=== PATIENT | male | born 1980 | race Caucasian/White ===

== ENCOUNTER → 2017-11-28 09:35 | Outpatient (CLI) | payer OTHER, SELFPAY ==
--- NOTE | 2017-11-28 09:42 | RAD_ITS ---
STUDY: X-RAY - THORACIC SPINE REASON FOR EXAM: Male, 37 years old. Several week history of back pain. No known injury. TECHNIQUE: 3 view(s) of the thoracic spine were obtained. COMPARISON: None. FINDINGS: Normal kyphosis of the thoracic spine. There is no substantial scoliosis. There is endplate spondylosis of the mid thoracic vertebrae. Mild disc space narrowing in the mid dorsal vertebrae. The soft tissue structures are unremarkable. RAD/Thoracic Spine 3 Views IMPRESSION: Degenerative changes. Electronically Signed: Wolfgang Slade MD at 15:38 EDT Tel [phone], Service support ,
== END ==
PROVIDERS: Family Provider Family Medicine; PCP Family Medicine; Visit Provider Family Medicine
DX: M47.894 Other spondylosis, thoracic region (principal); M48.04 Spinal stenosis, thoracic region
CPT/HCPCS: 72072

== ENCOUNTER 2018-01-15 09:30 | Outpatient (RCR) | payer OTHER, SELFPAY ==
--- NOTE | 2017-12-18 07:31 | HP.PTEVAL_ITS ---
Patient's Visit Information MC BACH is a 37 year old M referred to Physical Therapy by Erica Dia MD with a diagnosis of Thoracic spine pain. Date of Evaluation: 12/11/17 Physical Therapist: Tucker Degroot - Visit Plan Frequency: 2x /Week Duration: 4 Weeks Plan: Start with STM/modalities to L side of thoracic erector spinea, PAs grade III/IV to thoracic spine, thoracic ext progression. - Subjective Subjective: Pt. is here today for his initial evaluation with diagnosis of thoracic back pain. Pt. reports unknown mechanism of injury, but woke up and had increased pain. He reports a gradual onset. 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 Pt. denies N/T, no shortness of breath, but does report mild radiating symptoms to L side of thoracic cavity. He reports no pain with deep breathing. Pt. is able to sleep with mild symptoms. He reports increased pain with pressure to this region, with bending over and with lifting. He does have decreased symptoms while not working. Pt. is hopeful to reduce symptoms in order to get back to all recreational and work related activities without limitations. - Pain Thoracic spine Pain Intensity (Out of 10): 4 Pain Intensity Range: 1, 7 - Objective POSTURE: Rounded shoulders, protracted scapulea, increased thoracic kyphosis, FH. Pt. is able to improve with VCing, but has difficulty maintaining. PALPATION: Pt. has increased pain with spring testing to T3-T8 mild ( hypomobility noted), increased pain with palpation of L thoracic erector spinea , T5-T7 L ribs, L mid trap. NEUROLOGICAL: Pt has normal sensation throughout bilateral UE/LEs. Pt. has 2+ biceps, triceps, patellar and achilles DTR. Pt. has no upper limb tension noted. ROM: Pt. has full ROM of bilateral UEs. Pt. has full cervical spine ROM without increase in symptoms. THORACIC SPINE: Pt. has normal flexion, decreased min loss ext with increase in symptoms. Rotation/ Sb normal in thoracic spine. MMT: Pt. has 5/5 bilateral shoulder strength, pt. has 4+/5 L mid trap and rhomboid with increase in pain with testing. No pain or limitation with RUE testing. - Special Tests Thoracic Sitting: Flexion - Mechanical Response: No effect Thoracic Sitting: Flexion - Symptoms During Testing: No effect Thoracic Sitting: Flexion - Symptoms After Testing: No effect Thoracic Sitting: Extension - Mechanical Response: No effect Thoracic Sitting: Extension - Symptoms During Testing: Increases Thoracic Sitting: Extension - Symptoms After Testing: No worse Thoracic Sitting: Right rotation - Mechanical Response: No effect Thoracic Sitting: Right Rotation - Symptoms During Testing: No effect Thoracic Sitting: Right Rotation - Symptoms After Testing: No effect Thoracic Sitting: Left rotation - Mechanical Response: No effect Thoracic Sitting: Left Rotation - Symptoms During Testing: No effect Thoracic Sitting: Left Rotation - Symptoms After Testing: No effect Thoracic Lying: Prone Extension - Mechanical Response: No effect Thoracic Lying: Prone Extension - Symptoms During Testing: Increases Thoracic Lying: Prone Extension - Symptoms After Testing: No worse - Goals Goal 1:: Pt. to be I with HEP. Goal Time Frame: 4-6 Weeks Goal 2:: Pt. to have increased thoracic ext by 25% without increase in symptoms. Goal Time Frame: 4-6 Weeks Goal 3:: Pt. to maintain improved posture throughout therapy session indicating increased postural awareness. Goal Time Frame: 4-6 Weeks Goal 4:: Pt. to reports no pain with all work related activities. Goal Time Frame: 4-6 Weeks - Rehabilitation Potential Physical Therapy Diagnosis: Pt. has signs and symptoms consistent with L sided thoracic spine pain. Pt. has general flexed thoracic spine posture. Pt. has no radiating symptoms, but has increased pain with lifting and flexed posture. Pt. would benefit from PT to increase thoracic spine ext, posture strengthening, and pain control with tissue inhibition in order to get back to all work and recreational activities without limitations. Rehabilitation Potential: Good - Anticipated Interventions Patient/Client Instruction: Educate patient on: Condition, Plan of Care, Risk Factors, Benefits of Fitness Program For the Purpose of:: To foster healthy habits, To improve decision making, To facilitate caregiver knowledge, To improve self management, To prevent re-injury , To improve ability to perform tasks related to life management, To improve tolerance to ADL's Therapeutic Exercise to Include: Strength training, Power training, Endurance training, Flexibilty training, Passive ROM, Active ROM For the Purpose of:: To decrease pain, To increase ROM, To improve nutrient delivery to tissue, To increase oxygenation perfusion, To improve muscle performance and motor function, To improve ability to perform ADL's, To increase tolerance to activity/condition/position, To improve health of tissue, To decrease soft tissue restriction, To increase flexibility/ROM Manual Therapy Techniques to Include: Trigger point massage, Massage, Mobilization, Functional dry needling, Soft tissue mobilization For the Purpose of:: To decrease pain, To decrease swelling/inflammation, To increase ROM IF ES: Yes Thermo therapy (hot pack): Yes Ultrasound (thermal/non thermal): Yes For the Purpose of:: To decrease pain, To increase ROM, To improve nutrient delivery to tissue Thank you for the opportunity to evaluate your patient. For Medicare and Medicare HMO plans, please review the plan of care and approve it. It will need to be FAXED BACK to us at [phone] for Medicare purposes. Please let me know if there are questions or concerns regarding this plan of care. Physician Signature: Date:
--- NOTE | 2018-01-23 10:25 | HP.PTDCSUM_ITS ---
HP - PT D/C Summary It has been my pleasure to treat MC BACH under orders from Erica Dia MD, for the diagnosis of Thoracic spine pain for a total of 9 visit(s). Discharge Date: 01/15/18 Please see the following information for a summary of their discharge status. - Subjective Subjective: Pt. is here toady for his follow with supervising PT. Pt. reports overall no significant change with PT. He reports having 2-3 hours of relief with manipulation of this thoracic spine, but came back when he got back into job activities. - Pain Thoracic spine Pain Intensity (Out of 10): 3 - Overall Improvement % Improvement: 25 - Objective Objective/Function: ROM: lumbar spine- full motion no increase in symptoms. Thoracic spine: flexion min loss increase NW, ext min loss increase NW, SB NE, rotation min loss bilat increase NW bilaterally. MMT: PT. has full strength without increase in symptoms. POSTURE: Pt. continues to have increased thoracic kyphosis in sitting and standing. Pt. is able to improve, but has difficulty maintaining. I educated pt. on proper posture and exercises to increase mid thoracic strength to improve endurance with posture. Pt. reports understanding. Pt. continues to have increased hypomobility throughout thoracic spine with increased pain with spring testing at T4-T8, radiating bilaterally to scapular region. - Goals Goal 1:: Pt. to be I with HEP. Goal Progress: Goal Met Goal 2:: Pt. to have increased thoracic ext by 25% without increase in symptoms. Goal Progress: Progressing Goal 3:: Pt. to maintain improved posture throughout therapy session indicating increased postural awareness. Goal Progress: Progressing Goal 4:: Pt. to reports no pain with all work related activities. Goal Progress: Not Progressing - Plan Plan: Pt. to follow up with physician at this point in time, due to limited progress. Pt. did have mild relief and short lived with manipulation of thoracic spine. He has continued to poor posture and flexed positioning at work which is most likely leading to pain. He may benefit from further imaging to rule out discogenic pathology in thoracic spine. - D/C Information Discharge Comments: Pt. was treated for his thoracic spine pain. He was treated with modalities, repeated motions, strengthening, manual techniques with manipulaton with mild relief. He had some relief for ~2-3 hours with manipulaton , but not long lasting. He continues to have poos posture, marked through his thoracic spine. He has been edcuated on proper posture and is able to achieve, but has difficulty maintaining. He is to continue with HEP as given and follow up with physician to determine best course of action at this point in time. If there are questions or concerns regarding this patient's physical therapy, please feel free to call me at [phone]. Thank you for the referral of this patient. Sincerely, Tucker Degroot
== END 2018-01-15 19:00 | disposition home or self-care (01) ==
LOC: PT 09:30
PROVIDERS: Family Provider Family Medicine; PCP Family Medicine; Visit Provider Family Medicine
DX: M54.6 Pain in thoracic spine (principal)
CPT/HCPCS: 97014; 97035; 97110; 97140; 97161; 97530; G0283

== ENCOUNTER → 2018-01-22 16:52 | Outpatient (CLI) | payer OTHER, SELFPAY ==
--- NOTE | 2018-01-22 16:55 | RAD_ITS ---
STUDY: X-RAY CHEST REASON FOR EXAM: Male, 37 years old. Thoracic back pain. TECHNIQUE: PA and lateral views of the chest. COMPARISON: None. FINDINGS: The lungs are clear and expanded. There is no demonstrated pleural abnormality. Normal size heart. Normal mediastinum and rhianna. Normal visualized pulmonary arteries. Normal visualized aortic arch and descending thoracic aorta. There is endplate spondylosis of the mid thoracic vertebra. Normal visualized ribs, clavicles, and shoulders. There is no demonstrated abnormality of the visualized soft tissue structures of the upper abdomen. RAD/Chest PA and Lateral IMPRESSION: Degenerative changes. Electronically Signed: Zee Maurer MD at 8:51 EDT Tel , Service support ,
== END ==
PROVIDERS: Family Provider Family Medicine; PCP Family Medicine; Visit Provider Family Medicine
DX: M47.894 Other spondylosis, thoracic region (principal)
CPT/HCPCS: 71046

== ENCOUNTER → 2018-07-03 08:51 | Outpatient (CLI) | payer OTHER, SELFPAY ==
--- NOTE | 2018-07-03 08:55 | RAD_ITS ---
STUDY: X-RAY - UNILATERAL RIBS ( LEFT ) WITH CHEST REASON FOR EXAM: Male, 38 years old. 2 day history of left lateral rib pain following injury. TECHNIQUE - RIBS: 4 view(s) of the ribs. TECHNIQUE - CHEST: Single PA view of the chest. COMPARISON: None. FINDINGS - RIBS: Normal visualized ribs without a demonstrated fracture. FINDINGS - CHEST: The lungs are clear and expanded. There is no demonstrated pleural abnormality. Normal size heart. Normal mediastinum and rhianna. Normal visualized pulmonary arteries. Normal visualized aortic arch and descending thoracic aorta. Normal visualized thoracic spine. Normal visualized ribs, clavicles, and shoulders. There is no demonstrated abnormality of the visualized soft tissue structures of the upper abdomen. RAD/Ribs Uni Min 3V w/PA Chest IMPRESSION: RIBS: Normal x-ray examination of the ribs. CHEST: Normal x-ray examination of the chest. Electronically Signed: Wolfgang Slade MD at 9:27 EDT Tel [phone], Service support ,
== END ==
PROVIDERS: Family Provider Family Medicine; PCP Family Medicine; Referring Provider Physician Assistant; Visit Provider Physician Assistant
DX: R07.81 Pleurodynia (principal)
CPT/HCPCS: 71101

== ENCOUNTER → 2018-07-30 08:23 | Outpatient (CLI) | payer OTHER, SELFPAY ==
--- NOTE | 2018-08-09 08:43 | RAD_ITS ---
STUDY: X-RAY - RIGHT WRIST REASON FOR EXAM: Male, 38 years old. Soft tissue swelling following a fall. TECHNIQUE: 3 view(s) of the wrist were obtained. COMPARISON: None. FINDINGS: Normal visualized distal radius and ulna. Normal radiocarpal articulation. Normal distal radioulnar articulation. There is nondisplaced avulsion fracture of the triquetrum. Normal carpal articulations. Normal carpometacarpal articulation of the thumb. Normal second through fifth carpometacarpal articulations. Normal visualized metacarpal bones. The soft tissue structures are unremarkable. RAD/Wrist min 3 Views IMPRESSION: Nondisplaced avulsion fracture of the dorsal aspect of the triquetrum. Electronically Signed: Wolfgang Slade MD at 9:12 EST Tel [phone], Service support ,
--- OUTSIDE RECORDS SUMMARY | 2018-10-04 01:50 | XMS RPT_ITS ---
:1980 Author Organization OHIP Support Name Relationship Address Phone [employer] Unavailable [address] + [place] [address] SPARKLE BACHANDRA Unavailable [address] + [place] [address] + [place] [address] SPARKLE BACHANDRA Unavailable [address] + [place] [address] + [place] [address] SPARKLE BACHANDRA Unavailable [address] + [place] [address] + [place] [address] SPARKLE BACHANDRA Unavailable [address] + [place] [address] + [place] [address] SPARKLE BACHANDRA Unavailable [address] + [place] [address] + [place] [address] MIKALA NAA Unavailable [address] + [place] [address] [address] + [place] [address] SPARKLE BACHANDRA Unavailable [address] + [place] [address] + [place] [address] SPARKLE BACHANDRA Unavailable [address] + [place] [address] + [place] [address] MIKALA, NAA Unavailable [address] + [place] [address] + [place] [address] MIKALA, NAA Unavailable [address] + [place] [address] [address] + [place] [address] MIKALA, NAA Unavailable [address] + [place] [address] + [place] [address] MIKALA, NAA Unavailable [address] + [place] [address] Care Team Providers Name Role Phone Erica Dia Attending Unavailable Cobos, Dandre Primary Care Unavailable Erica Dia Attending Unavailable Cobos, Dandre Primary Care Unavailable Cobos, Dandre Attending Unavailable Coobs, Dandre Referring Unavailable Ocbos, Dandre Primary Care Unavailable Lew Vora Attending Unavailable Cobos, Dandre Referring Unavailable Lew Vora Attending Unavailable Lew Vora Referring Unavailable Cobos, Dandre Primary Care Unavailable Lew Vora Attending Unavailable Cobos, Dandre Referring Unavailable Lew Vora Attending Unavailable Cobos, Dandre Referring Unavailable Hernan Gomez Attending Unavailable Cobos, Dandre Referring Unavailable Hernan Gomez Attending Unavailable Jason, Hernan Referring Unavailable Cobos, Dandre Primary Care Unavailable Hernan Gomez Attending Unavailable Cobos, Dandre Referring Unavailable DamascusHernan yi Attending Unavailable Jason, Hernan Referring Unavailable Cobos, Dandre Primary Care Unavailable Abhishek Ocasio Attending Unavailable Cobos, Dandre Referring Unavailable PROBLEMS PROBLEMS DATE TYPE CONDITION / CODE ATTENDING STATUS SOURCE 08/09/2018 Unknown S69.91XA - Hernan Gomez Active [facility] injury of right Hospital wrist, hand and Repository finger(s), initial encounter / S69.91XA(ICD-10) 08/20/2018 Unknown M25.539 - Pain in Hernan Gomez Active [place] unspecified wrist Community / M25.539(ICD-10) Hospital Repository 08/16/2018 Unknown R07.81 - Lew Vora Active [place] Pleurodynia / Community R07.81(ICD-10) Hospital Repository 08/16/2018 Unknown S39.011A - Strain Lew Vora Active [place] of muscle, fascia Community and tendon of Hospital abdomen, initial Repository encounter / S39.011A(ICD-10) 01/25/2018 Unknown M54.6 - Pain in Erica Dia Active [place] thoracic spine / Community M54.6(ICD-10) Hospital Repository PROCEDURES PROCEDURES No Procedure Records FoundRESULTS RESULTS ORTHOPEDIC VISIT Observed: 08/15/2018 Status: F Source: [place] 12:16 [place] [facility] [place] [facility] [address] [place] [address] [address] [place] [address] OFFICE VISIT Date of Service: 08/13/18 MR#: [id number] Acct: [id number] Name: MC BACH Rep #: [id number] : 1980 Provider: TREVA Ocasio Age/Sex: 38/M [place] [facility] [place] Status: Signed Intake Intake Visit Reasons: RIGHT WRIST Is patient in pain?: Yes Allergies animal dander Allergy (Verified 08/13/18 13:18) Other oxycodone HCl [From Percocet] Allergy (Verified 08/13/18 13:18) Other tomato Allergy (Verified 08/13/18 13:18) Food Allergy hydrocodone bitartrate [From Vicodin] Adverse Reaction (Verified 08/13/18 13:18) Itching Medications esomeprazole magnesium 20 mg capsule,delayed release 20 mg PO DAILY 07/03/18 [History Confirmed 08/09/18] metformin 1,000 mg tablet 1,000 mg PO DAILY 07/03/18 [History Confirmed 08/09/18] sertraline 25 mg tablet 25 mg PO DAILY 07/03/18 [History Confirmed 08/09/18] PFSH Medical History Knee pain (Acute) Shoulder pain (Acute) neck/back pain (Acute) Surgical History History of carpal tunnel surgery (Acute) History of rotator cuff surgery (Acute) S/P vasectomy (Acute) planter facia release (Acute) Family History Mother Diabetes Social History Smoking Status: Never smoker alcohol intake: current alcohol intake frequency: a few times a month HPI RIGHT WRIST: Details: MC BACH is a 38 year old M here today for right wrist pain. Patient notes that he fell on ice this past Sunday. He landed on an outstretched arm. Patient notes that he went to Dr Gomez who ordered xrays. He was told that he has a wrist fracture. Patient had a wrap which he has been wearing at all times which is helpful. He states he had swelling which has decreased since his injury. Denies numbness, tingling or other associated symptoms. ROS Const Reports system reviewed and no additional complaints, except as docu Eyes Reports system reviewed and no additional complaints, except as docu ENT Reports system reviewed and no additional complaints, except as docu Card Reports system reviewed and no additional complaints, except as docu Resp Reports system reviewed and no additional complaints, except as docu GI Reports system reviewed and no additional complaints, except as docu Reports system reviewed and no additional complaints, except as docu Musc Reports joint pain, Reports joint swelling Skin/Breast Reports system reviewed and no additional complaints, except as docu Neuro Yes system reviewed and no additional complaints, except as docu Psych Reports system reviewed and no additional complaints, except as docu Endo Reports system reviewed and no additional complaints, except as docu Ortho Exam Right Wrist/Hand Skin/Wound: Yes Swelling, Yes Ecchymosis Contralateral Normal: Yes Right Wrist: Yes ROM-Pronation 0-80, ROM-Supination 0-90 and TTP Fracture site (Dorsal surface over the triquetrum); no ROM-Extension 0-60, ROM-Flexion 0- 80, Durken's Test or Snuffbox tenderness Motor: EPL: 5, FDP-2: 5, 1st Dorsal Interosseous: 5, APB: 5 Sensation: Radial: I, Ulnar: I, Median: I WRIST: Patient has some generalized swelling on the dorsal surface of the wrist with some mild ecchymosis noted as well. He has localized pain to the dorsal wrist over the carpal bones specifically over the triquetrum. He does have some stiffness and decreased range of motion due to swelling and discomfort. He has normal sensation throughout the hand and fingers. Left Wrist/Hand Skin/Wound: Yes Swelling, Yes Ecchymosis Assessment AND Plan Problems 1. Closed nondisplaced fracture of triquetrum of right wrist, initial encounter S62.114A Plan We reviewed the x-rays that were taken within the past week. X-rays show an evident cortical avulsion fracture of the dorsal triquetrum. We discussed the anatomy and physiology of the wrist as well as pathophysiology of such an injury. We discussed typically that these can be treated nonoperatively with this dorsal cortical avulsion at the same time always need to be careful of instability of the wrist. He does have some generalized swelling of the dorsal wrist with mild ecchymosis. There is tenderness to the site of the fracture. At this time we discussed the treatment options and patient agreed to go ahead and have a short arm cast applied to the wrist for 4-6 weeks. We will recheck the wrist and x-rays in 1 week. At the end of 4-6-week. We will get him out of plaster and start physical therapy. At that time we again will need to be careful and cautious with any type of wrist instability due to ligamentous attachment on the dorsal triquetrum. Patient can take anti-inflammatories as needed for pain and will need to try and elevate the wrist above the heart especially the first several days of being in the cast. He is to notify of any increasing pains underneath the cast and/or any numbness or tingling in the fingers. Can also monitor for any breakdown of skin on the distal or proximal portions of the cast. This note was generated with [employer] dictation software. It may contain incorrect words, spelling, and punctuation that were not noted in checking the note before signing. Plan Detail Follow Up 1 Week Coding Level of Care Code Off vis,est,level 3 Diagnoses Closed nondisplaced fracture of triquetrum of right wrist, initial encounter S62.114A Encounter type: initial encounter Fracture type: closed Fracture alignment: nondisplaced 08/15/18 1216 <Electronically signed by Abhishek TILLEY> Date Abhishek TILLEY Cosigner Signature: Date (if applicable) CC: SURGERY VISIT REPORT Observed: 08/09/2018 Status: F Source: [place] 9:19 AM [facility] [place] [facility] [address] [place] [address] OFFICE VISIT Date of Service: 08/09/18 MR#: [id number] Acct: [id number] Name: MC BACH Rep #: [id number] : 1980 Provider: Hernan Gomez MD Age/Sex: 38/M Location: [facility] Status: Signed Intake Intake Visit Reasons: F/U CT Results 08/05 Chief Complaint: left side pain Shearing Supervisor Required: No Is patient in pain?: No Allergies animal dander Allergy (Verified 08/09/18 08:05) Other oxycodone HCl [From Percocet] Allergy (Verified 08/09/18 08:05) Other tomato Allergy (Verified 08/09/18 08:05) Food Allergy hydrocodone bitartrate [From Vicodin] Adverse Reaction (Verified 08/09/18 08:05) Itching Medications esomeprazole magnesium 20 mg capsule,delayed release 20 mg PO DAILY 07/03/18 [History Confirmed 08/09/18] metformin 1,000 mg tablet 1,000 mg PO DAILY 07/03/18 [History Confirmed 08/09/18] sertraline 25 mg tablet 25 mg PO DAILY 07/03/18 [History Confirmed 08/09/18] [facility] Medical History Knee pain (Acute) Shoulder pain (Acute) neck/back pain (Acute) Surgical History History of carpal tunnel surgery (Acute) History of rotator cuff surgery (Acute) S/P vasectomy (Acute) planter facia release (Acute) Family History Mother Diabetes Social History Smoking Status: Never smoker alcohol intake: current alcohol intake frequency: a few times a month HPI HPI HPI: MC BACH is a 38 M who presents to the office today for reevaluation from a strain to his left rib cage. Patient underwent a CAT scan of his chest abdomen and pelvis. This was done for suffering an injury at work. CT scan of the abdomen revealed only a fatty liver otherwise was unremarkable for any acute pathology. The spleen was normal as was the gallbladder and biliary system in the pancreas. His kidneys look normal as well in addition the patient underwent a CAT scan of his chest this was viewed as an unremarkable contrast-enhanced CT scan of chest showing no signs of pulmonary infiltrates or pleural effusions no pulmonary nodules no pulmonary masses and no pneumothorax. Patient states he fell backwards today coming in to see me. He landed on his right wrist with it flexed. Patient states that it is tender to touch and he cannot dorsiflex or extend his wrist in any fashion. He has normal sensations to his fingers peer Exam Extrem Other: Patient's right wrist shows no obvious signs of deformity. It is tender to touch both on the anterior aspect and in the wrist component itself. He can extend his fingers slightly and he has normal sensation to his fingers. Assessment AND Plan Problems 1. Strain of abdominal wall, initial encounter S39.011A 2. Rib pain on left side R07.81 3. Acute pain of right wrist M25.531 Plan With regards to his discomfort on the left side this is always strain and there is no physical abnormalities that I can see on the CAT scan of both chest or abdomen. From my standpoint there is no surgical interventions that need to be done here and I am going to discharge him back to his primary care physician for further evaluation whether or not he can go back to work. With regards to his right wrist I am going to to obtain a 3 view x-ray and refer him to Dr. Berlin Alan his orthopedic doctor so that she can evaluate him for any further interventions that need to be performed. Orders Orders: Referrals: Coding Level of Care Code Off vis,est,level 2 Diagnoses Strain of abdominal wall, initial encounter S39.011A Encounter type: initial encounter Rib pain on left side R07.81 Acute pain of right wrist M25.531 Laterality: right 08/09/18 0919 <Electronically signed by Hernan Gomez MD> Date Hernan Gomez MD Cosigner Signature: Date (if applicable) CC: Maria Guadalupe Robles DO; Dandre Cobos MD WRIST MIN 3 VIEWS Observed: 08/09/2018 Status: F Source: [place] 8:26 AM [facility] REPOSITORY [facility] Imaging Services [address] [place] [address] Wrist min 3 Views MR#: [id number] Acct: [id number] Name: MC BACH Rep #: [id number] : 1980 M 38 From: Wolfgang Slade MD PCP: Dandre Cobos MD Status: PRE CLI Study: Wrist min 3 Views Date of Exam: 08/09/18 Exam# [id number] Ordering Dr: Hernan Gomez MD STUDY: X-RAY - RIGHT WRIST REASON FOR EXAM: Male, 38 years old. Soft tissue swelling following a fall. TECHNIQUE: 3 view(s) of the wrist were obtained. COMPARISON: None. FINDINGS: Normal visualized distal radius and ulna. Normal radiocarpal articulation. Normal distal radioulnar articulation. There is nondisplaced avulsion fracture of the triquetrum. Normal carpal articulations. Normal carpometacarpal articulation of the thumb. Normal second through fifth carpometacarpal articulations. Normal visualized metacarpal bones. The soft tissue structures are unremarkable. RAD/Wrist min 3 Views IMPRESSION: Nondisplaced avulsion fracture of the dorsal aspect of the triquetrum. Electronically Signed: Wolfgang Slade MD at 9:12 EST Tel [phone], Service support , CC: Hernan Gomez MD; Dandre Cobos MD Concrete Pourer: Signed ABDOMEN WITH IV Observed: 08/05/2018 Status: F Source: [place] CONTRAST 6:48 AM [facility] Imaging Services [address] [place] [address] Abdomen WITH IV Contrast MR#: [id number] Acct: [id number] Name: MC BACH Rep #: [id number] : 1980 M 38 From: Lew Batista MD PCP: Dandre Cobos MD Status: REG CLI Study: Abdomen WITH IV Contrast Date of Exam: 08/05/18 Exam# [id number] Ordering Dr: Hernan Gomez MD STUDY: CT ABDOMEN WITH CONTRAST REASON FOR EXAM: Male, 38 years old. Left-sided rib pain after lifting RADIATION DOSAGE (If Supplied By Facility): CTDIvol = ( 22.42 ) mGy, DLP = ( 1669.35 ) mGycm TECHNIQUE: Transaxial images were obtained post I.V. administration of 100 ml of Isovue 300 contrast, and without oral contrast. Sagittal and coronal images were reconstructed. Individualized dose optimization techniques were used for this CT. COMPARISON: None. FINDINGS: There is decreased attenuation of the liver consistent with steatosis. Normal gallbladder and extrahepatic biliary system. Normal spleen. Normal pancreas. Normal bilateral adrenal glands. Normal right kidney. Normal left kidney. Normal visualized stomach. Normal small intestine. Normal colon. The appendix is visualized and appears normal. Normal abdominal aorta. Normal inferior vena cava. Normal retroperitoneum. Normal abdominal wall. Normal osseous structures. CT/Abdomen WITH IV Contrast IMPRESSION: Fatty liver. Otherwise, unremarkable contrast enhanced CT of the abdomen. Electronically Signed: Lew Batista, at 19:06 EST Tel , Service support , CC: Hernan Gomez MD; Dandre Cobos MD Concrete Pourer: Signed CHEST WITH CONTRAST Observed: 08/05/2018 Status: F Source: [place] 6:48 AM [facility] REPOSITORY [facility] Imaging Services [address] [place] [address] Chest WITH Contrast MR#: [id number] Acct: [id number] Name: MC BACH Rep #: [id number] : 1980 M 38 From: Lew Batista MD PCP: Dandre Cobos MD Status: REG CLI Study: Chest WITH Contrast Date of Exam: 08/05/18 Exam# [id number] Ordering Dr: Hernan Gomez MD STUDY: CT CHEST WITH CONTRAST REASON FOR EXAM: Male, 38 years old. Left-sided rib pain after lifting RADIATION DOSAGE (If Supplied By Facility): CTDIvol = ( 22.42 ) mGy, DLP = ( 1669.35 ) mGycm TECHNIQUE: Transaxial imaging was performed following intravenous administration of 100 ml of Isovue 300 contrast material. Coronal and sagittal reformatted images were created. Individualized dose optimization techniques were used for this CT. COMPARISON: None FINDINGS: There are no pulmonary infiltrates or pleural effusions. There are no pulmonary nodules or masses. There is no pneumothorax. The heart and pericardium are within normal limits. There is no thoracic lymphadenopathy. There is no evidence of thoracic aortic aneurysm. The visualized osseous structures are intact. CT/Chest WITH Contrast IMPRESSION: Unremarkable contrast-enhanced CT of the chest. Electronically Signed: Lew Batista, at 19:09 EST Tel , Service support , CC: Hernan Gomez MD; Dandre Cobos MD Concrete Pourer: Signed SURGERY VISIT REPORT Observed: 07/23/2018 Status: F Source: [place] 9:23 AM [facility] [place] [facility] [address] [place] [address] OFFICE VISIT Date of Service: 07/23/18 MR#: [id number] Acct: [id number] Name: MC BACH Rep #: [id number] : 1980 Provider: Hernan Gomez MD Age/Sex: 38/M [place] [facility] Status: Signed Intake Vital Signs07/23/18 Height 5 ft 10 in 07/23/18 Weight: 318 lb Intake Visit Reasons: BWC - Lt Side Abdominal Strain Chief Complaint: left side pain Shearing Supervisor Required: No Is patient in pain?: Yes (left side) Pain scale (1-10): 6 Allergies animal dander Allergy (Verified 07/23/18 08:55) Other oxycodone HCl [From Percocet] Allergy (Verified 07/23/18 08:55) Other tomato Allergy (Verified 07/23/18 08:55) Food Allergy hydrocodone bitartrate [From Vicodin] Adverse Reaction (Verified 07/23/18 08:55) Itching Medications esomeprazole magnesium 20 mg capsule,delayed release 20 mg PO DAILY 07/03/18 [History Confirmed 07/23/18] metformin 1,000 mg tablet 1,000 mg PO DAILY 07/03/18 [History Confirmed 07/23/18] sertraline 25 mg tablet 25 mg PO DAILY 07/03/18 [History Confirmed 07/23/18] PFSH Medical History Knee pain (Acute) Shoulder pain (Acute) neck/back pain (Acute) Surgical History S/P vasectomy (Acute) History of carpal tunnel surgery (Acute) History of rotator cuff surgery (Acute) planter facia release (Acute) Family History Mother Diabetes Social History Smoking Status: Never smoker alcohol intake: current alcohol intake frequency: a few times a month HPI HPI HPI: MC BACH, is a 38 M who presents to the office today for initial evaluation left upper abdomen/left rib 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 Patient notes he had lifted a product bending laterally to his right to lift the product up onto his right shoulder, developing pain to his left abdomen in the anterior upper quadrant as well as the left lateral rib cage. He notes pain is aggravated to touch with deep inspiration, though noting no complaints of shortness of breath. He notes his symptoms are alleviated minimally with splinting/shallow breathing. He notes no changes in bowel or bladder function. He notes taking no [id number] products to assist with symptoms. He notes his symptoms have only progressively worsened since the date of the injury describing moderate severe aching pain to the same. Patient also states that he went to work on light duty however he ended up bending and twisting and reinjuring the area at a later date from his initial injury. He states that the pain really has not improved and just doing the normal activities of his work are very difficult at this time. He has not had any nausea or vomiting he has had no change in his bowel habits. ROS General General: No weight change, appetite, fatigue, colon cancer, breast cancer or weakness HEENT HEENT: No difficulty swallowing, eye injury, eye surgery, swollen glands or hoarseness Endo Endocrine: No thyroid disease, diabetes mellitus, thyroid cancer, Hair loss, heat intolerance or cold intolerance Skin Skin: No rash or changing moles Breast Breast: No left breast lump, right breast lump, nipple discharge, breast pain, abnormal mammogram, abnormal US or breast enlargement Musc Musculoskeletal: No back problems, arthritis, rheumatoid arthritis, gout or joint pain Cardio Cardiovascular: No murmur, pacemaker, heart disease, atrial fibrillation, high blood pressure, heart attack, heart stent, palpitations, shortness of breat with exertion or chest pain Psych Psychiatric: Yes depression and anxiety; no hearing voices Resp Respiratory: Yes sleep apnea, No shortness of breath, No cough, No COPD, No asthma, No emphysema, No wheezing Gastro Gastrointestinal: Yes abdominal pain, Yes acid reflux, No nausea or vomiting, No diarrhea, No constipation, No blood in stool, No hemorrhoids, No ulcers, No gallbladder problem, No black,tarry stools Aman Hematologic: No blood thinners, No blood disorders, No bleeding, No anemia, No blood clots Neuro Neurologic: Yes numbness, Yes tingling, No system reviewed and no additional complaints, except as docu, No as per HPI, No abnormal walking, No abnormal hearing, No abnormal movements, No abnormal speech, No behavioral changes, No burning sensations, No confusion, No seizure-like activity, No unsteadiness, No dizziness, No localized weakness, No frequent falls, No headache(s), No lack of coordination, No loss of vision, No memory loss, No other visual disturbances, No radiating pain, No restless legs, No sensory deficit, No fainting, No tremor(s), No weakness, No other Exam Const General: well developed, no acute distress, well hydrated Orientation: oriented to person, oriented to place, oriented to time Eyes Sclera: sclerae normal Pupils: normal by confrontation Neck Neck: no lymphadenopathy noted Neck mass: No Thyroid: symmetrical, thyroid normal Chest Chest palpation AND inspection: normal inspection of the chest Breast Palpation: No nipple discharge Other: Patient's chest shows no signs of rash no signs of irritation there is no bulges palpated his tenderness is along the costal margin of his ribs as well. I can feel no bowling up of muscle but this is difficult secondary to his obesity. Resp Effort AND Inspection: normal respiratory effort Auscultation: clear to auscultation bilaterally Percussion: percussion normal Cardio Rate: regular rate Rhythm: regular rhythm Heart Sounds: no murmurs GI Palpation: soft, no masses, no hepatosplenomegaly, nontender Rectal Exam: other Other: Rectal exam deferred. Abdomen shows no signs of rebound guarding or peritoneal sign. He does have tenderness along the left costal margin this tenderness is also along the left flank. Extrem General: no clubbing, cyanosis or edema, normal to inspection Assessment AND Plan Problems 1. Rib pain on left side R07.81 2. Strain of abdominal wall, initial encounter S39.011A Plan At this point I think it is important that we get a CAT scan of the chest and abdomen. I want to make absolutely certain that he has not detached any of his oblique muscles off of their origin. Due to his obesity is really difficult to ascertain if these muscles have been torn to any certain degree. Habits he does not have any abdominal hernias and as long as the CAT scans are essentially negative with regards to any muscle injuries I would assume that his pain is going to subside with time. If the CAT scan is negative we will be discharging him back to urgent care for further workup of his Worker's Compensation case. Orders Orders: Coding Level of Care Code Off vis,new,level 4 Diagnoses Rib pain on left side R07.81 Strain of abdominal wall, initial encounter S39.011A Encounter type: initial encounter 07/23/18 0923 <Electronically signed by Hernan Gomez MD> Date Hernan Gomez MD Cosigner Signature: Date (if applicable) CC: Dandre Cobos MD; Lew TILLEY URGENT CARE VISIT Observed: 07/17/2018 Status: F Source: [place] RE[place] 2:27 PM [facility] [address] [place] [address] OFFICE VISIT Date of Service: 07/17/18 MR#: [id number] Acct: [id number] Name: MC BACH Shaye Rep #: [id number] : 1980 Provider: Lew TILLEY Age/Sex: 38/M Location[place] [facility] Status: Signed Intake Vital Signs07/17/18 Height 5 ft 10 in Intake Visit Reasons: LEFT SIDE ABD STRAIN/ BEST BUY Chief Complaint: left side pain Allergies animal dander Allergy (Verified 07/17/18 07:55) Other oxycodone HCl [From Percocet] Allergy (Verified 07/17/18 07:55) Other tomato Allergy (Verified 07/17/18 07:55) Food Allergy hydrocodone bitartrate [From Vicodin] Adverse Reaction (Verified 07/17/18 07:55) Itching Medications esomeprazole magnesium 20 mg capsule,delayed release 20 mg PO DAILY 07/03/18 [History Confirmed 07/17/18] metformin 1,000 mg tablet 1,000 mg PO DAILY 07/03/18 [History Confirmed 07/17/18] sertraline 25 mg tablet 25 mg PO DAILY 07/03/18 [History Confirmed 07/17/18] [facility] Medical History Knee pain (Acute) Shoulder pain (Acute) neck/back pain (Acute) planter facia release (Acute) Surgical History History of carpal tunnel surgery (Acute) History of rotator cuff surgery (Acute) Social History Smoking Status: Never smoker alcohol intake: current alcohol intake frequency: a few times a month HPI HPI Chief Complaint: left side pain Details: MC BACH, is a 38 M who presents to the office today for follow-up status post left lower rib cage/left upper abdominal discomfort. Patient notes since last evaluation here he has not received notification that his general surgeon referral has been approved. He notes he has been working within the light duty restrictions as previously established last evaluation. He notes tolerating food and fluids well without complaints of nausea vomiting, and no changes in bowel or bladder function. He notes pain is aggravated to touch and with range of motion at the waist typically with flexion extension and left lateral bend. He notes no other associated symptoms no other alleviating factors. ROS Const Constitutional: No other (ROS negative x10 other than as noted above) Exam Const General: cooperative, healthy appearing, no acute distress, comfortable Nutritional Appearance: obese Orientation: alert, awake, oriented x3 HENMT Head: normal to inspection Ears: hearing grossly normal bilaterally, external ears normal Nose: external nose normal Eyes General: appearance normal, both eyes and all related structures Neck Neck: normal visual inspection Chest Chest palpation AND inspection: normal inspection of the chest, abnormal palpation of chest wall (Tender to palpation left lateral rib cage) Resp Effort AND Inspection: normal respiratory effort, able to speak in complete sentences, symmetric chest movement, no cough Auscultation: Bilateral: Clear to Auscultation Cardio Palpation: normal PMI Rate: regular rate Rhythm: regular rhythm Heart Sounds: S1 normal, S2 normal, no gallops, no murmurs, no rubs Pulses: radial pulses present GI Inspection: normal to inspection Palpation: soft, no hepatosplenomegaly, not firm, no guarding, tender in the LUQ; Negative for not in the RUQ, not in the RLQ, not in the LLQ, not at McBurney's point, Miranda's sign negative or with no rebound tenderness Skin General: no rashes or lesions noted Neuro General: alert, awake, oriented x3, gait normal Cognition: normal cognition Speech: speech normal Gait: normal gait Motor: muscle tone normal throughout Sensory Exam: no sensory deficits noted Psych Appearance: grossly normal Mental Status: mental status grossly normal Mood: congruent mood Affect: normal affect Speech and Movement: speech and movement normal Attitude: cooperative Thought Process: normal Thought Content: normal Judgment: judgment good Assessment AND Plan Problems 1. Rib pain on left side R07.81 2. Strain of abdominal wall S39.011A Plan No change in return to work restrictions as noted on revised [employer] today. Awaiting C9 approval for general surgeon referral as requested on 07/10/2018. Rest, Advil/Tylenol as needed for symptomatic relief. Follow-up with [facility] in 1 week or after general surgeon evaluation, sooner should symptoms worsen or any other concerns develop. Patient states acknowledging understanding all the above. This note was generated with Offerpopation software. It may contain incorrect words, spelling, and punctuation that were not noted in checking the note before signing. Coding Level of Care Code Off vis,est,level 3 Diagnoses Rib pain on left side R07.81 Strain of abdominal wall S39.011A 07/17/18 1427 <Electronically signed by Lew TILLEY> Date Lew TILLEY [facility] Signature: Date (if applicable) CC: URGENT CARE VISIT Observed: 07/10/2018 Status: F Source: [place] RE[place] 3:40 PM [facility] [address] [place] [address] OFFICE VISIT Date of Service: 07/10/18 MR#: [id number] Acct: [id number] Name: MC BACH Rep #: [id number] : 1980 Provider: Lew TILLEY Age/Sex: 38/M Location[place] [facility] Status: Signed with Addenda ADDENDUM by Lew TILLEY on 07/10/18 at 1540 Addendum entered and electronically signed by TREVA Magallanes 07/10/18 15:40: I have revised patient's return to work restrictions on the [employer] 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 Patient and Employer POC were both informed. HPI Details: MC BACH, is a 38 M who presents to the office today for Assessment AND Plan Problems 1. Strain of abdominal wall S39.011A 2. Rib pain on left side R07.81 Plan - TREVA Magallanes No work until evaluated by general surgeon. C9 submitted today for general surgeon referral. Follow-up with the [facility] in 1 week for reevaluation, emergency room sooner should symptoms worsen or other concerns develop. Patient states acknowledging understanding all the above. This note was generated with Offerpopation software. It may contain incorrect words, spelling, and punctuation that were not noted in checking the note before signing. 07/10/18 1540 <Electronically signed by Lew TILLEY> Date Lew Vora cc: * Signed Intake Vital Signs07/10/18 Height 5 ft 10 in 07/10/18 Weight: 318 lb 07/10/18 Body Mass Index (BMI) 45.6 07/10/18 Blood Pressure 138/84 H 07/10/18 Respiratory Rate 16 Intake Visit Reasons: LEFT SIDE STRAIN/ BEST BUY Chief Complaint: left side pain Shearing Supervisor Required: No Accompanied by: self Is patient in pain?: Yes Allergies animal dander Allergy (Verified 07/10/18 07:10) Other oxycodone HCl [From Percocet] Allergy (Verified 07/10/18 07:10) Other tomato Allergy (Verified 07/10/18 07:10) Food Allergy hydrocodone bitartrate [From Vicodin] Adverse Reaction (Verified 07/10/18 07:10) Itching Medications esomeprazole magnesium 20 mg capsule,delayed release 20 mg PO DAILY 07/03/18 [History Confirmed 07/10/18] metformin 1,000 mg tablet 1,000 mg PO DAILY 07/03/18 [History Confirmed 07/10/18] sertraline 25 mg tablet 25 mg PO DAILY 07/03/18 [History Confirmed 07/10/18] [facility] Medical History Knee pain (Acute) Shoulder pain (Acute) neck/back pain (Acute) planter facia release (Acute) Surgical History History of carpal tunnel surgery (Acute) History of rotator cuff surgery (Acute) Social History Smoking Status: Never smoker alcohol intake: current alcohol intake frequency: a few times a month HPI HPI Chief Complaint: left side pain Details: MC BACH, is a 38 M who presents to the office today for persistent left lower rib cage in the left upper quadrant abdominal discomfort. Patient notes since his last evaluation here he was asked by his employer to lift a heavy product once again which was outside of his work restrictions, and noticed his symptoms to the same region only worsened. He notes no changes in bowel or bladder function though does note after eating it becomes particularly more tender in the same region. He notes his pain is aggravated to touch and with bearing down he notes no other associated symptoms including no complaints of fever, chills, sweats. He notes no other alleviating factors with the exception of rest and mild flexion of the waist. ROS Const Constitutional: No other (ROS negative x10 other than as noted above) Exam Const General: cooperative, healthy appearing, no acute distress, uncomfortable Nutritional Appearance: average body habitus Orientation: alert, awake, oriented x3 HENMT Head: normal to inspection Neck Neck: normal visual inspection, full ROM Lymphatic: no lymphadenopathy noted Chest Chest palpation AND inspection: normal inspection of the chest, abnormal palpation of chest wall (tender to palpation L lateral distal rib cage) Resp Effort AND Inspection: normal respiratory effort, able to speak in complete sentences, symmetric chest movement, no cough Auscultation: Bilateral: Clear to Auscultation Cardio Palpation: normal PMI Rate: regular rate Rhythm: regular rhythm Heart Sounds: S1 normal, S2 normal, no gallops, no murmurs, no rubs Pulses: radial pulses present GI Inspection: normal to inspection Palpation: soft, no hepatosplenomegaly, not firm, no hernias, no masses, No ascites, tender in the LUQ; Negative for not in the LLQ, not in the RLQ, not in the RUQ, not at McBurney's point, Miranda's sign negative, with no rebound tenderness or not periumbilically Skin General: no rashes or lesions noted Neuro General: alert, awake, oriented x3, gait normal Cognition: normal cognition Speech: speech normal Gait: normal gait Motor: muscle tone normal throughout Sensory Exam: no sensory deficits noted Extrem General: normal to inspection Psych Appearance: grossly normal Mental Status: mental status grossly normal Mood: congruent mood Affect: normal affect Speech and Movement: speech and movement normal Attitude: cooperative Thought Process: normal Thought Content: normal Judgment: judgment good Assessment AND Plan Problems 1. Strain of abdominal wall S39.011A 2. Rib pain on left side R07.81 Plan No work until evaluated by general surgeon. C9 submitted today for general surgeon referral. [facility], emergency room sooner should symptoms worsen or other concerns develop. Patient states acknowledging understanding all the above. This note was generated with [employer] dictation software. It may contain incorrect words, spelling, and punctuation that were not noted in checking the note before signing. Coding Level of Care Code Off vis,est,level 3 Diagnoses Strain of abdominal wall S39.011A Rib pain on left side R07.81 07/10/18 0812 <Electronically signed by Lew TILLEY> Date Lew TILLEY Cosigner Signature: Date (if applicable) CC: URGENT CARE VISIT Observed: 2018 Status: F Source: [place] REPORT 9:34 AM [facility] [address] [address] OFFICE VISIT Date of Service: 07/03/18 MR#: [id number] Acct: [id number] Name: MC BACH Rep #: [id number] : 1980 Provider: Lew TILLEY Age/Sex: 38/M Location[place] [facility] Status: Signed Intake Vital Signs07/03/18 Height 5 ft 10 in 07/03/18 Weight: 318 lb 07/03/18 Body Mass Index (BMI) 45.6 07/03/18 Blood Pressure 134/86 H Intake Visit Reasons: LEFT SIDE STRAIN/ BEST BUY Chief Complaint: Left upper abdomen/left rib pain Shearing Supervisor Required: No Accompanied by: self Is patient in pain?: Yes Allergies animal dander Allergy (Verified 07/03/18 07:39) Other oxycodone HCl [From Percocet] Allergy (Verified 07/03/18 07:39) Other tomato Allergy (Verified 07/03/18 07:39) Food Allergy hydrocodone bitartrate [From Vicodin] Adverse Reaction (Verified 07/03/18 07:39) Itching Medications esomeprazole magnesium 20 mg capsule,delayed release 20 mg PO DAILY 07/03/18 [History Confirmed 07/03/18] metformin 1,000 mg tablet 1,000 mg PO DAILY 07/03/18 [History Confirmed 07/03/18] sertraline 25 mg tablet 25 mg PO DAILY 07/03/18 [History Confirmed 07/03/18] [facility] Medical History Knee pain (Acute) Shoulder pain (Acute) neck/back pain (Acute) planter facia release (Acute) Surgical History History of carpal tunnel surgery (Acute) History of rotator cuff surgery (Acute) Social History Smoking Status: Never smoker alcohol intake: current alcohol intake frequency: a few times a month HPI HPI Chief Complaint: Left upper abdomen/left rib pain Details: MC BACH, is a 38 M who presents to the office today for initial evaluation left upper abdomen/left rib 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 Patient notes he had lifted a product bending laterally to his right to lift the product up onto his right shoulder, developing pain to his left abdomen in the anterior upper quadrant as well as the left lateral rib cage. He notes pain is aggravated to touch with deep inspiration, though noting no complaints of shortness of breath. He notes his symptoms are alleviated minimally with splinting/shallow breathing. He notes no changes in bowel or bladder function. He notes taking no [id number] products to assist with symptoms. He notes his symptoms have only progressively worsened since the date of the injury describing moderate severe aching pain to the same. He notes no other associated symptoms and no other alleviating or aggravating factors. ROS Const Constitutional: No other (ROS negative x10 other than as noted above.) Exam Const General: cooperative, healthy appearing, no acute distress, uncomfortable Nutritional Appearance: average body habitus Orientation: alert, awake, oriented x3 HENMT Head: normal to inspection Ears: hearing grossly normal bilaterally, external ears normal Nose: external nose normal Neck Neck: normal visual inspection, full ROM Chest Chest palpation AND inspection: normal inspection of the chest, abnormal palpation of chest wall (With left lateral rib cage point tenderness to palpation), abnormal inspection of the chest, other (Left ribs/chest x-rays today = NAP, pending radiologist interpretation) Resp Effort AND Inspection: normal respiratory effort, able to speak in complete sentences, symmetric chest movement Auscultation: Bilateral: Clear to Auscultation Cardio Palpation: normal PMI Rate: regular rate Rhythm: regular rhythm Heart Sounds: S1 normal, S2 normal, no gallops, no murmurs, no rubs Pulses: radial pulses present GI Inspection: normal to inspection Palpation: soft, no hepatosplenomegaly, tender in the LUQ; Negative for not in the RUQ, not in the RLQ, not in the LLQ, not at McBurney's point, Miranda's sign negative, with no rebound tenderness, not suprapubicly, not periumbilically or not in the epigastrum, not firm, no guarding, no pulsatile masses, No ascites, no hernias, no masses Musc Cervical Spine: normal cervical lordosis and cervical ROM normal Thoracic/Lumbar Spine: thoracic and lumbar spine normal to inspection, thoraco-lumbar ROM normal Skin General: no rashes or lesions noted Neuro General: alert, awake, oriented x3, gait normal Cognition: normal cognition Speech: speech normal Gait: normal gait Motor: muscle tone normal throughout Sensory Exam: no sensory deficits noted Psych Appearance: grossly normal Mental Status: mental status grossly normal Mood: congruent mood Affect: normal affect Speech and Movement: speech and movement normal Attitude: cooperative Thought Process: normal Thought Content: normal Judgment: judgment good Assessment AND Plan Problems 1. Strain of abdominal wall S39.011A 2. Rib pain on left side R07.81 Plan Reviewed w/ patient today's Left ribs/chest x-rays = NAP, pending radiologist interpretation; patient states acknowledging understanding. Return to work with restrictions as noted on [employer]. Rest, ice applications, Advil/Tylenol as needed for symptomatic relief. Follow-up with the [facility] in 1 week for reevaluation, sooner should symptoms worsen or any other concerns develop. Patient states acknowledging understanding all the above. This note was generated with Offerpopation software. It may contain incorrect words, spelling, and punctuation that were not noted in checking the note before signing. Orders Orders: Coding Level of Care Code Off vis,new,level 4 Diagnoses Strain of abdominal wall S39.011A Rib pain on left side R07.81 07/03/18 0934 <Electronically signed by Lew TILLEY> Date Lew TILLEY Cosigner Signature: Date (if applicable) CC: RIBS UNI MIN 3V Observed: 2018 Status: F Source: [place] W/PA CHEST 8:55 AM [facility] Imaging Services [address] [place] [address] Ribs Uni Min 3V w/PA Chest MR#: [id number] Acct: [id number] Name: MC BACH Rep #: [id number] : 1980 M 38 From: Wolfgang Slade MD PCP: Dandre Cobos MD Status: REG CLI Study: Ribs Uni Min 3V w/PA Chest Date of Exam: 07/03/18 Exam# [id number] Ordering Dr: Lew Vora STUDY: X-RAY - UNILATERAL RIBS ( LEFT ) WITH CHEST REASON FOR EXAM: Male, 38 years old. 2 day history of left lateral rib pain following injury. TECHNIQUE - RIBS: 4 view(s) of the ribs. TECHNIQUE - CHEST: Single PA view of the chest. COMPARISON: None. FINDINGS - RIBS: Normal visualized ribs without a demonstrated fracture. FINDINGS - CHEST: The lungs are clear and expanded. There is no demonstrated pleural abnormality. Normal size heart. Normal mediastinum and rhianna. Normal visualized pulmonary arteries. Normal visualized aortic arch and descending thoracic aorta. Normal visualized thoracic spine. Normal visualized ribs, clavicles, and shoulders. There is no demonstrated abnormality of the visualized soft tissue structures of the upper abdomen. RAD/Ribs Uni Min 3V w/PA Chest IMPRESSION: RIBS: Normal x-ray examination of the ribs. CHEST: Normal x-ray examination of the chest. Electronically Signed: Wolfgang Slade MD at 9:27 EDT Tel [phone], Service support , CC: Dandre Cobos MD; Lew TILLEY Concrete Pourer: Signed PT D/C SUMMARY (1) Observed: 01/23/2018 Status: F Source: [place] 10:25 AM [facility] [address] [place] [address] [address] [place], [place] [id number] Fax REHABILITATION SERVICES DISCHARGE SUMMARY MR#: [id number] Acct: [id number] Name: MC BACH Rep #: [id number] : 1980 37 From: Tucker Degroot DPT Referring Dr.: Erica Dia MD Status: REG RCR Insurance: [facility] [id number] SELF PAY INSURANCE HP - PT D/C Summary It has been my pleasure to treat MC BACH under orders from Erica Dia MD, for the diagnosis of Thoracic spine pain for a total of 9 visit(s). Discharge Date: 01/15/18 Please see the following information for a summary of their discharge status. - Subjective Subjective: Pt. is here toady for his follow with supervising PT. Pt. reports overall no significant change with PT. He reports having 2-3 hours of relief with manipulation of this thoracic spine, but came back when he got back into job activities. - Pain Thoracic spine Pain Intensity (Out of 10): 3 - Overall Improvement % Improvement: 25 - Objective Objective/Function: ROM: lumbar spine- full motion no increase in symptoms. Thoracic spine: flexion min loss increase NW, ext min loss increase NW, SB NE, rotation min loss bilat increase NW bilaterally. MMT: PT. has full strength without increase in symptoms. POSTURE: Pt. continues to have increased thoracic kyphosis in sitting and standing. Pt. is able to improve, but has difficulty maintaining. I educated pt. on proper posture and exercises to increase mid thoracic strength to improve endurance with posture. Pt. reports understanding. Pt. continues to have increased hypomobility throughout thoracic spine with increased pain with spring testing at T4-T8, radiating bilaterally to scapular region. - Goals Goal 1:: Pt. to be I with HEP. Goal Progress: Goal Met Goal 2:: Pt. to have increased thoracic ext by 25% without increase in symptoms. Goal Progress: Progressing Goal 3:: Pt. to maintain improved posture throughout therapy session indicating increased postural awareness. Goal Progress: Progressing Goal 4:: Pt. to reports no pain with all work related activities. Goal Progress: Not Progressing - Plan Plan: Pt. to follow up with physician at this point in time, due to limited progress. Pt. did have mild relief and short lived with manipulation of thoracic spine. He has continued to poor posture and flexed positioning at work which is most likely leading to pain. He may benefit from further imaging to rule out discogenic pathology in thoracic spine. - D/C Information Discharge Comments: Pt. was treated for his thoracic spine pain. He was treated with modalities, repeated motions, strengthening, manual techniques with manipulaton with mild relief. He had some relief for 2-3 hours with manipulaton, but not long lasting. He continues to have poos posture, marked through his thoracic spine. He has been edcuated on proper posture and is able to achieve, but has difficulty maintaining. He is to continue with HEP as given and follow up with physician to determine best course of action at this point in time. If there are questions or concerns regarding this patient's physical therapy, please feel free to call me at [phone]. Thank you for the referral of this patient. Sincerely, Tucker Degroot <Electronically signed by Tucker Degroot DPT> 01/23/18 1025 CC: Erica Dia MD; Dandre Cobos MD CLS Signed CHEST PA AND LATERAL Observed: 01/22/2018 Status: F Source: [place] 4:55 PM [facility] Imaging Services [address] [place] [address] Chest PA and Lateral MR#: [id number] Acct: [id number] Name: MC BACH Rep #: [id number] : 1980 M 37 From: Zee Maurer MD PCP: Dandre Cobos MD Status: REG CLI Study: Chest PA and Lateral Date of Exam: 01/22/18 Exam# [id number] Ordering Dr: Dandre Cobos MD STUDY: X-RAY CHEST REASON FOR EXAM: Male, 37 years old. Thoracic back pain. TECHNIQUE: PA and lateral views of the chest. COMPARISON: None. FINDINGS: The lungs are clear and expanded. There is no demonstrated pleural abnormality. Normal size heart. Normal mediastinum and rhianna. Normal visualized pulmonary arteries. Normal visualized aortic arch and descending thoracic aorta. There is endplate spondylosis of the mid thoracic vertebra. Normal visualized ribs, clavicles, and shoulders. There is no demonstrated abnormality of the visualized soft tissue structures of the upper abdomen. RAD/Chest PA and Lateral IMPRESSION: Degenerative changes. Electronically Signed: Zee Maurer MD at 8:51 EDT Tel , Service support , CC: Dandre Cobos MD Concrete Pourer: Signed INITAL EVALUATION (1) Observed: 12/18/2017 Status: F Source: [place] - [place] 7:31 AM [facility] [address] [place] [address] Fax REHABILITATION SERVICES INITIAL EVALUATION MR#: [id number] Acct: [id number] Name: MC BACH Rep #: [id number] : 1980 37 From: Tucker Degroot DPT Referring Dr.: Erica Dia MD Status: REG RCR Insurance: [facility] [id number] SELF PAY INSURANCE Patient's Visit Information MC BACH is a 37 year old M referred to Physical Therapy by Erica Dia MD with a diagnosis of Thoracic spine pain. Date of Evaluation: 12/11/17 Physical Therapist: Tucker Degroot - Visit Plan Frequency: 2x /Week Duration: 4 Weeks Plan: Start with STM/modalities to L side of thoracic erector spinea, PAs grade III/IV to thoracic spine, thoracic ext progression. - Subjective Subjective: Pt. is here today for his initial evaluation with diagnosis of thoracic back pain. Pt. reports unknown mechanism of injury, but woke up and had increased pain. He reports a gradual onset. 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 Pt. denies N/T, no shortness of breath, but does report mild radiating symptoms to L side of thoracic cavity. He reports no pain with deep breathing. Pt. is able to sleep with mild symptoms. He reports increased pain with pressure to this region, with bending over and with lifting. He does have decreased symptoms while not working. Pt. is hopeful to reduce symptoms in order to get back to all recreational and work related activities without limitations. - Pain Thoracic spine Pain Intensity (Out of 10): 4 Pain Intensity Range: 1, 7 - Objective POSTURE: Rounded shoulders, protracted scapulea, increased thoracic kyphosis, FH. Pt. is able to improve with VCing, but has difficulty maintaining. PALPATION: Pt. has increased pain with spring testing to T3-T8 mild (hypomobility noted), increased pain with palpation of L thoracic erector spinea, T5-T7 L ribs, L mid trap. NEUROLOGICAL: Pt has normal sensation throughout bilateral UE/LEs. Pt. has 2+ biceps, triceps, patellar and achilles DTR. Pt. has no upper limb tension noted. ROM: Pt. has full ROM of bilateral UEs. Pt. has full cervical spine ROM without increase in symptoms. THORACIC SPINE: Pt. has normal flexion, decreased min loss ext with increase in symptoms. Rotation/Sb normal in thoracic spine. MMT: Pt. has 5/5 bilateral shoulder strength, pt. has 4+/5 L mid trap and rhomboid with increase in pain with testing. No pain or limitation with RUE testing. - Special Tests Thoracic Sitting: Flexion - Mechanical Response: No effect Thoracic Sitting: Flexion - Symptoms During Testing: No effect Thoracic Sitting: Flexion - Symptoms After Testing: No effect Thoracic Sitting: Extension - Mechanical Response: No effect Thoracic Sitting: Extension - Symptoms During Testing: Increases Thoracic Sitting: Extension - Symptoms After Testing: No worse Thoracic Sitting: Right rotation - Mechanical Response: No effect Thoracic Sitting: Right Rotation - Symptoms During Testing: No effect Thoracic Sitting: Right Rotation - Symptoms After Testing: No effect Thoracic Sitting: Left rotation - Mechanical Response: No effect Thoracic Sitting: Left Rotation - Symptoms During Testing: No effect Thoracic Sitting: Left Rotation - Symptoms After Testing: No effect Thoracic Lying: Prone Extension - Mechanical Response: No effect Thoracic Lying: Prone Extension - Symptoms During Testing: Increases Thoracic Lying: Prone Extension - Symptoms After Testing: No worse - Goals Goal 1:: Pt. to be I with HEP. Goal Time Frame: 4-6 Weeks Goal 2:: Pt. to have increased thoracic ext by 25% without increase in symptoms. Goal Time Frame: 4-6 Weeks Goal 3:: Pt. to maintain improved posture throughout therapy session indicating increased postural awareness. Goal Time Frame: 4-6 Weeks Goal 4:: Pt. to reports no pain with all work related activities. Goal Time Frame: 4-6 Weeks - Rehabilitation Potential Physical Therapy Diagnosis: Pt. has signs and symptoms consistent with L sided thoracic spine pain. Pt. has general flexed thoracic spine posture. Pt. has no radiating symptoms, but has increased pain with lifting and flexed posture. Pt. would benefit from PT to increase thoracic spine ext, posture strengthening, and pain control with tissue inhibition in order to get back to all work and recreational activities without limitations. Rehabilitation Potential: Good - Anticipated Interventions Patient/Client Instruction: Educate patient on: Condition, Plan of Care, Risk Factors, Benefits of Fitness Program For the Purpose of:: To foster healthy habits, To improve decision making, To facilitate caregiver knowledge, To improve self management, To prevent re-injury, To improve ability to perform tasks related to life management, To improve tolerance to ADL's Therapeutic Exercise to Include: Strength training, Power training, Endurance training, Flexibilty training, Passive ROM, Active ROM For the Purpose of:: To decrease pain, To increase ROM, To improve nutrient delivery to tissue, To increase oxygenation perfusion, To improve muscle performance and motor function, To improve ability to perform ADL's, To increase tolerance to activity/condition/position, To improve health of tissue, To decrease soft tissue restriction, To increase flexibility/ROM Manual Therapy Techniques to Include: Trigger point massage, Massage, Mobilization, Functional dry needling, Soft tissue mobilization For the Purpose of:: To decrease pain, To decrease swelling/inflammation, To increase ROM IF ES: Yes Thermo therapy (hot pack): Yes Ultrasound (thermal/non thermal): Yes For the Purpose of:: To decrease pain, To increase ROM, To improve nutrient delivery to tissue Thank you for the opportunity to evaluate your patient. For Medicare and Medicare HMO plans, please review the plan of care and approve it. It will need to be FAXED BACK to us at [phone] for Medicare purposes. Please let me know if there are questions or concerns regarding this plan of care. Physician Signature: Date: <Electronically signed by Tucker Degroot DPT> 12/18/17 0731 CC: Erica Dia MD; Dandre Cobos MD CLS Signed For Medicare only, by signing this I certify the plan of care. Physicians Signature Date THORACIC SPINE 3 Observed: 11/28/2017 Status: F Source: [place] VIEWS 9:42 AM [facility] REPOSITORY [facility] Imaging Services [address] [place] [address] Thoracic Spine 3 Views MR#: [id number] Acct: [id number] Name: MC BACH Rep #: [id number] : 1980 M 37 From: Wolfgang Slade MD PCP: Dandre Cobos MD Status: REG CLI Study: Thoracic Spine 3 Views Date of Exam: 11/28/17 Exam# [id number] Ordering Dr: Erica Dia MD STUDY: X-RAY - THORACIC SPINE REASON FOR EXAM: Male, 37 years old. Several week history of back pain. No known injury. TECHNIQUE: 3 view(s) of the thoracic spine were obtained. COMPARISON: None. FINDINGS: Normal kyphosis of the thoracic spine. There is no substantial scoliosis. There is endplate spondylosis of the mid thoracic vertebrae. Mild disc space narrowing in the mid dorsal vertebrae. The soft tissue structures are unremarkable. RAD/Thoracic Spine 3 Views IMPRESSION: Degenerative changes. Electronically Signed: Wolfgang Slade MD at 15:38 EDT Tel [phone], Service support , CC: Erica Dia MD; Dandre Cobos MD Concrete Pourer: Signed ALLERGIES ALLERGIES DATE TYPE / CODE NAME / CODE REACTION SEVERITY SOURCE 08/13/2018 Drug hydrocodone Itching Unknown [place] Allergy/416 bitartrate/[id number] Community 997054([facility] 555(RXNORM) [facility] ED CT) Repository 08/13/2018 Drug oxycodone Other Unknown [place] Allergy/416 HCl/[id number](RXN [facility] 908671([facility] ORM) [facility] ED CT) Repository 08/13/2018 Drug tomato/[id number]( Food Allergy Unknown [place] Allergy/416 RXNORM) [facility] 667366([facility] ED CT) Repository 08/13/2018 Drug animal Other Unknown [place] Allergy/416 dander/[id number]( [facility] 584246[facility] ED CT) Repository ENCOUNTERS ENCOUNTERS ADMIT/DISCHARGE ACCOUNT ADMITTING ENCOUNTER LOCATION SOURCE NUMBER CLASS 08/13/2018/ [id number] Ambulatory BMSBuilding:B [place] 8 1 [place].[facility] Repository 08/09/2018/ [id number] Ambulatory BMSBuilding:B [place] 8 7 [facility] Repository 08/05/2018 [id number] Ambulatory [place] 0 [facility] ing:CT Repository 07/30/2018 [id number] Ambulatory [place] 3 [facility] ing:RAD Repository 07/23/2018/ [id number] Ambulatory BMSBuilding:B [place] 8 5 [facility] Repository 07/17/2018/ [id number] Ambulatory BMSBuilding:B [place] 8 9 [facility] Repository 07/10/2018/ [id number] Ambulatory BMSBuilding:B [place] 8 6 [facility] Repository 2018 [id number] Ambulatory [place] 2 [facility] ing:MTRAD Repository 07/03/2018/ [id number] Ambulatory BMSBuilding:B [place] 8 4 [facility] Repository 01/22/2018 [id number] Ambulatory [place] 3 [facility] ing:MTLAB Repository 01/15/2018/ [id number] Ambulatory [place] 8 4 [facility] Hospital ing:PT Repository 11/28/2017 [id number] Ambulatory [place] 8 [facility] ing:MTRAD Repository PAYERS PAYERS ENCOUNTER GUARANTOR PAYER SUBSCRIBER SOURCE 08/13/2018 MC A Primary MC A [place] [id number] [facility] [id number] [id number] Number: Repository [address]Dur: 330 [id number] [phone] (HP) Date:4373-72-51MJ [address] [place] [address]SE: 08/13/2018 Secondary NOT GIVENUNK [place] Insurance:SELF PAY [facility] Number: Effective Repository Date:2018-08-13 08/09/2018 MC A Primary MC A [place] [id number] Insurance:SELF INS JOHNSONDOB: [facility] [id number] [place] Number: Repository [id number]: 330 [id number] [phone] (HP) Date:2155-26-43CMLIXI[address] [address]XC: 08/09/2018 Secondary MC A [place] Insurance:[facility] JOHNSONDOB: Community CARE [id number] Hospital Number: Repository [id number] Date:6333-99-71IL [address] [place] [address]IB: 08/09/2018 Tertiary NOT GIVENUNK [place] Insurance:SELF PAY [facility] Number: Effective Repository Date:2018-08-09 08/05/2018 MC A Primary MC A [place] [id number] Insurance:SELF INS JOHNSONDOB: [facility] [id number] [place] Number: Repository [address]Nma: 330 [id number] [phone] (HP) Date:9151-52-32KOBDWO[address] [address]DD: 08/05/2018 Secondary MC A [place] Insurance:UNITED TH JOHNSONDOB: Community CARE [id number] [id number] Hospital Number: Repository [id number] Date:1740-34-31RK[address] [address]XN: 08/05/2018 Tertiary NOT GIVENUNK [place] Insurance:SELF PAY [facility] Number: Effective Repository Date:2018-07-25 07/30/2018 MC A Primary MC A [place] [id number] Insurance:UNITED TH JOHNSONDOB: [facility] CARE [id number] [id number] Number: Repository [address]Gji: 330 [id number] [phone] (HP) Date:8373-12-24KL[address] [address]AS: 07/30/2018 Secondary NOT GIVENUNK [place] Insurance:SELF PAY [facility] Number: Effective Repository Date:2018-07-30 07/23/2018 MC A Primary MC A [place] [id number] Insurance:[facility] JOHNSONDOB: [facility] CARE [id number] 0770-07-63[place]JDF[place] Number: Repository [id number]: 330 [id number] [phone] (HP) Date:7453-57-56CY[address] [address]OO: 07/23/2018 Secondary NOT GIVENUNK [place] Insurance:SELF PAY [facility] Number: Effective Repository Date:2018-07-19 07/17/2018 MC A Primary MC A [place] [id number] Insurance:SELF INS JOHNSONDOB: [facility] [id number] Number: Repository [address]Oln: [phone] [id number] [phone] () Date:3261-08-73JMTOLQ [facility] [address]KIEJ[address] [place] [address]SL: 07/17/2018 Secondary MC A [place] Insurance:[facility] JOHNSONDOB: [facility] CARE [address] [place] [address] [id number] Hospital Number: Repository [id number] Date:8884-71-90SZ [address] [address]WS: 07/17/2018 Tertiary NOT GIVENUNK [place] Insurance:SELF PAY [facility] Number: Effective Repository Date:2018-07-17 07/10/2018 MC A Primary MC A [place] [id number] Insurance:SELF INS JOHNSONDOB: [facility] 5731-77-27[place] Number: Repository [id number]: [phone] [id number] [phone] () Date:0328-21-72RULCQH [address] [address]KYIGGLVTDR, [place] [address]CT: 07/10/2018 Secondary NOT GIVENUNK [place] Insurance:SELF PAY [facility] Number: Effective Repository Date:2018-07-10 2018 MC A Primary MC A [place] [id number] Insurance:SELF INS JOHNSONDOB: [facility] [id number] [place] Number: Repository [id number]: [phone]) [id number] [phone] () Date:3865-95-27MVXBHMROCKLAND PSYCHIAT[facility] 144[address]ZLDKJL, [place] [address]NL: 2018 Secondary MC A [place] Insurance:[facility] JOHNSONDOB: Community CARE [id number] Hospital Number: Repository [id number] Date:0475-01-11EY [address]NYZQ[address], [place] [address]AQ: 2018 Tertiary NOT GIVENUNK [place] Insurance:SELF PAY [facility] Number: Effective Repository Date:2018 2018 MC A Primary MC A [place] [id number] Insurance:SELF INS JOHNSONDOB: [facility] [id number] [place] Number: Repository [id number]: [phone] [id number] [phone] (HP) Date:0885-65-97PETUDG [address] [address]XSLOOVTOWE, [place] [address]NT: 2018 Secondary NOT GIVENUNK [place] Insurance:SELF PAY [facility] Number: Effective Repository Date:2018 01/22/2018 Mc A Primary Mc A [place] [id number] Insurance:[facility] JohnsonDOB: Community Chris CARE [id number] [id number], [place] Number: Repository [address]Hvg: 330 [id number] [phone] () Date:8939-04-77CY [address] [address]ET: 01/22/2018 Secondary NOT GIVENUNK [place] Insurance:SELF PAY [facility] Number: Effective Repository Date:2018-01-22 01/15/2018 Mc A Primary Mc A [place] [id number] Insurance:[facility]DOB[facility] [id number] [id number], [place] Number: Repository [id number]: 330 [id number] [phone] () Date:1665-41-39AQ [address] [address]GM: 01/15/2018 Secondary NOT GIVENUNK [place] Insurance:SELF PAY [facility] Number: Effective Repository Date:2017-12-03 11/28/2017 Mc A Primary Mc A [place] [id number] Insurance:[facility] JohnsonDOB: Community Chrsi CARE [id number] 1996-63-20[place]OS[place], [place] Number: Repository [address]Tzb: 330 [id number] [phone] () Date:4788-95-52LJ [address] [place] [address]LV: 11/28/2017 Secondary NOT GIVENUNK [place] Insurance:SELF PAY [facility] Number: Effective Repository Date:2017-11-28
--- OUTSIDE RECORDS SUMMARY | 2018-10-06 12:56 | XMS RPT_ITS ---
:1980 Author Organization OHIP Support Name Relationship Address Phone [employer] Unavailable [address] + [place] [address] SPARKLE BACHANDRA Unavailable [address] + [place] [address] + [place] [address] SPARKLE BACHANDRA Unavailable [address] + [place] [address] [address] + [place] [address] SPARKLE BACHANDRA Unavailable [address] + [place] [address] [address] + [place] [address] MIKALA NAA Unavailable [address] + [place] [address] [address] + [place] [address] MIKALA NAA Unavailable [address] + [place] [address] [address] + [place] [address] MIKALA NAA Unavailable [address] + [place] [address] [address] + [place] [address] SPARKLE BACHANDRA Unavailable [address] + [place] [address] + [place] [address] SPARKLE BACHANDRA Unavailable [address] + [place] [address] [address] + [place] [address] MIKALA NAA Unavailable [address] + [place] [address] [address] + [place] [address] MIKALA, NAA Unavailable [address] + [place] [address] + [place] [address] MIKALA, NAA Unavailable [address] + [place] [address] [address] + [place] [address] MIKALA, NAA Unavailable [address] + [place] [address] [address] + [place] [address] MIKALA NAA Unavailable [address] + [place] [address] [address] + [place] [address] MIKALA NAA Unavailable [address] + [place] [address] [address] + [place] [address] MIKALA NAA Unavailable [address] + [place] [address] + [place] [address] MIKALA NAA Unavailable [address] + [place] [address] [address] [address] + [place] [address] MIKALA NAA Unavailable [address] + [place] [address] Care Team Providers Name Role Phone Abhishek Ocasio Attending Unavailable Dandre Cobos Referring Unavailable Abhishek Ocasio Attending Unavailable Abhishek Ocasio Referring Unavailable Dandre Cobos Primary Care Unavailable Erica Dia Attending Unavailable Dandre Cobos Primary Care Unavailable Abhishek Ocasio Attending Unavailable Dandre Cobos Referring Unavailable Wayt, Abhishek Attending Unavailable Wayt, Abhishek Referring Unavailable Cobos, Dandre Primary Care Unavailable Wayt, Abhishek Attending Unavailable Wayt, Abhishek Referring Unavailable Cobos, Dandre Primary Care Unavailable JoErica ortiz Attending Unavailable Cobos, Dandre Primary Care Unavailable Cobos, Dandre Attending Unavailable Cobos, Dandre Referring Unavailable Cobos, Dandre Primary Care Unavailable Wyles, Lew Attending Unavailable Cobos, Dandre Referring Unavailable Wyles, Lew Attending Unavailable Wyles, Lew Referring Unavailable Cobos, Dandre Primary Care Unavailable Wyles, Lew Attending Unavailable Cobos, Dandre Referring Unavailable Wyles, Lew Attending Unavailable Cobos, Dandre Referring Unavailable Jason, Hernan Attending Unavailable Cobos, Dandre Referring Unavailable Jason, Hernan Attending Unavailable Jason, Hernan Referring Unavailable Cobos, Dandre Primary Care Unavailable [place], Hernan Attending Unavailable Cobos, Dandre Referring Unavailable Jason, Hernan Attending Unavailable [place], Hernan Referring Unavailable Cobos, Dandre Primary Care Unavailable Wayt, Abhishek Attending Unavailable Cobos, Dandre Referring Unavailable PROBLEMS PROBLEMS DATE TYPE CONDITION / CODE ATTENDING STATUS SOURCE 09/23/2018 Unknown S62.111A - Abhishek Ocasio Active [facility] fracture of [facility] triquetrum Repository [cuneiform] bone, right wrist, initial encounter for closed fracture / S62.111A(ICD-10) 08/09/2018 Unknown S69.91XA - Hernan Gomez Active [facility] [place] [facility] injury of right Hospital wrist, hand and Repository finger(s), initial encounter / S69.91XA(ICD-10) 08/20/2018 Unknown M25.539 - Pain in Hernan Gomez Active [facility] unspecified wrist Community / M25.539(ICD-10) Hospital Repository 08/16/2018 Unknown R07.81 - Lew Vora Active [place] Pleurodynia / Community R07.81(ICD-10) Hospital Repository 08/16/2018 Unknown S39.011A - Strain Lew Vora Active [place] of muscle, fascia Community and tendon of Hospital abdomen, initial Repository encounter / S39.011A(ICD-10) 01/25/2018 Unknown M54.6 - Pain in Jolledi Erica Active [place] thoracic spine / Community M54.6(ICD-10) Hospital Repository PROCEDURES PROCEDURES No Procedure Records FoundRESULTS RESULTS OT GENERAL EVALUATION Observed: 09/24/2018 Status: F Source: [place] 10:34 AM [facility] [address] [place] [address] / REHABILITATION SERVICES INITIAL EVALUATION MR#: [id number] Acct: [id number] Name: MC BACH Rep #: [id number] : 1980 38 From: Kenna Sargent Referring Dr.: TREVA Ocasio Status: REG RCR Insurance: [facility] [id number] Eval Date: SELF PAY INSURANCE Patient's Visit Information MC BACH is a 38 year old M, referred to Occupational Therapy by TREVA Martin, with a diagnosis of R nondisplaced triquetal avulsion fracture. Date of Evaluation: 09/24/18 Occupational Therapist: Kenna Sargent - Subjective Subjective: Arrived and noted originally injury occurred 6 weeks ago, around end of July. Cast off yesterday. 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 - Pain Right Wrist 0 Pain Intensity Range: 0, 4 - ROM Forearm: WFL Wrist: Flexion R 0-33, L 0-76; extension R 0-15, L 0-53 MP: WFL PIP: WFL DIP: WFL ROM Comments: Radial deviation: R 0-6, L 0-15. Ulnar Deviation: R 0-8, L 0-25. 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 - Strength Apron Worker: R 73, L 118 Lateral Pinch: R 28, L 26 Tripod Pinch: R 23, L 25 Tip-to-Tip Pinch: R 12, L 24 - Edema Other: reports none and none observed at this time. Will monitor. - Sensation Sensation Comments: Denies numbness or tinging. H/o CTS release 8-9 years ago. Completed by [facility]. 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 Goal:: Mc to increased wrist ROM by 20-30 degrees to promote increased ROM and decreased stiffness 4/5 trials 80% of the time by d/c. Goal:: Mc to have no more than 1/10 pain with repetitive lifting related tasks needed to complete job 4/5 trials 80% of the time by d/c. Goal:: Mc to be (i) to completed edema management techniques as needed to manage symptoms by d/c. Goal:: Mc to be (I) to complete proper lifting and joint protection techniques 4/5 trials 805 of the time by d/c. Goal:: Mc to be (i) to complete daily HEP to promote strength and ROM 4/5 trials 80% of the time to promote returning to PLOF for ADL/IADLs by d/c. - Rehabilitation General Assessment: Mc arrived for OT evaluation on this date of 09/24/18. Originally injury occurred 6 weeks ago and cast removed yesterday. 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 He would benefit from weekly OT appointments for ROM, PRE for strengthening program, and general tasks to promote returning to PLOF for all ADL/IADls. Rehabilitation Potential: Good - Anticipated Interventions Anticipated Interventions: A/AAROM/PROM, Strengthening, Edema Control, Triggerpoint Release, Modalities, Joint Protection/Energy Conservation, Ergonomic Education, Fine Motor Coord/Osmin, ADL Training, Caregiver Training, Home Program - Visit Plan Frequency: 1-2x /Week Duration: 4 Weeks General Plan: Mc to complete skilled OT to promote increased ROM, PRE for strengthening protocol, and increased ability to return to PLOF. TEXT: Thank you for the opportunity to evaluate your patient. For Medicare and Medicare HMO plans, please review the plan of care and approve it. It will need to be FAXED BACK to us at [phone] for Medicare purposes. Please let me know if there are questions or concerns regarding this plan of care. Physician Signature: Date: <Electronically signed by Kenna Sargent > 09/24/18 1034 CC: TREVA Ocasio; Dandre Cobos MD [facility] Signed For Medicare only, by signing this I certify the plan of care. Physicians Signature Date ORTHOPEDIC VISIT Observed: 09/23/2018 Status: F Source: [place] REPORT 4:34 PM [facility] [address] [place] [address] OFFICE VISIT Date of Service: 09/23/18 MR#: [id number] Acct: [id number] Name: MC BACH Shaye Rep #: [id number] : 1980 Provider: TREVA Ocasio Age/Sex: 38/M [place] [facility] [place] [place]: Signed Intake Intake Visit Reasons: RIGHT WRIST Allergies animal dander Allergy (Verified 08/29/18 14:35) Other oxycodone HCl [From Percocet] Allergy (Verified 08/29/18 14:35) Other tomato Allergy (Verified 08/29/18 14:35) Food Allergy hydrocodone bitartrate [From Vicodin] Adverse Reaction (Verified 08/29/18 14:35) Itching Medications esomeprazole magnesium 20 mg capsule,delayed [...] 38 year old M here today for f/u right triquetral fracture. HE presents in short arm cast that is clean, dry and in good condition. Denies numbness, tingling or other associated symptoms. He has good rom of the fingers Ortho Exam Right Wrist/Hand Skin/Wound: No Swelling, No Ecchymosis Contralateral Normal: Yes Right Wrist: No ROM-Extension 0-60, ROM-Flexion 0-80 or TTP Fracture site Sensation: Radial: I, Ulnar: I, Median: I WRIST: Patient presented with short arm cast is still noted which was clean, dry and intact. Once this was removed there was minor sloughing of the skin at the same time no open areas/skin abrasions. There was no localized or generalized swelling or other skin changes. Patient did have stiffness and some decreased with range of motion due to immobilization which is to be expected. There was no tenderness on palpation of the dorsal wrist at the site of the triquetral avulsion. Left Wrist/Hand Skin/Wound: No Swelling, No Ecchymosis Assessment AND Plan Problems 1. Closed nondisplaced fracture of triquetrum of right wrist with routine healing, subsequent encounter S62.114D Plan Obtained Xrays of patient's right wrist. Personally reviewed Xrays. There is still an evident triquetral avulsion fracture. There is no dislocation, or lucency noted. See chart for further details. At this point patient is a 6 weeks post immobilization for a dorsal avulsion fracture of the triquetrum that is nondisplaced. At this time patient has no evident localized or generalized swelling and no other abnormalities other than some superficial sloughing of the skin from the cast. Patient has no tenderness on palpation of the fracture site. He has some stiffness and some discomfort with motion which is to be expected due to immobilization. At this time patient was given a prescription for physical therapy/occupational therapy to start working on range of motion and strength. We will recheck him in 4-6 weeks just for a range of motion and strength check. Patient can return to the office sooner with any injuries, increased swelling increasing pain or any other problems. I would like patient to get a cockup wrist splint just for the next 1-2 weeks while he works on range of motion and strength. I do not want him doing any push-up activity, lifting, or hanging from the wrist at this time for the next 3-4 weeks at least. This note was generated with [employer] software. It may contain incorrect words, spelling, and punctuation that were not noted in checking the note before signing. Orders Orders: Plan Detail Follow Up 4 Weeks Coding Level of Care Code Off vis,est,level 2 Diagnoses Closed nondisplaced fracture of triquetrum of right wrist with routine healing, subsequent encounter S62.114D Encounter type: subsequent encounter Fracture type: closed Fracture alignment: nondisplaced Fracture healing: with routine healing 09/23/18 8544 <Electronically signed by Abhishek TILLEY> Date Abhishek TILLEY Cosigner Signature: Date (if applicable) CC: WRIST MIN 3 VIEWS Observed: 09/23/2018 Status: F Source: [place] 2:13 PM [facility] Imaging Services [address] [place] [address] Wrist min 3 Views MR#: [id number] Acct: [id number] Name: MC BACH Shaye Rep #: [id number] : 1980 38 From: Cisco Andrea MD PCP: Dandre Cobos MD Status: REG CLI Study: Wrist min 3 Views Date of Exam: 09/23/18 Exam# [id number] Ordering Dr: Abhishek Ocasio STUDY: X-RAY - RIGHT WRIST REASON FOR EXAM: Male, 38 years old. Trauma TECHNIQUE: 3 view(s) of the wrist were obtained. COMPARISON: Previous study of 08/29/2018 FINDINGS: Normal visualized distal radius and ulna. Normal radiocarpal articulation. Normal distal radioulnar articulation. There is again demonstrated a nondisplaced chip triquetral fracture on the lateral view. Normal carpal articulations. Normal carpometacarpal articulation of the thumb. Normal second through fifth carpometacarpal articulations. Normal visualized metacarpal bones. The soft tissue structures are unremarkable. RAD/Wrist min 3 Views IMPRESSION: Nondisplaced, nonunited chip triquetral fracture noted on the lateral view. There has been interval removal of cast material. The remaining osseous structures and articular surfaces of the right wrist appear within normal limits. Electronically Signed: Cisco Andrea MD at 23:47 EST , Service support , CC: TREVA Ocasio; Dandre Cobos MD Automation Engineering Manager: Signed ORTHOPEDIC VISIT Observed: 08/29/2018 Status: F Source: [place] RE[place] 3:16 PM [facility] Orthopa[facility]ics AND Sports Medicine [address] [place] [address] OFFICE VISIT Date of Service: 08/29/18 MR#: [id number] Acct: [id number] Name: MC BACH Rep #: [id number] : 1980 Provider: TREVA Ocasio Age/Sex: 38/M Location: [facility] [place] Status: Signed Intake Intake Visit Reasons: RIGHT WRIST Is patient in pain?: No Allergies animal dander Allergy (Verified 08/29/18 14:35) Other oxycodone HCl [From Percocet] Allergy (Verified 08/29/18 14:35) Other tomato Allergy (Verified 08/29/18 14:35) Food Allergy hydrocodone bitartrate [From Vicodin] Adverse Reaction (Verified 08/29/18 14:35) Itching Medications esomeprazole magnesium 20 mg capsule,delayed [...] 38 year old M here today for a followup on his right wrist fracture. Patient states that he is doing well and not having any pain. His short arm cast is clean, dry and intact. Denies numbness, tingling or other associated symptoms. [...] and no additional complaints, except as docu Skin/Breast Reports system reviewed and no additional complaints, except as docu Neuro Yes system reviewed and no additional complaints, except as docu Psych Reports system reviewed and no additional complaints, except as docu Endo Reports system reviewed and no additional complaints, except as docu Ortho Exam Right Wrist/Hand Skin/Wound: No Swelling, No Ecchymosis Contralateral Normal: Yes Right Wrist: No ROM-Extension 0-60 or ROM-Flexion 0-80 WRIST: Patient presents today in a short arm cast of the right hand. The cast is clean, dry, and intact without any breakdown. He has no skin abrasion or injuries on the proximal or distal portion of the cast. He has normal sensation and movements of the fingers. Left Wrist/Hand Skin/Wound: No Swelling, No Ecchymosis Assessment AND Plan Problems 1. Closed nondisplaced fracture of triquetrum of right wrist with routine healing, subsequent encounter S62.114D Plan Obtained Xrays of patient's right wrist. Personally reviewed X-rays. There is no obvious fracture noted through the cast material (avulsion is not noted). There is no dislocation, or lucency noted. See chart for further details. This point patient is an short arm cast that is holding up well. There is no skin breakdown or damage on the proximal or distal portions of the cast. He has no pains underlying the cast. He states that if the lesion hanging down he still gets some throbbing but it goes away if he elevates the wrist. He has no numbness or tingling in the fingers and normal motion of the fingers. I did place some moleskin around the base of the thumb just to protect the skin from rubbing of the cast there. At this point we will recheck in 3 weeks which will be just about 6 weeks from the cast. We will take him out of the cast at that time, repeat x-rays and start him in physical therapy. Notify sooner of any injuries, increased pain or swelling, and any other concerns or complaints. This note was generated with [employer] dictation software. It may contain incorrect words, spelling, and punctuation that were not noted in checking the note before signing. Orders Orders: Plan Detail Follow Up 3 Weeks Coding Level of Care Code Off vis,est,level 2 Diagnoses Closed nondisplaced fracture of triquetrum of right wrist with routine healing, subsequent encounter S62.114D Encounter type: subsequent encounter Fracture type: closed Fracture alignment: nondisplaced Fracture healing: with routine healing 08/29/18 1516 <Electronically signed by Abhishek TILLEY> Date Abhishek TILLEY Cosigner Signature: Date (if applicable) CC: WRIST MIN 3 VIEWS Observed: 08/29/2018 Status: F Source: [place] 2:38 PM [facility] [place] [place] [address] Wrist min 3 Views MR#: [id number] Acct: [id number] Name: MC BACH Rep #: [id number] : 1980 M 38 From: Xavier Snyder MD PCP: Dandre Cobos MD Status: REG CLI Study: Wrist min 3 Views Date of Exam: 08/29/18 Exam# [id number] Ordering Dr: Abhishek Ocasio STUDY: X-RAY - RIGHT WRIST REASON FOR EXAM: Fracture follow-up. TECHNIQUE: 3 view(s) of the wrist were obtained. COMPARISON: Radiographs 08/09/2018. FINDINGS: Normal visualized distal radius and ulna. Normal radiocarpal articulation. Normal distal radioulnar articulation. There is a nondisplaced fracture of the triquetrum. Normal carpal articulations. Normal carpometacarpal articulation of the thumb. Normal second through fifth carpometacarpal articulations. Normal visualized metacarpal bones. There is an overlying cast. RAD/Wrist min 3 Views IMPRESSION: No interval change of nondisplaced triquetral fracture. Electronically Signed: Xavier Snyder MD at 14:47 EST Tel , Service support , CC: TREVA Ocasio; Dandre Cobos MD Automation Engineering Manager: Signed ORTHOPEDIC VISIT Observed: 08/15/2018 Status: F Source: [place] RE[place] 12:16 PM [facility] Orthopa[facility]ics AND Sports Medicine [address] [place] [address] OFFICE VISIT Date of Service: 08/13/18 MR#: [id number] Acct: [id number] Name: MC BACH Rep #: [id number] : 1980 Provider: TREVA Ocasio Age/Sex: 38/M [place] [facility] [place] [place]: Signed Intake Intake Visit Reasons: RIGHT [...] the cast. This note was generated with [employer] dictation software. It may contain incorrect words, [...] VISIT REPORT Observed: 08/09/2018 Status: F Source: [place] 9:19 AM [facility] [address] [place] [address] [address] [place] [address] OFFICE VISIT Date of Service: 08/09/18 MR#: [id number] Acct: [id number] Name: MC BACH Rep #: [id number] : 1980 Provider: Hernan Gomez MD Age/Sex: 38/M Location: [facility] Status: Signed Intake Intake Visit Reasons: F/U CT Results 08/05 Chief Complaint: left side pain Awning Hanger Required: No Is patient in pain?: No [...] mg PO DAILY 07/03/18 [History Confirmed 08/09/18] [facility] Medical History Knee pain (Acute) Shoulder pain [...] 3 VIEWS Observed: 08/09/2018 Status: F Source: [place] 8:26 AM [facility] Imaging Services [address] [place] [address] Wrist min 3 Views MR#: [id number] Acct: [id number] Name: MC BACH Rep #: [id number] : 1980 M 38 From: Wolfgang Slade MD PCP: Dandre Cobos MD Status: PRE CLI Study: Wrist min 3 Views Date of Exam: 08/09/18 Exam# [id number] Ordering Dr: Hernan Gomez MD STUDY: X-RAY [...] Wolfgang Slade MD at 9:12 EST Tel [phone], Service support , CC: Hernan Gomez MD; Dandre Cobos MD Automation Engineering Manager: Signed ABDOMEN WITH IV Observed: 08/05/2018 Status: F Source: [place] CONTRAST 6:48 AM [facility] Imaging Services [address] [place] [address] Abdomen WITH IV Contrast MR#: [id number] Acct: [id number] Name: MC BACH Rep #: [id number] : 1980 M 38 From: Lew Batista MD PCP: Dandre Cobos MD Status: REG CLI Study: Abdomen WITH IV Contrast Date of Exam: 08/05/18 Exam# [id number] Ordering Dr: Hernan Gomez MD STUDY: CT [...] CC: Hernan Gomez MD; Dandre Cobos MD Automation Engineering Manager: Signed CHEST WITH CONTRAST Observed: 08/05/2018 Status: F Source: [place] 6:48 AM [facility] Imaging Services [address] [place] [address] Chest WITH Contrast MR#: [id number] Acct: [id number] Name: MC BACH Rep #: [id number] : 1980 M 38 From: Lew Batista MD PCP: Dandre Cobos MD Status: REG CLI Study: Chest WITH Contrast Date of Exam: 08/05/18 Exam# [id number] Ordering Dr: Hernan Gomez MD STUDY: CT [...] CC: Hernan Gomez MD; Dandre Cobos MD Automation Engineering Manager: Signed SURGERY VISIT REPORT Observed: 07/23/2018 Status: F Source: [place] 9:23 AM [facility] [address] [place] [address] [address] [place] [address] OFFICE VISIT Date of Service: 07/23/18 MR#: [id number] Acct: [id number] Name: MC BACH Rep #: [id number] : 1980 Provider: Hernan Gomez MD Age/Sex: 38/M Location: [facility] Status: Signed Intake Vital Signs07/23/18 Height 5 ft 10 in 07/23/18 Weight: 318 lb Intake Visit Reasons: BWC - Lt Side Abdominal Strain Chief Complaint: left side pain Awning Hanger Required: No Is patient in pain?: Yes [...] mg PO DAILY 07/03/18 [History Confirmed 07/23/18] [facility] Medical History Knee pain (Acute) Shoulder pain [...] or bladder function. He notes taking no kvye-cay-adnqzzd products to assist with symptoms. He notes [...] CARE VISIT Observed: 07/17/2018 Status: F Source: [place] REPORT 2:[address] [address] OFFICE VISIT Date of Service: 07/17/18 MR#: [id number] Acct: [id number] Name: MC BACH Rep #: [id number] : 1980 Provider: Lew TILLEY Age/Sex: 38/M [place] [facility] [place] Status: Signed Intake Vital Signs07/17/18 Height 5 [...] mg PO DAILY 07/03/18 [History Confirmed 07/17/18] [facility] Medical History Knee pain (Acute) Shoulder pain [...] the above. This note was generated with [employer] dictation software. It may contain incorrect words, spelling, and punctuation that were not noted in checking the note before signing. Coding Level of Care Code Off vis,est,level 3 Diagnoses Rib pain on left side R07.81 Strain of abdominal wall S39.011A 07/17/18 1427 <Electronically signed by Lew TILLEY> Date Lew TILLEY Cosign Signature: Date (if applicable) CC: URGENT CARE VISIT Observed: 07/10/2018 Status: F Source: [place] REPORT 3:40 PM [facility] [address] [facility] [address] ATTILA Hauser [address] OFFICE VISIT Date of Service: 07/10/18 MR#: [id number] Acct: [id number] Name: MC BACH Rep #: [id number] : 1980 Provider: Lew TILLEY Age/Sex: 38/M Location: [facility] Status: Signed with Addenda ADDENDUM by Lew [...] the above. This note was generated with [employer] dictation software. It may contain incorrect words, [...] BEST BUY Chief Complaint: left side pain Awning Hanger Required: No Accompanied by: self Is patient [...] mg PO DAILY 07/03/18 [History Confirmed 07/10/18] [facility] Medical History Knee pain (Acute) Shoulder pain [...] the above. This note was generated with [employer] software. It may contain incorrect words, spelling, [...] Status: F Source: [place] REPORT 9:34 AM [facility] [address] [place] [address] OFFICE VISIT Date of Service: 07/03/18 MR#: [id number] Acct: [id number] Name: MC BACH Rep #: [id number] : 1980 Provider: Lew TILLEY Age/Sex: 38/M Location: [facility] Status: Signed Intake Vital Signs07/03/18 Height 5 ft 10 in 07/03/18 Weight: 318 lb 07/03/18 Body Mass Index (BMI) 45.6 07/03/18 Blood Pressure 134/86 H Intake Visit Reasons: LEFT SIDE STRAIN/ BEST BUY Chief Complaint: Left upper abdomen/left rib pain Awning Hanger Required: No Accompanied by: self Is patient [...] mg PO DAILY 07/03/18 [History Confirmed 07/03/18] [facility] Medical History Knee pain (Acute) Shoulder pain [...] or bladder function. He notes taking no zyls-mzf-lvkvzfc products to assist with symptoms. He notes [...] body habitus Orientation: alert, awake, oriented x3 HENPR Head: normal to inspection Ears: hearing grossly [...] the above. This note was generated with [employer] dictation software. It may contain incorrect words, spelling, and punctuation that were not noted in checking the note before signing. Orders Orders: Coding Level of Care Code Off vis,new,level 4 Diagnoses Strain of abdominal wall S39.011A Rib pain on left side R07.81 07/03/18 0934 <Electronically signed by Lew TILLEY> Date [facility] Signature: Date (if applicable) CC: RIBS UNI MIN 3V Observed: 2018 Status: F Source: [place] W/PA CHEST 8:55 AM [facility] RE[facility] Imaging Services [address] [place] [address] Ribs Uni Min 3V w/PA Chest MR#: [id number] Acct: [id number] Name: MC BACH Rep #: [id number] : 1980 38 From: Wolfgang Slade MD PCP: Dandre Cobos MD Status: REG CLI Study: Ribs Uni Min 3V w/PA Chest Date of Exam: 07/03/18 Exam# [id number] Ordering Dr: Lew Vora STUDY: X-RAY - [...] Wolfgang Slade MD at 9:27 EDT Tel [phone], Service support , CC: Dandre Cobos MD; Lew TILLEY Automation Engineering Manager: Signed PT D/C SUMMARY (1) Observed: 01/23/2018 Status: F Source: [place] 10:25 AM [facility] REPOSITORY [facility] [address] [facility] [place] [address] Fax REHABILITATION SERVICES DISCHARGE SUMMARY MR#: [id number] Acct: [id number] Name: MC BACH Rep #: [id number] : 1980 37 From: Tucker Degroot DPT Referring Dr.: Erica Dia MD Status: REG RCR Insurance: [facility] [id number] SELF PAY INSURANCE HP - PT D/C [...] please feel free to call me at [phone]. Thank you for the referral of this patient. Sincerely, Tucker Degroot <Electronically signed by Tucker Degroot DPT> 01/23/18 1025 CC: Erica Dia MD; Dandre Cobos MD CLS Signed CHEST PA AND LATERAL Observed: 01/22/2018 Status: F Source: [place] 4:55 PM [facility] Imaging Services [address] [place] [address] Chest PA and Lateral MR#: [id number] Acct: [id number] Name: MC BACH Rep #: [id number] : 1980 M 37 From: Zee Maurer MD PCP: Dandre Cobos MD Status: REG CLI Study: Chest PA and Lateral Date of Exam: 01/22/18 Exam# [id number] Ordering Dr: Dandre Cobos MD STUDY: X-RAY [...] Service support , CC: Dandre Cobos MD Automation Engineering Manager: Signed INITAL EVALUATION (1) Observed: 12/18/2017 Status: F Source: [place] - 7:31 AM [facility] RE[facility] [address] [place] [address]. [address] [place] [address] Fax REHABILITATION SERVICES INITIAL EVALUATION MR#: [id number] Acct: [id number] Name: MC BACH Rep #: [id number] : 1980 37 From: Tucker Degroot DPT Referring Dr.: Erica Dia MD Status: REG R Insurance: [facility] [id number] SELF PAY INSURANCE Patient's Visit Information MC [...] to be FAXED BACK to us at [phone] for Medicare purposes. Please let me know if there are questions or concerns regarding this plan of care. Physician Signature: Date: <Electronically signed by Tucker Degroot DPT> 12/18/17 0731 CC: Erica Dia MD; Dandre Cobos MD CLS Signed For Medicare only, by signing this I certify the plan of care. Physicians Signature Date THORACIC SPINE 3 Observed: 11/28/2017 Status: F Source: [facility] 9:42 AM [facility] RE[facility] Imaging Services [address] [place] [address] Thoracic Spine 3 Views MR#: [id number] Acct: [id number] Name: MC BACH Rep #: [id number] : 1980 M 37 From: Wolfgang Slade MD PCP: Dandre Cobos MD Status: REG CLI Study: Thoracic Spine 3 Views Date of Exam: 11/28/17 Exam# [id number] Ordering Dr: Erica Dia MD STUDY: X-RAY [...] Wolfgang Slade MD at 15:38 EDT Tel [phone], Service support , CC: Erica Dia MD; Dandre Cobos MD Automation Engineering Manager: Signed ALLERGIES ALLERGIES DATE TYPE / CODE NAME / CODE REACTION SEVERITY SOURCE 08/29/2018 Drug hydrocodone Itching Unknown [place] Allergy/416 bitartrate/[id number] [place] 382972([place] [address] 08/29/2018 Drug oxycodone Other Unknown [place] Allergy/416 HCl/[id number](RXN [place] 382972[facility] Repository 08/29/2018 Drug tomato/[id number]( Food Allergy Unknown [place] Allergy/416 RXNORM) [place] 3829[facility] Repository 08/29/2018 Drug animal Other Unknown [place] Allergy/416 dander/L504701643( [address]) Repository ENCOUNTERS ENCOUNTERS ADMIT/DISCHARGE ACCOUNT ADMITTING ENCOUNTER LOCATION SOURCE NUMBER CLASS 10/01/2018 [id number] Ambulatory [place] [address] Hospital ing:OT Repository 09/23/2018 [id number] Ambulatory [place] [address] Hospital ing:HPRAD Repository 09/23/2018/ [id number] Ambulatory BMSBuilding:B [place] 9 5 MS.[facility] Repository 08/29/2018 [id number] Ambulatory [place] [address] Hospital ing:HPRAD Repository 08/29/2018/ [id number] Ambulatory BMSBuilding:B [place] 8 2 MS.[facility] Repository 08/13/2018/ [id number] Ambulatory BMSBuilding:B [place] 8 1 [facility] Repository 08/09/2018/ [id number] Ambulatory BMSBuilding:B [place] 8 7 [facility] Repository 08/05/2018 [id number] Ambulatory [place] 0 [facility] Hospital ing:CT Repository 07/30/2018 [id number] Ambulatory [place] [address] Hospital ing:RAD Repository 07/23/2018/ [id number] Ambulatory BMSBuilding:B [place] 8 5 [facility] Repository 07/17/2018/ [id number] Ambulatory BMSBuilding:B [place] 8 9 [facility] Repository 07/10/2018/ [id number] Ambulatory BMSBuilding:B [place] 8 6 [facility] Repository 2018 [id number] Ambulatory [place] [address] Hospital ing:MTRAD Repository 07/03/2018/ [id number] Ambulatory BMSBuilding:B [place] 8 4 [facility] Repository 01/22/2018 [id number] Ambulatory [place] [address] Hospital ing:MTLAB Repository 01/15/2018/ [id number] Ambulatory [place] 8 4 [facility] Hospital ing:PT Repository 11/28/2017 [id number] Ambulatory [place] [address] Hospital ing:MTRAD Repository PAYERS PAYERS ENCOUNTER GUARANTOR PAYER SUBSCRIBER SOURCE 10/01/2018 MC Cr Primary MC A [place] [id number] [facility] [id number] [id number] Number: Repository [address]Mtx: [phone] [id number] [phone] () Date:6499-21-51QB [address]NFGPMSV, [place] [address]TO: 10/01/2018 Secondary NOT GIVENUNK [place] Insurance:SELF PAY [facility] Number: Effective Repository Date:2018-09-23 09/23/2018 MC A Primary MC A [place] [id number] [facility] Community CHRIS CARE [id number] Number: Repository [id number]: 330 [id number] [phone] (HP) Date:6807-96-87BY[address] [address]OF: 09/23/2018 Secondary NOT GIVENUNK [place] Insurance:SELF PAY [facility] Number: Effective Repository Date:2018-09-23 09/23/2018 MC A Primary MC A [place] [id number] Insurance:[facility]OB: Community CHRIS CARE [id number] [id number], [place] Number: Repository [address]Bkv: 330 [id number] [phone] () Date:2888-06-80PN[address] [address]PV: 09/23/2018 Secondary NOT GIVENUNK [place] Insurance:SELF PAY [facility] Number: Effective Repository Date:2018-09-19 08/29/2018 MC A Primary MC A [place] [id number] [facility]OB: Community CHRIS CARE [id number] [id number] [place] Number: Repository [address]Nou: 330 [id number] [phone] (HP) Date:3855-71-19HT[address] [address]JA: 08/29/2018 Secondary NOT GIVENUNK [place] Insurance:SELF PAY [facility] Number: Effective Repository Date:2018-08-29 08/29/2018 MC A Primary MC A [place] [id number] [facility]: Community CHRIS CARE [id number] [id number] [facility] [place] Number: Repository [address]Lfc: 330 [id number] [phone] () Date:8625-55-28[address]DWLTSBA, [place] [address]FW: 08/29/2018 Secondary NOT GIVENUNK [place] Insurance:SELF PAY [facility]: Effective Repository Date:2018-08-20 08/13/2018 MC A Primary MC A [place] [id number] Insurance:[facility] JOHNSONDOB: [facility] CARE [id number] [id number], [place] Number: Repository [address]Uvy: [phone] [id number] [phone] () Date:9243-49-66UT [facility] [place], [place] [address]FD: 08/13/2018 Secondary NOT GIVENUNK [place] Insurance:SELF PAY [facility] Number: Effective Repository Date:2018-08-13 08/09/2018 MC A Primary MC A [place] [id number] Insurance:SELF INS JOHNSONDOB: [facility] [id number], [place] Number: Repository [address]Mxh: [phone] [id number] [phone] () Date:5860-85-28BRXQRN [address] [place] [address]SN: 08/09/2018 Secondary MC A [place] Insurance:[facility] CARE [id number] Hospital Number: Repository [id number] Date:2687-57-37RX [address]LDSJKRT, [place] [address]RK: 08/09/2018 Tertiary NOT GIVENUNK [place] Insurance:SELF PAY [facility] Number: Effective Repository Date:2018-08-09 08/05/2018 MC A Primary MC A [place] [id number] Insurance:SELF INS JOHNSONDOB: [facility] [id number], [place] Number: Repository [address]Krb: [phone] [id number] [phone] () Date:1584-93-74XHGGLJ [address] [address]XOELIHRKNX, [place] [address]PB: 08/05/2018 Secondary MC A [place] [facility]NSONDOB: [facility] CARE [address] [place] [address] [id number] Hospital Number: Repository [id number] Date:6172-04-80[place] [address]WP: 08/05/2018 Tertiary NOT GIVENUNK [place] Insurance:SELF PAY [facility] Number: Effective Repository Date:2018-07-25 07/30/2018 MC A Primary MC A [place] [id number] Insurance:[facility] JOHNSONDOB: [address] [id number], [place] Number: Repository [address]Lkd: 330 [id number] [phone] () Date:3938-48-00GR[address] [address]UU: 07/30/2018 Secondary NOT GIVENUNK [place] Insurance:SELF PAY [facility] Number: Effective Repository Date:2018-07-30 07/23/2018 MC A Primary MC A [place] [id number] Insurance:[facility]: [place] [id number] [id number], [place] Number: Repository [address]Gzr: 330 [id number] [phone] () Date:5043-42-15GX[address] [address]WN: 07/23/2018 Secondary NOT GIVENUNK [place] Insurance:SELF PAY [facility] Number: Effective Repository Date:2018-07-19 07/17/2018 MC A Primary MC A [place] [id number] Insurance:SELF INS JOHNSONDOB: [facility] [id number], [place] Number: Repository [address]Elt: 330 [id number] [phone] () Date:5916-77-48NZNBCX[address] [address]UL: 07/17/2018 Secondary MC A [place] Insurance:UNITED TH JOHNSONDOB: Community CARE [id number] [id number] Hospital Number: Repository [id number] Date:4613-02-72TL [address]SSRKDWC, [place] [address]ID: 07/17/2018 Tertiary NOT GIVENUNK [place] Insurance:SELF PAY [facility] Number: Effective Repository Date:2018-07-17 07/10/2018 MC A Primary MC A [place] [id number] Insurance:SELF INS JOHNSONDOB: [facility] [id number], [place] Number: Repository [address]Gxu: 330 [id number] [phone] () Date:2198-72-88VHMSGL[address] [address]GF: 07/10/2018 Secondary NOT GIVENUNK [place] Insurance:SELF PAY [facility] Number: Effective Repository Date:2018-07-10 2018 MC A Primary MC A [place] [id number] Insurance:SELF INS JOHNSONDOB: [facility] [id number], [place] Number: Repository [address]Qtg: 330 [id number] [phone] () Date:6268-81-86WVXPMPNORTHERN WESTCHESTER [facility] [address]YACEV[place], [place] [address]KC: 2018 Secondary MC A [place] Insurance:UNITED TH JOHNSONDOB: Community CARE [id number] Hospital Number: Repository [id number] Date:5243-01-92QJ [address] [place] [address]GY: 2018 Tertiary NOT GIVENUNK [place] Insurance:SELF PAY [facility] Number: Effective Repository Date:2018 2018 MC A Primary MC A [place] [id number] Insurance:SELF INS JOHNSONDOB: Community CHRIS [facility] [id number], [place] Number: Repository [address]Pcu: [phone] [id number] [phone] () Date:6173-63-31WTZNCY [address] [place] [address]RT: 2018 Secondary NOT GIVENUNK [place] Insurance:SELF PAY [facility] Number: Effective Repository Date:2018 01/22/2018 Mc A Primary Mc A [place] [id number] Insurance:[facility] JohnsonDOB: [facility] [id number] [id number] Number: Repository [address]Yic: [phone] [id number] [phone] () Date:3448-13-92MA [address]CIFKIYT, [place] [address]JX: 01/22/2018 Secondary NOT GIVENUNK [place] Insurance:SELF PAY [facility] Number: Effective Repository Date:2018-01-22 01/15/2018 Mc A Primary Mc A [place] [id number] Insurance:[facility] JohnsonDOB: [facility] [id number] [id number], [place] Number: Repository [address]Hhj: [phone] [id number] [phone] () Date:0235-48-61QY [address]FGRCRHO, [place] [address]KW: 01/15/2018 Secondary NOT GIVENUNK [place] Insurance:SELF PAY [facility] Number: Effective Repository Date:2017-12-03 11/28/2017 Mc A Primary Mc A [place] [id number] Insurance:[facility] JohnsonDOB: Community [facility] [address]Woyohu [id number], [place] Number: Repository [address]Cqz: [phone]) [id number] [phone] () Date:2858-90-78JS [address]JDWYCVP, [place] [address]OS: 11/28/2017 Secondary NOT GIVENUNK [place] Insurance:SELF PAY [facility] Number: Effective Repository Date:2017-11-28
== END ==
PROVIDERS: Family Provider Family Medicine; PCP Family Medicine; Referring Provider Surgery; Visit Provider Surgery
DX: S62.114A Nondisplaced fracture of triquetrum [cuneiform] bone, right wrist, initial encounter for closed fracture (principal); W19.XXXA Unspecified fall, initial encounter
CPT/HCPCS: 73110

== ENCOUNTER → 2018-08-05 06:43 | Outpatient (CLI) | payer OTHER, SELFPAY ==
--- NOTE | 2018-08-05 06:48 | CT_ITS ---
STUDY: CT ABDOMEN WITH CONTRAST REASON FOR EXAM: Male, 38 years old. Left-sided rib pain after lifting RADIATION DOSAGE (If Supplied By Facility): CTDIvol = ( 22.42 ) mGy, DLP = ( 1669.35 ) mGycm TECHNIQUE: Transaxial images were obtained post I.V. administration of 100 ml of Isovue 300 contrast, and without oral contrast. Sagittal and coronal images were reconstructed. Individualized dose optimization techniques were used for this CT. COMPARISON: None. FINDINGS: There is decreased attenuation of the liver consistent with steatosis. Normal gallbladder and extrahepatic biliary system. Normal spleen. Normal pancreas. Normal bilateral adrenal glands. Normal right kidney. Normal left kidney. Normal visualized stomach. Normal small intestine. Normal colon. The appendix is visualized and appears normal. Normal abdominal aorta. Normal inferior vena cava. Normal retroperitoneum. Normal abdominal wall. Normal osseous structures. CT/Abdomen WITH IV Contrast IMPRESSION: Fatty liver. Otherwise, unremarkable contrast enhanced CT of the abdomen. Electronically Signed: Lew Batista, at 19:06 EST Tel , Service support ,
--- NOTE | 2018-08-05 06:48 | CT_ITS ---
STUDY: CT CHEST WITH CONTRAST REASON FOR EXAM: Male, 38 years old. Left-sided rib pain after lifting RADIATION DOSAGE (If Supplied By Facility): CTDIvol = ( 22.42 ) mGy, DLP = ( 1669.35 ) mGycm TECHNIQUE: Transaxial imaging was performed following intravenous administration of 100 ml of Isovue 300 contrast material. Coronal and sagittal reformatted images were created. Individualized dose optimization techniques were used for this CT. COMPARISON: None FINDINGS: There are no pulmonary infiltrates or pleural effusions. There are no pulmonary nodules or masses. There is no pneumothorax. The heart and pericardium are within normal limits. There is no thoracic lymphadenopathy. There is no evidence of thoracic aortic aneurysm. The visualized osseous structures are intact. CT/Chest WITH Contrast IMPRESSION: Unremarkable contrast-enhanced CT of the chest. Electronically Signed: Lew Batista, at 19:09 EST Tel , Service support ,
== END ==
PROVIDERS: Family Provider Family Medicine; PCP Family Medicine; Referring Provider Surgery; Visit Provider Surgery
DX: S39.011A Strain of muscle, fascia and tendon of abdomen, initial encounter (principal); X50.9XXA Other and unspecified overexertion or strenuous movements or postures, initial encounter; Y99.0 Civilian activity done for income or pay; K76.0 Fatty (change of) liver, not elsewhere classified; R07.81 Pleurodynia
CPT/HCPCS: 71260; 74160; Q9967

== ENCOUNTER → 2018-08-29 14:35 | Outpatient (CLI) | payer OTHER, SELFPAY ==
--- NOTE | 2018-08-29 14:38 | RAD_ITS ---
STUDY: X-RAY - RIGHT WRIST REASON FOR EXAM: Fracture follow-up. TECHNIQUE: 3 view(s) of the wrist were obtained. COMPARISON: Radiographs 08/09/2018. FINDINGS: Normal visualized distal radius and ulna. Normal radiocarpal articulation. Normal distal radioulnar articulation. There is a nondisplaced fracture of the triquetrum. Normal carpal articulations. Normal carpometacarpal articulation of the thumb. Normal second through fifth carpometacarpal articulations. Normal visualized metacarpal bones. There is an overlying cast. RAD/Wrist min 3 Views IMPRESSION: No interval change of nondisplaced triquetral fracture. Electronically Signed: Xavier Snyder MD at 14:47 EST Tel , Service support ,
== END ==
PROVIDERS: Family Provider Family Medicine; PCP Family Medicine; Referring Provider Physician Assistant; Visit Provider Physician Assistant
DX: S62.111A Displaced fracture of triquetrum [cuneiform] bone, right wrist, initial encounter for closed fracture (principal); X58.XXXA Exposure to other specified factors, initial encounter
CPT/HCPCS: 73110

== ENCOUNTER → 2018-09-23 14:10 | Outpatient (CLI) | payer OTHER, SELFPAY ==
--- NOTE | 2018-09-23 14:12 | RAD_ITS ---
STUDY: X-RAY - RIGHT WRIST REASON FOR EXAM: Male, 38 years old. Trauma TECHNIQUE: 3 view(s) of the wrist were obtained. COMPARISON: Previous study of 08/29/2018 FINDINGS: Normal visualized distal radius and ulna. Normal radiocarpal articulation. Normal distal radioulnar articulation. There is again demonstrated a nondisplaced chip triquetral fracture on the lateral view. Normal carpal articulations. Normal carpometacarpal articulation of the thumb. Normal second through fifth carpometacarpal articulations. Normal visualized metacarpal bones. The soft tissue structures are unremarkable. RAD/Wrist min 3 Views IMPRESSION: Nondisplaced, nonunited chip triquetral fracture noted on the lateral view. There has been interval removal of cast material. The remaining osseous structures and articular surfaces of the right wrist appear within normal limits. Electronically Signed: Cisco Andrea MD at 23:47 EST , Service support ,
== END ==
PROVIDERS: Family Provider Family Medicine; PCP Family Medicine; Referring Provider Physician Assistant; Visit Provider Physician Assistant
DX: S62.114A Nondisplaced fracture of triquetrum [cuneiform] bone, right wrist, initial encounter for closed fracture (principal); X58.XXXA Exposure to other specified factors, initial encounter
CPT/HCPCS: 73110

== ENCOUNTER 2018-10-08 08:30 | Outpatient (RCR) | payer OTHER, SELFPAY ==
--- NOTE | 2018-09-24 09:00 | HP.OTEVAL ---
Patient's Visit Information KARTHIK BACH is a 38 year old M, referred to Occupational Therapy by TREVA Martin, with a diagnosis of R nondisplaced triquetal avulsion fracture. Date of Evaluation: 09/24/18 Occupational Therapist: Kenna Sargent - Subjective Subjective: Arrived and noted originally injury occurred 6 weeks ago, around end of July. Cast off yesterday. 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 - Pain Right Wrist 0 Pain Intensity Range: 0, 4 - ROM Forearm: WFL Wrist: Flexion R 0-33, L 0-76; extension R 0-15, L 0-53 MP: WFL PIP: WFL DIP: WFL ROM Comments: Radial deviation: R 0-6, L 0-15. Ulnar Deviation: R 0-8, L 0-25. 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 - Strength Chicken Picker: R 73, L 118 Lateral Pinch: R 28, L 26 Tripod Pinch: R 23, L 25 Tip-to-Tip Pinch: R 12, L 24 - Edema Other: reports none and none observed at this time. Will monitor. - Sensation Sensation Comments: Denies numbness or tinging. H/o CTS release 8-9 years ago. Completed by [facility]. 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 Goal:: Karthik to increased wrist ROM by 20-30 degrees to promote increased ROM and decreased stiffness 4/5 trials 80% of the time by d/c. Goal:: Karthik to have no more than 1/10 pain with repetitive lifting related tasks needed to complete job 4/5 trials 80% of the time by d/c. Goal:: Karthik to be (i) to completed edema management techniques as needed to manage symptoms by d/c. Goal:: Karthik to be (I) to complete proper lifting and joint protection techniques 4/5 trials 805 of the time by d/c. Goal:: Karthik to be (i) to complete daily HEP to promote strength and ROM 4/5 trials 80% of the time to promote returning to PLOF for ADL/IADLs by d/c. - Rehabilitation General Assessment: Karthik arrived for OT evaluation on this date of 09/24/18. Originally injury occurred 6 weeks ago and cast removed yesterday. 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 He would benefit from weekly OT appointments for ROM, PRE for strengthening program, and general tasks to promote returning to PLOF for all ADL/IADls. Rehabilitation Potential: Good - Anticipated Interventions Anticipated Interventions: A/AAROM/PROM, Strengthening, Edema Control, Triggerpoint Release, Modalities, Joint Protection/Energy Conservation, Ergonomic Education, Fine Motor Coord/Osmin, ADL Training, Caregiver Training, Home Program - Visit Plan Frequency: 1-2x /Week Duration: 4 Weeks General Plan: Karthik to complete skilled OT to promote increased ROM, PRE for strengthening protocol, and increased ability to return to PLOF. TEXT: Thank you for the opportunity to evaluate your patient. For Medicare and Medicare HMO plans, please review the plan of care and approve it. It will need to be FAXED BACK to us at [phone] for Medicare purposes. Please let me know if there are questions or concerns regarding this plan of care. Physician Signature: Date:
--- NOTE | 2018-10-08 09:26 | HP.OTDCSUM ---
HP - OT D/C Summary It has been my pleasure to treat KARTHIK BACH under orders from TREVA Martin, for the diagnosis of R nondisplaced triquetal avulsion fracture for a total of 3 visit(s). Please see the following information for a summary of their discharge status. - Overall Improvement % Improvement: 85 - Objective Objective/Function: New measurements completed today of 10/08/17 and are as follows: Wrist: - flexion R 0-53, L 0-70. - extension R 0-32, L 0-37. - Supination WFL. - Radial deviation R 0-15, L 0-19. - Ulnar deviation R 0-30, L 0-27. Strength: student financial aid manager R 96, L 111. lateral R 31, L 27 lbs. tripod R 24, L 27 lbs. pincer R 19, L 20 lbs. Denies numbness or tingling. He has progressed towards and meant some goals. - Goals Patient Goals: Regain Mobility, Regain Strength, Decrease Pain, Return to Work, Decrease Swelling/Stiffness, Use Hand/Wrist/Arm Normally Again, Decrease Tingling/Numbness, Increase ROM, Be More Independent in ADLS, Resume Former Household Responsibilities (Cooking,Cleaning,Yard, etc.), Resume Hobbies Goal:: Karthik to increase R student financial aid manager by 20-30 lbs of L student financial aid manager to promote returning to PLOF and returning to al ADL/IADLs by d/c. Goal:: Karthik to increased wrist ROM by 20-30 degrees to promote increased ROM and decreased stiffness 4/5 trials 80% of the time by d/c. Goal:: Karthik to have no more than 1/10 pain with repetitive lifting related tasks needed to complete job 4/5 trials 80% of the time by d/c. Goal:: Karthik to be (i) to completed edema management techniques as needed to manage symptoms by d/c. Goal:: Karthik to be (I) to complete proper lifting and joint protection techniques 4/5 trials 805 of the time by d/c. Goal:: Karthik to be (i) to complete daily HEP to promote strength and ROM 4/5 trials 80% of the time to promote returning to PLOF for ADL/IADLs by d/c. - Plan Plan: Katrhik will be d/c'd today from personal request as doing well and as he is progressed and started to meet most goals. He is complaint with HEP and to continue HEP at home. - D/C Information If there are questions or concerns regarding this patient's occupational therapy, please fell free to call me at [phone]. Thank you for the referral of this patient. Sincerely, Kenna Sargent
== END 2018-10-08 19:00 | disposition home or self-care (01) ==
LOC: OT 08:30
PROVIDERS: Family Provider Family Medicine; PCP Family Medicine; Referring Provider Physician Assistant; Visit Provider Physician Assistant
DX: S62.114D Nondisplaced fracture of triquetrum [cuneiform] bone, right wrist, subsequent encounter for fracture with routine healing (principal)
CPT/HCPCS: 97110; 97166; 97530

== ENCOUNTER → 2019-05-15 09:22 | Outpatient (CLI) | payer OTHER, SELFPAY ==
[2019-05-15 08:31] VITALS: BMI 45.6
--- NOTE | 2019-05-15 09:23 | RAD_ITS ---
STUDY: X-RAY - RIGHT WRIST REASON FOR EXAM: Pain, fall one week ago. TECHNIQUE: 3 view(s) of the wrist were obtained. COMPARISON: Radiographs 09/23/2018. FINDINGS: Normal visualized distal radius and ulna. Normal radiocarpal articulation. Normal distal radioulnar articulation. There is healed avulsive fracture deformity at the dorsal aspect of the triquetrum. Normal carpal articulations. Normal carpometacarpal articulation of the thumb. Normal second through fifth carpometacarpal articulations. Normal visualized metacarpal bones. The soft tissue structures are unremarkable. RAD/Wrist min 3 Views IMPRESSION: Healed avulsive fracture deformity at the dorsal aspect of the triquetrum. Otherwise, unremarkable x-ray examination of the right wrist. Electronically Signed: Xavier Snyder MD at 14:00 EDT Tel , Service support ,
--- NOTE | 2019-05-15 09:23 | RAD_ITS ---
STUDY: X-RAY - PELVIS AND LEFT HIP REASON FOR EXAM: Pain, fall one week ago. TECHNIQUE: 2 views of the pelvis and hip. COMPARISON: None. FINDINGS: Normal visualized soft tissue structures. Normal bilateral sacroiliac joints and visualized sacrum. There is mild enthesopathy of the iliac wings bilaterally. Normal bilateral superior and inferior pubic rami. Normal pubic symphysis. Normal bilateral ischial tuberosities. Normal visualized femoral head. Normal acetabulum. Normal hip joint. RAD/HIP, UNI W/ Pelvis 2-3 Views IMPRESSION: Mild enthesopathy of the iliac wings bilaterally. Otherwise, unremarkable x-ray examination of the pelvis and left hip. Electronically Signed: Xavier Snyder MD at 13:45 EDT Tel , Service support ,
--- NOTE | 2019-05-15 09:23 | RAD_ITS ---
STUDY: X-RAY - LEFT KNEE REASON FOR EXAM: Pain, fall a week ago. TECHNIQUE: 4 view(s) of the knee. COMPARISON: Radiographs 09/18/2012. FINDINGS: Normal visualized distal femur. Normal visualized proximal tibia and fibula. Normal proximal tibiofibular articulation. Normal medial femorotibial compartment. Normal lateral femorotibial compartment. Normal patellofemoral articulation. There is soft tissue swelling at the anterior aspect of the knee. RAD/Knee 4 or More Views IMPRESSION: Soft tissue swelling. No demonstrated fracture. Electronically Signed: Xavier Snyder MD at 14:07 EDT Tel , Service support ,
--- NOTE | 2019-05-15 09:23 | RAD_ITS ---
STUDY: X-RAY - LEFT HAND REASON FOR EXAM: Pain in fifth finger, fall a week ago. TECHNIQUE: 3 view(s) of the hand. COMPARISON: None. FINDINGS: Normal radiocarpal articulation. Normal distal radioulnar joint. Normal visualized carpal bones. Normal carpal articulations Normal carpometacarpal articulation of the thumb. Normal second through fifth carpometacarpal joints. Normal metacarpi. Normal metacarpophalangeal joint of the thumb. Normal interphalangeal joint of the thumb. Normal proximal and distal phalanges of the thumb. Normal metacarpophalangeal joints of the second through fifth fingers. There is dorsal dislocation of the fifth proximal interphalangeal joint. Normal phalanges of the second through fifth fingers. The soft tissue structures are unremarkable. RAD/Hand Min 3 Views IMPRESSION: Dorsal dislocation of the fifth proximal interphalangeal joint. Electronically Signed: Xavier Snyder MD at 14:16 EDT Tel , Service support ,
--- NOTE | 2019-05-15 09:23 | RAD_ITS ---
STUDY: X-RAY - LEFT ANKLE REASON FOR EXAM: Pain, fall one week ago. TECHNIQUE: 3 view(s) of the ankle. COMPARISON: Radiographs of the left calcaneus 02/09/2017. FINDINGS: Normal visualized distal tibia and fibula. Normal medial and lateral malleoli. Normal tibiotalar articulation and ankle mortise. There are postoperative changes from resection of a plantar calcaneal enthesophyte. There is a posterior calcaneal enthesophyte. The visualized subtalar, talonavicular, calcaneocuboid and tarsal articulations are normal. The soft tissue structures are unremarkable. RAD/Ankle min 3 Views IMPRESSION: Postoperative changes from resection of a plantar calcaneal enthesophyte. Posterior calcaneal enthesophyte. No demonstrated fracture. Electronically Signed: Xavier Snyder MD at 13:37 EDT Tel , Service support ,
--- NOTE | 2019-05-15 10:20 | RAD_ITS ---
STUDY: X-RAY - RIGHT RADIUS AND ULNA REASON FOR EXAM: Pain, fall a week ago. TECHNIQUE: 2 view(s) of the forearm. COMPARISON: None. FINDINGS: There is no demonstrated soft tissue swelling. Normal visualized radius. There is an olecranon enthesophyte. Otherwise, normal visualized ulna RAD/Forearm 2 Views IMPRESSION: Olecranon enthesophyte. Otherwise, unremarkable x-ray examination of the right radius and ulna. Electronically Signed: Xavier Snyder MD at 13:48 EDT Tel , Service support ,
--- NOTE | 2019-05-15 10:20 | RAD_ITS ---
STUDY: X-RAY - LEFT HAND REASON FOR EXAM: Fifth finger dislocation. TECHNIQUE: 3 view(s) of the hand. COMPARISON: Earlier radiographs of the left hand today. FINDINGS: Normal radiocarpal articulation. Normal distal radioulnar joint. Normal visualized carpal bones. Normal carpal articulations Normal carpometacarpal articulation of the thumb. Normal second through fifth carpometacarpal joints. Normal metacarpi. Normal metacarpophalangeal joint of the thumb. Normal interphalangeal joint of the thumb. Normal proximal and distal phalanges of the thumb. Normal metacarpophalangeal joints of the second through fifth fingers. There is dorsal dislocation of the fifth proximal interphalangeal joint. Normal phalanges of the second through fifth fingers. There is an overlying splint of the fifth digit. RAD/Hand Min 3 Views IMPRESSION: Dorsal dislocation of the fifth proximal interphalangeal joint. Electronically Signed: Xavier Snyder MD at 14:16 EDT Tel , Service support ,
--- NOTE | 2019-05-15 10:52 | RAD_ITS ---
STUDY: X-RAY - LEFT HAND, ATTENTION FIFTH FINGER REASON FOR EXAM: Postreduction of fifth finger. TECHNIQUE: 2 view(s) of the finger were obtained. COMPARISON: Earlier radiographs the left hand obtained today. FINDINGS: Normal metacarpal. Normal metacarpophalangeal joint. Normal proximal phalanx. Normal middle phalanx. Normal distal phalanx. There is reduction of the dislocation of the proximal interphalangeal joint. Normal distal interphalangeal joint. RAD/Finger(s) Min 2 Views IMPRESSION: Reduction of the fifth proximal interphalangeal joint. Electronically Signed: Xavier Snyder MD at 14:16 EDT Tel , Service support ,
== END ==
PROVIDERS: Family Provider Family Medicine; PCP Family Medicine; Referring Provider Orthopaedic Surgery; Visit Provider Orthopaedic Surgery
DX: M79.646 Pain in unspecified finger(s) (principal); M25.531 Pain in right wrist; M79.642 Pain in left hand; W19.XXXA Unspecified fall, initial encounter
CPT/HCPCS: 73090; 73110; 73130; 73140; 73502; 73564; 73610

== ENCOUNTER → 2019-05-22 08:35 | Outpatient (CLI) | payer OTHER, SELFPAY ==
[2019-05-15 08:31] VITALS: BMI 45.6
--- NOTE | 2019-05-22 08:36 | RAD_ITS ---
STUDY: X-RAY - LEFT HAND, ATTENTION FIFTH FINGER REASON FOR EXAM: Fracture follow-up. TECHNIQUE: 3 view(s) of the finger were obtained. COMPARISON: Radiographs 05/15/2019. FINDINGS: Normal metacarpal. Normal metacarpophalangeal joint. Normal proximal phalanx. There is a very small ossific density at the palmar aspect of the proximal interphalangeal joint suggestive of a very small avulsion from the palmar aspect of the middle phalangeal base. Normal distal phalanx. There is continued reduction of the proximal interphalangeal joint. Normal distal interphalangeal joint. RAD/Finger(s) Min 2 Views IMPRESSION: Very small ossific density at the palmar aspect of the proximal interphalangeal joint suggestive of a very small avulsion from the palmar aspect of the middle phalangeal base. Electronically Signed: Xavier Snyder MD at 11:09 EDT Tel , Service support ,
== END ==
PROVIDERS: Family Provider Family Medicine; PCP Family Medicine; Referring Provider Orthopaedic Surgery; Visit Provider Orthopaedic Surgery
DX: S63.257A Unspecified dislocation of left little finger, initial encounter (principal)
CPT/HCPCS: 73140

== ENCOUNTER → 2019-05-31 07:54 | Outpatient (CLI) | payer OTHER, SELFPAY ==
[2019-05-22 08:39] VITALS: BMI 45.6
--- NOTE | 2019-05-31 07:56 | MRI_ITS ---
STUDY: MRI LEFT HIP REASON FOR EXAM: Male, 38 years old. Left hip injury. Fall. Pain. TECHNIQUE: Standardized fat and water weighted pulse sequences were obtained in all 3 orthogonal planes. COMPARISON: X-rays dated May 15, 2019. FINDINGS: Acute/subacute nondisplaced left inferior pubic ramus fracture (axial image 33 series 5). Acute nondisplaced left superior pubic ramus fracture (coronal image 22 series 3). No dislocation. No bone destruction. Mild adductor muscle strain (coronal image 14 series 4). Mild soft tissue swelling. No hematoma. Normal hip joint without articular joint space narrowing. Normal acetabulum. Normal labrum. Normal femoral head. Normal femoral neck and intratrochanteric region. Normal gluteus minimus, medius and iliopsoas tendons and distal insertions. No trochanteric, iliopsoas or iliopectineal bursitis. Intact pubic symphysis. Normal ischial tuberosity. Intact hamstring tendons. Normal visualized iliac wing, sacroiliac joint, and sacral ala. MRI/Lower Ext Joint Only (Routine) IMPRESSION: Acute nondisplaced left superior and inferior pubic ramus fractures Mild adductor muscle strain Mild soft tissue swelling without focal hematoma Electronically Signed: Dandre Wilks DO at 11:50 EDT Tel , Service support ,
== END ==
PROVIDERS: Family Provider Family Medicine; PCP Family Medicine; Referring Provider Orthopaedic Surgery; Visit Provider Orthopaedic Surgery
DX: S32.592A Other specified fracture of left pubis, initial encounter for closed fracture (principal); W19.XXXA Unspecified fall, initial encounter; Y99.0 Civilian activity done for income or pay
CPT/HCPCS: 73721

== ENCOUNTER → 2019-06-03 12:59 | Outpatient (CLI) | payer OTHER, SELFPAY ==
[2019-05-22 08:39] VITALS: BMI 45.6
--- NOTE | 2019-06-03 13:00 | RAD_ITS ---
STUDY: X-RAY - LEFT HAND, ATTENTION FIFTH FINGER REASON FOR EXAM: Fracture follow-up. TECHNIQUE: 3 view(s) of the finger were obtained. COMPARISON: Radiographs 05/22/2019. FINDINGS: Normal metacarpal head. Normal metacarpophalangeal joint. Normal proximal phalanx. There is no change of the small avulsion fracture from the palmar aspect of the middle phalangeal base. Normal distal phalanx. There is continued reduction of the proximal interphalangeal joint. Normal distal interphalangeal joint. RAD/Finger(s) Min 2 Views IMPRESSION: No interval change of small avulsion from the palmar aspect of the middle phalangeal base. Electronically Signed: Xavier Snyder MD at 15:13 EDT Tel , Service support ,
== END ==
PROVIDERS: Family Provider Family Medicine; PCP Family Medicine; Referring Provider Orthopaedic Surgery; Visit Provider Orthopaedic Surgery
DX: S63.257A Unspecified dislocation of left little finger, initial encounter (principal)
CPT/HCPCS: 73140

== ENCOUNTER → 2019-07-03 08:23 | Outpatient (CLI) | payer OTHER, SELFPAY ==
[2019-06-03 13:15] VITALS: BMI 45.6
--- NOTE | 2019-07-03 08:24 | RAD_ITS ---
STUDY: X-RAY - LEFT HAND, ATTENTION FIFTH FINGER REASON FOR EXAM: Fracture follow-up. TECHNIQUE: 3 view(s) of the finger were obtained. COMPARISON: Radiographs 06/03/2019. FINDINGS: Normal metacarpal. Normal metacarpophalangeal joint. Normal proximal phalanx. There is no change of the small avulsion fracture from palmar aspect of the middle phalangeal base. Normal distal phalanx. Normal proximal interphalangeal joint. Normal distal interphalangeal joint. RAD/Finger(s) Min 2 Views IMPRESSION: No interval change of small avulsion from the palmar aspect of the middle phalangeal base. Electronically Signed: Xavier Snyder MD at 12:30 EDT Tel , Service support ,
== END ==
PROVIDERS: Family Provider Family Medicine; PCP Family Medicine; Visit Provider Orthopaedic Surgery
DX: S63.257A Unspecified dislocation of left little finger, initial encounter (principal)
CPT/HCPCS: 73140

== ENCOUNTER 2019-07-14 09:30 | Outpatient (RCR) | payer OTHER, SELFPAY ==
[2019-05-22 08:39] VITALS: BMI 45.6
--- NOTE | 2019-06-05 10:19 | HP.OTEVAL_ITS ---
Patient's Visit Information MC BACH is a 38 year old M, referred to Occupational Therapy by Maria Guadalupe Robles DO, with a diagnosis of left LF PIP dislocation. Date of Evaluation: 05/30/19 Occupational Therapist: Keyla Roche, DYLAN/Raf, CHT - Subjective Subjective: This 38 year old male was seen for OT eval with left LF dislocation. Fall off ladder on 2018. Pt suffered multiple injuries. pt states finger was set about a week after his fall. Pt would like to return his LF to using it with ADLs and IADLS - Pain left LF 4 Pain Intensity Range: 3, 7 - ROM MP: right LF 0/80 left 70 PIP: right LF 0/85 left 0/25 DIP: right LF 0/90 left 0/5 - Strength Salvage Cutter: right 75# left NT Lateral Pinch: right 28# left NT Tripod Pinch: right 20# left NT - Edema PIP: right LF 5.7 left 6.2 - Sensation Thumb: Right 2.83 left 2.83 Index: Right 2.83 left 2.83 Middle: Right 2.83 left 2.83 Ring: Right 2.83 left 2.83 Little: Right 2.83 left 2.83 - Quick DASH-Disab of Arm,Shoulder& Hand Quick DASH Score: 67.8550 - Goals Goal:: pt will demo a increase in left perl software engineer strength by 30# to increase his ind. with ADls and IADLs by d/c Goal:: pt will demo a increase in left LF ROM in order to form a composite fist with grasph/manipulating fasteners and money mtg at IND. level Goal:: pt will report pain no greater than 1/10 with use of left hand with ADLs and IADLs by d/c - Rehabilitation General Assessment: Pt demo with limited ROM following a left LF PIP dislocation. pt is limited with ADLs and IADLS due to pain and his limited ROM. Pt would benefit from skilled OT services 1-2x week for 4-6 weeks- Therapy will provide support,ed and strengthening to return pt to PLOF. Today pt was ed. on yunior tape while performing ADLs and IADLs along with AROM ex. pt demo understanding and agree to POC. Rehabilitation Potential: Excellent - Anticipated Interventions Anticipated Interventions: A/AAROM/PROM, Strengthening, Triggerpoint Release, Sensory Retraining, Modalities, Orthoses, Joint Protection/Energy Conservation, Fine Motor Coord/Osmin - Visit Plan Frequency: 1-2x /Week Duration: 4 Weeks TEXT: Thank you for the opportunity to evaluate your patient. For Medicare and Medicare HMO plans, please review the plan of care and approve it. It will need to be FAXED BACK to us at [phone] for Medicare purposes. Please let me know if there are questions or concerns regarding this plan of care. Physician Signature: Date:
--- NOTE | 2019-06-17 13:26 | HP.PTEVAL_ITS ---
Patient's Visit Information MC BACH is a 38 year old M referred to Physical Therapy by Maria Guadalupe Robles DO with a diagnosis of L hip fx, avulsion talus. Date of Evaluation: 06/17/19 Physical Therapist: Dandre Chiu, DPT, OCS, CSCS - Visit Plan Frequency: 3x /Week Duration: 4-6 Weeks Plan: 3x/week for 4 weeks for: 1. L hip ROM flexiona dn ext adn rotation manually and AROM as well as knee flexion ROM. 2. HS, piriformis and quad stretches. 3. strengthening of L hip and B LE. 4. functional gait and strength progression for return to work when ready. 5. ES, manual rollout as needed. - Subjective Findings: On top of ladder 15 feet adn it slid out back in late April, hit wood floor adn broke pelvis in two places, knee hurts and jacqueline alot, and bone chip in ankle which feels fine. Went to ER. Has been resting adn walking. Was in a walking boot for a bit but fracture on wrist which is better adn L inky which limited crutchesa dn he walked on it the whole time. Also needed stitches in k nee head. 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 Works 40 hour week but is off now. return to doctor on 07/03. Hard to bend or squat. Sleep is on R side and is painful to try L side adn must move around. Pain 6/10 this week in lateral L hip and in groin. Knee hurts 4/10 at times. Hip is more constant and knee is there with use. Basic ADLs are OK. Spends day currently watchin Netflix and does some non bending cleaning. Avoids laundry. Lives with family and kids. Has steps which he avoids due to this and that is where the kids sleep. - Pain L hip Pain Intensity (Out of 10): 4 Pain Intensity Range: 0, 6 L knee Pain Intensity (Out of 10): 0 Pain Intensity Range: 0, 4 - Objective Walks with obvious L antalgia getting worse as he walks further. Trasnfers are I with UE to aand from sit and supine. Steps are reciprocal but obvoius antalgia with L and needs rail. Ankle ROM WFL adn withotu pain , tightness present in gastroc adn HS and piriformis L vs R. Knee aROM L 0-110 adn R 0-120, pain limiting L knee. Tender to palpation around patella L medial adn lateral. Hip ROM L flexion 90 adn R 110 limited by pain on L. Ext 0 degrees B, Ext rotation L 45 and paina dn R 60, IR painful groin L at 5 degrees adn R 10 degrees. weakness and pain to contraction of L hip ext, abd, ext rotatiors at 3+ vs 4+ on R. Knee ext painful on L at 4 adn R 4+, HSC B 4 withotu pain. + L patellar grind, - bounce home. + L FABERs and FADDIRS, - L scour. Tender to the touch GT on maximally and into piriformis area. ankle strength 4- B ankles. reflexes 2/3 in aptella and achilles. Sensation wNL to gross light touch. - Balance Scores Functional Gait Assessment Score: 27 % Disability: 10.0000 CATSIB Score (Max score 120 seconds): 120 - Goals Goal 1:: sleep withotu waking at night 3 in a row. Goal Time Frame: 4-6 Weeks Goal 2:: Walk and steps without antalgia Goal Time Frame: 4-6 Weeks Goal 3:: Full aROM L hip symmetrical with R without pain adn knee as well. Goal Time Frame: 4-6 Weeks Goal 4:: Patient able to do all home activities without noticing hip Goal Time Frame: 4-6 Weeks Goal 5:: Plan to return to work. Goal Time Frame: 4-6 Weeks - Rehabilitation Potential Physical Therapy Diagnosis: post traumatic fall and resulting immobility and pain. Rehabilitation Potential: Fair - Anticipated Interventions Patient/Client Instruction: Educate patient on: Condition, Plan of Care For the Purpose of:: To decrease pain, To increase ROM, To improve muscle performance and motor function, To increase tolerance to activity/condition/position, To improve ability of physical actions for home/community/work/leisure Therapeutic Exercise to Include: Strength training, Flexibilty training, Gait and locomotor training, Passive ROM, Active ROM For the Purpose of:: To decrease pain, To increase ROM, To improve muscle performance and motor function, To increase tolerance to activity/condition/position, To improve ability of physical actions for home/community/work/leisure, To improve gait and locomotor functions Manual Therapy Techniques to Include: Soft tissue mobilization For the Purpose of:: To increase ROM TENS: Yes Cryotherapy (ice pack, ice massage): Yes For the Purpose of:: To decrease pain Thank you for the opportunity to evaluate your patient. For Medicare and Medicare HMO plans, please review the plan of care and approve it. It will need to be FAXED BACK to us at [phone] for Medicare purposes. For Medicare only, by signing this I certify the plan of care. Please let me know if there are questions or concerns regarding this plan of care. Physician Signature: Date:
--- NOTE | 2019-06-19 12:00 | HP.OTDCSUM ---
HP - OT D/C Summary It has been my pleasure to treat MC BACH under orders from Maria Guadalupe Robles DO, for the diagnosis of left LF PIP dislocation for a total of 7 visit(s). Please see the following information for a summary of their discharge status. - Overall Improvement % Improvement: 90 - Objective Objective/Function: pts LF MCP 0/90 PIP 0/75 DIP 0/70 pt demo a tight composite fist- with min. to no pain. edema 6.2 PIP circumfance and right is 6.0. pt demo great ROM and a left welding machine assembler strength of 117# pt reports he is IND. with all ADls and IADLs. pt does have swelling from time to time- therapist ed.pt on use of co-band to use to control swelling for a good 6 months to a year. pt demo understanding- pt has met OT goals and is d/c at this time. - Goals Patient Goals: Regain Mobility, Regain Strength, Decrease Swelling/Stiffness, Improve Fine Motor Skills, Use Hand/Wrist/Arm Normally Again Goal:: pt will demo a increase in left welding machine assembler strength by 30# to increase his ind. with ADls and IADLs by d/c Goal:: pt will demo a increase in left LF ROM in order to form a composite fist with grasph/manipulating fasteners and money mtg at IND. level Goal:: pt will report pain no greater than 1/10 with use of left hand with ADLs and IADLs by d/c - Plan Plan: pt to cont with HEP - D/C Information Discharge Comments: Pt was seen for 7/8 OT visits- pt made great gains and at this time does not need to cont. with OT services. pts left LF ROM is WNL and left welding machine assembler strength is now 117#. pt has met goals and is D/C at this time. If there are questions or concerns regarding this patient's occupational therapy, please fell free to call me at [phone]. Thank you for the referral of this patient. Sincerely, Keyla Roche, OTR/L, CHT
--- NOTE | 2019-07-14 14:20 | HP.PTREVAL ---
Maria Guadalupe Robles, DO, It has been my pleasure to treat MC BACH over the last 12 visits for L hip fx, avulsion talus. Please see the progress note below for an update on the physical therapy plan of care! Subjective: States he's not too bad coming in today. States he's been approved for the MRI on his knee. Objective/Function: Pt states pain the same, but feels worked out. Good job today. Feels his hip is much better - about 70% better. His knee is still the main issue - hurts when it locks up. Plan Plan: progress machines adding pull downs adn rows and wean back to [employer] when tolerates. Functional hip strength to tolerance of soreness. Pt having MRI on knee. I CALLED PATIENT AFTER HIS APPOINTMENT TODAY HE IS OUT OF VISITS ON HIS C9. HE IS HAVING A mri ON HIS KNEE WHCIH IS HOLDING HIM BACK MORE SO THAN HIS HIP. FOR THIS REASON, HE WISHES TO WAIT ON MORE THERAPY UNTIL AFTER HIS MRI ADN DOCTOR FOLLOW UP. SHREE SESAYER THAT TIME. Goals Goal 1:: sleep withotu waking at night 3 in a row. Goal Time Frame: 4-6 Weeks Goal 2:: Walk and steps without antalgia Goal Time Frame: 4-6 Weeks Goal Progress: Progressing Goal 3:: Full aROM L hip symmetrical with R without pain adn knee as well. Goal Time Frame: 4-6 Weeks Goal Progress: Progressing Goal 4:: Patient able to do all home activities without noticing hip Goal Time Frame: 4-6 Weeks Goal Progress: KNEE HOLDING BACK Goal 5:: Plan to return to work. Goal Time Frame: 4-6 Weeks Anticipated Interventions Patient/Client Instruction: Educate patient on: Condition, Plan of Care For the Purpose of:: To decrease pain, To increase ROM, To improve muscle performance and motor function, To increase tolerance to activity/condition/position, To improve ability of physical actions for home/community/work/leisure Therapeutic Exercise to Include: Strength training, Flexibilty training, Gait and locomotor training, Passive ROM, Active ROM For the Purpose of:: To decrease pain, To increase ROM, To improve muscle performance and motor function, To increase tolerance to activity/condition/position, To improve ability of physical actions for home/community/work/leisure, To improve gait and locomotor functions Manual Therapy Techniques to Include: Soft tissue mobilization For the Purpose of:: To increase ROM TENS: Yes Cryotherapy (ice pack, ice massage): Yes For the Purpose of:: To decrease pain Please do not hesitate to contact me at [phone] by phone or if you have questions or concerns regarding this new plan of care! Sincerely, Dandre Chiu, DPT, OCS, CSCS
--- NOTE | 2019-07-30 19:05 | HP.OTDCSUM ---
HP - OT D/C Summary It has been my pleasure to treat MC BACH under orders from Maria Guadalupe Robles DO, for the diagnosis of left LF PIP dislocation for a total of 7 visit(s). Please see the following information for a summary of their discharge status. - Overall Improvement % Improvement: 90 - Objective Objective/Function: pts LF MCP 0/90 PIP 0/75 DIP 0/70 pt demo a tight composite fist- with min. to no pain. edema 6.2 PIP circumfance and right is 6.0. pt demo great ROM and a left administrative services coordinator strength of 117# pt reports he is IND. with all ADls and IADLs. pt does have swelling from time to time- therapist ed.pt on use of co-band to use to control swelling for a good 6 months to a year. pt demo understanding- pt has met OT goals and is d/c at this time. - Goals Patient Goals: Regain Mobility, Regain Strength, Decrease Swelling/Stiffness, Improve Fine Motor Skills, Use Hand/Wrist/Arm Normally Again Goal:: pt will demo a increase in left administrative services coordinator strength by 30# to increase his ind. with ADls and IADLs by d/c Goal:: pt will demo a increase in left LF ROM in order to form a composite fist with grasph/manipulating fasteners and money mtg at IND. level Goal:: pt will report pain no greater than 1/10 with use of left hand with ADLs and IADLs by d/c - Plan Plan: pt to cont with HEP - D/C Information Discharge Comments: Pt was seen for 7/8 OT visits- pt made great gains and at this time does not need to cont. with OT services. pts left LF ROM is WNL and left administrative services coordinator strength is now 117#. pt has met goals and is D/C at this time. If there are questions or concerns regarding this patient's occupational therapy, please fell free to call me at [phone]. Thank you for the referral of this patient. Sincerely, Keyla Roche, OTR/L, CHT
== END 2019-07-14 19:00 | disposition home or self-care (01) ==
LOC: PT 09:30
PROVIDERS: Family Provider Family Medicine; PCP Family Medicine; Referring Provider Orthopaedic Surgery; Visit Provider Orthopaedic Surgery
DX: S01.81XD Laceration without foreign body of other part of head, subsequent encounter (principal); S63.591D Other specified sprain of right wrist, subsequent encounter; S79.912D Unspecified injury of left hip, subsequent encounter; S81.012D Laceration without foreign body, left knee, subsequent encounter; S92.152D Displaced avulsion fracture (chip fracture) of left talus, subsequent encounter for fracture with routine healing
CPT/HCPCS: 97035; 97110; 97140; 97162; 97166; 97530

== ENCOUNTER → 2019-07-24 12:24 | Outpatient (CLI) | payer OTHER, SELFPAY ==
[2019-07-08 11:52] VITALS: BMI 45.6
--- NOTE | 2019-07-24 12:26 | MRI_ITS ---
STUDY: MRI LEFT KNEE REASON FOR EXAM: Pain around the patella, fall 2 months ago. TECHNIQUE: Standardized fat and water weighted pulse sequences were obtained in all 3 orthogonal planes. COMPARISON: Radiographs 05/15/2019. FINDINGS: There is a small oblique tear of the inferior articular surface of the posterior horn of the medial meniscus (proton density sagittal image 10) with a minimal parameniscal cyst (T2 coronal image 12). Normal hyaline cartilage of the medial femorotibial compartment. Normal medial femoral condyle and tibial plateau. Normal medial collateral ligamentous complex (MCL). Normal distal semimembranosus, gracilis and semitendinosus tendons. Normal lateral meniscus. Normal hyaline cartilage of the lateral femorotibial compartment. Normal lateral femoral condyle and tibial plateau. Normal proximal tibiofibular articulation. Normal lateral collateral (fibular) ligament. Normal popliteus tendon. Normal biceps femoris tendon. Normal anterior cruciate ligament (ACL). Normal posterior cruciate ligament (PCL). Normal congruent patellofemoral articulation. Normal hyaline cartilage of the patellofemoral compartment. Normal medial and lateral patellar retinaculum. Normal visualized quadriceps tendon. There is very mild proximal patellar tendinosis (T2 sagittal images 14, 15). Normal Hoffa's fat pad. There is a minimal volume of fluid in the knee joint. There is a thin medial patellar plica. There is mild edema in the anterior subcutis adipose space. The otherwise visualized osseous structures are unremarkable. MRI/Lower Ext Joint Only (Routine) IMPRESSION: Small medial meniscal tear. Very mild proximal patellar tendinosis. Mild edema in the anterior subcutis adipose space. Electronically Signed: Xavier Snyder MD at 13:46 EST Tel , Service support ,
== END ==
PROVIDERS: Family Provider Family Medicine; PCP Family Medicine; Referring Provider Orthopaedic Surgery; Visit Provider Orthopaedic Surgery
DX: S79.912A Unspecified injury of left hip, initial encounter (principal); S81.012A Laceration without foreign body, left knee, initial encounter; W19.XXXA Unspecified fall, initial encounter
CPT/HCPCS: 73721

== ENCOUNTER 2019-09-24 10:43 | Day surgery (SDC) | payer OTHER, SELFPAY ==
[2019-09-04 08:30] VITALS: BMI 45.6
[2019-09-24] VITALS (7 sets, daily range): BP systolic 122–168; BP diastolic 83–113; PULSE 70–105; RESP 16–18; TEMP 36.6–37.2; O2SAT 88–99; BMI 50.1
[2019-09-24 11:16] LABS: Bedside Glucose 101 mg/dL (70-110)
[2019-09-24] MEDS: Lactated Ringers 1,000 ML 100 ML IV (11:50)
--- NOTE | 2019-09-24 13:52 | HP.PCM_ITS ---
History and Physical I have re-examined the patient. There are no clinical changes since date of exam. Intake Vital Signs 09/04/19 BMI 45.6 Intake Visit Reasons: LEFT KNEE Chief Complaint: left knee pain Allergies animal dander Allergy (Verified 08/29/18 14:35) Other oxycodone HCl [From Percocet] Allergy (Verified 08/29/18 14:35) Other tomato Allergy (Verified 08/29/18 14:35) Food Allergy hydrocodone bitartrate [From Vicodin] Adverse Reaction (Verified 08/29/18 14:35) Itching Medications esomeprazole magnesium 20 mg capsule,delayed release 20 mg PO DAILY 07/03/18 [History Confirmed 09/04/19] metformin 1,000 mg tablet 1,000 mg PO DAILY 07/03/18 [History Confirmed 09/04/19] sertraline 25 mg tablet 25 mg PO DAILY 07/03/18 [History Confirmed 09/04/19] PFSH Social History (Updated 09/04/19 @ 09:03 by TREVA Martin) Smoking Status: Never smoker alcohol intake: current alcohol intake frequency: a few times a month HPI LEFT KNEE: Details: Parts of this documentation were recorded by a scribe, this documentation accurately reflects the service provided and the decisions made by me, TREVA Martin 09/04/19 [id number]. MC BACH is a 39 year old M here today for [facility] F/U on left knee. Patient had an MRI that showed a medial meniscus tear and we have the approval for surgery now. Patient is here to sign consent for left knee medial meniscus repair vs meniscectomy. Denies numbness, tingling or other associated symptoms. Continues to ave instability of left knee and giving out that is painful. ROS Musc Reports joint pain, Reports joint swelling, Denies numbness, Denies radiating pain into limb, Reports stiffness, Denies tingling Skin/Breast Denies redness, Denies lesions, Denies itching, Denies rash, Denies skin swelling Neuro No numbness, No tingling Ortho Exam Left Knee Skin/Wound: No ecchymosis, No erythema, No swelling Contralateral Normal: Yes Knee ROM: Yes ROM-Extension -20 to 0 Examination: Yes med jt line tenderness, Yes Pain with flexion No rales rhonchi wheezing, no abdominal pain, no audible bruits Assessment & Plan Problems 1. Tear of medial meniscus of left knee, current, unspecified tear type, vieyra bsequent encounter S83.224D Plan Patient presents the office to sign surgical consent for a left knee medial meniscus repair versus meniscectomy. Patient has already talked with the surgeon regarding the procedure itself. We did again go over the procedure today including recovery time. We discussed that recovery is dependent upon whether or not the meniscus is repaired versus just removed. We discussed that he will be on crutches in a brace with toe-touch weightbearing if we repair the meniscus which she is aware of. He states that he definitely would like it r epaired if possible. We discussed risks and benefits of the procedure and all of his questions were answered today. Consent was signed in office today. Patient was given antimicrobial cleansed to be used the night before morning of the surgery and the extremity. He can notify us in the meantime of any other concerns or complaints. This note was generated with Float: [place] dictation software. It may contain incorrect words, spelling, and punctuation that were not noted in checking the note before signing. Coding Level of Care Code Off vis,est,level 2 Diagnoses Tear of medial meniscus of left knee, current, unspecified tear type, subsequent encounter S86.768D ??Tear current or old: current ??Encounter type: subsequent encounter ??Meniscus tear of knee type: unspecified type
[2019-09-24] MEDS: Cefazolin 2 GM in 0.9% Normal Saline 100 ML IV (14:08)
--- NOTE | 2019-09-24 14:10 | OP.PCM_ITS ---
Report of Operation Date of Procedure: 09/24/19 Pre-Operative Diagnosis: left knee medial meniscus tear, synovitis Post-Operative Diagnosis: same Surgery/Procedure Performed:: yenny, extensive synovectomy log processor operator: Abhishek Ocasio Type of Anesthesia:: General Anesthesiologist: Phan Dumont Specimen's removed: tt-20 min Estimated Blood Loss (mL): min Fluids Replaced: 700cc lr Description of Procedure: Preop note Patient is a 39-year-old male who fell off a ladder at work and sustained injury to his left side of his body including his knee. MRI confirms medial meniscus tear and synovitis throughout his knee. Risk benefits alternative surgery discussed the patient. Risks including but not limited to blood loss, blood clot, infection, neurovascular, failure procedure, life is a lot loss of life and loss of limb. Patient is aware like proceed with left knee arthroscopy repair as indicated. Operative note Patient seen and examined preoperative holding area. Left knee was marked. Patient brought to the operating room placed supine on the operating table. Signed, anesthesia, antibiotics were administered. The left leg was then prepped and draped usual sterile fashion with tourniquet around his upper thigh. All bony prominences well-padded SCDs placed on his contralateral limb. Marked out our incision for anterior lateral and anterior medial portal placement. The left arm was then elevate exsanguinated tourniquet was raised her pressure of 300 torr. Created anterior lateral portal initially with 11 blade. Begin our diagnostic arthroscopy. Patellofemoral joint was unremarkable there is a grade 3 trochlear changes at the most inferior aspect of the trochlea over the patella was intact and stable probing. After we created an anterior medial portal under direct visualization. There was extensive synovitis anterior medial and anterior lateral which was direct dissected with a shaver difficult to visualize and the medial joint lateral joint lines until this was thoroughly excised. ACL and PCL were present within the notch. The lateral meniscus was intact and stable to probing. The lateral tibial plateau had grade 2 fibrillated changes on the medial aspect of the lateral tibial plateau and the lateral femoral condyle was intact stable probing the medial femoral condyle was intact and stable probing. There was not a partial tear of the inferior aspect at the root the medial discussed however it was intact it was not unstable and by resecting the piece of metal made the meniscus unstable and was not an area to be repaired to be left alone also due to the fact that the meniscus also showed degenerative radial disc generative changes resecting any part of the meniscus will increase his risk for arthritis in the future. We then irrigated the knee with copious amounts of sterile sterile saline. Tourniquet is deflated for total working ti me of 20 minutes. Sterile The portals were closed with interrupted nylon stitches. Sterile dressings and a were applied to the left knee. Patient taught procedure well no complication transferred recovery room stable condition Postoperative note Hospital pharmacy has prescription Weight-bear as tolerated left leg Call with increased pain numbness tingling further issues arise Dragon disclaimer This note was generated with doggyloot dictation software. It may contain incorrect words, spelling, and punctuation that were not noted in checking the note before signing.
--- NOTE | 2019-09-24 14:10 | PCM.DC.ORTHO ---
Discharge Diet: No Restrictions - wbat left leg, remove dressings in 4 days and apply bandaids to incision sites and may get incision wet at that time, follow up in 10-14 days, call with concerns Discharge Activity: May Not Drive May shower in (days): 1 Ice area for (Minutes): 20 - Every hour while awake. Weight Bearing Status: Weight bearing as tolerated Keep extremity elevated above heart level: Operative Extremity Call your doctor if your incision/area has: Continuous Slow Oozing, Sudden Increased Bleeding, Increased Pain/ Swelling, Increased Redness, Foul Smelling Discharge Call your doctor if you observe: Fever of 101 or Higher, Coldness, Increased Pain, Numbness or Tingling, Change in Color, Calf discomfort Allergies/Adverse Reactions: Allergies animal dander Allergy (Verified 09/17/19 09:52) Other oxycodone HCl [From Percocet] Allergy (Verified 09/17/19 09:52) Other hydrocodone bitartrate [From Vicodin] Adverse Reaction (Verified 09/17/19 09:52) Itching Medications to take at Discharge esomeprazole magnesium 20 mg capsule,delayed release 20 mg PO DAILY 07/03/18 metformin 1,000 mg tablet 500 mg PO DAILY 07/03/18 sertraline 25 mg tablet 100 mg PO DAILY 07/03/18 Bupropion HCl [Wellbutrin Xl] 150 mg PO DAILY 09/17/19 Acetaminophen/Codeine #3 [Tylenol #3 Tablet] 1 - 2 tab PO Q6H PRN PRN #30 tab 09/24/19 The following prescriptions were given: Acetaminophen/Codeine #3 [Tylenol #3 Tablet] 1 - 2 tab PO Q6H PRN PRN #30 tab PRN Reason: Pain Transmission Status: Received by [facility] Primary Care Physician: Dandre Cobos MD [Primary Care Provider] - Test Results: Test results from this visit will be discussed in further detail at your follow-up appointment, if applicable. Please Follow Up With: Maria Guadalupe Robles, DO - [phone]
[2019-09-24] MEDS: Mupirocin Ointment 22gm Tube 1 APPLIC (14:58)
[2019-09-24] MEDS: Epinephrine (1 mg/ml) 1 MG/ML VIAL (14:58)
[2019-09-24 15:55] LABS: Bedside Glucose 102 mg/dL (70-110)
== END 2019-09-24 16:33 | disposition home or self-care (01) ==
LOC: SDC 10:44 → AC 10:45
PROVIDERS: Family Provider Family Medicine; PCP Family Medicine; Referring Provider Orthopaedic Surgery; Visit Provider Orthopaedic Surgery
PROC: (CPT 29882; principal; 2019-09-24 12:10)
DX: S83.242D Other tear of medial meniscus, current injury, left knee, subsequent encounter (principal); Z79.84 Long term (current) use of oral hypoglycemic drugs; Z88.5 Allergy status to narcotic agent; W11.XXXD Fall on and from ladder, subsequent encounter; K21.9 Gastro-esophageal reflux disease without esophagitis; F32.9 Major depressive disorder, single episode, unspecified; F41.9 Anxiety disorder, unspecified; G47.30 Sleep apnea, unspecified
CPT/HCPCS: 01400; 29876; 29881; 82962; J7120; J2405

== ENCOUNTER 2019-10-06 13:30 | Outpatient (RCR) | payer OTHER, SELFPAY ==
[2019-09-04 08:30] VITALS: BMI 45.6
== END 2019-10-10 23:59 ==
LOC: NS 13:30
PROVIDERS: Family Provider Family Medicine; PCP Family Medicine; Visit Provider Nurse Practitioner Family
DX: Z71.3 Dietary counseling and surveillance (principal); E66.9 Obesity, unspecified; Z68.43 Body mass index [BMI] 50.0-59.9, adult; F32.9 Major depressive disorder, single episode, unspecified; G47.33 Obstructive sleep apnea (adult) (pediatric); R73.02 Impaired glucose tolerance (oral)
CPT/HCPCS: 97802; 97803

== ENCOUNTER → 2019-10-07 09:27 | Outpatient (CLI) | payer OTHER, SELFPAY ==
[2019-10-07 08:36] VITALS: BMI 50.1
--- NOTE | 2019-10-07 09:30 | VDLE_ITS ---
Reason For Study: Swelling Procedure LEFT Exam performed in department. GSV is normal. A preliminary report was called and/or faxed CFV is compressible, spontaneous, phasic, to Margaret. competent, and demonstrates normal augmentation. FV is compressible, spontaneous, phasic, competent and demonstrates normal augmentation. POP V is compressible, spontaneous, phasic, competent and demonstrates normal augmentation. T/P Trunk is compressible. PTV is compressible. LT PerV is compressible. Interpretation Summary There is no evidence of left lower extremity deep vein thrombosis. Left great saphenous vein appears patent and compressible segmentally. Ordering Physician: Maria Guadalupe Robles Referring Physician: Dandre Cobos MD Performed By: Christiane Ko RVT
== END ==
PROVIDERS: PCP Family Medicine; Referring Provider Orthopaedic Surgery; Visit Provider Orthopaedic Surgery
DX: S83.242A Other tear of medial meniscus, current injury, left knee, initial encounter (principal)
CPT/HCPCS: 93971

== ENCOUNTER 2019-11-03 15:30 | Outpatient (RCR) | payer OTHER, SELFPAY ==
[2019-10-07 08:36] VITALS: BMI 50.1
== END 2019-11-08 23:59 ==
LOC: NS 15:30
PROVIDERS: Family Provider Family Medicine; PCP Family Medicine; Visit Provider Nurse Practitioner Family
DX: Z71.3 Dietary counseling and surveillance (principal); E66.9 Obesity, unspecified; Z68.43 Body mass index [BMI] 50.0-59.9, adult; F32.9 Major depressive disorder, single episode, unspecified; G47.33 Obstructive sleep apnea (adult) (pediatric); R73.02 Impaired glucose tolerance (oral)
CPT/HCPCS: 97803

== ENCOUNTER 2019-11-18 11:28 | Outpatient (RCR) | payer OTHER, SELFPAY ==
[2019-11-04 08:25] VITALS: BMI 50.1
== END 2019-12-09 23:59 ==
LOC: NS 11:28
PROVIDERS: Family Provider Family Medicine; PCP Family Medicine; Visit Provider Nurse Practitioner Family
DX: Z71.3 Dietary counseling and surveillance (principal); E66.9 Obesity, unspecified; Z68.43 Body mass index [BMI] 50.0-59.9, adult; F32.9 Major depressive disorder, single episode, unspecified; G47.33 Obstructive sleep apnea (adult) (pediatric); R73.02 Impaired glucose tolerance (oral)
CPT/HCPCS: 97803

== ENCOUNTER 2019-11-19 16:00 | Outpatient (RCR) | payer OTHER, SELFPAY ==
[2019-10-07 08:36] VITALS: BMI 50.1
--- NOTE | 2019-10-09 15:23 | HP.PTEVAL ---
Patient's Visit Information MC BACH is a 39 year old M referred to Physical Therapy by Dr. Maria Guadalupe Robles DO with a diagnosis of L knee arthroscopy, L knee synovectomy. Date of Evaluation: 10/09/19 Physical Therapist: Tucker Degroot DPT - Visit Plan Frequency: 2-3x /Week Duration: 6 Weeks Plan: Start with ROM with focus on TKE and knee flexion. Add in LLE strengthening start in OCK, progressing to CKC as tolerated. Once doing better progress functional strengthrening and mobility. - Subjective Findings: Pt. is here today for his initial evaluation with diagnosis of L knee arthroscopy, synovectomy. DOS: 09/24/19. Pt. reports initially hurting his knee when he fell from a ladder while at work. He had fx his hip at this point in time. Once he started walking more his knee started to bother him more. Pt. ended up having scar tissue removed, but did not have a meniscal repair. Pt. reports I am doing well, but it is still stiff. Pt. reports having 3/10 pain currently. Pt. 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 He has been off work since April. He works at a [employer] for [id number]. Pt. is hopeful to get back to work in a month or so, pending progress and doctor approval. - Pain L knee Pain Intensity (Out of 10): 2 - Objective POSTURE: Pt. has good posture in stance, equal wt. shifting between B Les. Pt. has normal knee postioning in stance with normal TKE. PALPATION: Pt. has increased tenderness throughout L knee, but no marked pain. NEURO: normal throughout. Normal DTR, normal sensation. ROM: R knee- 0-0-125deg. L knee 0-5-95deg. TIght HS bilaterally. MMT: RLE- 5/5 througout. LLE- ankle 5/5 througout; knee- ext 4/5, flexion 4/5; hip- flexion 4/5, adb 4/5, ext 4/5. Core strength- fair-. GAIT: Pt. ambulates without AD with mild increase in symptoms. STAIRS: Pt. has increased pain with dsecenidng use of BHR with step to pattern. - Goals Goal 1:: LTG: Pt. to be I with HEP. Goal Time Frame: 6-8 Weeks Goal 2:: STG: Pt. to have L knee PROM to 0-0-120deg without increase in symptoms. Goal Time Frame: 4-6 Weeks Goal 3:: LTG: pt. to have L knee AROM to 0-0-120deg without increase in symptoms. Goal Time Frame: 6-8 Weeks Goal 4:: STG: pt. to sleep throughout the night without increase in symptoms. Goal Time Frame: 2-4 Weeks Goal 5:: LTG: Pt. to have 5/5 strength in LLE. Goal Time Frame: 4-6 Weeks Goal 6:: LTG: Pt. to complete all work like duties without increase in symptoms allowing for increased tolerance with return to work. Goal Time Frame: 6-8 Weeks - Rehabilitation Potential Physical Therapy Diagnosis: Pt has signs and symptoms consistent with L knee arthroscopy, L knee synovectomy. Pt. had a mechanical fall in April and was dealing locking and L knee pain. Pt. reports already feeling better, but is has marked weakness and hypomobility noted. Pt. would benefit from PT to progress above limitations progressing back to work like activities. Rehabilitation Potential: Excellent - Anticipated Interventions Patient/Client Instruction: Educate patient on: Condition, Plan of Care, Risk Factors, Benefits of Fitness Program For the Purpose of:: To improve decision making, To facilitate caregiver knowledge, To improve self management, To prevent re-injury, To improve ability to perform tasks related to life management, To improve tolerance to ADL's Therapeutic Exercise to Include: Strength training, Power training, Endurance training, Balance training, Postural training, Flexibilty training, Gait and locomotor training, Passive ROM, Active ROM, Dynamic Lumbar Stabilization For the Purpose of:: To decrease pain, To decrease swelling/inflammation, To increase ROM, To improve nutrient delivery to tissue, To improve gait and locomotor functions, To improve health of tissue, To decrease soft tissue restriction, To increase flexibility/ROM IF ES: Yes Cryotherapy (ice pack, ice massage): Yes For the Purpose of:: To decrease pain, To decrease swelling/inflammation, To increase ROM, To improve nutrient delivery to tissue Thank you for the opportunity to evaluate your patient. For Medicare and Medicare HMO plans, please review the plan of care and approve it. It will need to be FAXED BACK to us at [phone] for Medicare purposes. For Medicare only, by signing this I certify the plan of care. Please let me know if there are questions or concerns regarding this plan of care. Physician Signature: Date:
--- NOTE | 2020-01-16 10:59 | HP.PTDCSUM ---
It has been my pleasure to treat MC BACH referred by Dr. Maria Guadalupe Robles DO, with the diagnosis of L knee arthroscopy, L knee synovectomy for a total of 18 visit(s). Discharge Date: Please see the following information for a summary of their discharge status. Subjective: Pt. reports he is 100% better overall. Pt. reports no issues and is back to work. L knee Pain Intensity (Out of 10): 0 % Improvement: 100 Objective/Function: Pt. has good ROM adn good strength. Pt. reports having no more issues. HE is back to work without limitation. Pt. has no limitations at this point in time. He is ready for DC. Goal 1:: LTG: Pt. to be I with HEP. Goal Progress: Goal Met Goal 2:: STG: Pt. to have L knee PROM to 0-0-120deg without increase in symptoms. Goal Progress: Goal Met Goal 3:: LTG: pt. to have L knee AROM to 0-0-120deg without increase in symptoms. Goal Progress: Goal Met Goal 4:: STG: pt. to sleep throughout the night without increase in symptoms. Goal Progress: Goal Met Goal 5:: LTG: Pt. to have 5/5 strength in LLE. Goal Progress: Goal Met Goal 6:: LTG: Pt. to complete all work like duties without increase in symptoms allowing for increased tolerance with return to work. Goal Progress: Goal Met Plan: Pt. DC to HEP and physician at this point in time. If there are questions or concerns regarding this patient's physical therapy, please feel free to call me at [phone]. Thank you for the referral of this patient. Sincerely, Tucker Degroot DPT
== END 2019-11-19 19:00 | disposition home or self-care (01) ==
LOC: PT 16:00
PROVIDERS: PCP Family Medicine; Referring Provider Orthopaedic Surgery; Visit Provider Orthopaedic Surgery
DX: S83.242D Other tear of medial meniscus, current injury, left knee, subsequent encounter (principal)
CPT/HCPCS: 97014; 97110; 97161; G0283

== ENCOUNTER 2020-01-27 08:38 | Outpatient (RCR) | payer OTHER, SELFPAY ==
[2019-11-04 08:25] VITALS: BMI 50.1
[2020-01-23 08:07] VITALS: BMI 50.1
== END 2020-01-27 23:59 | disposition home or self-care (01) ==
LOC: NS 08:38
PROVIDERS: Family Provider Family Medicine; PCP Family Medicine; Visit Provider Nurse Practitioner Family
DX: Z71.3 Dietary counseling and surveillance (principal); E66.9 Obesity, unspecified; Z68.43 Body mass index [BMI] 50.0-59.9, adult; F32.9 Major depressive disorder, single episode, unspecified; G47.33 Obstructive sleep apnea (adult) (pediatric); R73.02 Impaired glucose tolerance (oral)
CPT/HCPCS: 97803

== ENCOUNTER → 2020-05-03 14:19 | Outpatient (CLI) | payer OTHER, SELFPAY ==
[2020-05-03 14:11] VITALS: BMI 50.1
--- NOTE | 2020-05-03 14:19 | RAD_ITS ---
STUDY: X-RAY - RIGHT FOOT CLINICAL: Male, 39 years old. HEEL PAIN WITHOUT INJURY TECHNIQUE: 3 view(s) of the foot. COMPARISON: None. FINDINGS: There is an enthesophyte in the region of the Achilles tendon insertion on the posterior calcaneal tuberosity. A small plantar aspect calcaneal spur is also noted. Normal visualized subtalar, talonavicular, calcaneocuboid, tarsal and tarsometatarsal articulations. Normal metatarsi. Normal metatarsophalangeal joint of the great toe. Normal tibial and fibular sesamoid bones. Normal interphalangeal joint of the great toe. Normal phalanges of the great toe. Normal second through fifth metatarsophalangeal joints. Normal interphalangeal joints and phalanges of the lesser toes. The soft tissue structures are unremarkable. RAD/Foot min 3 Views IMPRESSION: Calcaneal spurs. No evidence of fracture or dislocation. Electronically Signed: Cisco Andrea MD at 16:13 EDT , Service support ,
== END ==
LOC: HPRAD 14:19
PROVIDERS: PCP Family Medicine; Referring Provider Physician Assistant Surgical; Visit Provider Physician Assistant Surgical
DX: S96.911A Strain of unspecified muscle and tendon at ankle and foot level, right foot, initial encounter (principal)
CPT/HCPCS: 73630

== ENCOUNTER → 2020-06-24 15:59 | Outpatient (CLI) | payer OTHER, SELFPAY ==
[2020-05-11 10:02] VITALS: BMI 50.1
--- NOTE | 2020-06-24 16:00 | VDLE_ITS ---
Reason For Study: pain and swelling Procedure LEFT This is a venous duplex using B-mode, color GSV is normal. flow and spectral Doppler. CFV is compressible, spontaneous, phasic, Exam performed in department. competent, and demonstrates normal The exam was abbreviated due to the COVID 19 augmentation. protocol. FV is compressible, spontaneous, phasic, The exam was diagnostic. competent and demonstrates normal A preliminary report was called and/or faxed augmentation. to Dr. Robles. POP V is compressible, spontaneous, phasic, competent and demonstrates normal augmentation. T/P Trunk is compressible. PTV is compressible. LT PerV is compressible. Interpretation Summary There is no evidence of left lower extremity deep vein thrombosis. Left great saphenous vein appears patent and compressible segmentally. Covid 19 protocol Ordering Physician: Maria Guadalupe Robles Performed By: Kevin Palafox RVT
== END ==
PROVIDERS: PCP Family Medicine; Referring Provider Orthopaedic Surgery; Visit Provider Orthopaedic Surgery
DX: S83.242A Other tear of medial meniscus, current injury, left knee, initial encounter (principal)
CPT/HCPCS: 93971

== ENCOUNTER → 2020-07-21 13:30 | Outpatient (CLI) | payer OTHER, SELFPAY ==
[2020-05-11 10:02] VITALS: BMI 50.1
== END ==
PROVIDERS: PCP Family Medicine; Visit Provider Family Medicine
DX: R09.89 Other specified symptoms and signs involving the circulatory and respiratory systems (principal)
CPT/HCPCS: 87635; U0003

== ENCOUNTER 2020-08-25 10:08 | Observation (INO) | payer OTHER, SELFPAY ==
[2020-05-11 10:02] VITALS: BMI 50.1
[2020-08-25] VITALS (12 sets, daily range): BP systolic 133–152; BP diastolic 84–100; PULSE 67–86; RESP 16–18; TEMP 36.2–37.1; O2SAT 95–100; BMI 52.3; BMI 51.0; BMI 51.1
--- NOTE | 2020-08-25 10:29 | EKG12_ITS ---
Test Reason : CP Blood Pressure : / mmHG Vent. Rate : 076 BPM Atrial Rate : 076 BPM P-R Int : 124 ms QRS Dur : 110 ms QT Int : 406 ms P-R-T Axes : 032 -04 028 degrees QTc Int : 456 ms Normal sinus rhythm Normal ECG Confirmed by JOSEPH MILLER, RUBI ([id number]), avid editor BORIS DOSS ([id number]) on 09/01/2020 10:26:39 AM Referred By: JOLANTA Confirmed By:RAMIRO RUIZ MD
--- NOTE | 2020-08-25 10:29 | ED.VIS.GEN ---
History of Present Illness Chief Complaint: Chest Pain Detail of Chief Complaint: Described as tight pressure sensation mid chest Onset: Hours Context: Sudden Onset Timing: Continuous Quality: Tight pressure Location: Midsternal Current Severity: Mild Maximum Severity: Severe Worsened by: Walking Relieved by: Improved when he sat down Associated Symptoms: Diaphoresis, shortness of breath, nausea, tingling left upper extremity and Narrative: Patient is a 40-year-old male who presents with midsternal tight heavy sensation with radiation to the back with tingling in his left upper extremity associated with nausea, dyspnea, diaphoresis and lightheadedness. 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 He states when he walked to his vehicle the tightness became worse and his shortness of breath increased. When he sat down it diminished but did not resolve. He denies history of coronary disease. His father at the age of 43 and has history of coronary disease. He denies history of smoking. He does drink on weekends. He states he drinks a sixpack per day. He denies black or maroon stool. He does have history of hiatal hernia. He states he has not had pain from his hiatal hernia. He denies intolerance to greasy or fried foods. He denies pain in the right upper quadrant. He denies infectious symptoms. He denies urologic symptoms. He denies neurologic symptoms. Prior similar symptoms: No Recent Illness/Hospitalization: No - Past Medical History (1) History of hiatal hernia Status: Acute Past Medical History - Allergies and Home Meds Allergies/Adverse Reactions: Allergies animal dander Allergy (Verified 08/25/20 10:09) Other oxycodone HCl [From Percocet] Allergy (Verified 08/25/20 10:09) Other hydrocodone bitartrate [From Vicodin] Adverse Reaction (Verified 08/25/20 10:09) Itching Primary Care Physician: Dandre Cobos MD [Primary Care Provider] - Prior records reviewed: Yes Lives: Spouse/ Significant Other, With Family Smoking Status: Never smoker Alcohol: Heavy Drugs: None Review of Systems General: Denies: Chills, Fever, Malaise, Subjective, Sweats Eyes: Denies: Visual changes - bilaterally, Blurred Vision - bilaterally, Diplopia ENT: Denies: Bilateral ear pain, Rhinorrhea, Sore throat Cardiovascular: Reports: Chest pain. Denies: Palpitations, Heart racing Respiratory: Reports: Dyspnea. Denies: Cough, Sputum, Dyspnea on exertion, Orthopnea, Paroxysmal nocturnal dyspnea Gastrointestinal: Reports: Nausea. Denies: Abdominal pain, Vomiting, Diarrhea, Constipation, Melena, Hematochezia Genitourinary: Denies: Dysuria, Hematuria, Frequency Musculoskeletal: Reports: Back pain. Denies: Myalgias, Arthralgias, Neck pain, Swelling, Extremity Pain, -, - Skin: Denies: Rash, Wounds Neurological: Reports: Parasthesia - Left upper extremity associated with chest heaviness, Numbness. Denies: Headache Endocrine: Denies: Polyuria, Polydipsia Hematologic: Denies: Easy bruising, Easy bleeding Allergy: Denies: Uticaria Physical Exam Vital Signs/Narrative: Vital Signs Temp Pulse Resp BP Pulse Ox 08/25/20 10:09 98.3 F 79 18 152/100 H 98 Inital Vital Signs reviewed: Yes General: Well nourished, Well developed, Obese, No Acute Distress Head: Normocephalic, Atraumatic Eyes: Perrl, EOMI. Negative for: Pale conjunctiva, Scleral icterus ENT: Moist mucous membranes, No rhinorrhea Neck: Supple, Nontender, No lymphadenopathy, No JVD Cardiovascular: Regular rate, Regular rhythm, No murmurs, Normal S1, Normal S2 Respiratory: No distress, CTA bilaterally, Chest nontender Abdomen: Soft, Nontender, Nondistended, Normal bowel sounds Back: Nontender, Normal Inspection Extremities: Nontender, No edema, - - There is no asymmetry, swelling, discoloration, leg vein distention, palpable cords or tenderness along the distribution of the deep venous system. Skin: Normal color, No rash, No Trauma. Negative for: Cyanosis, Diaphoresis, Jaundice Neurological: Alert, Oriented x3, Cranial nerves II-XII grossly intact, Normal Strength, Normal Sensation Psychological: Normal affect, Normal Mood Diagnostic/Tx/Re-eval Chest X-Ray - ED: 1 View, Read by ED Physician, Normal, Heart, Lungs, Mediastinum, Bony Structures, No Acute Disease, - - X-ray was interpreted by me at time the x-ray was performed. Impressions Chest X-Ray 08/25/20 10:36 IMPRESSION: Borderline thyromegaly. The lungs are clear. Electronically Signed: Wolfgang Slade at 10:50 EST , Service support , 08/25/20 10:36 Chest 1 View (Portable) [RAD] Stat Laboratory Results 08/25/20 08/25/20 08/25/20 10:37 10:37 11:07 WBC 6.1 RBC 5.60 Hgb 15.0 Hct 47.9 MCV 85.5 MCH 26.8 L MCHC 31.3 L RDW Std Deviation 41.9 RDW Coeff of Hodan 13.5 Plt Count 266 MPV 9.7 Immature Gran % (Auto) 0.300 Neut % (Auto) 63.3 Lymph % (Auto) 23.3 [place] % (Auto) 9.7 Eos % (Auto) 2.6 Baso % (Auto) 0.8 Absolute Neuts (auto) 3.9 Absolute Lymphs (auto) 1.42 Nucleated RBC % 0 Sodium Cancelled 138 Potassium Cancelled 4.0 Chloride Cancelled 106 Carbon Dioxide Cancelled 28.0 Anion Gap Cancelled 4 L BUN Cancelled 12 Creatinine Cancelled 1.05 Estim Creat Clear Calc Cancelled 96.56 Est GFR (MDRD) Af Amer Cancelled 101 Est GFR (MDRD) Non-Af Cancelled 83 BUN/Creatinine Ratio Cancelled 11.4 Glucose Cancelled 95 Calcium Cancelled 8.9 Troponin I Cancelled < 0.015 Laboratory tests are unremarkable. Since he has a heart score of 3 and chest discomfort with exertion made worse with exertion and significant improvement after nitro hospitalist was paged for observation status to PCU to rule out and provocative testing. - EKG Initial EKG Interpretation: Sinus Rhythm - Normal sinus rhythm with a ventricular rate of 76. DE interval is 124 ms. Cures duration 110 ms. QT duration 406 ms. [place] is normal. There is motion artifact. - Medical Decision Making Differential diagnosis includes PA, non-ST elevation PA, angina, noncardiac etiology, peptic ulcer disease. In light of patient's risk factors and exertional discomfort suspect cardiac. He did receive 4 baby aspirin and since he is still having chest heaviness he was treated with nitroglycerin. Patient did report significant improvement after 1 nitro however he became lightheaded and had a 20 mm drop in his blood pressure. Nurse was hesitant to give additional doses. Heart score is 3 ED Disposition - Plan for ED Patient: Disposition: Acute Care Hospital [facility] Diagnosis: Exertional chest pain Referrals: Dandre Cobos MD [Primary Care Provider] -
--- NOTE | 2020-08-25 10:36 | RAD_ITS ---
STUDY: X-RAY CHEST REASON FOR EXAM: Male, 40 years old. LEFT SIDED CHEST PAIN THAT STARTED THIS MORNING WITH SOB. TECHNIQUE: Single AP portable view of the chest. COMPARISON: Comparison is made with prior study dated 01/22/2018. FINDINGS: EKG electrodes are seen. Stable elevation of the right hemidiaphragm. There is no demonstrated pleural abnormality. There is borderline cardiomegaly. Normal mediastinum and rhianna. Normal visualized pulmonary arteries. Normal visualized aortic arch and descending thoracic aorta. Normal visualized thoracic spine. Normal visualized ribs, clavicles, and shoulders. There is no demonstrated abnormality of the visualized soft tissue structures of the upper abdomen. RAD/Chest 1 View (Portable) IMPRESSION: Borderline thyromegaly. The lungs are clear. Electronically Signed: Wolfgang Slade, at 10:50 EST , Service support ,
[2020-08-25 10:46] LABS: Absolute Lymphocyte Count 1.42 X10^3/uL (0.83-4.51); Absolute Neutrophil Count 3.9 X10^3/uL (2.0-7.7); Basophil# 0.05 X10^3/uL; Basophil% 0.8 % (0-1); Eosinophil# 0.16 X10^3/uL; Eosinophils% 2.6 % (0-5); Hematocrit 47.9 % (40-54); Lymphocyte # 1.42 X10^3/ul (4.0); Lymphocyte % 23.3 % (19-41); Mean Corp Hgb Conc 31.3 g/dL (32-36); Mean Corpuscular Hgb 26.8 pg (27.0-32.0); Mean Corpuscular Volume 85.5 fL (80-94); Mean Platelet Vol. 9.7 fl (6.2-12.0); Monocyte# 0.59 X10^3/uL; Monocyte% 9.7 % (0-10); NRBC Flagged by Analyzer 0 % (0-5); Neutrophil # 3.85 X10^3/uL (2.7-7.7); Neutrophil % 63.3 % (47-70); Platelet Count 266 K/mm3 (150-450); RBC Distribution Width CV 13.5 % (11.6-14.6); RBC Distribution Width SD 41.9 fl (35.1-43.9); White Blood Count 6.1 K/mm3 (4.4-11.0)
--- NOTE | 2020-08-25 10:53 | NURSING ---
CHEMISTRIES HEMOLIZED. THEY WILL REPRINT LABEL
[2020-08-25] MEDS: Aspirin 81 MG TAB.CHEW 324 MG PO (10:58)
[2020-08-25] MEDS: Nitroglycerin SL (ED/IMG/CATH) 0.4 MG TABLET SUBLINGUAL (10:59)
[2020-08-25 11:32] LABS: Anion Gap 4 (5-15); BUN 12 mg/dL (7-18); BUN/Creat Ratio 11.4 RATIO (10-20); Calcium,Total 8.9 mg/dL (8.5-10.1); Chloride 106 mmol/L (98-107); Creatinine, Serum 1.05 mg/dL (0.70-1.30); EST Glomerular Filtration Rate 83 mL/min (>60); Est Glom Filt Rate - Afr Amer 101 mL/min (>60); Estimated Creatinine Clearance 96.56 ml/min; Glucose 95 mg/dL (74-106); Sodium Level 138 mmol/L (136-145)
--- NOTE | 2020-08-25 11:41 | ED.RN ---
PT GIVEN ONE NITRO TABLET, PT REPORTS SLIGHT RELIEF IN CHEST PAIN, ALSO REPORTS FEELING LIGHTHEADED. SUBSEQUENT DOSES OF NITRO HELD, PT HAD A 20PT DROP IN SYSTOLIC BP. DR BRISENO MADE AWARE.
--- NOTE | 2020-08-25 12:47 | HP.PCM_ITS ---
Problem List (1) Encounter for examination required by Department of Transportation (DOT) Status: Resolved (2) Exertional chest pain Status: Acute (3) History of hiatal hernia Status: Chronic (4) Plantar fasciitis of right foot Status: Chronic (5) Rib pain on left side Status: Resolved (6) Strain of abdominal wall Status: Resolved Qualifiers: Encounter type: initial encounter Qualified Code(s): S39.011A - Strain of muscle, fascia and tendon of abdomen, initial encounter (7) Strain of right foot Status: Resolved Qualifiers: Encounter type: initial encounter Qualified Code(s): S96.911A - Strain of unspecified muscle and tendon at ankle and foot level, right foot, initial encounter History of Present Illness Date of Admission: 08/25/20 Chief Complaint: Chest discomfort The patient is a 40 year old M with past medical history is gone for glucose intolerance, obesity with BMI of 52.4 family history of premature coronary artery disease who presented with chest pain. Pain was described as heaviness in the retrosternal region. Patient in addition did experience throat discomfort as well as radiation down his left arm. 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 In view of the persistent nature of symptoms he presented to the emergency department pain was somewhat relieved with nitroglycerin however he did develop headache. He was subsequently admitted to monitored bed for further management Past Medical History Past Medical History (Chronic Problems): Chronic Problems (Last Reviewed 08/25/20 @ 12:[address] Luis Antonio Dotson MD) History of hiatal hernia (Chronic) Plantar fasciitis of right foot (Chronic) Medical History: Medical History (Last Reviewed 08/25/20 @ 12:[address] Luis Antonio Dotson MD) Knee pain M25.569 Shoulder pain M25.519 neck/back pain Allergies animal dander Allergy (Verified 08/25/20 10:09) Other oxycodone HCl [From Percocet] Allergy (Verified 08/25/20 10:09) Other hydrocodone bitartrate [From Vicodin] Adverse Reaction (Verified 08/25/20 10:09) Itching Home Medications: Ambulatory Orders Medication Instructions Recorded esomeprazole magnesium 20 mg 20 mg PO DAILY 07/03/18 capsule,delayed release metformin 1,000 mg tablet 500 mg PO DAILY 07/03/18 Bupropion HCl [Wellbutrin Xl] 150 mg PO DAILY 09/17/19 fexofenadine 180 mg tablet 180 mg PO DAILY 05/11/20 sertraline 25 mg tablet 100 mg PO DAILY tab 05/11/20 Surgical History: Surgical History (Last Reviewed 08/25/20 @ 12:[address] Luis Antonio Dotson MD) History of carpal tunnel surgery Z98.890 History of rotator cuff surgery Z98.890 S/P vasectomy Z98.52 planter facia release Lives: Spouse/ Significant Other, With Family Smoking Status: Never smoker Alcohol: Heavy Drugs: None - *Family History Maternal Family History: Family History (Last Reviewed 08/25/20 @ 12:[address] Luis Antonio Dotson MD) Mother Diabetes Review of Systems Constitutional: Denies: Anorexia, Chills, Fever, Night Sweats, Weight Change HEENT: Denies: Head Aches, Sinus Congestion, Sinus Drainage Cardiovascular: Reports: Chest Pain. Denies: Orthopnea, Palpitations Respiratory: Reports: Shortness of breath upon exertion. Denies: Cough Gastrointestinal: Denies: Abdominal Pain, Hematemesis, Hematochezia, Nausea, Melena, Vomiting Genitourinary: Denies: Dysuria, Frequency, Hematuria, Urgency Musculoskeletal: Denies: Joint Pain, Joint Tenderness Skin: Denies: Rash Neurological: Denies: Focal weakness, Numbness, Tingling Psychiatric: Denies: Homicidal Ideations, Suicidal Ideations Hematologic/ Lymphatic: Denies: Easy Bruising, Easy Bleeding VTE Information - Inpt Only VTE Present on Admission: No VTE Mechan Device Prophylaxis: None VTE Pharm Prophylaxis ordered?: Yes Patient Problems: Active and Suspected Problems (Last Reviewed 08/25/20 @ 12:[address] Luis Antonio Dotson MD) Exertional chest pain (Acute) Objective: GENERAL: cooperative HEENT: Atraumatic; EYES; Anicteric, Normal Conjunctiva NECK; supple, normal thyroid, RESPIRATORY: Diminished to auscultation CARDIOVASCULAR: Regular S1 S2, GI: soft, normoactive bowel sounds, : No Renal angle tenderness; EXTREMITIES: No edema, no clubbing, MUSCULOSKELETAL: no muscle waisting NEURO: Awake; no lateralizing signs. SKIN: No Rash PSYCH; Flat affect - Physical Exam Vitals/I&O's: Vital Signs Temp Pulse Resp BP Pulse Ox 98.3 F 82 18 140/92 H 97 08/25/20 10:09 08/25/20 10:59 08/25/20 10:09 08/25/20 10:59 08/25/20 10:51 Oxygen Delivery Method Room Air Weight: 165.5 kg Body Mass Index (BMI) 52.3 Laboratory Results 08/25/20 10:37: WBC 6.1, RBC 5.60, Hgb 15.0, Hct 47.9, MCV 85.5, MCH 26.8 L, MCHC 31.3 L, RDW Std Deviation 41.9, RDW Coeff of Hodan 13.5, Plt Count 266, MPV 9.7, Immature Gran % (Auto) 0.300, Neut % (Auto) 63.3, Lymph % (Auto) 23.3, [place] % (Auto) 9.7, Eos % (Auto) 2.6, Baso % (Auto) 0.8, Absolute Neuts (auto) 3.9, Absolute Lymphs (auto) 1.42, Nucleated RBC % 0 08/25/20 10:37: Sodium Cancelled, Potassium Cancelled, Chloride Cancelled, Carbon Dioxide Cancelled, Anion Gap Cancelled, BUN Cancelled, Creatinine Cancelled, Estim Creat Clear Calc Cancelled, Est GFR (MDRD) Af Amer Cancelled, Est GFR (MDRD) Non-Af Cancelled, BUN/Creatinine Ratio Cancelled, Glucose Cancelled, Calcium Cancelled, Troponin I Cancelled 08/25/20 11:07: Sodium 138, Potassium 4.0, Chloride 106, Carbon Dioxide 28.0, Anion Gap 4 L, BUN 12, Creatinine 1.05, Estim Creat Clear Calc 96.56, Est GFR (MDRD) Af Amer 101, Est GFR (MDRD) Non-Af 83, BUN/Creatinine Ratio 11.4, Glucose 95, Calcium 8.9, Troponin I < 0.015 Current Medications Nitroglycerin (Nitroglycerin Sl (Ed/Img/Cath) 0.4 Mg Tablet) 0.4 mg SUBLINGUAL Q5M PRN PRN Reason: Chest pain Last Admin: 08/25/20 10:59 Dose: 0.4 mg Documented by: Assessment/Plan All Active Problems (Last Reviewed 08/25/20 @ 12:[address] Luis Antonio Dotson MD) Exertional chest pain (Acute) Strain of right foot (Resolved) Encounter for examination required by Department of Transportation (DOT) (Resolved) Rib pain on left side (Resolved) Strain of abdominal wall (Resolved) Patient is a 40-year-old gentleman presenting with chest discomfort 1. Chest Pain -Patient has been placed on a monitored bed plan is rule out WI with serial cardiac enzymes. Patient to undergo nuclear stress test once WI ruled out 2. Glucose intolerance -patient is on Metformin held placed on Accu-Cheks before meals and at bedtime with sliding scale coverage as well as 1800 ADA diet 3. Morbid obesity with BMI of 52.4 ?Weight loss advised 4. History of plantar fasciitis -Symptomatic treatment 5. GERD ?Patient is on PPI 6. Depression ?Patient is on SSRI 7. DVT prophylaxis ?Lovenox 40 mg SC twice daily OBSV E&M: 21191 Initial observation care L3
--- NOTE | 2020-08-25 13:29 | EKG12_ITS ---
Test Reason : ADMISSION Blood Pressure : / mmHG Vent. Rate : 067 BPM Atrial Rate : 067 BPM P-R Int : 148 ms QRS Dur : 110 ms QT Int : 434 ms P-R-T Axes : 018 -06 023 degrees QTc Int : 458 ms Normal sinus rhythm Normal ECG Confirmed by DANN MILLER, MARY ([id number]), editor managing director LUIS RDZ ([id number]) on 09/02/2020 9:12:43 AM Referred By: RAS Confirmed By:MARY QUIGLEY MD
--- NOTE | 2020-08-25 13:30 | PCS.PANDOC ---
PANDEMIC DOCUMENTATION INITIATED: Date: 08/25/20 Time: 3586
[2020-08-25] MEDS: Acetaminophen 325 MG Tablet 650 MG PO (14:43)
[2020-08-25 14:46] LABS: Bedside Glucose 100 mg/dL (70-110)
[2020-08-25 18:06] LABS: Bedside Glucose 121 mg/dL (70-110)
[2020-08-25] MEDS: Ibuprofen 400 MG Tablet PO (20:51)
[2020-08-25 21:01] LABS: Bedside Glucose 106 mg/dL (70-110)
[2020-08-25] MEDS: Enoxaparin 40 MG/0.4 ML Syringe SC (21:25)
[2020-08-26 02:30] VITALS: BP 110/71; PULSE 71; RESP 16; TEMP 36.6; O2SAT 97
[2020-08-26 02:48] VITALS: PULSE 70
[2020-08-26 06:14] LABS: Absolute Lymphocyte Count 1.41 X10^3/uL (0.83-4.51); Absolute Neutrophil Count 3.2 X10^3/uL (2.0-7.7); Basophil# 0.05 X10^3/uL; Basophil% 0.9 % (0-1); Eosinophil# 0.17 X10^3/uL; Eosinophils% 3.2 % (0-5); Hemoglobin 14.5 g/dL (13.0-16.5); Lymphocyte # 1.41 X10^3/ul (4.0); Lymphocyte % 26.6 % (19-41); Mean Corp Hgb Conc 31.5 g/dL (32-36); Mean Corpuscular Volume 85.5 fL (80-94); Mean Platelet Vol. 9.5 fl (6.2-12.0); Monocyte# 0.51 X10^3/uL; Monocyte% 9.6 % (0-10); NRBC Flagged by Analyzer 0 % (0-5); Neutrophil # 3.15 X10^3/uL (2.7-7.7); Neutrophil % 59.3 % (47-70); Platelet Count 249 K/mm3 (150-450); RBC Distribution Width CV 13.6 % (11.6-14.6); RBC Distribution Width SD 42.3 fl (35.1-43.9); Red Blood Count 5.38 M/mm3 (4.6-6.2); White Blood Count 5.3 K/mm3 (4.4-11.0)
[2020-08-26 06:27] VITALS: BP 143/97; PULSE 65; RESP 17; TEMP 36.4; O2SAT 100
[2020-08-26 06:36] LABS: Bedside Glucose 119 mg/dL (70-110)
[2020-08-26 06:46] LABS: Anion Gap 5 (5-15); BUN 15 mg/dL (7-18); Chloride 109 mmol/L (98-107); Creatinine, Serum 1.07 mg/dL (0.70-1.30); EST Glomerular Filtration Rate 81 mL/min (>60); Est Glom Filt Rate - Afr Amer 98 mL/min (>60); Estimated Creatinine Clearance 94.76 ml/min; Glucose 117 mg/dL (74-106); Magnesium 2.3 mg/dL (1.6-2.6); Potassium 4.2 mmol/L (3.5-5.1); Sodium Level 143 mmol/L (136-145)
[2020-08-26 07:00] VITALS: PULSE 73
[2020-08-26 07:36] VITALS: O2SAT 97
[2020-08-26 09:50] VITALS: BP 139/92; PULSE 95; RESP 18; TEMP 36.9; O2SAT 98
[2020-08-26] MEDS: Acetaminophen 325 MG Tablet 650 MG PO (11:23)
[2020-08-26] MEDS: buPROPion (XL) 150 MG TABLET.XL PO (11:24)
[2020-08-26] MEDS: Pantoprazole Sodium 20 MG Tablet PO (11:25)
[2020-08-26] MEDS: Loratadine 10 MG Tablet PO (11:25)
[2020-08-26] MEDS: Sertraline 100 MG Tablet PO (11:25)
[2020-08-26 12:35] LABS: Bedside Glucose 90 mg/dL (70-110)
--- NOTE | 2020-08-26 13:39 | STRESSREP_ITS ---
Stress Test Report Date: 08/26/2020 Procedure: Exercise tolerance test/imaging study Indications: Chest pain Consent: Per the patient Procedure: The patient exercised on a Augustine protocol for 3 minutes and 31 seconds achieving a peak heart rate of 166 bpm (92% predicted maximal heart rate) with a peak blood pressure 142/86 mmHg and a peak MET capacity of 5.2 METs. The baseline ECG demonstrated normal sinus rhythm. The peak exercise ECG demonstrated sinus tachycardia with no significant ischemic changes. EKG during recovery revealed no significant ischemic changes. [There were no cardiac dysrhythmias pretest, during exercise, or recovery]. The functional capacity was considered decreased for age. There was [no complaint of chest discomfort during exercise or recovery]. The examination was discontinued secondary to dyspnea, leg discomfort. Impression: 1. Technically adequate (percent predicted maximal heart rate greater than 85%) exercise tolerance test 2. Stress test is negative for exercise-induced EKG changes of ischemia 3. The test test is negative for exercise-induced chest pain 4. Functional capacity is decreased for age 5. Nuclear images pending Myocardial perfusion imaging study: Technique: The patient was injected with 14.9 mCi of technetium 99m Cardiolite and subsequently rest SPECT Cardiolite nuclear imaging was obtained in the horizontal long, vertical long, and short axis views. The patient exercised on a Augustine protocol. Please see above for details. The patient was injected with 44.7 mCi of technetium 99m Cardiolite and subsequently stress SPECT Cardiolite nuclear imaging was obtained in the horizontal long, vertical long, and short axis views. A gated Cardiolite study at peak stress was obtained. Interpretation: Rest and stress SPECT Cardiolite nuclear imaging status post realignment, normalization, and attenuation correction, demonstrates mild fixed apical defect. There are no significant reversible defects suggestive of significant large areas of ischemia. The gated Cardiolite study demonstrates no significant regional wall motion abnormalities. The reported LVEF is 53%. Impression: 1. There is no evidence of significant ischemia or infarction. 2. The gated Cardiolite study reports an LVEF of 53%. This note was generated with [employer] software. It may contain incorrect words, spelling, and punctuation that were not noted in checking the note before signing.
--- NOTE | 2020-08-26 13:57 | DCINST_ITS ---
- Discharge Diagnoses Current Active Problems: Current Active and Chronic Problems (Last Reviewed 08/25/20 @ 12:[address] Luis Antonio Dotson MD) History of hiatal hernia (Chronic) Exertional chest pain (Acute) Plantar fasciitis of right foot (Chronic) You will use the following diet at home:: Calorie/Carbohydrate Controlled (specify 1200, 1400, etc) Discharge Activity: Return to Normal Activity Call your doctor if you observe: Shortness of breath, Dizziness, Fainting sp ells, Chest pain Allergies/Adverse Reactions: Allergies animal dander Allergy (Verified 08/25/20 10:09) Other oxycodone HCl [From Percocet] Allergy (Verified 08/25/20 10:09) Other hydrocodone bitartrate [From Vicodin] Adverse Reaction (Verified 08/25/20 10:09) Itching Medications to take at Discharge esomeprazole magnesium 20 mg capsule,delayed release 20 mg PO DAILY 07/03/18 metformin 1,000 mg tablet 500 mg PO DAILY 07/03/18 Bupropion HCl [Wellbutrin Xl] 150 mg PO DAILY 09/17/19 fexofenadine 180 mg tablet 180 mg PO DAILY 05/11/20 sertraline 25 mg tablet 100 mg PO DAILY tab 05/11/20 Primary Care Physician: Dandre Cobos MD [Primary Care Provider] - Please follow up with your Primary Care Physician in: 1 Week Test Results: Test results from this visit will be discussed in further detail at your follow- up appointment, if applicable. Proposed Discharge Date: 08/26/20
[2020-08-26] MEDS: Enoxaparin 40 MG/0.4 ML Syringe SC (13:58)
--- NOTE | 2020-08-26 13:59 | PCM.DC.SUM ---
<Pina Brice NP - Last Filed: 08/26/20 14:09> Discharge Date and Diagnosis - Problem List Patient Problems: Active and Suspected Problems (Last Reviewed 08/25/20 @ 12:[address] Luis Antonio Dotson MD) Exertional chest pain (Acute) Date of Admission: 08/25/20 Date of Discharge: 08/26/20 - Primary Discharge Diagnosis Acute Problems: Active Problems (Last Reviewed 08/25/20 @ 12:[address] Luis Antonio Dotson MD) 1. Chest pain, ACS ruled out 2. Glucose intolerance 3. Morbid obesity 4. History of plantar fasciitis 5. GERD 6. Depression - Secondary Discharge Diagnosis Chronic Problems: Chronic Problems (Last Reviewed 08/25/20 @ 12:[address] Luis Antonio Dotson MD) History of hiatal hernia (Chronic) Plantar fasciitis of right foot (Chronic) Hospital Course and Treatment Imaging Results: Diagnostic Data Chest X-Ray 08/25/20 10:36 IMPRESSION: Borderline thyromegaly. The lungs are clear. Electronically Signed: Wolfgang Berlin, at 10:50 EST , Service support , Operations: None Procedures: Stress test Summary of Care Provided: The patient is a 40 year old M admitted 08/25/2020 due to chest discomfort. 1. 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 Pain resolved. Troponin negative. EKG without ST-T changes. Patient underwent nuclear stress test which was negative for ischemia. LVEF 53%. Follow-up with PCP in 1 week. 2. Glucose intolerance-continue Metformin. 3. Morbid obesity-encouraged diet lifestyle modifications. 4. History of plantar fasciitis 5. GERD-continue PPI. 6. Depression-continue SSRI. Patient seen and examined prior to discharge. Physical assessment as noted below. Patient is stable for discharge with follow up recommendations as noted above. This patient was seen by NINFA Hawkins under the supervision of Dr. Dotson. Patient Problems: Active and Suspected Problems (Last Reviewed 08/25/20 @ 12:[address] Luis Antonio Dotson MD) Exertional chest pain (Acute) - Physical Exam Vitals/I&O's: Vital Signs Temp Pulse Resp BP Pulse Ox 98.5 F 95 18 139/92 H 98 08/26/20 09:50 08/26/20 09:50 08/26/20 09:50 08/26/20 09:50 08/26/20 09:50 Oxygen Delivery Method Room Air Weight: 355 lb 13.217 oz Body Mass Index (BMI) 51.0 Intake and Output for Last 24 Hours 08/24/20 08/25/20 08/26/20 23:59 23:59 23:59 Intake Total 620 / 620 480 / 480 Balance 620 / 620 480 / 480 General: Alert, Oriented x3, Cooperative HEENT: Atraumatic, PERRLA, EOMI, Normocephalic Neck: Supple, No JVD, Negative Carotid Bruits Lungs: Clear to auscultation, Normal air movement Cardiovascular: Regular rate, No murmurs Abdomen: Bowel Sounds Present, Soft, Non Tender, Non-Distended, Obese Extremities: No clubbing, No cyanosis, No edema, Capillary Refill Less than 3 Seconds Skin: No rashes, No breakdown Musculoskeletal: No Tenderness to Palpation of Joints or Extremities Neurological: Cranial nerves II-XII grossly intact, Neuro grossly intact Psych/Mental Status: Normal Affect, Appropriate Laboratory Results 08/25/20 14:03: Troponin I < 0.015 08/25/20 14:40: POC Glucose 100 08/25/20 16:52: Troponin I < 0.015 08/25/20 18:01: POC Glucose 121 H 08/25/20 20:54: POC Glucose 106 08/26/20 06:00: WBC 5.3, RBC 5.38, Hgb 14.5, Hct 46.0, MCV 85.5, MCH 27.0, MCHC 31.5 L, RDW Std Deviation 42.3, RDW Coeff of Hodan 13.6, Plt Count 249, MPV 9.5, Immature Gran % (Auto) 0.400, Neut % (Auto) 59.3, Lymph % (Auto) 26.6, Quay % (Auto) 9.6, Eos % (Auto) 3.2, Baso % (Auto) 0.9, Absolute Neuts (auto) 3.2, Absolute Lymphs (auto) 1.41, Nucleated RBC % 0 08/26/20 06:00: Sodium 143, Potassium 4.2, Chloride 109 H, Carbon Dioxide 29.0, Anion Gap 5, BUN 15, Creatinine 1.07, Estim Creat Clear Calc 94.76, Est GFR (MDRD) Af Amer 98, Est GFR (MDRD) Non-Af 81, BUN/Creatinine Ratio 14.0, Glucose 117 H, Calcium 9.0, Phosphorus 4.0, Magnesium 2.3 08/26/20 06:33: POC Glucose 119 H 08/26/20 12:33: POC Glucose 90 Current Medications Acetaminophen (Acetaminophen 325 Mg Tablet) 650 mg PO Q6H PRN PRN PRN Reason: Pain Score 1-10/Temp > 100.7 F Last Admin: 08/26/20 11:23 Dose: 650 mg Documented by: Al Hydroxide/Mg Hydroxide (Mag Hydrox/Al Hydrox/Simeth 30 Ml Udc) 30 ml PO Q6H PRN PRN PRN Reason: Gastric Burning Albuterol Sulfate (Albuterol 2.5 Mg/3 Ml Vial.Neb.) 2.5 mg INHALATION Q2H PRN PRN PRN Reason: SOB/Wheezing Bupropion HCl (Bupropion (Xl) 150 Mg Tablet.Xl) 150 mg PO DAILY [facility] Last Admin: 08/26/20 11:24 Dose: 150 mg Documented by: Dextrose (Dextrose 50%-Water 25 Gm/50 Ml Disp.Syrin) 0 gm IV X1 PRN; Protocol PRN Reason: Hypoglycemia Enoxaparin Sodium (Enoxaparin 40 Mg/0.4 Ml Syringe) 40 mg SC BID [facility] Last Admin: 08/25/20 21:25 Dose: 40 mg Documented by: Glucagon (Glucagon 1 Mg/Ml Syringe) 1 mg IM .X1 PRN PRN Reason: Hypoglycemia Guaifenesin (Guaifenesin 10 Ml Udc (200mg/10ml)) 20 ml PO Q4H PRN PRN PRN Reason: COUGH Sodium Chloride () 250 mls @ 15 mls/hr IV .[id number] PRN PRN Reason: Saline Flush Sodium Chloride () 250 mls @ 15 mls/hr IV .[id number] PRN PRN Reason: Additional IVPB Infusion Ibuprofen (Ibuprofen 400 Mg Tablet) 400 mg PO Q6H PRN PRN PRN Reason: Pain 1-10 or Fever Last Admin: 08/25/20 20:51 Dose: 400 mg Documented by: Insulin Human Lispro (Insulin Lispro 100 Unit/Ml Insuln.Pen) 0 unit SC [facility]; Protocol Last Admin: 08/26/20 13:17 Dose: Not Given Documented by: Loratadine (Loratadine 10 Mg Tablet) 10 mg PO DAILY [facility] Last Admin: 08/26/20 11:25 Dose: 10 mg Documented by: Magnesium Hydroxide (Magnesium Hydroxide 30 Ml Udc) 30 ml PO DAILY PRN PRN PRN Reason: Constipation Nitroglycerin (Nitroglycerin (Inpatient Use) 0.4 Mg Tab.Subl) 0.4 mg SUBLINGUAL Q5M PRN PRN Reason: CARDIAC/CHEST PAIN Ondansetron HCl (Ondansetron 4 Mg/2 Ml Vial) 4 mg IV Q8H PRN PRN PRN Reason: NAUSEA/VOMITING Pantoprazole Sodium (Pantoprazole Sodium 20 Mg Tablet) 20 mg PO DAILY [facility] Last Admin: 08/26/20 11:25 Dose: 20 mg Documented by: Senna/Docusate Sodium (Senna/Docusate Sodium 1 Tablet) 2 tablet PO BID PRN PRN PRN Reason: Constipation Sertraline HCl (Sertraline 100 Mg Tablet) 100 mg PO DAILY [facility] Last Admin: 08/26/20 11:25 Dose: 100 mg Documented by: Sodium Chloride (0.9% Saline Lock 10 Ml Syringe) 10 - 40 ml IV UD PRN PRN Reason: SALINE FLUSH Discharge Diet: 1800 Calorie Control Diet Discharge Activity: Return to Normal Activity Call your doctor if you observe: Shortness of breath, Dizziness, Fainting spells, Chest pain Home Medications: Medications to take at Discharge esomeprazole magnesium 20 mg capsule,delayed release 20 mg PO DAILY 07/03/18 metformin 1,000 mg tablet 500 mg PO DAILY 07/03/18 Bupropion HCl [Wellbutrin Xl] 150 mg PO DAILY 09/17/19 fexofenadine 180 mg tablet 180 mg PO DAILY 05/11/20 sertraline 25 mg tablet 100 mg PO DAILY tab 05/11/20 Primary Care Physician: Dandre Cobos MD [Primary Care Provider] - Please follow up with your Primary Care Physician in: 1 Week Disposition: Home Minutes spent on discharge:: 35 Patient Condition:: Stable Medical Necessity - Tobacco Use Smoking Status: Never smoker Meaningful Use Info Meaningful Use Diagnoses (Choose all that apply): None applicable <Luis Antonio Dotson - Last Filed: 08/26/20 14:43> Discharge Date and Diagnosis - Primary Discharge Diagnosis Acute Problems: Active Problems (Last Reviewed 08/25/20 @ 12:[address] Luis Antonio Dotson MD) Exertional chest pain (Acute) - Secondary Discharge Diagnosis Chronic Problems: Chronic Problems (Last Reviewed 08/25/20 @ 12:[address] Luis Antonio Dotson MD) History of hiatal hernia (Chronic) Plantar fasciitis of right foot (Chronic) Hospital Course and Treatment Imaging Results: 08/26/20 05:55 Nuclear Stress Test - Treadmil [NM] AM (NON MEDS) Summary of Care Provided: This patient was seen in conjunction with NINFA Hawkins . I have independently interviewed and examined the patient and reviewed pertinent historical, laboratory, and other data. Please refer to NINFA Hawkins note for details of this patient's presentation, findings, and recommendations. I have reviewed NINFA Hawkins note and concur with documented findings. In brief, patient is a 40-year-old gentleman with past medical history single for glucose intolerance morbid obesity GERD who presented with chest discomfort admitted to monitored bed [place] ruled out with serial cardiac enzymes underwent a nuclear stress test which was negative for stress-induced ischemia Hospital course: As documented above - Physical Exam Vitals/I&O's: Vital Signs Temp Pulse Resp BP Pulse Ox 98.5 F 95 18 139/92 H 98 08/26/20 09:50 08/26/20 09:50 08/26/20 09:50 08/26/20 09:50 08/26/20 09:50 Oxygen Delivery Method Room Air Weight: 161.4 kg Body Mass Index (BMI) 51.0 Intake and Output for Last 24 Hours 08/24/20 08/25/20 08/26/20 23:59 23:59 23:59 Intake Total 620 / 620 480 / 480 Balance 620 / 620 480 / 480 Laboratory Results 08/25/20 14:03: Troponin I < 0.015 08/25/20 14:40: POC Glucose 100 08/25/20 16:52: Troponin I < 0.015 08/25/20 18:01: POC Glucose 121 H 08/25/20 20:54: POC Glucose 106 08/26/20 06:00: WBC 5.3, RBC 5.38, Hgb 14.5, Hct 46.0, MCV 85.5, MCH 27.0, MCHC 31.5 L, RDW Std Deviation 42.3, RDW Coeff of Hodan 13.6, Plt Count 249, MPV 9.5, Immature Gran % (Auto) 0.400, Neut % (Auto) 59.3, Lymph % (Auto) 26.6, Quay % (Auto) 9.6, Eos % (Auto) 3.2, Baso % (Auto) 0.9, Absolute Neuts (auto) 3.2, Absolute Lymphs (auto) 1.41, Nucleated RBC % 0 08/26/20 06:00: Sodium 143, Potassium 4.2, Chloride 109 H, Carbon Dioxide 29.0, Anion Gap 5, BUN 15, Creatinine 1.07, Estim Creat Clear Calc 94.76, Est GFR (MDRD) Af Amer 98, Est GFR (MDRD) Non-Af 81, BUN/Creatinine Ratio 14.0, Glucose 117 H, Calcium 9.0, Phosphorus 4.0, Magnesium 2.3 08/26/20 06:33: POC Glucose 119 H 08/26/20 12:33: POC Glucose 90 Current Medications Acetaminophen (Acetaminophen 325 Mg Tablet) 650 mg PO Q6H PRN PRN PRN Reason: Pain Score 1-10/Temp > 100.7 F Last Admin: 08/26/20 11:23 Dose: 650 mg Documented by: Al Hydroxide/Mg Hydroxide (Mag Hydrox/Al Hydrox/Simeth 30 Ml Udc) 30 ml PO Q6H PRN PRN PRN Reason: Gastric Burning Albuterol Sulfate (Albuterol 2.5 Mg/3 Ml Vial.Neb.) 2.5 mg INHALATION Q2H PRN PRN PRN Reason: SOB/Wheezing Bupropion HCl (Bupropion (Xl) 150 Mg Tablet.Xl) 150 mg PO DAILY [facility] Last Admin: 08/26/20 11:24 Dose: 150 mg Documented by: Dextrose (Dextrose 50%-Water 25 Gm/50 Ml Disp.Syrin) 0 gm IV X1 PRN; Protocol PRN Reason: Hypoglycemia Enoxaparin Sodium (Enoxaparin 40 Mg/0.4 Ml Syringe) 40 mg SC BID [facility] Last Admin: 08/26/20 13:58 Dose: 40 mg Documented by: Glucagon (Glucagon 1 Mg/Ml Syringe) 1 mg IM .X1 PRN PRN Reason: Hypoglycemia Guaifenesin (Guaifenesin 10 Ml Udc (200mg/10ml)) 20 ml PO Q4H PRN PRN PRN Reason: COUGH Sodium Chloride () 250 mls @ 15 mls/hr IV .[id number] PRN PRN Reason: Saline Flush Sodium Chloride () 250 mls @ 15 mls/hr IV .[id number] PRN PRN Reason: Additional IVPB Infusion Ibuprofen (Ibuprofen 400 Mg Tablet) 400 mg PO Q6H PRN PRN PRN Reason: Pain 1-10 or Fever Last Admin: 08/25/20 20:51 Dose: 400 mg Documented by: Insulin Human Lispro (Insulin Lispro 100 Unit/Ml Insuln.Pen) 0 unit SC [facility]; Protocol Last Admin: 08/26/20 13:17 Dose: Not Given Documented by: Loratadine (Loratadine 10 Mg Tablet) 10 mg PO DAILY [facility] Last Admin: 08/26/20 11:25 Dose: 10 mg Documented by: Magnesium Hydroxide (Magnesium Hydroxide 30 Ml Udc) 30 ml PO DAILY PRN PRN PRN Reason: Constipation Nitroglycerin (Nitroglycerin (Inpatient Use) 0.4 Mg Tab.Subl) 0.4 mg SUBLINGUAL Q5M PRN PRN Reason: CARDIAC/CHEST PAIN Ondansetron HCl (Ondansetron 4 Mg/2 Ml Vial) 4 mg IV Q8H PRN PRN PRN Reason: NAUSEA/VOMITING Pantoprazole Sodium (Pantoprazole Sodium 20 Mg Tablet) 20 mg PO DAILY [facility] Last Admin: 08/26/20 11:25 Dose: 20 mg Documented by: Senna/Docusate Sodium (Senna/Docusate Sodium 1 Tablet) 2 tablet PO BID PRN PRN PRN Reason: Constipation Sertraline HCl (Sertraline 100 Mg Tablet) 100 mg PO DAILY [facility] Last Admin: 08/26/20 11:25 Dose: 100 mg Documented by: Sodium Chloride (0.9% Saline Lock 10 Ml Syringe) 10 - 40 ml IV UD PRN PRN Reason: SALINE FLUSH OBSV E&M: [id number] Observation care discharge
== END 2020-08-26 13:58 | disposition home or self-care (01) ==
LOC: ED 11:28 → PCU 12:59
PROVIDERS: Admitting Provider Internal Medicine; Emergency Provider Emergency Medicine; PCP Family Medicine; Visit Provider Internal Medicine
DX: R07.89 Other chest pain (principal); E66.01 Morbid (severe) obesity due to excess calories; Z68.43 Body mass index [BMI] 50.0-59.9, adult; K21.9 Gastro-esophageal reflux disease without esophagitis; Z23 Encounter for immunization; R73.02 Impaired glucose tolerance (oral); F32.9 Major depressive disorder, single episode, unspecified; Z79.899 Other long term (current) drug therapy; Z79.84 Long term (current) use of oral hypoglycemic drugs; Z82.49 Family history of ischemic heart disease and other diseases of the circulatory system; K44.9 Diaphragmatic hernia without obstruction or gangrene; E74.39 Other disorders of intestinal carbohydrate absorption
CPT/HCPCS: 36415; 71045; 78452; 80048; 82962; 83735; 84100; 84484; 85025; 93005; 93017; 96372; 99218; 99251; 99285; A9500; 90686; A4216; G0378; G0463

== ENCOUNTER → 2020-10-19 10:50 | Outpatient (CLI) | payer OTHER, SELFPAY ==
[2020-08-25 13:45] VITALS: BMI 51.0
--- NOTE | 2020-10-19 10:52 | MRI_ITS ---
STUDY: MRI LEFT KNEE REASON FOR EXAM: Left medial knee pain, prior surgery in September 2019. TECHNIQUE: Standardized fat and water weighted pulse sequences were obtained in all 3 orthogonal planes. COMPARISON: MRI images 07/24/2019. FINDINGS: There is a small complex signal alteration of the posterior horn of the medial meniscus (proton-density sagittal images 11-15), more likely recurrent medial meniscal tear rather than scarring since there is a small parameniscal cyst (T2 sagittal images 6-8). Normal hyaline cartilage of the medial femorotibial compartment. Normal medial femoral condyle and tibial plateau. Normal medial collateral ligamentous complex (MCL). Normal distal semimembranosus, gracilis and semitendinosus tendons. Normal lateral meniscus. Normal hyaline cartilage of the lateral femorotibial compartment. Normal lateral femoral condyle and tibial plateau. Normal proximal tibiofibular articulation. Normal lateral collateral (fibular) ligament. Normal popliteus tendon. Normal biceps femoris tendon. Normal anterior cruciate ligament (ACL). Normal posterior cruciate ligament (PCL). Normal congruent patellofemoral articulation. Normal hyaline cartilage of the patellofemoral compartment. Normal medial and lateral patellar retinaculum. Normal quadriceps tendon. Normal patellar tendon. There is postoperative scarring in Hoffa''s fat pad. There is a minimal volume of fluid in the knee joint. There is edema in the anterior subcutis adipose space. The otherwise visualized osseous structures are unremarkable. MRI/Lower Ext Joint Only (Routine) IMPRESSION: Small signal alteration of the posterior horn of the medial meniscus, more likely recurrent medial meniscal tear or scarring since there is a small parameniscal cyst. Electronically Signed: Xavier Snyder MD at 12:36 EST Tel , Service support ,
== END ==
PROVIDERS: PCP Family Medicine; Referring Provider Orthopaedic Surgery; Visit Provider Orthopaedic Surgery
DX: S83.242A Other tear of medial meniscus, current injury, left knee, initial encounter (principal)
CPT/HCPCS: 73721

== ENCOUNTER 2021-02-01 09:04 | Day surgery (SDC) | payer OTHER, SELFPAY ==
[2021-01-26 07:47] VITALS: BMI 51.0
[2021-02-01] VITALS (7 sets, daily range): BP systolic 137–159; BP diastolic 86–103; PULSE 79–85; RESP 16–18; TEMP 36.1–37.6; O2SAT 98–100; BMI 53.1
--- NOTE | 2021-02-01 09:20 | PCM.HP.BLA ---
History and Physical Date of Admission: 02/01/21 Date of Service:? 01/26/21 MR#: [id number] Acct: [id number] Name:MC DECKER Rep #: [id number] : 1980 ? ? Provider: Dr. Dominick Garcia DO Age/Sex:? 40/M ? ? Location: [facility] [place] Status: Signed Intake Vital Signs ? 01/26/2107:47 BMI 51.0 Intake Visit Reasons:?left knee Chief Complaint: chest pain Allergies animal dander Allergy (Verified 10/28/20 13:02) Otheroxycodone HCl [From Percocet] Allergy (Verified 10/28/20 13:02) Otherhydrocodone bitartrate [From Vicodin] Adverse Reaction (Verified 10/28/20 13:02) Itching PFSH Medical History?(Updated 01/26/21 @ 09:16 by TREVA Ravi) Knee pain neck/back pain Shoulder pain Surgical History? History of carpal tunnel surgery History of rotator cuff surgery planter facia release S/P vasectomy Family History? Mother Diabetes Social History?(Updated 10/29/20 @ 10:[address] Maria Guadalupe Robles DO) Smoking Status:? Never smoker alcohol intake:? current alcohol intake frequency: a few times a month HPI left knee Details: Parts of this documentation were recorded by a scribe, this documentation accurately reflects the service provided and the decisions made by me, Dr. Dominick Garcia DO 01/26/21 [id number]. MC BACH is a 40 year old M here today for left knee pain. The pain is located anterior medial knee. The pain is a constant throb. The pain today in the office is a 5/10, it can get as bad as 9/10. The pain radiates to low back, hip and down to the calf. Denies numbness/tingling shooting down to toes from back. On May 08, 2019 he had a ladder slide out from under him and he fell 15-20 feet. At the time he broke his left pelvis in 2 places, right wrist, left pinky, required sutures in left knee and head. He had plantar fascitis in left foot and had surgery to correct approximately in 2017. He broke his left ankle when he was 17 years old and he only required a cast. He is s/p left knee arthroscopy, extensive synovectomy DOS: 09/24/[address] Robles, he did have an MRI after his Workmen's Comp. injury which showed a undersurface posterior horn medial meniscus tear but apparently upon arthroscopy it was not felt that meniscectomy was warranted of note grade 3 cartilage wear was found in the trochlea. A few months after the surgery he had a lot of swelling and he had an aspiration and injection. In June 2020 he missed a rung on a ladder coming down and thinks he reinjured it then. Aggravating factors including bending, walking, climbing stairs. He has tried ice/heat without much relief. He wears a brace from time to time, which irritates the back of his leg so he does not wear it often. Last injection was on 02/26/20, it helped for about 1-1.5 months. He takes Aleve and sometime ibuprofen and this helps to ease the pain. Denies viscosupplementation. He did PT in September - October 2019, 2-3 per week for about 6-8 weeks, which helped at the time. BMI 51%. Denies history of DM, Inflammatory conditions, blood thinner, chemotherapy. 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 He smokes marijuana once every few days or so. He drinks 4 beers per day on the weekend. He complains that it locks up a couple times a day and that it gives out when he is carrying something. He has swelling, he is losing strength and ROM and he has painful popping/clicking. ROS Const Denies chills and Denies fever(s) Card Denies dyspnea Resp Denies dyspnea GI Denies nausea and Denies vomiting Musc Reports abnormal gait, Reports arthralgias, Denies atrophy, Reports back pain, Reports joint swelling, Reports limited range of motion, Reports muscle weakness, Reports myalgias, Denies numbness, Reports radiating pain into limb and Denies tingling Skin/Breast Denies rash Neuro Yes abnormal gait, No numbness and No tingling Ortho Exam General General: Yes no acute distress Neurologic: Yes alert and Yes oriented x3 Psychologic: Yes reasonable and appropriate Right Knee Patella Translation: 1 Left Knee Skin/Wound: No ecchymosis, No erythema and Yes swelling Homans Sign: No Knee ROM: Yes ROM-Extension -20 to 0 and Yes ROM-Flexion 0-140 (80 degrees) Examination: Yes med jt line tenderness, No Lat jt line tenderness, No TTP inf pole patella, Yes Pain with flexion and Yes Bandar's Test Stability: NML: Anterior Drawer, NML: Dilma, NML: Posterior Drawer, NML: Valgus 0, NML: Valgus 30, NML: Varus 0 and NML: Varus 30 Apprehension with Lateral Translation: No Patella Translation: 1 Patella Grind: No KNEE: Neurovascularly intact. Pain with medial Xi on medial side. Strength 5/5. Distal pulses 3+. No effusion. Supplemental Info 10/19/2020 MRI left knee: Small signal alteration posterior horn of the medial meniscus recurrent meniscal tear or scarring small parameniscal cyst edema in the anterior subcutaneous tissue Personally reviewed the patient's medical history, medications, surgeries and recent imaging and exams. The operative report from 09/24/19 was unclear what exactly was done. Discussed that in the operative report he had grade 3 chondromalacia of the patella. Educated him that weight loss would help with this and that if this is what most of his pain is generated from, having another arthroscopy will not fix this. MRI from before surgery and most recent MRI from 10/19/20 show very similar medial meniscus tears. The patient is still having a pain, locking and instability.? He would like to proceed with a left knee medial meniscectomy versus repair. Discussed that he needs to stop all NSAIDs 7 days before surgery. He can take Tylenol up until surgery. Tentatively surgery is scheduled for 02/01/21. Educated the patient of the risks, benefits and alternatives of surgery reviewed including but not limited to bleeding, infection, nerve, artery and/or tissue damage, fracture, VTE, mechanical feel of the knee, continued pain, stiffness and the expected post-operative course. He will follow up in the office 2 weeks after the procedure. The patient's questions were answered. He is in agreement with the plan.? Coding Level of Care Code Off vis,est,level 3 Diagnoses Tear of medial meniscus of left knee? S83.242A Obesity, morbid, BMI 50 or higher? E66.01 Internal derangement of left knee? M23.92 Chondromalacia of left patella? M22.42 Assessment and Plan Assessment and Plan (1) Tear of medial meniscus of left knee: ?Status:?Acute (2) Obesity, morbid, BMI 50 or higher: ?Status:?Acute (3) Internal derangement of left knee: ?Status:?Acute (4) Chondromalacia of left patella: ?Status:?Acute ?Plan - Dr. Dominick Garcia, DO: Personally reviewed the patient's medical history, medications, surgeries and recent imaging and exams.? Discussed that in the operative report he had grade 3 chondromalacia of the patella. Educated him that weight loss would help with his knee and that if this is what most of his pain is generated from, having another arthroscopy will not fix this. MRI from before surgery and most recent MRI from 10/19/20 show very similar medial meniscus tears. The patient is still having a pain, locking and instability.? He would like to proceed with a left knee medial meniscectomy versus repair. Discussed that he needs to stop all NSAIDs 7 days before surgery. He can take Tylenol up until surgery. Tentatively surgery is scheduled for 02/01/21. Educated the patient of the risks, benefits and alternatives of surgery reviewed including but not limited to bleeding, infection, nerve, artery and/or tissue damage, fracture, VTE, mechanical feel of the knee, continued pain, stiffness and the expected post-operative course. He will follow up in the office 2 weeks after the procedure. The patient's questions were answered. He is in agreement with the plan.? Discussed expected postoperative courses for meniscectomy versus repair as well and need for weightbearing restrictions and activity restrictions for up to 3 to 4 months if repaired. 01/26/21 1310 <Electronically signed by Dominick Garcia DO> Date Dominick SHAW have re-examined the patient. There are no clinical changes since date of exam
[2021-02-01] MEDS: Lactated Ringers 1,000 ML 100 ML IV ×2 (09:55→12:16)
--- NOTE | 2021-02-01 10:48 | PCM.DC ---
Discharge Instructions Activity Keep extremity elevated above heart level: Operative Extremity Additional Activity Instructions:: Ice and elevate next 72 hours .keep dressing on clean and dry for 48 hours then may remove begin showering daily but do not submerge in tub or pool. After shower may apply Band-Aids . Encourage knee range of motion up to 90 degrees but not beyond nonweightbearing left lower extremity, use crutches . No strenuous activity. When not ambulating keep iced and elevated next 72 hours. Do not mix pain medication with recreational drugs or alcohol only take as prescribed can be addictive and abusive, call with any questions or concerns. Follow Up Care Please Follow Up With: Dominick Garcia DO When: 2 weeks Test Results: Test results from this visit will be discussed in further detail at your follow-up appointment, if applicable. Discharge Plan Admission Attending Provider: Dominick Garcia Primary Care Provider: Dandre Cobos Instructions Patient Instructions: ED Chest Pain, Noncardiac Discharge Orders/Prescriptions Prescriptions: New oxycodone 5 mg capsule 5 mg PO Q4H PRN (Reason: pain) 5 Days Qty: 30 RF: 0 No Action esomeprazole magnesium [Nexium] 20 mg capsule,delayed release(DR/EC) 20 mg PO DAILY RF: 0 metformin 1,000 mg tablet 500 mg PO DAILY RF: 0 fexofenadine [Terri Allergy] 180 mg tablet 180 mg PO DAILY RF: 0 Referrals / Follow Up: Dandre Cobos MD [Primary Care Provider] -
--- NOTE | 2021-02-01 10:53 | OP.PCM_ITS ---
Report of Operation Description of Surgical Findings:: Preop diagnosis: Left knee vertical tear medial meniscus grade 3 cartilage wear patellofemoral joint Postoperative diagnosis: Same plus scar tissue and hypertrophied intrameniscal ligament variant Implants: 360 FasT-Fix all inside meniscal repair device x2 [employer] Procedure: Left knee arthroscopic medial meniscus repair synovectomy Anesthesia: General Estimated blood loss: [5] mL Tourniquet time: 55 minutes minutes 300 mmHg Complications: There was a difficult intubation see anesthesia notes Findings: In addition to above patient has significant scar tissue formation and significant hypertrophy and variant of the intrameniscal ligament attaching to the anterior horn of the medial meniscus and the lateral joint capsule, grade 3 cartilage wear patellofemoral joint and vertical tear medial meniscus body Indication for procedure: This is a 40-year-old male BMI 53.2 patient who had a prior knee arthroscopy with synovectomy by Dr. Velasquez, synovectomy to meniscal work 2018, did have repeat MRI which showed continued medial meniscus tear and continued symptoms was discussed with Dr. velasquez wh plans for reevaluation arthroscopically with attention to the medial mensicus. Dr. velasquez really subsequently was leaving the practice and I was asked to see the patient we did discuss that his MRI had a similar appearance to his old MRI. we discussed meniscectomy versus repair and due to age if repair was an option he did wish to proceed with this understanding the need for be toe-touch weightbearing for 6 weeks postop and not bending her knee past 90 degrees during this time inspected postoperative course following this risk benefits and alternatives of the procedure were reviewed including risk of bleeding infection nerve artery tissue damage need for further surgery continued pain and expected postoperative course. Procedure: The patient was met in the preoperative holding area. The operative extremity was identified by both patient and physician and family and marked. Patient was brought back to the operating room on a wheeled cart and transferred to the operating table in the supine position. Anesthesia was started. A well-padded tourniquet was placed on the operative extremity. A lower extremity leg ridley was secured to the operative extremity. The contralateral extremity was well-padded and the end of the bed was flexed to 90 degrees. The patient was prepped and draped in the usual sterile fashion. A timeout was called to ensure the proper patient, procedure, and extremity were being contemplated. 0.5% Marcaine with epinephrine was injected into the planned incisional areas under the skin only. An Esmarch was used to exsanguinate the extremity and the tourniquet was inflated. An 11 blade scalpel was used to make a stab incision in the anterior lateral portal. The arthroscope was inserted into the intercondylar notch and inflow and outflow tubes were attached. Arthroscopic visualization began. The medial compartment was entered. An 18-gauge spinal needle was used to establish the placement for anterior medial portal. An 11 blade scalpel was used to make a stab incision. Blunt probe was inserted followed by a meniscal probe. There is noted to be vertical tear in the body of the medial meniscus the peripheral third was felt to be stable enough for repair the lateral compartment was entered free of meniscal or cartilage pathology The arthroscope was switched from the procedure to allow accurate 360 FasT-Fix anchor placement 2 of these devices were used after the meniscal bed was rasped and stabbed with a 18-gauge spinal needle vertical mattresses provided excellent repair no further anchors were required , microfracture holes were used within the intercondylar notch to aid in healing, the medial and lateral gutters were inspected and [were free of loose bodies]. The patell ofemoral joint was inspected and had a grade 3 cartilage defect of the medial patellar facet however this did not appear new was no loose cartilage flaps. [There was good patellar tracking.] The knee was thoroughly irrigated and drained. An intra-articular injection with 5 cc 0.5% Marcaine plain 4 mg of morphine was injected intra-articularly. The arthroscope was removed the portals were closed with 3-0 nylon arthroscopic stitches. Followed by Xeroform 4 x 4's ABDs web roll and an Shakeel wrap. The tourniquet was let down and the drapes were removed. All counts were correct. The patient was brought back to the PACU in stable condition. mechanical piping designer: Abhishek Ocasio
[2021-02-01] MEDS: Bupivacaine Mpf 0.5% 30 ML VIAL (11:08)
[2021-02-01] MEDS: Epinephrine (1 mg/ml) 1 MG/ML VIAL (11:08)
== END 2021-02-01 13:51 ==
LOC: SDC 09:05 → AC 09:06
PROVIDERS: PCP Family Medicine; Referring Provider Orthopaedic Surgery; Visit Provider Orthopaedic Surgery
PROC: (CPT 29870; principal; 2021-02-01 10:25)
DX: S83.242A Other tear of medial meniscus, current injury, left knee, initial encounter (principal); X58.XXXA Exposure to other specified factors, initial encounter; Y93.89 Activity, other specified; Y92.9 Unspecified place or not applicable; E66.01 Morbid (severe) obesity due to excess calories; Z68.43 Body mass index [BMI] 50.0-59.9, adult; M22.42 Chondromalacia patellae, left knee; M23.92 Unspecified internal derangement of left knee
CPT/HCPCS: 29882; J7120; J2405

== ENCOUNTER 2021-05-19 09:00 | Outpatient (RCR) | payer OTHER, SELFPAY ==
[2021-02-14 08:53] VITALS: BMI 53.1
--- NOTE | 2021-02-15 11:42 | HP.PTEVAL ---
Patient's Visit Information MC BACH is a 40 year old M referred to Physical Therapy by TREVA Martin with a diagnosis of L medial meniscus repair 02/01. Date of Evaluation: 02/15/21 Physical Therapist: MIRIAN McintoshT, OCS, CSCS - Visit Plan Frequency: 3x /Week Duration: 2 Months Plan: 3x/week for 6-8 weeks total... Pt is NWB L with crutches adn 90 degree limit on flexion until week 6 around 03/15/21. Please focus on leg stretches HS adn gastroc and quad, A/PROM knee flexion and ext, patelaar mobs. Gait training NWB, NWB strength L LE. Progression of HEP. Can do FES to L quad. ice L nee. Will progress to strengthening adn WB when allowed by doctor - Subjective 02/01/21 L medial meniscus repair. Had been painful since June. Fought with WC and would not cover it. NWB L using crutches, healthy R LE adn UE healthy. 05/08/19 ladder fell out from under him adn that may have started it. Had surgery last year cleaning it out but did not fix meniscus. Pain level is sore if he does a lot /10(lots of errands yesterday) 4-5/10 is normal for him when resting. Sleep is not an issue with this with pillow b/w knees. 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 Needs to crawl and climb etc. Basic ADLs dressing, microwave, shower and bath self. Using crutches to get around, not doing house or yard work. Steps at home into house is going OK. - Pain L knee Pain Intensity (Out of 10): 5 Pain Intensity Range: 4, 7 - Objective L knee wrapped in Lisa today,. Pt TTWB today on L with crutches I, too hard to do complete NWB but he is trying. Trasnfer chair with UE. Bed trasnfer I, rolls I. Pt is very overweight and hard to maintain NWB status, very tired after 300 feet of ambulation back to work. L knee AROM -6 to 55 degrees, 60 after stretching. R knee 0-110. Tight HS and gastroc moderately. Hip and ankle AROM WFL. Strength ankles 4+, hip abd and ext 4- L and 4 R, flexion 3+ L and 4- R. knee laq L unable, R 5/5,. HSC 3+ L and 5 R. Sensation LE WNl to gross light touch. Incision dressed and just had stitches out yesterday, not visualized today due to patient desire. - Goals Goal 1:: ST: 4 week 0-90 AROM without pain Goal Time Frame: 2-4 Weeks Goal 2:: ST : SLR without lag Goal Time Frame: 2-4 Weeks Goal 3:: LT : Walk when allowed by physican without gait deficits I Goal Time Frame: 6-8 Weeks Goal 4:: LT: steps reciprocally without rail Goal Time Frame: 6-8 Weeks Goal 5:: Pt I appropriate LT ex Goal Time Frame: 6-8 Weeks Goal 6:: Plan to return to work Goal Time Frame: 6-8 Weeks - Rehabilitation Potential Physical Therapy Diagnosis: weakness and rOM deficits after meniscus repair Rehabilitation Potential: Fair - Anticipated Interventions Patient/Client Instruction: Educate patient on: Condition, Plan of Care For the Purpose of:: To decrease pain, To increase ROM, To improve muscle performance and motor function, To increase tolerance to activity/condition/position, To improve gait and locomotor functions Therapeutic Exercise to Include: Strength training, Body mechanics, Postural training, Gait and locomotor training, Neuromotor development, Passive ROM, Active ROM For the Purpose of:: To decrease pain, To increase ROM, To improve muscle performance and motor function, To increase tolerance to activity/condition/position, To improve ability of physical actions for home/community/work/leisure, To improve gait and locomotor functions Manual Therapy Techniques to Include: Passive ROM, Soft tissue mobilization For the Purpose of:: To increase ROM Functional electric stimulation: Yes Cryotherapy (ice pack, ice massage): Yes For the Purpose of:: To decrease pain, To increase ROM, To improve muscle performance and motor function Thank you for the opportunity to evaluate your patient. For Medicare and Medicare HMO plans, please review the plan of care and approve it. It will need to be FAXED BACK to us at [phone] for Medicare purposes. For Medicare only, by signing this I certify the plan of care. Please let me know if there are questions or concerns regarding this plan of care. Physician Signature: Date:
--- NOTE | 2021-04-25 09:25 | HP.PTREVAL_ITS ---
TREVA Martin, It has been my pleasure to treat MC BACH over the last 26 visits for L medial meniscus repair 02/01. Please see the progress note below for an update on the physical therapy plan of care! Subjective: Doing pretty good. No pain in a while. Exercises in therapy not problem. Doing HEP at home with ROM exercises and SLR, stretching. Sleep is OK. Not released to kneel or squat and so needs to do that to go back to wrok. 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 Activities at home are unable to bathe dog as he cannot squat or kneel doctors orders. Walks [place] yesterday without pain. Feels like he needs more therapy due to his weight and his job which inlcudeds steps with tVs in hand, ladders, kneeling and getting on floor. Objective/Function: Walks normal and without pain today. Steps are painful to descend and needs rail. to from kneeling I but needs UE on support and hurts to put L knee on floor., tender. AROM 0-109, 0 ext lag with SLR L. Overall improoving buit still lacking what he needs for full duty release, could benefit froma nother month of PT for ROM and squatting, steps, funcitonal transfers off floor progression. Plan Plan: 2-3x/week for 4 weeks to work on... 1. Mobs , rollout and PROM knee flexion L. Strength of function with floor trasnfers, sensitivty to kneeling and steps, carrying things on steps to tolerance. Will need to be released by doctor on Sunday and need new script if doc wants him to cotninue. Could probably do light duty work right now but tough for full duty safely yet. 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 Goal Time Frame: 4-6 Weeks Goal Progress: NEW GOAL Goal 2:: ST : SLR without lag Goal Time Frame: 2-4 Weeks Goal Progress: Goal Met Goal 3:: LT : Walk when allowed by physican without gait deficits I Goal Time Frame: 6-8 Weeks Goal Progress: Goal Met Goal 4:: LT: steps reciprocally without rail Goal Time Frame: 6-8 Weeks Goal Progress: needs rail, appropirate. Goal 5:: Pt I appropriate LT ex Goal Time Frame: 6-8 Weeks Goal Progress: gym to be met still Goal 6:: Plan to return to work Goal Time Frame: 6-8 Weeks Goal Progress: Progressing Anticipated Interventions Patient/Client Instruction: Educate patient on: Condition, Plan of Care For the Purpose of:: To decrease pain, To increase ROM, To improve muscle performance and motor function, To increase tolerance to activity/condition/position, To improve gait and locomotor functions Therapeutic Exercise to Include: Strength training, Body mechanics, Postural training, Gait and locomotor training, Neuromotor development, Passive ROM, Active ROM For the Purpose of:: To decrease pain, To increase ROM, To improve muscle performance and motor function, To increase tolerance to activity/condition/position, To improve ability of physical actions for home/community/work/leisure, To improve gait and locomotor functions Manual Therapy Techniques to Include: Passive ROM, Soft tissue mobilization For the Purpose of:: To increase ROM Functional electric stimulation: Yes Cryotherapy (ice pack, ice massage): Yes For the Purpose of:: To decrease pain, To increase ROM, To improve muscle performance and motor function Please do not hesitate to contact me at [phone] by phone or if you have questions or concerns regarding this new plan of care! Sincerely, Dandre Chiu, DPT, OCS, CSCS
--- NOTE | 2021-07-25 14:25 | HP.PTDCNRP_ITS ---
MC BACH was seen in my office for initial evaluation on 02/15/21. The following Plan of Care was established for this patient: Initial Frequency: 3x /Week Initial Duration: 2 Months Patient/Client Instruction: Educate patient on: Condition, Plan of Care For the Purpose of:: To decrease pain, To increase ROM, To improve muscle performance and motor function, To increase tolerance to activity/condition/position, To improve gait and locomotor functions Therapeutic Exercise to Include: Strength training, Body mechanics, Postural training, Gait and locomotor training, Neuromotor development, Passive ROM, Active ROM For the Purpose of:: To decrease pain, To increase ROM, To improve muscle performance and motor function, To increase tolerance to activity/condition/position, To improve ability of physical actions for home /community/work/leisure, To improve gait and locomotor functions Manual Therapy Techniques to Include: Passive ROM, Soft tissue mobilization For the Purpose of:: To increase ROM Functional electric stimulation: Yes Cryotherapy (ice pack, ice massage): Yes For the Purpose of:: To decrease pain, To increase ROM, To improve muscle performance and motor function This patient was last seen in our office 05/19/21. Pertinent comments regarding their Physical therapy will appear below: Pt seen 34 visits of POC and was 85% better. He did not schedule or attend his last recheck. at this point, it has been over two months and I will discontinue due to nonattendance. At this point I will be discontinuing this patient from physical therapy. I would be happy to see this patient again in the future if found appropriate by the physician. Thank you! Dandre Chiu, DPT, OCS, CSCS Balance/Gait/Functional tests - Balance/Special Test Scores Lower Extremity Functional Score: 47
== END 2021-05-19 19:00 | disposition home or self-care (01) ==
LOC: PT 09:00
PROVIDERS: PCP Family Medicine; Referring Provider Physician Assistant; Visit Provider Physician Assistant
DX: Z98.890 Other specified postprocedural states (principal)
CPT/HCPCS: 97014; 97110; 97161; 97164; G0283

== ENCOUNTER → 2022-07-07 | Outpatient (CLI) | payer OTHER, SELFPAY ==
--- NOTE | 2022-07-07 12:45 | RAD_ITS ---
STUDY: X-RAY - RIGHT ELBOW REASON FOR EXAM: Male, 42 years old. INJURY TECHNIQUE: view(s) of the elbow. COMPARISON: None. FINDINGS: Distal humerus, radius and ulna are intact. Moderate osteophytic spurring of the olecranon. Normal radiocapitellar and ulnotrochlear articulations. The soft tissue structures are unremarkable. RAD/Elbow min 3 Views IMPRESSION: Moderate osteophytic spurring of the olecranon. Electronically Signed: Dorian Arias MD, DINORA at 16:55 EDT ,
== END | disposition home or self-care (01) ==
LOC: MTRAD 12:42
PROVIDERS: PCP Family Medicine; Referring Provider Family Medicine; Visit Provider Family Medicine
DX: S59.901A Unspecified injury of right elbow, initial encounter (principal)
CPT/HCPCS: 73080

== ENCOUNTER 2022-08-18 07:00 | Outpatient (RCR) | payer OTHER, SELFPAY ==
--- NOTE | 2022-07-18 08:30 | HP.PTEVAL_ITS ---
Patient's Visit Information MC BACH is a 42 year old M referred to Physical Therapy by Dr. Jin Palacios MD with a diagnosis of EPICONDYLITIS RIGHT ELBOW. Date of Evaluation: 07/18/22 Physical Therapist: Martín Ortiz, PT, Cert MDT, OCS - Visit Plan Frequency: 2x /Week Duration: 4 Weeks Plan: HIGHLY IRRITABLE. PT INTERVETIONS MODALTIES US/ESTIM/CP,MANUAL THERAPY STM,STRETCHING ,PROGRESS TO STRENGTHNEING ECCNTRICS ROGERIO - Subjective This 42 y/o male presents to physical therapy lateral epicondylitis right. 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 Patient had immediate pain went family Dr had x-rays and pain persistent. Tried ant-inflammatory helped . Patient seen Dr Palacios orthopedic ,tried cortisone injection x-rays showed bone spur. Patient had edema and very tender ,tried elbow brace. C/O paresthesia/tingling. Patient elbow pain affects ability to grasp ,lifting actually drop things out of hand. Patient pain affects sleeping. 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 Patient goals not to have pain. Plan to see in 6 weeks then MRI possible. SOCAIL: . VOCATION: [employer] - Pain Right Elbow Pain Intensity (Out of 10): 8 Pain Intensity Range: 10 - Objective POSTURE: slouched. PALPATION: tender medial/lateral epicondyle. NEURO: c/o paresthesia/tingling arm. AROM: elbow flexion 0-120 degrees ,uipination/pronation 90 degrees ,wrist flexion 80 ,extension 80 flexion. MMT: elbow flexion/extension ,supination/.pronation ,wrist flexion/extension 4/5 pain. 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 Goal Time Frame: 4-6 Weeks Goal 3:: Patient to improve medical language specialist strength by 20 # > to improve job demands and lifting Goal Time Frame: 4-6 Weeks Goal 4:: Patient to improve ability to lift and grasp objects with less pain 75% of the time. Goal 5:: Patient to quick dash shoulder by 5-10 points to improve function Goal Time Frame: 4-6 Weeks - Rehabilitation Potential Physical Therapy Diagnosis: This patient has right elbow pain medial/lateral with injury and cumulative activity panful with activity ,tender to palpate ,weakness medical language specialist and dropping things affects ADLS and housework/job demands Rehabilitation Potential: Good - Anticipated Interventions Patient/Client Instruction: Educate patient on: Condition, Plan of Care For the Purpose of:: To decrease pain, To decrease swelling/inflammation, To increase ROM, To improve nutrient delivery to tissue, To increase oxygenation perfusion, To improve muscle performance and motor function, To improve ability to perform ADL's, To increase tolerance to activity/condition/position, To improve ability of physical actions for home/community/work/leisure, To improve health of tissue, To decrease soft tissue restriction, To increase flexibility/ROM, To reduce risk of recurrence, To prevent re-injury, To improve tolerance to ADL's Therapeutic Exercise to Include: Strength training, Flexibilty training, Passive ROM, Active ROM Comment: ECCENRICS ELBOW For the Purpose of:: To decrease pain, To increase ROM, To improve muscle performance and motor function, To improve ability to perform ADL's, To increase tolerance to activity/condition/position, To improve ability of physical actions for home/community/work/leisure, To improve health of tissue, To decrease soft tissue restriction, To increase flexibility/ROM, To improve tolerance to ADL's Manual Therapy Techniques to Include: Mobilization, Soft tissue mobilization Comment: ELBOW For the Purpose of:: To decrease pain, To decrease swelling/inflammation, To increase ROM, To improve nutrient delivery to tissue, To increase oxygenation perfusion, To improve health of tissue, To decrease soft tissue restriction TENS: Yes IF ES: Yes Cryotherapy (ice pack, ice massage): Yes Thermo therapy (hot pack): Yes Ultrasound (thermal/non thermal): Yes For the Purpose of:: To decrease pain, To decrease swelling/inflammation, To increase ROM, To improve health of tissue, To decrease soft tissue restriction, To improve tolerance to ADL's Thank you for the opportunity to evaluate your patient. For Medicare and Medicare HMO plans, please review the plan of care and approve it. It will need to be FAXED BACK to us at [phone] for Medicare purposes. For Medicare only, by signing this I certify the plan of care. Please let me know if there are questions or concerns regarding this plan of care. Physician Signat ure: Date:
--- NOTE | 2022-08-18 07:44 | HP.PTDCSUM_ITS ---
It has been my pleasure to treat MC BACH referred by Dr. Jin Palacios MD, with the diagnosis of EPICONDYLITIS RIGHT ELBOW for a total of 8 visit(s). Discharge Date: 08/18/22 Please see the following information for a summary of their discharge status. Subjective: Doing well.. 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 MMT: 5/5 ELBOW /WRIST Goal 1:: Patient to be I with HEP elbow Goal Progress: Goal Met Goal 2:: Patient to demonstrate 50% improvement with decrease pain and improved function. Goal Progress: Goal Met Goal 3:: Patient to improve quantitative equity head strength by 20 # > to improve job demands and lifting Goal Progress: Goal Met Goal 4:: Patient to improve ability to lift and grasp objects with less pain 75% of the time. Goal Progress: Goal Met Goal 5:: Patient to quick dash shoulder by 5-10 points to improve function Plan: D/C Discharge Comments: HEP If there are questions or concerns regarding this patient's physical therapy, please feel free to call me at [phone]. Thank you for the referral of this patient. Sincerely, Martín Ortiz, PT, Cert MDT, OCS Balance/Gait/Functional tests - Balance/Special Test Scores Quick DASH Score: 2.2725
== END 2022-08-18 19:00 | disposition home or self-care (01) ==
LOC: PT 07:00
PROVIDERS: PCP Family Medicine; Referring Provider Orthopaedic Surgery Sports Medicine; Visit Provider Orthopaedic Surgery Sports Medicine
DX: M17.11 Unilateral primary osteoarthritis, right knee (principal)
CPT/HCPCS: 97014; 97032; 97035; 97110; 97140; 97161; G0283

== ENCOUNTER → 2024-05-06 | Outpatient (CLI) | payer OTHER, SELFPAY ==
[2024-05-06 18:01] LABS: Absolute Lymphocyte Count 1.55 X10^3/uL (0.83-4.51); Absolute Neutrophil Count 4.6 X10^3/uL (2.0-7.7); Basophil# 0.04 X10^3/uL; Basophil% 0.5 % (0-1); Eosinophil# 0.15 X10^3/uL; Eosinophils% 2.1 % (0-5); Hematocrit 44.3 % (40-54); Hemoglobin 13.7 g/dL (13.0-16.5); Lymphocyte # 1.55 X10^3/ul (0.83-4.51); Lymphocyte % 21.3 % (19-41); Mean Corp Hgb Conc 30.9 g/dL (32-36); Mean Corpuscular Hgb 26.6 pg (27.0-32.0); Mean Corpuscular Volume 85.9 fL (80-94); Monocyte# 0.85 X10^3/uL; Monocyte% 11.7 % (0-10); NRBC Flagged by Analyzer 0 % (0-5); Neutrophil # 4.64 X10^3/uL (2.7-7.7); Neutrophil % 63.7 % (47-70); Platelet Count 301 K/mm3 (150-450); RBC Distribution Width CV 13.8 % (11.6-14.6); RBC Distribution Width SD 43.3 fl (35.1-43.9); Red Blood Count 5.16 M/mm3 (4.6-6.2); White Blood Count 7.3 K/mm3 (4.4-11.0)
[2024-05-06 18:12] LABS: ALB/GLOB Ratio 0.9 RATIO (0.9-2.4); AST(SGOT) 18 U/L (15-37); Alanine Aminotransfer ALT/SGPT 51 U/L (16-61); Albumin, Serum 3.3 g/dL (3.2-5.0); Alkaline Phosphatase 73 U/L (45-117); Anion Gap 7 (5-15); BUN 13 mg/dL (7-18); BUN/Creat Ratio 9.8 RATIO (10-20); CRP 8.52 mg/L (0.0-3.0); Calcium,Total 9.2 mg/dL (8.5-10.1); Chloride 107 mmol/L (98-107); Creatinine, Serum 1.32 mg/dL (0.70-1.30); EST Glomerular Filtration Rate 63 mL/min (>60); Est Glom Filt Rate - Afr Amer 76 mL/min (>60); Globulin 3.7 g/dL (2.2-4.2); Glucose 99 mg/dL (74-106); Sodium Level 140 mmol/L (136-145)
[2024-05-06 18:23] LABS: Erythrocyte Sedimentation Rate 9 mm/hr (0-20)
[2024-05-09 16:10] LABS: Giardia Lamblia, Stool EIA Negative (Negative)
[2024-05-11 00:06] LABS: Calprotectin, Stool 618 ug/g (0-120)
== END | disposition home or self-care (01) ==
LOC: MTLAB 16:17
PROVIDERS: PCP Family Medicine; Referring Provider Family Medicine; Visit Provider Family Medicine
DX: R19.7 Diarrhea, unspecified (principal); R19.5 Other fecal abnormalities
CPT/HCPCS: 36415; 80053; 83993; 85025; 85652; 86140; 87329; 87493; 87506

== ENCOUNTER → 2024-09-01 | Outpatient (CLI) | payer OTHER, SELFPAY ==
--- NOTE | 2024-09-01 07:18 | US_ITS ---
ACR Level 3 findings have been noted. An addendum which confirms receipt of the report will follow. STUDY: SUPERFICIAL ULTRASOUND - EPIGASTRIC REGION REASON FOR EXAM: Male, 44 years old. left epigastic. known hx lipomas yet possible hernia TECHNIQUE: A superficial ultrasound was performed with real-time and static kang-scale imaging. COMPARISON: None. FINDINGS: In the subcutaneous tissue of the left epigastric region at area of palpable concern, there is a heterogeneous hyperechoic lesion measuring 6.4 x 8.9 x 2.5 cm. There is minimal to no internal vascularity. US/Abdomen Limited IMPRESSION: Findings are indeterminate. Differential includes fat-containing hernia versus fat-containing lesion. Recommend multiphase CT or MR abdomen with and without contrast. Electronically Signed: Jose Powell MD at 15:49 EST ,
== END | disposition home or self-care (01) ==
PROVIDERS: PCP Family Medicine; Referring Provider Family Medicine; Visit Provider Family Medicine
DX: R19.06 Epigastric swelling, mass or lump (principal)
CPT/HCPCS: 76705

== ENCOUNTER → 2024-09-24 | Outpatient (CLI) | payer OTHER, SELFPAY ==
--- NOTE | 2024-09-24 07:23 | CT_ITS ---
STUDY: CT ABDOMEN WITH AND WITHOUT CONTRAST REASON FOR EXAM: Male, 44 years old. Us shows a lesion that is not clearly a lipoma and may be a hernia RADIATION DOSAGE (If Supplied By Facility): CTDIvol = ( 25.52 ) mGy, DLP = ( 2357.52 ) mGycm TECHNIQUE: Transaxial images were obtained pre and post I.V. administration of IV 100mL Isovue-370, and with oral contrast. Sagittal and coronal images were reconstructed. Individualized dose optimization techniques were used for this CT. COMPARISON: Comparison is made with prior study dated August 05, 2018. Comparison is also made with prior sonogram of the abdomen dated September 01, 2024. FINDINGS: The visualized lung bases are unremarkable. The visualized portions of the heart are within normal limits. There is decreased attenuation of the liver consistent with steatosis. Normal gallbladder and extrahepatic biliary system. Normal spleen. Normal pancreas. Normal bilateral adrenal glands. Normal right kidney. Normal left kidney. There is a small hiatal hernia. Normal small intestine. Normal colon. The appendix is visualized and appears normal. Normal abdominal aorta. Normal inferior vena cava. Normal retroperitoneum. Normal abdominal wall. No hernia is seen. Normal osseous structures. CT/Abdomen W/WO IV Contrast IMPRESSION: Fatty infiltration of liver. Small hiatal hernia. Electronically Signed: Wolfgang Slade MD at 14:45 EST ,
== END | disposition home or self-care (01) ==
LOC: CT 07:22
PROVIDERS: PCP Family Medicine; Referring Provider Family Medicine; Visit Provider Family Medicine
DX: R19.06 Epigastric swelling, mass or lump (principal)
CPT/HCPCS: 74170; Q9967; A4216

== ENCOUNTER → 2024-11-04 | Outpatient (CLI) | payer OTHER, SELFPAY ==
[2024-11-04 09:17] LABS: Absolute Lymphocyte Count 1.31 X10^3/uL (0.83-4.51); Absolute Neutrophil Count 3.3 X10^3/uL (2.0-7.7); Basophil# 0.06 X10^3/uL; Basophil% 1.1 % (0-1); Eosinophil# 0.14 X10^3/uL; Eosinophils% 2.6 % (0-5); Hematocrit 44.4 % (40-54); Hemoglobin 13.9 g/dL (13.0-16.5); Lymphocyte # 1.31 X10^3/ul (0.83-4.51); Lymphocyte % 24.6 % (19-41); Mean Corp Hgb Conc 31.3 g/dL (32-36); Mean Corpuscular Hgb 26.8 pg (27.0-32.0); Mean Corpuscular Volume 85.7 fL (80-94); Mean Platelet Vol. 9.7 fl (6.2-12.0); Monocyte# 0.45 X10^3/uL; Monocyte% 8.5 % (0-10); NRBC Flagged by Analyzer 0 % (0-5); Neutrophil # 3.34 X10^3/uL (2.7-7.7); Neutrophil % 62.8 % (47-70); Platelet Count 239 K/mm3 (150-450); RBC Distribution Width CV 13.8 % (11.6-14.6); RBC Distribution Width SD 43.1 fl (35.1-43.9); Red Blood Count 5.18 M/mm3 (4.6-6.2); White Blood Count 5.3 K/mm3 (4.4-11.0)
[2024-11-05 05:24] LABS: ALB/GLOB Ratio 1.9 RATIO (0.9-2.4); AST(SGOT) 21 U/L (<=37); Alanine Aminotransfer ALT/SGPT 43 U/L (<=46); Albumin, Serum 4.2 g/dL (3.5-5.0); Alkaline Phosphatase 77 U/L (40-129); Anion Gap 9 (5-15); BUN 20 mg/dL (4-19); BUN/Creat Ratio 18.1 RATIO (10-20); Calcium 9.4 mg/dL (7.6-11.0); Chloride 106 mmol/L (96-108); Creatinine, Serum 1.1 mg/dL (0.8-1.3); EST Glomerular Filtration Rate 87 (>60); Globulin 2.2 g/dL (2.2-4.2); Glucose 109 mg/dL (70-99); Potassium 4.4 mmol/L (3.3-5.1); Protein, Total 6.4 g/dL (5.9-8.4); Sodium Level 142 mmol/L (133-145); Total Bilirubin 0.31 mg/dL (0.00-1.30)
[2024-11-05 06:07] LABS: Hepatitis A AB, Total Positive (Negative); Hepatitis B Core Ab Total Negative (Negative)
[2024-11-05 06:28] LABS: CRP 4.64 mg/L (0.0-3.0); Carbon Dioxide 26.5 mmol/L (22.0-29.0)
[2024-11-05 22:07] LABS: Hepatitis B Surface Antibody REAC; Hepatitis B Surface Antigen Nonreactive (Nonreactive); Hepatitis C Antibody Nonreactive (Nonreactive)
== END | disposition home or self-care (01) ==
PROVIDERS: PCP Family Medicine; Referring Provider Nurse Practitioner Acute Care; Visit Provider Nurse Practitioner Acute Care
DX: K76.0 Fatty (change of) liver, not elsewhere classified (principal); E66.01 Morbid (severe) obesity due to excess calories; R12 Heartburn; Z86.0100 Personal history of colon polyps, unspecified; R19.5 Other fecal abnormalities
CPT/HCPCS: 36415; 80053; 85025; 86140; 86704; 86706; 86708; 86803; 87340

== ENCOUNTER → 2024-11-05 | Outpatient (CLI) | payer OTHER, SELFPAY ==
[2024-11-07 13:08] LABS: Calprotectin, Stool 62 ug/g (0-120)
== END | disposition home or self-care (01) ==
LOC: LABSPEC 06:31
PROVIDERS: PCP Family Medicine; Referring Provider Nurse Practitioner Acute Care; Visit Provider Nurse Practitioner Acute Care
DX: E66.01 Morbid (severe) obesity due to excess calories (principal); K76.0 Fatty (change of) liver, not elsewhere classified; R12 Heartburn; Z86.0100 Personal history of colon polyps, unspecified; R19.5 Other fecal abnormalities
CPT/HCPCS: 83993

== ENCOUNTER 2025-01-08 07:58 | Day surgery (SDC) | payer OTHER, SELFPAY ==
--- NOTE | 2025-01-05 14:53 | PAT.ANESEVAL ---
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 When Was Last Pacemaker Check QUESTION #4 FULL TEXT: You/Your Family Experience fever (hyperthermia) with Anesthesia Last Oral Intake Last Oral intake: Last Oral Intake NPO since Meds taken in AM with sips of water? Meds patient instructed to take am of surgery PONV PONV - customer solutions teammate: PONV - customer solutions teammate Female No 01/05/25 14:18 HX of Motion Sickness No 01/05/25 14:18 HX of N/V After Surgery No 01/05/25 14:18 Non-Smoker Yes 01/05/25 14:18 Duration of Surgery greater No 01/05/25 14:18 than 60 minutes Number of Risk Factors 1 01/05/25 14:18 PONV Score Low Risk 01/05/25 14:18 Height & Weight Height & Weight: Anesthesia: Height & Weight Height 5 ft 10 in 11/17/24 08:06 Respiratory Assessment Respiratory Assessment - customer solutions teammate: Respiratory Tract Infection Hx - customer solutions teammate Hx Respiratory Tract Infection No 01/05/25 14:18 STOP Sleep Apnea STOP Sleep Apnea - customer solutions teammate: STOP Sleep Apnea - customer solutions teammate Hx Hypertension No 01/05/25 14:18 Hx Sleep Apnea No 01/05/25 14:18 CPAP Yes 11/14/24 09:02 BIPAP No 11/14/24 09:02 Do you snore loudly (louder No 01/05/25 14:18 than talking or can be heard Do you often feel tired/ No 01/05/25 14:18 fatigued/ sleepy during daytime? Has anyone observed you stop No 01/05/25 14:18 breathing during sleep? STOP Results Negative 01/05/25 14:18 QUESTION #5 FULL TEXT : Do you snore loudly (louder than talking or can be heard through closed doors)? 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 Specify any problems Hx of Preganancy in last 3 N/A 01/05/25 14:18 Months Nurse Filling Out Transfusion [facility] 01/05/25 14:18 & Questions: Date: 01/05/25 01/05/25 14:18 Time: 14:24 01/05/25 14:18 Patient unable to answer at this time (ie. confused, unrespo /Reproduction History /Reproductive History - customer solutions teammate: /Reproductive Hx- customer solutions teammate Hx Now Gestational Age (in weeks): EDC: Hx Hx Para Hx Section SAB No 11/14/24 09:02 PFSH Medical History Wears glasses Sleep apnea History of lipoma Olecranon bursitis, right elbow Medial epicondylitis, right elbow Right lateral epicondylitis Depression Anxiety Alcohol use Hx of impaired glucose tolerance Gastric reflux History of hiatal hernia Non-smoker CPAP (continuous positive airway pressure) dependence Shortness of breath on exertion Leg cramps History of pain when walking History of edema History of stress test neck/back pain Knee pain Shoulder pain Home Medications ?Medication ?Instructions ?Recorded ?Last Taken ?Type esomeprazole magnesium 20 mg 20 mg PO DAILY stomach 07/03/18 02/01/21 05:45 History capsule,delayed release (Nexium) 20 MG fexofenadine 180 mg tablet 180 mg PO DAILY allergies 05/11/20 08/25/20 History (Terri Allergy) sodium sul 1.479 gram-potas ch See Rx Instructions PO PER PKG DIR 11/04/24 Unknown Rx 0.188 gram-magnes sul 0.225 gram colonoscopy prep #24 tabs tablet (Sutab) Allergy/AdvReac Type Severity Reaction Status Date / Time Environmental Allergies: Allergy Mild Itching Verified 01/05/25 14:17 Uncoded (dust mites) animal dander Allergy Other Verified 01/05/25 14:17 oxycodone HCl (From Percocet) Allergy Other Verified 01/05/25 14:17 hydrocodone bitartrate (From AdvReac Itching Verified 01/05/25 14:17 Vicodin) Family History (Updated 11/04/24 @ 08:12 by Francisca Gusman) Mother Diabetes Depression Father Alcoholism Surgical History Hx of arthroscopy of left knee S/P vasectomy History of carpal tunnel surgery History of rotator cuff surgery planter facia release Social History Smoking Status: Never smoker alcohol intake: current alcohol intake frequency: a few times a month Audit: Pertinent Findings Pertinent Findings EKG Perinent findings: 08/25/2020. Normal sinus rhythm 6 7 bpm. Stress test pertinent findings: 08/26/2020. Negative EF 53%. Recommendation Anesthesia Recommendation Anesthesia recommendation: OPTIMIZED for anesthesia
[2025-01-08] VITALS (7 sets, daily range): BP systolic 121–159; BP diastolic 75–97; PULSE 61–73; RESP 16–17; TEMP 36.3–36.5; O2SAT 95–100; BMI 53.1
[2025-01-08] MEDS: Lactated Ringers 1,000 ML 15 ML IV (08:46)
--- NOTE | 2025-01-08 08:59 | PCM.PRE.AN2 ---
ASA Classification* ASA Classification ASA Classification: 3 Assessment & Plan Anesthesia* Anesthesia Assessment Anesthesia Assessment: Discussed sedation and/or anesthesia options, risks, benefits, and alternatives with patient/parents/legal guardian/POA. Questions invited. The patient/parents/legal guardian/POA seems to understand and agrees to proceed with anesthesia plan. Reviewed the physical assessment, medical history, allergy history and patient home medications list prior to surgery/procedure/anesthetic and documented any changes. Performed airway and anesthesia risk assessments. Anesthesia Type Anesthesia Type: MAC History Source History Obtained from:: Patient and Chart Anesthesia Focused Assessment* Temperature: 97.7 F Pulse Rate: 72 Blood Pressure: 159/93 Respiratory Rate: 17 Pulse Ox: 95 Oxygen Delivery Method: Room Air Airway Assessment Mouth opens: >3 cm Mallampati Score: II Teeth Condition: Caps/Crowns (Tooth #9 is chipped and is bonded.) Neck Range of motion (ROM): Limited ROM (Somewhat decreased extension) Focused Labs Anesthesia Preop lab: CBC WBC 5.3 K/mm3 (4.4-11.0) 11/04/24 08:55 11/04/24 RBC 5.18 M/mm3 (4.6-6.2) 11/04/24 08:55 11/04/24 Hgb 13.9 g/dL (13.0-16.5) 11/04/24 08:55 11/04/24 Hct 44.4 % (40-54) 11/04/24 08:55 11/04/24 Plt Count 239 K/mm3 (150-450) 11/04/24 08:55 11/04/24 CHEMISTRY Potassium 4.4 mmol/L (3.3-5.1) 11/04/24 08:55 11/04/24 Sodium 142 mmol/L (133-145) 11/04/24 08:55 11/04/24 Magnesium 2.3 mg/dL (1.6-2.6) 08/26/20 06:00 08/26/20 Phosphorus 4.0 mg/dL (2.5-4.9) 08/26/20 06:00 08/26/20 BUN 20 mg/dL (4-19) H 11/04/24 08:55 11/04/24 Creatinine 1.1 mg/dL (0.8-1.3) 11/04/24 08:55 11/04/24 Glucose 109 mg/dL (70-99) H 11/04/24 08:55 11/04/24 POC Glucose 90 mg/dL (70-110) 08/26/20 12:33 08/26/20 TSH 1.34 uIU/mL (0.358-3.74) 05/21/15 08:25 05/21/15 COAG Pre-Assessment Diagnosis/Proposed Procedure Planned Operative Procedure(s): COLONOSCOPY, EGD Anesthesia History 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 When Was Last Pacemaker Check QUESTION #4 FULL TEXT: You/Your Family Experience fever (hyperthermia) with Anesthesia Last Oral Intake Last Oral intake: Last Oral Intake NPO since 06:30 01/08/25 08:47 Meds taken in AM with sips of No 01/08/25 08:47 water? Meds patient instructed to take am of surgery Any additional information?: Yes NPO since: 06:30 (Patient finished his prep and had some water at 6:30 AM.) Meds taken in AM with sips of water?: No PONV PONV - undercover operator: PONV - undercover operator Female No 01/05/25 14:18 HX of Motion Sickness No 01/05/25 14:18 HX of N/V After Surgery No 01/05/25 14:18 Non-Smoker Yes 01/05/25 14:18 Duration of Surgery greater No 01/05/25 14:18 than 60 minutes Number of Risk Factors 1 01/05/25 14:18 PONV Score Low Risk 01/05/25 14:18 Height & Weight Height & Weight: Anesthesia: Height & Weight Height 5 ft 10 in 01/08/25 08:47 Weight: 168 kg 01/08/25 08:47 Body Mass Index (BMI) 53.1 01/08/25 08:47 Respiratory Assessment Respiratory Assessment - undercover operator: Respiratory Tract Infection Hx - undercover operator Hx Respiratory Tract Infection No 01/05/25 14:18 STOP Sleep Apnea STOP Sleep Apnea - undercover operator: STOP Sleep Apnea - undercover operator Hx Hypertension No 01/05/25 14:18 Hx Sleep Apnea No 01/05/25 14:18 CPAP Yes 11/14/24 09:02 BIPAP No 11/14/24 09:02 Do you snore loudly (louder No 01/05/25 14:18 than talking or can be heard Do you often feel tired/ No 01/05/25 14:18 fatigued/ sleepy during daytime? Has anyone observed you stop No 01/05/25 14:18 breathing during sleep? STOP Results Negative 01/05/25 14:18 QUESTION #5 FULL TEXT : Do you snore loudly (louder than talking or can be heard through closed doors)? 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 Specify any problems Hx of Preganancy in last 3 N/A 01/05/25 14:18 Months Nurse Filling Out Transfusion [facility] 01/05/25 14:18 & Questions: Date: 01/05/25 01/05/25 14:18 Time: 14:24 01/05/25 14:18 Patient unable to answer at this time (ie. confused, unrespo /Reproduction History /Reproductive History - undercover operator: /Reproductive Hx- undercover operator Hx Now Gestational Age (in weeks): EDC: Hx Hx Para Hx Section SAB No 11/14/24 09:02 Active Medications Active Medications: Current Medications Generic Name Dose Route Start Last Admin Trade Name Freq PRN Reason Stop Dose Admin Lactated Ringer's 1,000 mls @ 15 mls/hr 01/08/25 08:15 01/08/25 08:46 IV 15 mls/hr .Q48H MARCELLE Administration PFSH Medical History Wears glasses Sleep apnea History of lipoma Olecranon bursitis, right elbow Medial epicondylitis, right elbow Right lateral epicondylitis Depression Anxiety Alcohol use Hx of impaired glucose tolerance Gastric reflux History of hiatal hernia Non-smoker CPAP (continuous positive airway pressure) dependence Shortness of breath on exertion Leg cramps History of pain when walking History of edema History of stress test neck/back pain Knee pain Shoulder pain Home Medications ?Medication ?Instructions ?Recorded ?Last Taken ?Type esomeprazole magnesium 20 mg 20 mg PO DAILY stomach 07/03/18 01/07/25 History capsule,delayed release (Nexium) fexofenadine 180 mg tablet 180 mg PO DAILY allergies 05/11/20 01/07/25 History (Terri Allergy) sodium sul 1.479 gram-potas ch See Rx Instructions PO PER PKG DIR 11/04/24 01/08/25 Rx 0.188 gram-magnes sul 0.225 gram colonoscopy prep #24 tabs tablet (Sutab) Allergy/AdvReac Type Severity Reaction Status Date / Time Environmental Allergies: Allergy Mild Itching Verified 01/08/25 08:46 Uncoded (dust mites) animal dander Allergy Other Verified 01/08/25 08:46 oxycodone HCl (From Percocet) Allergy Other Verified 01/08/25 08:46 hydrocodone bitartrate (From AdvReac Itching Verified 01/08/25 08:46 Vicodin) Family History Mother Diabetes Depression Father Alcoholism Surgical History Hx of arthroscopy of left knee S/P vasectomy History of carpal tunnel surgery History of rotator cuff surgery planter facia release Social History Smoking Status: Never smoker alcohol intake: current alcohol intake frequency: a few times a month Review of Systems (Anesthesia) ROS Narrative System reviewed and no additional complaints, except as documented.
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
--- NOTE | 2025-01-08 09:45 | EGD_PTH ---
PATIENT: [facility] BACH LOC: EN U#:[id number] AGE/SX: 44/M ROOM: RE01/08/[address]: Dr. Charles Dash DO : 1980 BED: DIS: 01/08/2025 SPEC #: [id number] RECD: 01/08/25 11:47 STATUS: ANNA RERonaldo #: [id number] LOUISE: 01/08/25 09:[address]: Charles Dash DEPT: SURGICAL PATHOLOGY RECD BY: Jaydon Damon ENTERED: 01/08/25 13:36 SP TYPE: EGD BIOPSY ALBERTINA DR: Dr. Dandre Cobos MD Tissues: A - Esophagus, NOS B - Gastric mucous membrane C - Cecum, NOS D - COLON BIOPSY Procedures: Immunohistochemical Stains Surgery Specimen Level IV HEADER OPERATION: Colonoscopy, EGD, biopsy PRE-OP DIAGNOSIS: Elevated fecal calprotectin, personal history of colon polyps, unspecified, heartburn TISSUE SUBMITTED: A- Distal esophagus biopsy, B- Gastric antrum biopsy, C- Cecum polyp, D- Random colonic polyp MICROSCOPIC DIAGNOSIS A. Esophagus, distal, biopsy: * Squamous mucosa with mild reactive changes and rare eosinophils. B. Stomach, antrum, biopsy: * Chronic gastritis, negative for H pylori organisms (IHC). * Fragments of small intestinal mucosa. C. Colon, cecum, polyp, biopsy: * Tubular adenoma. D. Colon, random, biopsy: * No specific pathologic change. MICROSCOPIC DESCRIPTION Slides are reviewed. These tests were developed and their performance characteristics determined by [facility]. They may not have been cleared or approved by the U.S. Food and Drug Administration. The FDA has determined that such clearance or approval is not necessary. The above immunohistochemical/dualISH markers are ordered and reviewed by the Pathologist. GROSS DESCRIPTION A. Received in formalin in a container labeled with the patient's name, date of , and distal esophagus biopsy are multiple small bravo-pink fragments of mucosal tissue measuring 0.7 x 0.4 x 0.2 cm in aggregate. Submitted in toto in A1. B. Received in formalin in a container labeled with the patient's name, date of , and gastric antrum biopsy are multiple bravo fragments of mucosal tissue measuring 1.0 x 0.5 x 0.3 cm in aggregate. Submitted in toto in B1. C. Received in formalin in a container labeled with the patient's name, date of , and cecum polyp are multiple bravo-pink fragments of mucosal tissue measuring 1.3 x 0.8 x 0.3 cm in aggregate. Submitted in toto in C1. D. Received in formalin in a container labeled with the patient's name, date of , and random colonic biopsy are multiple bravo-pink fragments of mucosal tissue measuring 1.3 x 1.0 x 0.2 cm in aggregate. Submitted in toto in D1. [facility] 01-08-2025 CPT:[id number]
--- NOTE | 2025-01-08 10:01 | PCM.POST.ANE ---
Anesthesia: Postop Eval I Current Vital Signs Temperature: 97.4 F Pulse Rate: 70 Blood Pressure: 121/75 Respiratory Rate: 16 Pulse Ox: 95 Oxygen Delivery Method: Room Air Assessment Airway patent: Yes Spontaneous unlabored respirations: Yes Mental status: Awake and Calm nausea: No Vomiting: No Anesthesia Complication: No Fluid Hydration Crystalloid volume administer (ml): 200 Total IV fluid infused: 200 Progress Note Anesthesia document: Postop Eval 1 completed: Yes
--- NOTE | 2025-01-08 10:03 | OP.CCLET_ITS ---
01/08/2025 Dandre Cobos [address] [place] [address] Re : Upper GI endoscopy procedure for Karthik Bill Dear Dr. Cobos This procedure was performed on January. My impressions and recommendations are as follows: Impressions : - Z-line irregular, 40 cm from the incisors. Biopsied. - Erythematous mucosa in the gastric body. Biopsied. - No gross lesions in the entire examined duodenum. Recommendations : - Discharge patient to home. - Resume previous diet. - Continue present medications. - Await pathology results. My findings are described in the full procedure note, which is enclosed. If I can be of further assistance, please feel free to contact me at . Sincerely, Charles Dash, 01/08/2025 10:02:42 AM This report has been signed electronically.
--- NOTE | 2025-01-08 10:03 | OP.EGD_ITS ---
Patient Name: Karthik Bill Procedure Date: 01/08/2025 9:16 AM Date of : 1980 Age: 44 Procedure: Upper GI endoscopy Indications: Epigastric abdominal pain, Heartburn Providers: Charles Dash DO Referring MD: Dandre Cobos Medicines: Monitored Anesthesia Care Patient Profile: This is a 44 year old male. Refer to note in patient chart for documentation of history and physical. Patient has symptoms of chronic abdominal cramping, chronic epigastric abdominal pain, chronic dyspepsia, chronic heartburn and chronic nausea. Complications: No immediate complications. Procedure: Pre-Anesthesia Assessment: - Prior to the procedure, a History and Physical was performed, and patient medications and allergies were reviewed. The patient is competent. The risks and benefits of the procedure and the sedation options and risks were discussed with the patient. All questions were answered and informed consent was obtained. Patient identification and proposed procedure were verified by the physician in the pre-procedure area. Mental Status Examination: alert and oriented. Airway Examination: normal oropharyngeal airway and neck mobility. Respiratory Examination: clear to auscultation. CV Examination: normal. Prophylactic Antibiotics: The patient does not require prophylactic antibiotics. Prior Anticoagulants: The patient has taken no anticoagulant or antiplatelet agents. ASA Grade Assessment: II - A patient with mild systemic disease. After reviewing the risks and benefits, the patient was deemed in satisfactory condition to undergo the procedure. The anesthesia plan was to use monitored anesthesia care (MAC). Immediately prior to administration of medications, the patient was re-assessed for adequacy to receive sedatives. The heart rate, respiratory rate, oxygen saturations, blood pressure, adequacy of pulmonary ventilation, and response to care were monitored throughout the procedure. The physical status of the patient was re-assessed after the procedure. After obtaining informed consent, the endoscope was passed under direct vision. Throughout the procedure, the patient's blood pressure, pulse, and oxygen saturations were monitored continuously. The Colonoscope was introduced through the mouth, and advanced to the third part of the duodenum. Small bowel enteroscopy was deemed necessary. The upper GI endoscopy was accomplished without difficulty. The patient tolerated the procedure well. Scope In: 9:30:34 AM Scope Out: 9:34:34 AM Total Procedure Duration Time 0 hours 4 minutes 0 seconds Findings: The Z-line was irregular and was found 40 cm from the incisors. Biopsies were taken with a cold forceps for histology. Verification of patient identification for the specimen was done. Estimated blood loss was minimal. Patchy mildly erythematous mucosa without bleeding was found in the gastric body. Biopsies were taken with a cold forceps for Helicobacter pylori testing. Verification of patient identification for the specimen was done. Estimated blood loss was minimal. No gross lesions were noted in the entire examined duodenum. Impression: - Z-line irregular, 40 cm from the incisors. Biopsied. - Erythematous mucosa in the gastric body. Biopsied. - No gross lesions in the entire examined duodenum. Recommendation: - Discharge patient to home. - Resume previous diet. - Continue present medications. - Await pathology results. Procedure Code(s): --- Professional --- 39055, Small intestinal endoscopy, enteroscopy beyond second portion of duodenum, not including ileum; with biopsy, single or multiple CPT copyright 2021 [employer]. All rights reserved. The codes documented in this report are preliminary and upon superintendent institution review may be revised to meet current compliance requirements. Charles Dash DO 01/08/2025 10:02:42 AM This report has been signed electronically. Number of Addenda: 0 Note Initiated On: 01/08/2025 9:16 AM
--- NOTE | 2025-01-08 10:07 | OP.COLON_ITS ---
Patient Name: Karthik Bill Procedure Date: 01/08/2025 9:34 AM Date of : 1980 Age: 44 Procedure: Colonoscopy Indications: Clinically significant diarrhea of unexplained origin, Incidental change in bowel habits noted Providers: Charles Dash DO Referring MD: Dandre Cobos Medicines: Monitored Anesthesia Care Patient Profile: This is a 44 year old male. Refer to note in patient chart for documentation of history and physical. Patient has symptoms of chronic abdominal cramping, chronic epigastric abdominal pain, chronic dyspepsia, chronic heartburn and chronic nausea. Last Colonoscopy: more than 10 years ago. Complications: No immediate complications. Procedure: Pre-Anesthesia Assessment: - Prior to the procedure, a History and Physical was performed, and patient medications and allergies were reviewed. The patient is competent. The risks and benefits of the procedure and the sedation options and risks were discussed with the patient. All questions were answered and informed consent was obtained. Patient identification and proposed procedure were verified by the physician in the pre-procedure area. Mental Status Examination: alert and oriented. Airway Examination: normal oropharyngeal airway and neck mobility. Respiratory Examination: clear to auscultation. CV Examination: normal. Prophylactic Antibiotics: The patient does not require prophylactic antibiotics. Prior Anticoagulants: The patient has taken no anticoagulant or antiplatelet agents. ASA Grade Assessment: II - A patient with mild systemic disease. After reviewing the risks and benefits, the patient was deemed in satisfactory condition to undergo the procedure. The anesthesia plan was to use monitored anesthesia care (MAC). Immediately prior to administration of medications, the patient was re-assessed for adequacy to receive sedatives. The heart rate, respiratory rate, oxygen saturations, blood pressure, adequacy of pulmonary ventilation, and response to care were monitored throughout the procedure. The physical status of the patient was re-assessed after the procedure. After I obtained informed consent, the scope was passed under direct vision. Throughout the procedure, the patient's blood pressure, pulse, and oxygen saturations were monitored continuously. The Colonoscope was introduced through the anus and advanced to the terminal ileum. The colonoscopy was performed without difficulty. The patient tolerated the procedure well. The quality of the bowel preparation was adequate. The terminal ileum, ileocecal valve, appendiceal orifice, and rectum were photographed. Scope In: 9:36:48 AM Scope Withdrawal Time 0 hours 13 minutes 43 seconds Scope Out: 9:52:24 AM Total Procedure Duration Time 0 hours 15 minutes 36 seconds Findings: The perianal and digital rectal examinations were normal. Multiple small and large-mouthed diverticula were found in the recto-sigmoid colon, sigmoid colon and descending colon. An area of mildly congested mucosa was found in the recto-sigmoid colon, in the sigmoid colon and in the descending colon. Biopsies were taken with a cold forceps for histology. Verification of patient identification for the specimen was done. Estimated blood loss was minimal. A 9 mm polyp was found in the cecum. The polyp was sessile. The polyp was removed with a hot snare. Resection and retrieval were complete. Verification of patient identification for the specimen was done. Estimated blood loss was minimal. The terminal ileum appeared normal. Impression: - Diverticulosis in the recto-sigmoid colon, in the sigmoid colon and in the descending colon. - Congested mucosa in the recto-sigmoid colon, in the sigmoid colon and in the descending colon. Biopsied. - One 9 mm polyp in the cecum, removed with a hot snare. Resected and retrieved. - The examined portion of the ileum was normal. Recommendation: - Discharge patient to home. - Resume previous diet. - Continue present medications. - Await pathology results. - Repeat colonoscopy in 5 years for surveillance. Procedure Code(s): --- Professional --- 52669, Colonoscopy, flexible; with removal of tumor(s), polyp(s), or other lesion(s) by snare technique 93393, 59, Colonoscopy, flexible; with biopsy, single or multiple CPT copyright 2021 [employer]. All rights reserved. The codes documented in this report are preliminary and upon cement tester assistant review may be revised to meet current compliance requirements. Charles Dash DO 01/08/2025 10:06:39 AM This report has been signed electronically. Number of Addenda: 0 Note Initiated On: 01/08/2025 9:34 AM
--- NOTE | 2025-01-08 10:07 | OP.CCLET_ITS ---
01/08/2025 Dandre Cobos [address] [place] [address] Re : Colonoscopy procedure for Karthik Bill Dear Dr. Cobos This procedure was performed on January. My impressions and recommendations are as follows: Impressions : - Diverticulosis in the recto-sigmoid colon, in the sigmoid colon and in the descending colon. - Congested mucosa in the recto-sigmoid colon, in the sigmoid colon and in the descending colon. Biopsied. - One 9 mm polyp in the cecum, removed with a hot snare. Resected and retrieved. - The examined portion of the ileum was normal. Recommendations : - Discharge patient to home. - Resume previous diet. - Continue present medications. - Await pathology results. - Repeat colonoscopy in 5 years for surveillance. My findings are described in the full procedure note, which is enclosed. If I can be of further assistance, please feel free to contact me at . Sincerely, Charles Dash, 01/08/2025 10:06:39 AM This report has been signed electronically.
--- NOTE | 2025-01-08 14:53 | PCM.POSTANE2 ---
Anesthesia Postop Eval I Sum Postop Eval Completion status Anesthesia document: Postop Eval 1 completed: Yes Anesthesia Postop Eval I Summary Anesthesia Postop Eval I Summary: Anesthesia Postop Eval I: Assessment Summary Airway patent Yes 01/08/25 10:02 [email or web address] Spontaneous unlabored Yes 01/08/25 10:02 [email or web address] respirations Mental status Awake,Calm 01/08/25 10:02 [email or web address] nausea No 01/08/25 10:02 [email or web address] Vomiting No 01/08/25 10:02 [email or web address] Anesthesia Postop Eval I: Fluid Summary Crystalloid volume administer 200 01/08/25 10:02 [email or web address] (ml) Colloids volume administered ( ml) Blood Product volume administered (ml) Total IV fluid infused 200 01/08/25 10:02 [email or web address] Anesthesia Postop Eval I: Summary Notes Anesthesia Complication No 01/08/25 10:02 [email or web address] Anesthesia Complication Comment: Post-operative progress note Anesthesia: Postop Eval II Evaluation Mental status: Awake and Calm Pain Level: 0 nausea: No Vomiting: No Complications Anesthesia Complication: No
== END 2025-01-08 10:35 | disposition home or self-care (01) ==
LOC: EN 07:59 → AC 08:01
PROVIDERS: PCP Family Medicine; Referring Provider Family Medicine; Visit Provider Internal Medicine Gastroenterology
PROC: 0DJD8ZZ Inspection of Lower Intestinal Tract, Via Natural or Artificial Opening Endoscopic (ICD-10-PCS; CPT 45378; principal; 2025-01-08 09:40)
DX: D12.0 Benign neoplasm of cecum (principal); E66.01 Morbid (severe) obesity due to excess calories; Z68.43 Body mass index [BMI] 50.0-59.9, adult; K76.0 Fatty (change of) liver, not elsewhere classified; Z86.0100 Personal history of colon polyps, unspecified; R10.13 Epigastric pain; K21.9 Gastro-esophageal reflux disease without esophagitis; K57.30 Diverticulosis of large intestine without perforation or abscess without bleeding; Z79.899 Other long term (current) drug therapy; K29.50 Unspecified chronic gastritis without bleeding
CPT/HCPCS: 45385; 43239; 45380; 88305; 88342; J2405

== ENCOUNTER → 2025-01-30 | Outpatient (CLI) | payer OTHER, SELFPAY ==
[2025-01-30 09:13] LABS: Hemoglobin A1c 5.9 % (<=5.6)
[2025-01-30 09:21] LABS: Cholesterol 124 mg/dL (<=200); High Density Lipoprotein 36 mg/dL; Low Density Lipoprotein Calc. 73 mg/dL; Triglycerides 75 mg/dL; Very Low Density Lipoprotein 15 mg/dL (5-40); cholesterol:hdl ratio screen 3.49
== END | disposition home or self-care (01) ==
LOC: LAB 07:36
PROVIDERS: PCP Family Medicine; Referring Provider Nurse Practitioner Acute Care; Visit Provider Nurse Practitioner Acute Care
DX: K76.0 Fatty (change of) liver, not elsewhere classified (principal); E66.01 Morbid (severe) obesity due to excess calories
CPT/HCPCS: 36415; 80061; 83036; 84443

== ENCOUNTER 2025-04-09 11:06 | Emergency (ER) | payer OTHER, SELFPAY ==
[2025-04-09 11:07] VITALS: BP 148/92; PULSE 78; RESP 20; TEMP 37.1; O2SAT 100; BMI 40.1
--- NOTE | 2025-04-09 11:27 | RAD_ITS ---
PROCEDURE: CHEST 1 VIEW (PORTABLE) 04/09/2025 REASON FOR EXAM: CHEST PAIN TECHNIQUE: Frontal view of the chest. COMPARISON: August 25, 2020 FINDINGS: There is mild cardiomegaly without overt CHF. There is no focal infiltrate or consolidation. There is no pneumothorax or effusion. There is no acute bony abnormality. RAD/Chest 1 View (Portable) IMPRESSION: There is mild cardiomegaly without overt CHF, similar to the prior. Reading Location: [facility]
--- NOTE | 2025-04-09 11:27 | EKG12_ITS ---
Test Reason : GENERAL Blood Pressure : */* mmHG Vent. Rate : 72 BPM Atrial Rate : 72 BPM P-R Int : 148 ms QRS Dur : 104 ms QT Int : 448 ms P-R-T Axes : 36 -1 38 degrees QTcB Int : 490 ms Normal sinus rhythm QTcB >= 480 msec Abnormal ECG Confirmed by EVELYN MILLER, HEMANT ([id number]), field map editor NEDLA ENRIQUEZ ([id number]) on 04/13/2025 8:21:09 AM Referred By: Michoacano Castillo Confirmed By: HEMANT RIVAS MD
--- NOTE | 2025-04-09 11:28 | EX.ED.UPPERE ---
HPI History of Present Illness Chief Complaint: Upper Extremity Injury Narrative Narrative: 44-year-old male past medical history of morbid obesity, GERD, presents from his primary care provider's office with concern for ACS. He relates history that over the last 2 days he has had left arm pain and sweating. It is worse with exertion. It has been relatively constant and he states it is less dull aching when he rests. When he tries to exert himself, he gets left arm pain and sweatiness. He denies any back pain or low back pain. He may feel short of breath with this as well. He does not really have chest pain associated with it. No noted leg swelling. He states his family history is positive for early heart attacks in his father, but his father used cocaine. Patient quit drinking alcohol a few months ago. [facility] Medical History Wears glasses Sleep apnea History of lipoma Olecranon bursitis, right elbow Medial epicondylitis, right elbow Right lateral epicondylitis Depression Anxiety Alcohol use Hx of impaired glucose tolerance Gastric reflux History of hiatal hernia Non-smoker CPAP (continuous positive airway pressure) dependence Shortness of breath on exertion Leg cramps History of pain when walking History of edema History of stress test neck/back pain Knee pain Shoulder pain Home Medications ?Medication ?Instructions ?Recorded ?Last Taken ?Type fexofenadine 180 mg tablet 180 mg PO DAILY allergies 05/11/20 01/07/25 History (Terri Allergy) esomeprazole magnesium 40 mg 40 mg PO QDAY #90 caps 01/29/25 Unknown Rx capsule,delayed release ashwagandha extract 1 cap PO DAILY 04/09/25 Unknown History Allergy/AdvReac Type Severity Reaction Status Date / Time Environmental Allergies: Allergy Mild Itching Verified 04/09/25 11:14 Uncoded (dust mites) animal dander Allergy Other Verified 04/09/25 11:14 oxycodone HCl (From Percocet) Allergy Other Verified 04/09/25 11:14 hydrocodone bitartrate (From AdvReac Itching Verified 04/09/25 11:14 Vicodin) Family History Mother Diabetes Depression Father Alcoholism Surgical History Hx of arthroscopy of left knee S/P vasectomy History of carpal tunnel surgery History of rotator cuff surgery planter facia release Social History Smoking Status: Never smoker alcohol intake: current alcohol intake frequency: a few times a month ROS ROS ED ROS Narrative Review of systems positive for exertional left arm pain, sweatiness. No fevers or chills, no cough. Worse with exertion. EXAM Physical Exam Narrative Exam Narrative: Afebrile. Vital signs noted. Nontoxic-appearing. Cardiovascular examination reveals regular rate and rhythm. Lungs are clear to auscultation bilaterally. Abdomen is soft and nontender with positive bowel sounds. No guarding or rebound. No pedal edema. Neurological examination nonfocal, nonlateralizing. Const Vital Signs: 04/09/25 11:07 Temperature 98.8 F Temperature Source Oral Pulse Rate 78 Respiratory Rate 20 H Blood Pressure 148/92 H Blood Pressure Mean 110 Pulse Ox 100 Oxygen Delivery Method Room Air MDM MDM MDM Narrative Medical decision making narrative: Concern is for ACS versus PE versus pneumonia versus pneumothorax. I have low suspicion for aortic dissection. He has equal radial pulses and more appropriate blood pressure. With concern for ACS, chest pain rule out was pursued and I feel he can be ruled out with biomarkers. I will also add a BNP to look for any type of heart failure causing his shortness of breath but his pulse ox 100% on room air on examination without evidence of hypoxia. EKG was obtained and interpreted by myself independently as normal sinus rhythm at 72 bpm without ectopy or acute ST changes. No STEMI. On my independent interpretation of the chest x-ray in 1 view, there is no evidence of an acute process, no pneumonia, no pneumothorax. I reviewed the radiology report which confirms my independent interpretation. In review of his laboratory work, is grossly unremarkable, but mostly his initial high-sensitivity troponin was 7 with a repeat being 6 at 2 hours. I feel he has been ruled out for ACS with biomarkers. BNP is normal at 38. No CHF. At this point in time, I do feel that he can be discharged to follow-up with his primary care provider again. I do not feel he needs observation. He was advised that he may need outpatient stress testing for his left arm numbness and sweatiness. Return instructions to the emergency department were reviewed. Disposition is discharged home in stable condition. History & Record Review Discussion w/independent historian: Patient Lab Data Attestation: I reviewed the patient's lab results. Radiography Chest X-Ray - ED: 1 View, Read by ED Physician, Read by Radiologist, No Acute Disease and No Infiltrates Discharge Plan Triage Chief Complaint: Upper Extremity Injury ED Provider: Michoacano Castillo Dx/Rx/DC Orders Clinical Impression: Arm pain, Sweating-related symptom, Arm paresthesia, left Instructions: ED Pain, Acute, Uncertain Cause, ED Paraesthesias Prescriptions: No Action fexofenadine [Terri Allergy] 180 mg tablet 180 mg PO DAILY esomeprazole magnesium 40 mg capsule,delayed release(DR/EC) 40 mg PO QDAY Qty: 90 3RF Rx Instructions: take once daily 30 minutes before breakfast daily ashwagandha extract 1 cap PO DAILY Primary Care Provider: Dandre Cobos Referrals: Dandre Cobos MD [Primary Care Provider] - 3-5 Days Activity Restrictions/Additional Instructions: Return to the emergency department with increased sweating or left arm pain/numbness, chest pain, new or worsening symptoms. Follow-up with your primary care provider in 3 to 5 days. Print Language: Danish Disposition Disposition: Home, Self Care Discharge Date/Time: 04/09/25 15:11
[2025-04-09 11:46] LABS: Hematocrit 43.8 % (40-54); Hemoglobin 13.9 g/dL (13.0-16.5); Immature Granulocytes Count 0.040 X10^3/uL (0.0-0.0); Mean Corp Hgb Conc 31.7 g/dL (32-36); Mean Corpuscular Volume 85.9 fL (80-94); Mean Platelet Vol. 10.1 fl (6.2-12.0); NRBC Flagged by Analyzer 0 % (0-5); Platelet Count 249 K/mm3 (150-450); RBC Distribution Width CV 13.8 % (11.6-14.6); RBC Distribution Width SD 43.4 fl (35.1-43.9); Red Blood Count 5.10 M/mm3 (4.6-6.2); White Blood Count 8.3 K/mm3 (4.4-11.0)
[2025-04-09 12:25] LABS: Anion Gap 10 (5-15); BUN 21 mg/dL (4-19); BUN/Creat Ratio 20.5 RATIO (10-20); Calcium,Total 9.0 mg/dL (7.6-11.0); Carbon Dioxide 24.7 mmol/L (21.0-32.0); Chloride 105 mmol/L (98-108); Estimated Creatinine Clearance 123.61 ml/min (50-250); Glucose 94 mg/dL (70-99); Potassium 4.0 mmol/L (3.3-5.1); Pro- Brain NATRIURETIC PEPTIDE 38 pg/mL (<=450); Troponin T High Sensitivity 7 ng/L (<=22)
[2025-04-09 13:19] VITALS: BP 144/94; PULSE 71; RESP 24; O2SAT 99
[2025-04-09 14:13] LABS: Troponin T High Sens 2 HR 6 ng/L (<=22)
[2025-04-09 15:00] VITALS: BP 145/88; PULSE 69; RESP 15; O2SAT 97
[2025-04-09 15:03] VITALS: BP 145/88; PULSE 69; RESP 15; TEMP 36.8; O2SAT 97
== END 2025-04-09 15:11 | disposition home or self-care (01) ==
PROVIDERS: Emergency Provider Emergency Medicine; PCP Family Medicine; Referring Provider Emergency Medicine; Visit Provider Emergency Medicine
DX: M79.602 Pain in left arm (principal); R20.2 Paresthesia of skin; G47.30 Sleep apnea, unspecified; Z99.89 Dependence on other enabling machines and devices; K21.9 Gastro-esophageal reflux disease without esophagitis; Z79.899 Other long term (current) drug therapy; Z98.52 Vasectomy status; R61 Generalized hyperhidrosis
CPT/HCPCS: 71045; 80048; 83880; 84484; 85025; 93005; 99285; A4216

== ENCOUNTER → 2025-05-12 | Outpatient (CLI) | payer OTHER, SELFPAY ==
--- NOTE | 2025-05-12 16:15 | STRESSREP ---
Stress Test Report Date: 05/12/2025 Procedure: Exercise tolerance test Indications: Chest pain Consent: Per the patient Procedure: The patient exercised on a Augustine protocol for 5 minutes achieving a peak heart rate of 184 bpm (104% predicted maximal heart rate) with a peak blood pressure 182/100 mmHg and a peak MET capacity of approximately 7.0 MET's. The baseline ECG demonstrated sinus rhythm. The peak exercise ECG showed sinus tachycardia with appropriate heart rate response. No ischemic changes noted. Occasional PVCs noted during exercise and in recovery. The functional capacity was considered suboptimal. The patient had no complaints of chest discomfort during exercise or recovery. The examination was discontinued secondary to target heart rate being achieved and dyspnea. No chest pain reported. Impression: 1. Technically adequate (percent predicted maximal heart rate greater than 85%) exercise tolerance test 2. Peak exercise ECG with no ischemic changes. Appropriate heart rate response to exercise 3. Occasional PVCs noted This note was generated with [employer]ation software. It may contain incorrect words, spelling, and punctuation that were not noted in checking the note before signing.
== END | disposition home or self-care (01) ==
LOC: CVS 12:11
PROVIDERS: PCP Family Medicine; Referring Provider Family Medicine; Visit Provider Family Medicine
DX: R07.89 Other chest pain (principal)
CPT/HCPCS: 93017

== ENCOUNTER → 2025-08-01 | Outpatient (CLI) | payer OTHER, SELFPAY ==
--- NOTE | 2025-08-01 07:30 | MRI_ITS ---
PROCEDURE: LOWER EXT JOINT ONLY (ROUTINE) 08/01/2025 REASON FOR EXAM: INTERNAL DERANGEMENT L KNEE TECHNIQUE: Procedure Code: MRILEJ Modality: MR Procedure: LOWER EXT JOINT ONLY (ROUTINE) Multiplanar and multisequence images were obtained without IV contrast administration. COMPARISON: COMPARISON : FINDINGS: The ACL and PCL are intact. Increased signal within the posterior body and horn of the medial meniscus which reaches the inferior articular surfaces compatible with a tear. There is peripheral subluxation of the medial meniscus into the peripheral gutter. Parameniscal cysts are adjacent to the body of the medial meniscus. The lateral meniscus is intact without MR evidence of a definite tear. The MCL and LCL complex appear intact and unremarkable. The patella appears unremarkable. The medial and lateral patellar retinaculum are intact. The visualized distal quadriceps and patellar tendons appear intact and unremarkable. No sizable joint effusion. A multilobular 1.8 cm ganglion cyst is noted posterior to the knee joint. Degenerative marrow edema is noted in the medial aspect of the medial tibial plateau. Mild subcutaneous edema anterior to the knee. MRI/Lower Ext Joint Only (Routine) IMPRESSION: Medial meniscal tear. Multilobular 1.8 cm ganglion cyst posterior to the knee joint. Degenerative marrow edema in the medial tibial plateau. Reading Location: [id number]
--- OUTSIDE RECORDS SUMMARY | 2025-08-01 07:31 | XMS RPT_ITS | CCD ---
Author Organization [facility] Care Team Providers Care Relationship Counselor Name Role Phone SALVADOR GARDNER Consulting Unavailable ERICK SEALS Attending Unavailab LUZ ELENA Nunez Primary Care Unavailable SALVADOR GARDNER Admitting Unavailable SALVADOR GARDNER Referring Unavailable LUZ ELENA COBOS Primary Care Unavailable Luz Elena Cobos Primary Care Provider Dr. Luz Elena Cobos Primary Care Provider Dr. Luz Elena Cobos Referring Provider 1([facility])[phone] MD Jin Palacios Attending Provider Luz Elena Cobos Primary Care Provider UnavailLuz Elena Loza Primary Care Provider UnavailLUZ ELENA Loza Primary Care Unavailable HEIDI VALERA Attending Unavailable HEIDI VALERA Admitting Unavailable HEIDI VALERA Attending Unavailable LUZ ELENA COBOS Primary Care Unavailable HEIDI VALERA Attending Unavailable LUZ ELENA COBOS Primary Care Unavailable Dr. Luz Elena Cobos MD Primary Care Provider Dr. Luz Elena Cobos MD Attending Provider Dr. Luz Elena Cobos MD Referring Provider [phone] Jim MEAT COUNTER WORKER-CAngela Attending Provider Jim MEAT COUNTER WORKER-CAngela Referring Provider Jonathan GARCÍA-CKamini Attending Provider Michelle MILLER, Dr. Bowden Attending Provider [phone] Luz Elena Cobos MD Primary Care Provider Dr. Luz Elena Cobos MD Referring Provider 1([facility])[phone] Charles Dash DO Attending Provider Dr. Charles Dash DO Other Provider Papito MILLER, Dr. Amos Primary Care Provider Papito MILLER, Dr. Amos Referring Provider [phone] Jim MEAT COUNTER WORKER-C, Angela Attending Provider Jim MEAT COUNTER WORKER-C, Angela Referring Provider Jonathan MILLER, [place] Referring Provider Jonathan MILLER, [place] Emergency Provider Papito MILLER, Dr. Amos Primary Care Provider Papito MILLER, Dr. Amos Referring Provider [phone] Jonathan MILLER, [place] Attending Provider 1([facility])[phone] Papito MILLER, Dr. Amos Attending Provider [phone] Papito MILLER, Dr. Amos Other Provider [phone] Holger MILLER, Dr. Garcia Attending Provider Jonathan MEAT COUNTER WORKER-C, Kamini Attending Provider Michelle MILLER, Dr. Bowden Attending Provider Cobos, Luz Elena Primary Care Unavailable Cobos, Luz Elena Referring Unavailable Jim Angela Attending Unavailable Jim Angela Attending Unavailable Cobos, Luz Elena Primary Care Unavailable Cboos, Luz Elena Referring Unavailable Jim Angela Attending Unavailable Jim, Angela Referring Unavailable Cobos, Luz Elena Primary Care Unavailable Cobos, Luz Elena Primary Care Unavailable Kal Martinez Attending Unavailable Cobos, Luz Elena Referring Unavailable JimAngela Attending Unavailable Cobos, Luz Elena Primary Care Unavailable Cobos, Luz Elena Primary Care Unavailable Cobos, Luz Elena Referring Unavailable Charles Dash Attending Unavailable Charles Dash Consulting Unavailable Cobos, Luz Elena Consulting Unavailable Radha Wren Attending Unavailable Cobos, Luz Elena Primary Care Unavailable Cobos, Luz Elena Referring Unavailable Cobos, Luz Elena Primary Care Unavailable Kamini Castillo Referring Unavailable Kamini Castillo Attending Unavailable Cobos, Luz Elena Attending Unavailable Cobos, Luz Elena Primary Care Unavailable Cobos, Luz Elena Referring Unavailable Cobos, Luz Elena Primary Care Unavailable Jim, Angela Referring Unavailable Jim, Angela Attending Unavailable Cobos, Luz Elena Primary Care Unavailable Cobos, Luz Elena Referring Unavailable Cobos, Luz Elena Attending Unavailable Cobos, Luz Elena Primary Care Unavailable Reodica, [place] Referring Unavailable Reodica [place] Attending Unavailable Cobos, Luz Elena Primary Care Unavailable Cobos, Luz Elena Referring Unavailable Hardy Charles Attending Unavailable Cobos, Luz Elena Primary Care Unavailable Angela Fernandez Referring Unavailable Angela Fernandez Attending Unavailable Cobos, Luz Elena Primary Care Unavailable Cobos, Luz Elena Referring Unavailable Cobos, Luz Elena Attending Unavailable Kamini Castillo Attending Unavailable Cobos, Luz Elena Primary Care Unavailable Cobos, Luz Elena Referring Unavailable Cobos, Luz Elena Primary Care Unavailable Kal Martinez Attending Unavailable Cobos, Luz Elena Primary Care Unavailable Cobos, Luz Elena Referring Unavailable Kamini Castillo Attending Unavailable Kamini Castillo Attending Unavailable Cobos, Luz Elena Primary Care Unavailable Cobos, Luz Elena Referring Unavailable Allergies Allergy Classification Reported Allergen(s) Allergy Type Date of Onset Reaction(s) Facility (9 sources) Acetaminophen / oxyCODONE; Translations: [Unknown] Drug Allergy 9 Itching [facility] (8 sources) Acetaminophen / HYDROcodone; Translations: [HYDROCODONE-ACETA MINOPHEN] Drug Allergy 9 [facility] (11 sources) HYDROcodone; Translations: [hydrocodone bitartrate] [facility]; Translations: [oxycodone HCl] Drug Allergy 1 Other [facility] (18 sources) animal dander; Translations: [ANIMAL DANDER] Allergy to substance 1 Unknown [facility] (7 sources) house dust allergenic extract; Translations: [HOUSE DUST] Drug Allergy 3 Unknown [facility] (9 sources) Environmental Allergies: Uncoded; Translations: [Environmental Allergies: Uncoded] Allergy to substance 5 Itching [facility] Medications Current Medications Medication Drug Class(es) Dates Sig (Normalized) Sig (Original) cetirizine hydrochloride 10 mg oral tablet (1 source) Histamine-1 Receptor Antagonist take 1 tablet by mouth once daily as needed cetirizine (ZYRTEC) 10 MG tablet Take 10 mg by mouth daily as needed for allergies . 0 Active esomeprazole 40 mg delayed release oral capsule (20 sources) Proton Pump Inhibitor Start: 01-29-2025 End: 05-18-2025 take 1 capsule by mouth once daily 30 minutes before breakfast Esomeprazole Magnesium 40 mg capsule,delayed release(DR/EC) Active 40 mg PO daily 90 3 May 18, 2025 8:49am take once daily 30 minutes before breakfast daily Start: 2018 End: 01-29-2025 take 1 capsule by mouth once daily Esomeprazole Magnesium (Nexium) 20 mg capsule,delayed release(DR/EC) Discontinued 20 mg PO DAILY 2018 12:00am January 29, 2025 8:45am stomach Start: 01-20-2015 End: 2018 take 1 capsule by mouth once daily Esomeprazole Magnesium 22.3 MG capsule,delayed release(DR/EC) Discontinued 22.3 mg PO DAILY January 20, 2015 12:00am 2018 7:39am Comment on above: Take 20 mg by mouth once daily. fexofenadine hydrochloride 180 mg oral tablet (15 sources) Histamine-1 Receptor Antagonist Start: 0 take 1 tablet by mouth once daily Fexofenadine (Terri Allergy) 180 mg tablet Active 180 mg PO DAILY May 11, 2020 12:00am allergies fexofenadine HCl (TERRI ODT ORAL) Take by mouth once daily. Active fexofenadine HCl (TERRI ODT ORAL) Take by mouth once daily. 0 Active Comment on above: Take by mouth once d aily. Completed/Discontinued Medications Medication Drug Class(es) Dates Sig (Normalized) Sig (Original) acetaminophen 300 mg / codeine phosphate 30 mg oral tablet (20 sources) Opioid Agonist Start: 09-24-2019 End: 11-04-2019 Acetaminophen-Codei ne 300-30 mg tablet Discontinued 1 - 2 {tbl} PO EVERY 6 HOURS NEEDED as needed for Pain September 30, 2019 4:18pm November 04, 2019 9:25am Start: 09-24-2019 End: 11-04-2019 take 1 tablet by mouth every six hours as needed Acetaminophen-Codeine Discontinued 1 - 2 TABLET PO EVERY 6 HOURS NEEDED September 30, 2019 3:18pm November 04, 2019 8:25am Start: 05-10-2019 End: 05-17-2019 take 1 tablet by mouth once acetaminophen-codeine (TYLENOL #2) 300-1 5 mg per tablet Indications: Other closed fracture of metacarpal bone, unspecified metacarpal, unspecified portion of metacarpal, initial encounter , Fall from height of greater than 3 feet Take 1 (one) tablet to 2 (two) tablets by mouth every 4 (four) hours as needed for pain (Days supply per fill: 20 pills Start: 05/10/19. 20 tablet 0 05/10/2019 05/17/2019 Active Allergy Shots (10 sources) Start: 02-06-2017 End: 2018 Allergy Shots Discontinued [facility] 2016 11:00pm 2018 6:39am Start: 02-06-2017 End: 2018 Allergy Shots Discontinued [facility] 2016 12:00am 2018 7:39am amoxicillin 875 mg / clavulanate 125 mg oral tablet (8 sources) Penicillin-class Antibacterial Start: 05-29-2023 End: 11-04-2024 Amoxicillin-Pot Clavulanate 875-125 mg tablet Discontinued 1 {tbl} PO TWICE A DAY 20 0 May 29, 2023 12:00am November 04, 2024 9:04am ashwagandha extract (5 sources) Start: 04-09-2025 End: 05-18-2025 ashwagandha extract Discontinued 1 NMA PO DAILY April 09, 2025 12:00am May 18, 2025 8:32am Start: 04-09-2025 ashwagandha ex tract Active 1 NMA PO DAILY April 09, 2025 12:00am bacitracin zinc 0.5 unt/mg topical ointment (1 source) Start: 05-08-2019 End: 05-08-2019 bacitracin zinc ointment buPROPion hydrochloride 75 mg oral tablet (14 sources) Aminoketone Start: 07-17-2022 End: 11-04-2024 Bupropion Hcl 75 mg tablet Discontinued 75 mg PO THREE TIMES A DAY July 17, 2022 1:00am November 04, 2024 9:04am administer 6 hours apart take 1 tablet by madie th once daily, then take 1 tablet by mouth every twelve hours buPROPion HCL, smoking deter, 150 mg tab ER 12 hr Take 150 mg by mouth once daily. Active Comment on above: Take 150 mg by mouth once daily. busPIRone hydrochloride 10 mg oral tablet (13 sources) Start: 02-01-20 End: 11-04-19 take 1 tablet by mouth once daily Buspirone 10 mg tablet Discontinued 10 mg PO DAILY January 31, 2023 12:00am November 04, 2024 9:04am Comment on above: Take 10 mg by mouth once daily. celecoxib 200 mg oral capsule (8 sources) Nonsteroidal Anti-inflammatory Drug Start: 02-01-20 End: 11-04-19 take 1 capsule by mouth once daily Celecoxib (Celebrex) 200 mg capsule Discontinued 200 mg PO DAILY 30 January 31, 2023 12:00am November 04, 2024 9:04am Do not take in conjunction with meloxicam ibuprofen or other NSAID. Tylenol is okay 0.5 ml dulaglutide 1.5 mg/ml auto-injector (14 sources) GLP-1 Receptor Agonist Start: 07-17-20 End: 11-04-19 Dulaglutide (Trulicity) 0.75 mg/0.5 mL pen injector Discontinued 0.75 mg SC EVERY WEEK July 17, 2022 1:00am November 04, 2024 9:04am Comment on above: Inject 0.75 mg subcu taneously one time a week. gentamicin 3 mg/ml ophthalmic solution (10 sources) Start: 04-21-20 End: 07-03-20 Gentamicin 1 DROP drops Discontinued 1 NMA LEFT EYE EVERY 4 HOURS 1 0 April 21, 2017 12:00am 2018 7:39am Start: 04-21-2017 End: [address] P LEFT EYE EVERY 4 HOURS April 20, 2017 11:00pm 2018 6:39am HYDROmorphone (DILAUDID) 0.5 mg/mL injection 0.5-1.5 mg (1 source) Start: 05-08-2019 End: 05-08-2019 take 0.5-1.5 mg intravenous route every three hours as needed HYDROmorphone (DILAUDID) 0.5 mg/mL injection 0.5-1.5 mg meloxicam 15 mg oral tablet (9 sources) Nonsteroidal Anti-inflammatory Drug Start: 07-17-2022 End: 01-31-2023 take 1 tablet by mouth once daily Meloxicam 15 mg tablet Discontinued 15 mg PO DAILY July 17, 2022 1:00am January 31, 2023 2:29pm metFORMIN hydrochloride 1000 mg oral tablet (20 sources) Biguanide Start: 2018 End: 01-31-2023 Metformin 1,000 mg tablet Discontinued 500 mg PO DAILY 2018 12:00am January 31, 2023 2:28pm diabetes Start: 2018 take 500 mg by mouth once patrizia y Metformin Active 500 MG PO DAILY July 02, 2018 11:00pm Start: 08-09-2016 End: 2018 take 1 tablet by mouth once daily Metformin 500 MG tablet Discontinued 500 mg PO DAILY August 09, 2016 1:00am 2018 7:40am take 1 tablet by madie th twice daily at mealtime metFORMIN (GLUCOPHAGE) 500 MG tablet Take 500 mg by mouth 2 (two) times a day with meals . 0 Active naloxone (NARCAN) injection 0.1 mg (1 source) Start: 05-08-2019 End: 05-08-2019 naloxone (NARCAN) injection 0.1 mg ondansetron 4 mg oral tablet (8 sources) Serotonin-3 Receptor Antagonist Start: 11-04-2024 End: 11-17-2024 take 2 tablets by mouth every two hours as needed, then take 1 tablet by mouth every four hours as needed Ondansetron Hcl 4 mg tablet Discontinued 4 mg PO .COMPLEX 5 0 November 04, 2024 1:00am November 17, 2024 8:10am 4 mg orally; take two tablets PO two hours prior to start of bowel prep and one every 4 hours as needed for N/V oxyCODONE hydrochloride 5 mg oral capsule (10 sources) Opioid Agonist Start: 02-01-2021 End: 03-16-2021 take 1 capsule by mouth every four hours as needed for pain Oxycodone 5 mg capsule Discontinued 5 mg PO Q4H as needed for pain 30 5 0 February 01, 2021 March 16, 2021 8:21am Other acute postprocedural pain Other acute postprocedural pain Minimize use to avoid itch may take Benadryl if needed OTC Semaglutide (6 sources) Start: 02-03-2025 End: 04-09-2025 Semaglutide (Ozempic) 0.25 mg or 0.5 mg (2 mg/3 mL) pen injector Discontinued 0.25 mg SC EVERY WEEK 3 February 03, 2025 12:00am April 09, 2025 11:12am morbid obesity, metabolic syndrome, pre-diabetes for 4 weeks Start: 02-03-2025 Semaglutide (O zempic) 0.25 mg or 0.5 mg (2 mg/3 mL) pen injector Active 0.25 mg SC EVERY WEEK 3 February 03, 2025 12:00am for 4 weeks sertraline 25 mg oral tablet (11 sources) Serotonin Reuptake Inhibitor Start: 2018 End: 05-11-2020 take 4 tablets by mouth once daily Sertraline (Zoloft) 25 mg tablet Discontinued 100 mg PO DAILY 2018 12:00am May 11, 2020 10:07am take 1 tablet by mouth once patrizia y sertraline (ZOLOFT) 100 MG tablet Take 100 mg by mouth daily . 0 Active Sod Sulf-Pot Chloride-Mag Liu lf (8 sources) Start: 11-04-2024 End: 01-29-2025 Sod Sulf-Pot Chloride-Mag Liu lf (Sutab) 1.479-0.188- 0.225 gram tablet Discontinued 0 PO per package directions November 04, 2024 1:00am January 29, 2025 8:19am colonoscopy prep take as directed for split dose bowel prep Start: 11-04-2024 End: 01-29-2025 Sod Sulf-Pot Chloride-Mag Liu lf (Sutab) 1.479-0.188- 0.225 gram tablet Discontinued 0 PO per package directions November 04, 2024 1:00am January 29, 2025 8:19am take as directed for split dose bowel prep Start: 11-04-2024 Sod Sulf-Pot C hloride-Mag Sulf (Sutab) 1.479-0.188- 0.225 gram tablet Active 0 PO per package directions November 04, 2024 1:00am take as directed for split dose bowel prep Problems Active Problems Problem Classification Problem Date Documented Da te Episodic/Chronic Administrative/social admission (10 sources) Administrative reason for encounter; Translations: [Encounter for other administrative examinations] 08-25-2020 Episodic Esophageal disorders (17 sources) Gastroesophageal reflux disease; Translations: [Gastro-esophageal reflux disease without esophagitis] Onset: 5 01-29-2025 Chronic External cause codes: Fall (2 sources) Fall; Translations: [Fall, initial encounter] Onset: 9 05-08-2019 Joint disorders and dislocations; trauma-related (20 sources) Derangement of left knee; Translations: [Unspecified internal derangement of left knee] Onset: 5 01-26-2021 Chronic Joint disorders and dislocations; trauma-related (10 sources) Tear of medial meniscus of knee; Translations: [Other tear of medial meniscus, current injury, left knee, initial encounter] 01-26-2021 Episodic Nonspecific chest pain (12 sources) Chest pain on exertion; Translations: [Chest pain, unspecified] Onset: 5 08-25-2020 Episodic Osteoarthritis (10 sources) Osteoarthritis of left knee joint; Translations: [Unilateral primary osteoarthritis, left knee] Onset: 5 01-31-2023 Chronic Other aftercare (10 sources) Follow-up status; Translations: [Encounter for other orthopedic aftercare] 03-16-2021 Episodic Other and unspecified benign neoplasm (2 sources) Lipoma of trunk; Translations: [Benign lipomatous neoplasm of skin and subcutaneous tissue of trunk] 09-06-2024 Episodic Other and unspecified benign neoplasm (1 source) Benign lipomatous neoplasm of skin and subcutaneous tissue of trunk; Translations: [Lipoma of torso] Onset: Episodic Other and unspecified benign neoplasm (13 sources) History of polyp of colon; Translations: [History of colonic polyps] 11-04-2024 Episodic Other connective tissue disease (2 sources) Plantar fasciitis; Translations: [Plantar fascial fibromatosis] Episodic Other connective tissue disease (9 sources) Lateral epicondylitis of right humerus; Translations: [Lateral epicondylitis, right elbow] 07-17-2022 Episodic Other connective tissue disease (9 sources) Bursitis of olecranon of right elbow; Translations: [Olecranon bursitis, right elbow] 07-17-2022 Episodic Other connective tissue disease (1 source) Medial epicondylitis; Translations: [Medial epicondylitis, right elbow] Episodic Other connective tissue disease (1 source) Medial epicondylitis, right elbow; Translations: [Medial epicondylitis] Episodic Other connective tissue disease (1 source) Olecranon bursitis, right elbow; Translations: [Olecranon bursitis] Episodic Other connective tissue disease (1 source) Lateral epicondylitis, right elbow; Translations: [Lateral epicondylitis] Episodic Other connective tissue disease (8 sources) Medial epicondylitis of right humerus; Translations: [Medial epicondylitis, right elbow] 07-17-2022 Episodic Other connective tissue disease (8 sources) Plantar fasciitis of right foot; Translations: [Plantar fascial fibromatosis] 08-25-2020 Episodic Other connective tissue disease (5 sources) Pain in upper limb; Translations: [Pain in arm, unspecified] 04-09-2025 Episodic Other gastrointestinal disorders (10 sources) H/O: abdominal hernia; Translations: [Personal history of other diseases of the digestive system] 08-25-2020 Episodic Other gastrointestinal disorders (13 sources) Stool finding; Translations: [Other fecal abnormalities] 11-04-2024 Episodic Other gastrointestinal disorders (13 sources) Heartburn; Translations: [Heartburn] 11-04-2024 Episodic Other liver diseases (20 sources) Steatosis of liver; Translations: [Fatty (change of) liver, not elsewhere classified] 11-04-2024 Chronic Other liver diseases (1 source) Fatty (change of) liver, not elsewhere classified; Translations: [Fatty (change of) liver, not elsewhere classified] Onset: Chronic Other lower respiratory disease (10 sources) Rib pain; Translations: [Pleurodynia] 08-25-2020 Episodic Other nervous system disorders (10 sources) Acute postoperative pain; Translations: [Other acute postprocedural pain] 02-01-2021 Episodic Other nervous system disorders (1 source) Abnormal sensation; Translations: [Other disturbances of skin sensation] 09-06-2024 Episodic Other nervous system disorders (1 source) Other acute postprocedural pain; Translations: [Postoperative pain] Onset: Episodic Other nervous system disorders (5 sources) Paresthesia of left upper limb; Translations: [Paresthesia of skin] 04-09-2025 Episodic Other non-traumatic joint disorders (2 sources) Swelling of knee joint; Translations: [Effusion, left knee] 05-20-2025 Episodic Other non-traumatic joint disorders (1 source) Effusion, left knee; Translations: [Effusion, left knee] Onset: 5 Episodic Other non-traumatic joint disorders (1 source) Pain in left knee; Translations: [Pain in left knee] Onset: 5 Episodic Other nutritional; endocrine; and metabolic disorders (20 sources) Morbid obesity; Translations: [Morbid (severe) obesity due to excess calories] 01-31-2023 Chronic Other nutritional; endocrine; and metabolic disorders (1 source) Morbid (severe) obesity due to excess calories; Translations: [Morbid (severe) obesity due to excess calories] Onset: 5 Chronic Other skin disorders (1 source) Mass of skin; Translations: [Localized swelling, mass and lump, unspecified] Episodic Residual codes; unclassified (5 sources) Sweating symptom; Translations: [Other general symptoms and signs] 04-09-2025 Episodic Sprains and strains (20 sources) Strain of tendon of foot and ankle; Translations: [Strain of unspecified muscle and tendon at ankle and foot level, right foot, initial encounter] 11-17-2024 Episodic Unclassified (2 sources) Personal history of colon polyps, unspecified; Translations: [Personal history of colon polyps, unspecified] Onset: 5 Past or Other Problems Problem Classification Problem Date Documented Da te Episodic/Chronic Fracture of upper limb (1 source) Closed fracture of metacarpal bone; Translations: [Other closed fracture of metacarpal bone, unspecified metacarpal, unspecified portion of metacarpal, initial encounter] Episodic Other connective tissue disease (1 source) Pain in left arm; Translations: [Pain in left arm] Onset: 04-17-2025 Episodic Other gastrointestinal disorders (2 sources) Other fecal abnormalities; Translations: [Other fecal abnormalities] Onset: 01-21-2025 Episodic Other gastrointestinal disorders (2 sources) Heartburn; Translations: [Heartburn] Onset: 11-04-2024 Episodic Other gastrointestinal disorders (1 source) Epigastric swelling, mass or lump; Translations: [Epigastric swelling, mass or lump] Onset: 10-11-2024 Episodic Other injuries and conditions due to external causes (1 source) Closed injury of head; Translations: [Closed head injury, initial encounter] Episodic Other non-traumatic joint disorders (12 sources) Pain in right knee; Translations: [Right knee pain] Onset: 11-17-2024 11-17-2024 Episodic Superficial injury; contusion (2 sources) Contusion, hip and thigh; Translations: [Contusion of chest] Episodic Unclassified (10 sources) neck/back pain 04-05-2022 Comment on above: LOWER BACK PAIN Unclassified (10 sources) planter facia release 04-05-2022 Results Test Name Value Interpretation Reference Range Facility Orthopedic Visit Reporton Orthopedic Visit Report [facility] [address] [place] [address] OFFICE VISIT Date of Service: 07/09/25 MR#: [id number] Acct: [id number] Name: MC BACH Rep #: [id number] : 1980 Provider: NINFA salvador Age/Sex: 45/M Location: [facility] Status: Signed Intake Vital Signs 05/19/25 14:48 Height 5 ft 10 in Intake Visit Reasons: LEFT KNEE Chief Complaint: Left Knee Pain Allergies Environmental Allergies: Uncoded (dust mites) Allergy (Mild, Verified 07/09/25 09:22) Itching animal dander Allergy (Verified 07/09/25 09:22) Other oxycodone HCl (From Percocet) Allergy (Verified 07/09/25 09:22) Other hydrocodone bitartrate (From Vicodin) Adverse Reaction (Verified 07/09/25 09:22) Itching Medications ???Medication ???Instructions ???Recorded ???Confirmed ???Type fexofenadine 180 mg tablet 180 mg PO DAILY allergies 05/11/20 07/09/25 History (Terri Allergy) esomeprazole magnesium 40 mg 40 mg PO QDAY #90 caps 05/18/25 Rx capsule,delayed release prednisone 20 mg tablet 20 mg PO QDAY #10 tabs 07/09/25 Rx PFSH Medical History Wears glasses Sleep apnea History of lipoma Olecranon bursitis, right elbow Medial epicondylitis, right elbow Right lateral epicondylitis Depression Anxiety Alcohol use Hx of impaired glucose tolerance Gastric reflux History of hiatal hernia Non-smoker CPAP (continuous positive airway pressure) dependence Shortness of breath on exertion Leg cramps History of pain when walking History of edema History of stress test neck/back pain Knee pain Shoulder pain Surgical History Hx of arthroscopy of left knee S/P vasectomy History of carpal tunnel surgery History of rotator cuff surgery planter facia release Family History Mother Diabetes Depression Father Alcoholism Social History Smoking Status: Never smoker alcohol intake: current alcohol intake frequency: a few times a month HPI LEFT KNEE Details: This documentation accurately reflects the service provided and the decisions made by me, Kamini Castillo, RAQUEL-C 07/09/25 09. Part of today???s visit was documented by Cary LOPEZ, acting as scribe. MC BACH is a 45 year old M here today for aggravation of left knee pain. He states that the injection that he was given on 05/20/25 was very helpful up until this weekend when the knee flared up with pain and increased swelling. He states that he was dancing at a wedding but didn't think he did anything to flare up the knee. His pain is over the medial compartment of the knee. He states that he has been taking Ibuprofen (800 mg) 2-3 times a day along with using, ice, biofreeze and stretching. Patient is wearing a hinged knee brace which provides some support. Patient was experiencing locking and slightly bent position for the first several days, is able to straighten at this time. Reports positive painful popping and catching sensations. This occurs multiple times daily. 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 No improving factors. Patient has been performing prior AAOS knee conditioning exercises prior to this flare, continues with stretching as tolerated. Hx includes prior meniscus repair synovectomy surgical procedure with Dr. Garcia on 02/01/2021 and extensive synovectomy with Dr. Robles on 09/24/2019. ROS Const All systems reviewed are unremarkable except as noted in H and other (A O x 3, no apparent distress. No recent illness.) ENT Denies dizziness Card Denies chest pain, Denies dyspnea and Denies edema Resp Denies cough, Denies dyspnea and Reports other (No recent URI) GI Reports system reviewed and no additional complaints, except as documented, Denies nausea and Denies vomiting Musc Reports as per HPI, Reports abnormal gait, Reports arthralgias, Reports joint swelling and Reports limited range of motion Neuro Yes abnormal gait, No dizziness and Yes other Psych Reports system reviewed and no additional complaints, except as documented Aman/Lymph Denies easy bleeding and Denies easy bruising Ortho Exam General General: Yes no acute distress and Yes well groomed Neurologic: Yes alert and Yes oriented x3 Psychologic: Yes reasonable and appropriate Left Knee KNEE: Skin is pink, warm, dry and intact. There is no discoloration or ecchymosis present. There is moderately large knee effusion present Range of motion: 0 to 100 degrees, stiff with flexion and sore with full extension Palpation: Tenderness w (more content not included)... Normal [facility] Knee 4 or More Viewson 05-19 Knee 4 or More Views [facility] Imaging Services [address], [place] [id number] Knee 4 or More Views MR#: [id number] Acct: [id number] Name: MC BACH Rep #: [id number] : 1980 M 44 From: Edna Merchant PCP: Dr. Luz Elena Cobos MD Status: DEP AMB Study: Knee 4 or More Views Date of Exam: 05/19/25 Exam# [id number] Ordering Dr: Kamini Castillo [employer] PROCEDURE: KNEE 4 OR MORE VIEWS 05/19/2025 REASON FOR EXAM: ON GOING KNEE PAIN TECHNIQUE: Procedure Code: RADKN Modality: DX Procedure: KNEE 4 OR MORE VIEWS COMPARISON: None RAD/Knee 4 or More Views IMPRESSION: No acute fracture or dislocations. Minimal degenerative changes. No large joint effusion. Extensive soft tissue edema. No radiographic foreign body. Reading Location: -[id number] CC: NINFA Castillo; Dr. Luz Elena Cobos MD Director Of Business Systems: Signed Normal [facility] Orthopedic Visit Reporton Orthopedic Visit Report [facility] [address] [place] [id number] OFFICE VISIT Date of Service: 05/19/25 MR#: [id number] Acct: [id number] Name: MC BACH Rep #: [id number] : 1980 Provider: NINFA salvador Age/Sex: 44/M Location: [facility] Status: Signed with Addenda ADDENDUM by NINFA Castillo on 05/20/25 at 1137 Office Procedure Documentation entered by NINFA Corona 05/20/25 11:37: Ortho Injections Injections Yes Knee Left Is this a patient provided medication?: No Details: We discussed risk and benefits of injectable steroid. Obtained written and oral consent for injection. Under sterile conditions, skin was prepped with Betadine and alcohol prep, topical pain ease spray applied; injected the patient's left knee with 3cc 0.25% bupivacaine 3cc 1% lidocaine 1cc Kenalog (40mg) and was easily administered and tolerated well using a 22g 1 1/2 needle to the lateral joint space with knee flexed at 90 degrees. The patient tolerated the injection well without any noted complication, No bleeding post injection, dry sterile bandage applied. Patient should call our office if redness develops, pain worsens or if they have any concerns. Office Meds Kenalog 40 mg/mL suspension for injection Performing Provider: NINFA Corona Performing Location: [facility] Administered by: NINFA Corona on 05/19/25 16:07 Dose Route Admin Location Dispensed Lot Number Expiration Date NDC Man ufacturer 40 mg intra-articular left knee 1 mL [id number] 09/10/26 83048-968-12 EDDI AGUILERA 05/20/25 1348 Date Kamini Castillo cc: * Signed Intake Vital Signs 05/18/25 08:39 05/19/25 14:48 Height 5 ft 10 in 5 ft 10 in Weight: 386 lb BMI 55.3 Intake Visit Reasons: LEFT KNEE Chief Complaint: Left Knee Pain Accompanied by: Self Is patient in pain?: Yes Pain scale (1-10): 7 Allergies Environmental Allergies: Uncoded (dust mites) Allergy (Mild, Verified 05/19/25 14:49) Itching animal dander Allergy (Verified 05/19/25 14:49) Other oxycodone HCl (From Percocet) Allergy (Verified 05/19/25 14:49) Other hydrocodone bitartrate (From Vicodin) Adverse Reaction (Verified 05/19/25 14:49) Itching Medications ???Medication ???Instructions ???Recorded ???Confirmed ???Type fexofenadine 180 mg tablet 180 mg PO DAILY allergies 05/11/20 05/19/25 History (Terri Allergy) esomeprazole magnesium 40 mg 40 mg PO QDAY #90 caps 05/18/25 Rx capsule,delayed release PFSH Medical History Wears glasses Sleep apnea History of lipoma Olecranon bursitis, right elbow Medial epicondylitis, right elbow Right lateral epicondylitis Depression Anxiety Alcohol use Hx of impaired glucose tolerance Gastric reflux History of hiatal hernia Non-smoker CPAP (continuous positive airway pressure) dependence Shortness of breath on exertion Leg cramps History of pain when walking History of edema History of stress test neck/back pain Knee pain Shoulder pain Surgical History Hx of arthroscopy of left knee S/P vasectomy History of carpal tunnel surgery History of rotator cuff surgery planter facia release Family History Mother Diabetes Depression Father Alcoholism Social History Smoking Status: Never smoker alcohol intake: current alcohol intake frequency: a few times a month HPI LEFT KNEE Details: This documentation accurately reflects the service provided and the decisions made by me, NINFA Corona 05/19/25 1444. Part of today???s visit was documented by Reanna Barrett ATC, acting as scribe. MC BACH is a 44 year old M here today for left knee pain. Patient underwent a left knee arthroscopic medial meniscus repair synovectomy surgical procedure with Dr. Garcia on 02/01/2021 as well as a salk, extensive synovectomy with Dr. Robles on 09/24/2019. Patient states the knee started bothering him again last week sometime and he is unsure of what he was doing. He started wearing a brace at the time that it started bothering him and he states it does help him with stability but nothing with pain. He states he does have clicking and locking in the knee. He notes increased swelling since the knee started bothering him. He has been applying ice and taking Ibuprofen for the pain. He describes the pain over the anterior medial aspect of the knee. He denies any numbness/tingling or associated symptoms into the leg. He states he has been having to sleep with a pillow between his kn (more content not included)... Normal [facility] Gastroenterology Visit Repor ton 05-18-2025 Gastroenterology Visit Report [facility] [address] [place] [address] OFFICE VISIT Date of Service: 05/18/25 MR#: [id number] Acct: [id number] Name: MC BACH Rep #: [id number] : 1980 Provider: NINFA tong Age/Sex: 44/M Location: [facility] [place] Status: Signed Intake Vital Signs 01/29/25 08:21 04/09/25 11:07 05/18/25 08:39 Height 5 ft 10 in 5 ft 10 in 5 ft 10 in Weight: 384 lb BMI 55.0 BP 131/83 H Respiration 16 Pulse 67 Temp 97.8 F Temp Source Temporal Pulse Oximetry (%) 97 Oxygen Delivery Method room air Intake Visit Reasons: 3 M FU Chief Complaint: follow-up Medication Specialist Required: No Accompanied by: Self Is patient in pain?: No Allergies Environmental Allergies: Uncoded (dust mites) Allergy (Mild, Verified 04/09/25 11:14) Itching animal dander Allergy (Verified 04/09/25 11:14) Other oxycodone HCl (From Percocet) Allergy (Verified 04/09/25 11:14) Other hydrocodone bitartrate (From Vicodin) Adverse Reaction (Verified 04/09/25 11:14) Itching Medications ???Medication ???Instructions ???Recorded ???Confirmed ???Type fexofenadine 180 mg tablet 180 mg PO DAILY allergies 05/11/20 05/18/25 History (Terri Allergy) esomeprazole magnesium 40 mg 40 mg PO QDAY #90 caps 05/18/25 Rx capsule,delayed release PFSH Medical History Wears glasses Sleep apnea History of lipoma Olecranon bursitis, right elbow Medial epicondylitis, right elbow Right lateral epicondylitis Depression Anxiety Alcohol use Hx of impaired glucose tolerance Gastric reflux History of hiatal hernia Non-smoker CPAP (continuous positive airway pressure) dependence Shortness of breath on exertion Leg cramps History of pain when walking History of edema History of stress test neck/back pain Knee pain Shoulder pain Surgical History Hx of arthroscopy of left knee S/P vasectomy History of carpal tunnel surgery History of rotator cuff surgery planter facia release Family History Mother Diabetes Depression Father Alcoholism Social History Smoking Status: Never smoker alcohol intake: current alcohol intake frequency: a few times a month HPI HPI Chief Complaint: follow-up Details: OV 01/29/2025 44-year-old male presents for follow-up post procedure. He reports experiencing greater than 2 weeks of diarrhea April 2024 which he felt was secondary to food poisoning and treated with antibiotics. Fecal calprotectin was elevated to 618 at that time and repeat fecal calprotectin is 62. Colonoscopy and EGD were performed 01/08/2025. The esophageal biopsies revealed rare eosinophils, this may be secondary to irritation, inflammation, or an allergic type reaction. However, having a few of them, what we call open rare can be a normal finding or just a sign of some mild irritation from acid reflux or possibly food induced. No cancer or precancerous cells were noted. Colonoscopy revealed a tubular adenoma, random biopsies were unremarkable; it is recommended he repeat colonoscopy in 5 years. He reports intermittent breakthrough symptoms of GERD and inability to miss a dose of esomeprazole. I have increased esomeprazole to 40 mg once daily. In terms of liver steatosis noted on prior CT scan 09/24/2024. Labs reveal immunity to hepatitis A and B. CBC and CMP are unremarkable. FibroScan was performed 11/11/2024 and revealed mild fibrosis with mild liver fat. I recommend dietary and lifestyle modifications to promote weight loss. He should repeat FibroScan in 1 year. He will follow-up with his insurance and review covered medications to assist with weight loss. He will follow-up in the office in 3 months. Increase Nexium to 40mg daily Contact insurance to discuss covered medications to assist with weight loss - Please call patient and advise his insurance has denied the GLP-1 reporting they only provide coverage for these medications for Diabetes. I recommend he schedule a consult with the non-surgical weight loss clinic at [facility] to discuss other potential treatment options for weight loss. Referral has been placed. Bariatric Surgery [facility] Non-surgical weight loss [address] [address] Patient Brochure for non-surgical weight loss - view the following link to learn more [email or web address] CBC: 04/09/2025 HGB 13.9, PLT 249 BMP: 04/09/2025 A1C: 01/30/2025 5.9 TSH: 01/30/2025 WNL WEIGHT: 384.8lb BMI 01/29/2025 (more content not included)... Normal [facility] Cardiovascular stress test r eportOrdered By: Radha Wren on 05-12-2025 Study report [facility] Cardiovascular Services [address] [place] [address] MR#: [id number] Acct: [id number] Name: MC BACH Rep #: [id number] : 1980 44 From: Radha Wren MD Primary Care: Dr. Luz Elena Cobos MD Status: REG CLI Referring Dr: Luz Elena Cobos MD Sex: M C Stress Test Report Date: 05/12/2025 Procedure: Exercise tolerance test Indications: Chest pain Consent: Per the patient Procedure: The patient exercised on a Augustine protocol for 5 minutes achieving a peak heart rate of 184 bpm (104% predicted maximal heart rate) with a peak blood pressure 182/100 mmHg and a peak MET capacity of approximately 7.0 MET's. The baseline ECG demonstrated sinus rhythm. The peak exercise ECG showed sinus tachycardia with appropriate heart rate response. No ischemic changes noted. Occasional PVCs noted during exercise and in recovery. The functional capacity was considered suboptimal. The patient had no complaints of chest discomfort during exercise or recovery. The examination was discontinued secondary to target heart rate being achieved and dyspnea. No chest pain reported. Impression: 1. Technically adequate (percent predicted maximal heart rate greater than 85%)exercise tolerance test 2. Peak exercise ECG with no ischemic changes. Appropriate heart rate responseto exercise 3. Occasional PVCs noted This note was generated with [employer] dictation software. It may contain incorrectwords, spelling, and punctuation that were not noted in checking the note beforesigning. 05/12/251617 Date _ Radha Wren MD CC: Dr. Luz Elena Cobos MD ~ Date Dictated: 05/12/251614 Date Transcribed: 05/12/251614 Director Of Business Systems: CLIFFORD Mehta [facility] Work Phone: Stress Reporton 05-12-2025 Stress Report [facility] Cardiovascular Services [address] [place] [address] MR#: [id number] Acct: [id number] Name: MC BACH Rep #: [id number] : 1980 44 From: Radha Wren MD Primary Care: Dr. Luz Elena Cobos MD Status: R EG CLI Referring Dr: Luz Elena Cobos MD Sex: M C Stress Test Report Date: 05/12/2025 Procedure: Exercise tolerance test Indications: Chest pain Consent: Per the patient Procedure: The patient exercised on a Augustine protocol for 5 minutes achieving a peak heart rate of 184 bpm (104% predicted maximal heart rate) with a peak blood pressure 182/100 mmHg and a peak MET capacity of approximately 7.0 MET's. The baseline ECG demonstrated sinus rhythm. The peak exercise ECG showed sinus tachycardia with appropriate heart rate response. No ischemic changes noted. Occasional PVCs noted during exercise and in recovery. The functional capacity was considered suboptimal. The patient had no complaints of chest discomfort during exercise or recovery. The examination was discontinued secondary to target heart rate being achieved and dyspnea. No chest pain reported. Impression: 1. Technically adequate (percent predicted maximal heart rate greater than 85%) exercise tolerance test 2. Peak exercise ECG with no ischemic changes. Appropriate heart rate response to exercise 3. Occasional PVCs noted This note was generated with [employer] dictation software. It may contain incorrect words, spelling, and punctuation that were not noted in checking the note before signing. 05/12/258 Date Radha Wren MD CC: Dr. Luz Elena Cobos MD Date Dictated: 05/12/251614 Date Transcribed: 05/12/251614 Director Of Business Systems: CLIFFORD Signed Normal [facility] 12 Lead EKGon 04-09-2025 12 Lead EKG [facility] Cardiovascular Services [address] [place] [address] 12 Lead EKG 04/09/25 1134 MR#: [id number] Acct: [id number] Name: MC BACH Rep #: [id number] : 1980 44 From: Kal Martinez MD Attending Dr: Status: DEP ER Ordering Dr: Michoacano Castillo MD Date: 04/09/25 Location: ED Sex: M C Admitted: Test Reason : GENERAL Blood Pressure : */* mmHG Vent. Rate : 72 BPM Atrial Rate : 72 BPM P-R Int : 148 ms QRS Dur : 104 ms QT Int : 448 ms P-R-T Axes : 36 -1 38 degrees QTcB Int : 490 ms Normal sinus rhythm QTcB >= 480 msec Abnormal ECG Confirmed by KAL MARTINEZ MD ([id number]), dictionary editor NELDA ENRIQUEZ ([id number]) on 04/13/2025 8:21:09 AM Referred By: Michoacano Castillo Confirmed By: KAL MARTINEZ MD 04/13/25820 Date Kal Martinez MD CC: Dr. Michoacano Castillo MD; Dr. Luz Elena Cobos MD Signed Normal [facility] Absolute lymphocyte countOrd ered By: Michoacano Castillo on 04-09-2025 Lymphocytes Auto (Unsp spec) [#/Vol] 1.62 10*3/uL 0.83-4.51 [facility] Absolute neutrophil countOrd ered By: Michoacano Castillo on 04-09-2025 Neutrophils (Bld) [#/Vol] 5.7 10*3/uL 2.0-7.7 [facility] Anion gap in Serum or Plasma Ordered By: Michoacano Castillo on 04-09-2025 Anion gap [Moles/Vol] 10 mmol/L 5-15 [facility] Automated lymphocyte count a s percentage of total leukocytesOrdered By: Michoacano Castillo on 04-09-2025 Lymphocytes/100 WBC Auto (Unsp spec) 19.6 % -41 [facility] BUN/creatinine ratioOrdered By: Michoacano Castillo on 04-09-2025 Urea nitrogen/Creatinine [Mass ratio] 20.5 mg/mg High 06-29 [facility] Basic Metabolic Profile (BMP )on 04-09-2025 BUN/CRE 20.5 RATIO High 06-29 [facility] Comment on above: Performed By: #### L 501.4021, L500.2500, L503.7505, L100.0100 #### [facility] Laboratory [address] [place], [address] Calcium [Mass/Vol] 9.0 mg/dL Normal 7.6-11.0 [facility] Comment on above: Performed By: #### L 501.4021, L500.2500, L503.7505, L100.0100 #### [facility] [address] [place], [address] Chloride [Moles/Vol] 105 mmol/L Normal 98-108 [facility] Comment on above: Performed By: #### L 501.4021, L500.2500, L503.7505, L100.0100 #### [facility] [address] [place], [address] CO2 [Moles/Vol] 24.7 mmol/L Normal 21.0-32.0 [facility] Comment on above: Performed By: #### L 501.4021, L500.2500, L503.7505, L100.0100 #### [facility] [address] [place], [address] Creatinine [Mass/Vol] 1.02 mg/dL Normal 0.70-1.20 [facility] Comment on above: Performed By: #### L 501.4021, L500.2500, L503.7505, L100.0100 #### [facility] [address] [place], [address] ECRCL 123.61 ml/min Normal 50-250 [facility] Comment on above: Performed By: #### L 501.4021, L500.2500, L503.7505, L100.0100 #### [facility] [address] [place], [address] GAP 10 Normal 5-15 [facility] Comment on above: Performed By: #### L 501.4021, L500.2500, L503.7505, L100.0100 #### [facility] [address] [place], [address] GFR/1.73 sq M.predicted among non-blacks MDRD (S/P/Bld) [Vol rate/Area] 93 mL/min/{1.73_m2} Normal >60 [facility] Comment on above: Result Comment: mL/m in/1.73m2 CKD-EPI Creatinine Equation (2020) Performed By: #### L 501.4021, L500.2500, L503.7505, L100.0100 #### [facility] [address] [place], [address] Glucose [Mass/Vol] 94 mg/dL Normal 70-99 [facility] Comment on above: Performed By: #### L 501.4021, L500.2500, L503.7505, L100.0100 #### [facility] [address] [place], [address] Potassium [Moles/Vol] 4.0 mmol/L Normal 3.3-5.1 [facility] Comment on above: Performed By: #### L 501.4021, L500.2500, L503.7505, L100.0100 #### [facility] [address] [place], [address] Sodium [Moles/Vol] 140 mmol/L Normal 133-145 [facility] Comment on above: Performed By: #### L 501.4021, L500.2500, L503.7505, L100.0100 #### [facility] [address] [place], [address] Urea nitrogen [Mass/Vol] 21 mg/dL High 4-19 [facility] Comment on above: Performed By: #### L 501.4021, L500.2500, L503.7505, L100.0100 #### [facility] [address] [place], [address] Basophil percentageOrdered B y: Michoacano Toniapaul on 04-09-2025 Basophils/100 WBC (Bld) 0.6 % 0-1 [facility] CBC W/Diff, Automatedon 07-3 -2024 Absolute Lymph 1.62 X10 3/uL Normal 0.83-4.51 [facility] Comment on above: Performed By: #### L 501.4021, L500.2500, L503.7505, L100.0100 #### [facility] [address] [place], [address] Absolute Neut 5.7 X10 3/uL Normal 2.0-7.7 [facility] Comment on above: Performed By: #### L 501.4021, L500.2500, L503.7505, L100.0100 #### [facility] [address] [place], [address] Basophils/100 WBC (Bld) 0.6 % Normal 0-1 [facility] Comment on above: Performed By: #### L 501.4021, L500.2500, L503.7505, L100.0100 #### [facility] [address] [place], [address] Eosinophils/100 WBC (Bld) 2.2 % Normal 0-5 [facility] Comment on above: Performed By: #### L 501.4021, L500.2500, L503.7505, L100.0100 #### [facility] [address] [place], [address] Erythrocyte distribution width (RBC) [Ratio] 13.8 % Normal 11.6-14.6 [facility] Comment on above: Performed By: #### L 501.4021, L500.2500, L503.7505, L100.0100 #### [facility] [address] [place], [address] Hematocrit (Bld) [Volume fraction] 43.8 % Normal 40-54 [facility] Comment on above: Performed By: #### L 501.4021, L500.2500, L503.7505, L100.0100 #### [facility] [address] [place], [address] Hemoglobin (Bld) [Mass/Vol] 13.9 g/dL Normal 13.0-16.5 [facility] Comment on above: Performed By: #### L 501.4021, L500.2500, L503.7505, L100.0100 #### [facility] [address] [place], [address] IG% 0.500 Normal 0.0-0.9 [facility] Comment on above: Result Comment: IG% - Immature Granulocytes (promyelocytes, myelocytes and metamyelocytes) > 1% indicates that a LEFT SHIFT is Present. Performed By: #### L 501.4021, L500.2500, L503.7505, L100.0100 #### [facility] [address] [place], [address] Lymphocytes/100 WBC (Bld) 19.6 % Normal 19-41 [facility] Comment on above: Performed By: #### L 501.4021, L500.2500, L503.7505, L100.0100 #### [facility] [address] [place], [address] MCH (RBC) [Entitic mass] 27.3 pg Normal 27.0-32.0 [facility] Comment on above: Performed By: #### L 501.4021, L500.2500, L503.7505, L100.0100 #### [facility] [address] [place], [address] MCHC (RBC) [Mass/Vol] 31.7 g/dL Low 32-36 [facility] Comment on above: Performed By: #### L 501.4021, L500.2500, L503.7505, L100.0100 #### [facility] [address] [place], [address] MCV (RBC) [Entitic vol] 85.9 fL Normal 80-94 [facility] Comment on above: Performed By: #### L 501.4021, L500.2500, L503.7505, L100.0100 #### [facility] [address] [place], [address] Monocytes/100 WBC (Bld) 8.5 % Normal 0-10 [facility] Comment on above: Performed By: #### L 501.4021, L500.2500, L503.7505, L100.0100 #### [facility] [address] [place], [address] Neutrophils/100 WBC (Bld) 68.6 % Normal 47-70 [facility] Comment on above: Performed By: #### L 501.4021, L500.2500, L503.7505, L100.0100 #### [facility] [address] [place], [address] Nucleated RBC (Bld) [#/Vol] 0 10*3/uL Normal 0-5 [facility] Comment on above: Performed By: #### L 501.4021, L500.2500, L503.7505, L100.0100 #### [facility] [address] [place], [address] Platelet mean volume (Bld) [Entitic vol] 10.1 fL Normal 6.2-12.0 [facility] Comment on above: Performed By: #### L 501.4021, L500.2500, L503.7505, L100.0100 #### [facility] [address] [place], [address] Platelets (Bld) [#/Vol] 249 10*3/uL Normal 150-450 [facility] Comment on above: Performed By: #### L 501.4021, L500.2500, L503.7505, L100.0100 #### [facility] [address] [place], [address] RBC (Bld) [#/Vol] 5.10 10*6/uL Normal 4.6-6.2 [facility] Comment on above: Performed By: #### L 501.4021, L500.2500, L503.7505, L100.0100 #### [facility] [address] [place], [address] RDW SD 43.4 fl Normal 35.1-43.9 [facility] Comment on above: Performed By: #### L 501.4021, L500.2500, L503.7505, L100.0100 #### [facility] [address] [place], [address] WBC (Bld) [#/Vol] 8.3 10*3/uL Normal 4.4-11.0 [facility] Comment on above: Performed By: #### L 501.4021, L500.2500, L503.7505, L100.0100 #### [facility] [address] [place], [address] Carbon dioxide, total [Moles /volume] in Central venous bloodOrdered By: Michoacano Castillo on 04-09-2025 CO2 [Moles/Vol] 24.7 mmol/L 21.0-32.0 [facility] Chest 1 View (Portable)on Chest 1 View (Portable) [facility] Imaging Services [address] [place] [address] Chest 1 View (Portable) MR#: [id number] Acct: [id number] Name: MC BACH Rep #: [id number] : 1980 M 44 From: Elliott Medina MD PCP: Dr. Luz Elena Cobos MD Status: [facility] ER Study: Chest 1 View (Portable) Date of Exam: 04/09/25 Exam# [id number] Ordering Dr: Michoacano Castillo MD PROCEDURE: CHEST 1 VIEW (PORTABLE) 04/09/2025 REASON FOR EXAM: CHEST PAIN TECHNIQUE: Frontal view of the chest. COMPARISON: August 25, 2020 FINDINGS: There is mild cardiomegaly without overt CHF. There is no focal infiltrate or consolidation. There is no pneumothorax or effusion. There is no acute bony abnormality. RAD/Chest 1 View (Portable) IMPRESSION: There is mild cardiomegaly without overt CHF, similar to the prior. Reading [facility] CC: Dr. Michoacano Castillo MD; Dr. Luz Elena Cobos MD Director Of Business Systems: Signed Normal [facility] Chloride assayOrdered By: Sterling Castillo on 04-09-2025 Chloride [Moles/Vol] 105 mmol/L 98-108 [facility] Emergency Department Summary on 04-09-2025 Emergency Department Summary [facility] Medical Records Department [address] [place] [address] Emergency Department Summary 04/09/25 MR#: [id number] Acct: [id number] Name: MC BACH Rep #: [id number] : 1980 44 From: Michoacano Castillo MD PCP: Dr. Luz Elena Cobos MD Status:DEP ER Location: ED HPI History of Present Illness Chief Complaint: Upper Extremity Injury Narrative Narrative: 44-year-old male past medical history of morbid obesity, GERD, presents from his primary care provider's office with concern for ACS. He relates history that over the last 2 days he has had left arm pain and sweating. It is worse with exertion. It has been relatively constant and he states it is less dull aching when he rests. When he tries to exert himself, he gets left arm pain and sweatiness. He denies any back pain or low back pain. He may feel short of breath with this as well. He does not really have chest pain associated with it. No noted leg swelling. He states his family history is positive for early heart attacks in his father, but his father used cocaine. Patient quit drinking alcohol a few months ago. [facility] Medical History Wears glasses Sleep apnea History of lipoma Olecranon bursitis, right elbow Medial epicondylitis, right elbow Right lateral epicondylitis Depression Anxiety Alcohol use Hx of impaired glucose tolerance Gastric reflux History of hiatal hernia Non-smoker CPAP (continuous positive airway pressure) dependence Shortness of breath on exertion Leg cramps History of pain when walking History of edema History of stress test neck/back pain Knee pain Shoulder pain Home Medications ???Medication ???Instructions ???Recorded ???Last Taken ???Type fexofenadine 180 mg tablet 180 mg PO DAILY allergies 05/11/20 01/07/25 History (Terri Allergy) esomeprazole magnesium 40 mg 40 mg PO QDAY #90 caps 01/29/25 Un known Rx capsule,delayed release ashwagandha extract 1 cap PO DAILY 04/09/25 Unknown Hi story Allergy/AdvReac Type Severity Reaction Status Date / Time Environmental Allergies: Allergy Mild Itching Verified 04/09/25 11:14 Uncoded (dust mites) animal dander Allergy Other Verified 04/09/25 11:14 oxycodone HCl (From Percocet) Allergy Other Verified 04/09/25 11:14 hydrocodone bitartrate (From AdvReac Itching Verified 04/09/25 11:14 Vicodin) Family History Mother Diabetes Depression Father Alcoholism Surgical History Hx of arthroscopy of left knee S/P vasectomy History of carpal tunnel surgery History of rotator cuff surgery planter facia release Social History Smoking Status: Never smoker alcohol intake: current alcohol intake frequency: a few times a month ROS ROS ED ROS Narrative Review of systems positive for exertional left arm pain, sweatiness. No fevers or chills, no cough. Worse with exertion. EXAM Physical Exam Narrative Exam Narrative: Afebrile. Vital signs noted. Nontoxic-appearing. Cardiovascular examination reveals regular rate and rhythm. Lungs are clear to auscultation bilaterally. Abdomen is soft and nontender with positive bowel sounds. No guarding or rebound. No pedal edema. Neurological examination nonfocal, nonlateralizing. Const Vital Signs: 04/09/25 11:07 Temperature 98.8 F Temperature Source Oral Pulse Rate 78 Respiratory Rate 20 H Blood Pressure 148/92 H Blood Pressure Mean 110 Pulse Ox 100 Oxygen Delivery Method Room Air MDM MDM MDM Narrative Medical decision making narrative: Concern is for ACS versus PE versus pneumonia versus pneumothorax. I have low suspicion for aortic dissection. He has equal radial pulses and more appropriate blood pressure. With concern for ACS, chest pain rule out was pursued and I feel he can be ruled out with biomarkers. I will also add a BNP to look for any type of heart failure causing his shortness of breath but his pulse ox 100% on room air on examination without evidence of hypoxia. EKG was obtained and interpreted by myself independently as normal sinus rhythm at 72 bpm without ectopy or acute ST changes. No STEMI. On my independent interpretation of the chest x-ray in 1 view, there is no evidence of an acute process, no pneumonia, no pneumothorax. I reviewed the radiology report which confirms my independent interpretation. In review of his laboratory work, is grossly unremarkable, but mostly his initial high-sensitivity troponin was 7 with a repeat being 6 at 2 hours. I feel he has been ruled out for ACS with biomarkers. BNP is normal at 38. No CHF. At this point in time, I do feel that he can be di (more content not included)... Normal [facility] Eosinophil percentageOrdered By: Michoacano Castillo on 04-09-2025 Eosinophils/100 WBC (Bld) 2.2 % 0-5 [facility] Erythrocyte distribution wid th ratioOrdered By: Michoacano Castillo on 04-09-2025 Erythrocyte distribution width (RBC) [Ratio] 13.8 % 11.6-14.6 [facility] Erythrocyte distribution wid th standard deviationOrdered By: Michoacano Castillo on 04-09-2025 Erythrocyte distribution width (RBC) [Ratio] 43.4 fl 35.1-43.9 [facility] Glomerular filtration rate ( GFR) estimation/1.73 sq m using serum, plasma, or whole bOrdered By: Michoacano Castillo on 04-09-2025 GFR/1.73 sq M.predicted among non-blacks MDRD (S/P/Bld) [Vol rate/Area] 93 mL/min/{1.73_m2} >60 [facility] Comment on above: mL/min/1.73m2 CKD-EP I Creatinine Equation (2020) Hematocrit Auto (Bld) [Volum e fraction]Ordered By: Michoacano Castillo on 04-09-2025 Hematocrit (Bld) [Volume fraction] 43.8 % 40-54 [facility] Hemoglobin measurementOrdere d By: Michoacano Castillo on 04-09-2025 Hemoglobin (Bld) [Mass/Vol] 13.9 g/dL 13.0-16.5 [facility] Immature granulocytes/100 WB C Auto (Bld)Ordered By: Michoacano Castillo on 04-09-2025 Immature granulocytes/100 WBC (Bld) 0.500 % 0.0-0.9 [facility] Comment on above: IG% - Immature Granu locytes (promyelocytes, myelocytes and metamyelocytes) > 1% indicates that a LEFT SHIFT is Present. L501.4021on 04-09-2025 Trop T High Sen 7 ng/L Normal <=22 [facility] Comment on above: Performed By: #### L 501.4021, L500.2500, L503.7505, L100.0100 #### [facility] [address] [place] [address], [address] MCV (mean corpuscular volume ) determinationOrdered By: Michoacano Castillo on 04-09-2025 MCV (RBC) [Entitic vol] 85.9 fL 80-94 [facility] Mean corpuscular hemoglobin (MCH) determinationOrdered By: Michoacano Castillo on 04-09-2025 MCH (RBC) [Entitic mass] 27.3 pg 27.0-32.0 [facility] Mean corpuscular hemoglobin concentration (MCHC) determinationOrdered By: Michoacano Castillo on 04-09-2025 MCHC (RBC) [Mass/Vol] 31.7 g/dL Low 32-36 [facility] Mean platelet volume determi nationOrdered By: Michoacano Castillo on 04-09-2025 Platelet mean volume (Bld) [Entitic vol] 10.1 fL 6.2-12.0 [facility] Monocyte percentageOrdered B y: Michoacano Castillo on 04-09-2025 Monocytes/100 WBC (Bld) 8.5 % 0-10 [facility] Natriuretic peptide.B prohor alex N-Terminal [Mass/volume] in Serum or PlasmaOrdered By: Michoacano Castillo on 04-09-2025 Natriuretic peptide.B prohormone N-Terminal [Mass/Vol] 38 pg/mL <450 [facility] Comment on above: Heart Failure Unlike ly: < 300 pg/mLHeart Failure Likely< 50 Years: > 450 pg/mL50-75 Years: > 900 pg/mL>75 Years: > 1800 pg/mL Neutrophil percentageOrdered By: Micohacano Castillo on 04-09-2025 Neutrophils/100 WBC (Bld) 68.6 % 47-70 [facility] Nucleated red blood cell per centageOrdered By: Michoacano Castillo on 04-09-2025 Nucleated RBC/100 WBC (Bld) [Ratio] 0 % 0-5 [facility] Platelet countOrdered By: Sterling Castillo on 04-09-2025 Platelets (Bld) [#/Vol] 249 10*3/uL 150-450 [facility] Potassium measurement (mass/ volume)Ordered By: Michoacano Castillo on 04-09-2025 Potassium (Unsp spec) [Mass/Vol] 4.0 mmol/L 3.3-5.1 [facility] Pro- Brain NATRIURETIC PEPTI Jackie 04-09-2025 Natriuretic peptide B (Bld) [Mass/Vol] 38 pg/mL Normal <=450 [facility] Comment on above: Result Comment: Hear t Failure Unlikely: < 300 pg/mL Heart Failure Likely < 50 Years: > 450 pg/mL 50-75 Years: > 900 pg/mL >75 Years: > 1800 pg/mL Performed By: #### L 501.4021, L500.2500, L503.7505, L100.0100 #### [facility] [address] [place], [place], [id number] RBC Auto (Bld) [#/Vol]Ordere d By: Michoacano Castillo on 04-09-2025 RBC (Bld) [#/Vol] 5.10 10*6/uL 4.6-6.2 [facility] Serum creatinine measurement (mass/volume)Ordered By: Michoacano Castillo on 04-09-2025 Creatinine [Mass/Vol] 1.02 mg/dL 0.70-1.20 [facility] Serum glucose measurement (m ass/volume)Ordered By: Michoacano Castillo on 04-09-2025 Glucose [Mass/Vol] 94 mg/dL 70-99 [facility] Serum or plasma calcium komal urement (mass/volume)Ordered By: Michoacano Castillo on 04-09-2025 Calcium [Mass/Vol] 9.0 mg/dL 7.6-11.0 [facility] Serum or plasma urea nitroge n measurement (mass/volume)Ordered By: Michoacano Castillo on 04-09-2025 Urea nitrogen [Mass/Vol] 21 mg/dL High 4-19 [facility] Sodium levelOrdered By: Michoacano Castillo on 04-09-2025 Sodium [Moles/Vol] 140 mmol/L 133-145 [facility] Troponin T HS 2 HRon 025 Trop T High Sen 6 ng/L Normal <=22 [facility] Comment on above: Performed By: #### L 499.0042 ####[facility] [address] [place], [address] Troponin T HS 4 HRon 025 Trop T High Sen Normal <=22 [facility] Comment on above: Result Comment: Canc elled via OM: Order cancelled - Patient discharged Performed By: #### L 499.0043 ####[facility] [address] [place], [place], [id number] Troponin T.cardiac [Mass/vol ume] in Serum or Plasma by High sensitivity methodOrdered By: Michoacano Castillo on 04-09-2025 Troponin T.cardiac High sensitivity method [Mass/Vol] 6 ng/L <22 [facility] Troponin T.cardiac High sensitivity method [Mass/Vol] 7 ng/L <22 [facility] White blood cell (WBC) count Ordered By: Michoacano Casitllo on 04-09-2025 WBC (Bld) [#/Vol] 8.3 10*3/uL 4.4-11.0 [facility] Calculated very low density lipoprotein (VLDL) cholesterol measurementOrdered By: Angela Fernandez on 01-30-2025 Calculated very low density lipoprotein (VLDL) cholesterol measurement 15 mg/dL 5-40 [facility] Hemoglobin A1con 01-30-2025 HbA1c (Bld) [Mass fraction] 5.9 % High <=5.6 [facility] Comment on above: Result Comment: Norm al < 5.7 % Prediabetic 5.7 - 6.4 % Diabetic >or= 6.5 % Please note range changes. Performed By: #### L 501.9985, L501.9520, L500.4100 #### [facility] [address] [place], [place], [id number] Hemoglobin A1c percentageOrd ered By: Angela Fernandez on 01-30-2025 HbA1c (Bld) [Mass fraction] 5.9 % High <5.7 [facility] Comment on above: Normal < 5.7 % Predi abetic 5.7 - 6.4 % Diabetic >or= 6.5 % Please note range changes. LDL calc ser/plasOrdered By: Angela Fernandez on 01-30-2025 Cholesterol in LDL [Mass/Vol] 73 mg/dL [facility] Comment on above: Tizklzdetm=990-140 m g/dL & Higher Vkcy=391 mg/dL or greater Lipid Profileon 01-30-2025 CHOL:HDL 3.49 Normal [facility] Comment on above: Order Comment: Comme nts: fasting Performed By: #### L 501.9985, L501.9520, L500.4100 #### [facility] [address] [place], [place], [id number] Cholesterol [Mass/Vol] 124 mg/dL Normal <=200 [facility] Comment on above: Order Comment: Comme nts: fasting Result Comment: Chol esterol level, Desirable <200 mg/dL Borderline high cholesterol 200-239 mg/dL High cholesterol >=240 mg/dL Recommendations of the NCEP Adult Treatment Panel for the following risk-cutoff thresholds for the [place] population. Performed By: #### L 501.9985, L501.9520, L500.4100 #### [facility] [address] [place], [address] Cholesterol in HDL [Mass/Vol] 36 mg/dL Low [facility] Comment on above: Order Comment: Comme nts: fasting Result Comment: Carina onal Cholesterol Education Program (NCEP) guidelines: <40 mg/dL: Low HDL-cholesterol (major risk factor for CHD) >= 60 mg/dL: High HDL-cholesterol (negative risk factor for CHD) HDL-cholesterol is affected by a number of factors, e.g. smoking, exercise, hormones, sex and age. Performed By: #### L 501.9985, L501.9520, L500.4100 #### [facility] [address] [place], [address] Cholesterol in LDL [Mass/Vol] 73 mg/dL Normal [facility] Comment on above: Order Comment: Comme nts: fasting Result Comment: Bord kcrlaq=813-486 mg/dL Higher Sjqb=632 mg/dL or greater Performed By: #### L 501.9985, L501.9520, L500.4100 #### [facility] [address] [place], [address] Cholesterol in VLDL [Mass/Vol] 15 mg/dL Normal 5-40 [facility] Comment on above: Order Comment: Comme nts: fasting Performed By: #### L 501.9985, L501.9520, L500.4100 #### [facility] [address] [place], [address] Triglyceride [Mass/Vol] 75 mg/dL Normal [facility] Comment on above: Order Comment: Comme nts: fasting Result Comment: The drugs N-Acetylcysteine and Metamizole may falsely depress this assay. Normal range: <150 mg/dL Borderline High: 150-199 mg/dL High: 200-499 mg/dL Very High: >500 mg/dL Performed By: #### L 501.9985, L501.9520, L500.4100 #### [facility] [address] [place], [place], [id number] Screening total cholesterol/ high density lipoprotein (HDL) cholesterol ratioOrdered By: Angela Fernandez on 01-30-2025 Cholesterol.total/Choles terol in HDL [Mass ratio] 3.49 {ratio} [facility] Serum or plasma cholesterol in HDL measurement (mass/volume)Ordered By: Angela Fernandez on 01-30-2025 Cholesterol in HDL [Mass/Vol] 36 mg/dL Low >40 [facility] Comment on above: National Cholesterol Education Program (NCEP) guidelines:<40 mg/dL: Low HDL-cholesterol (major risk factor for CHD)>= 60 mg/dL: High HDL-cholesterol (negative risk factor for CHD)HDL-cholesterol is affected by a number of factors, e.g. smoking, exercise, hormones, sex and age. Serum or plasma cholesterol measurement (mass/volume)Ordered By: Angela Fernandez on 01-30-2025 Cholesterol [Mass/Vol] 124 mg/dL <201 [facility] Comment on above: Cholesterol level, D esirable <200 mg/dLBorderline high cholesterol 200-239 mg/dLHigh cholesterol >=240 mg/dLRecommendations of the NCEP Adult Treatment Panel for the following risk-cutoff thresholds for the [place] population. TSH DL <= 0.005 mIU/L QnOrde red By: Angela Fernandez on 01-30-2025 TSH Qn 1.620 uIU/mL 0.300-4.200 [facility] Thyroid Stim Hormone (TSH)on 01-30-2025 TSH 1.620 uIU/mL Normal 0.300-4.200 [facility] Comment on above: Order Comment: Comme nts: fasting Performed By: #### L 501.9985, L501.8920, L500.8178 ####[facility] [address] [place], [place], [id number] Triglycerides measurementOrd ered By: Angela Fernandez on 01-30-2025 Triglyceride [Mass/Vol] 75 mg/dL <199 [facility] Comment on above: The drugs N-Acetylcy steine and Metamizole may falsely depress this assay. Normal range: <150 mg/dLBorderline High: 150-199 mg/dLHigh: 200-499 mg/dLVery High: >500 mg/dL Gastroenterology Visit Repor ton 01-29-2025 Gastroenterology Visit Report [facility] Gastroenterology [address] [place] [address] OFFICE VISIT Date of Service: 01/29/25 MR#: [id number] Acct: [id number] Name: MC BACH Rep #: [id number] : 1980 Provider: NINFA tong Age/Sex: 44/M Location: [facility] Status: Signed Intake Vital Signs 11/04/24 08:07 01/08/25 08:47 01/29/25 08:21 Height 5 ft 10 in 5 ft 10 in 5 ft 10 in Weight: 382 lb 8 oz BMI 54.8 BP 128/88 H Respiration 18 Pulse 70 Pulse Oximetry (%) 97 Oxygen Delivery Method room air Intake Visit Reasons: Test Result Chief Complaint: follow-up Medication Specialist Required: No Accompanied by: Self Is patient in pain?: No Allergies Environmental Allergies: Uncoded (dust mites) Allergy (Mild, Verified 01/29/25 08:19) Itching animal dander Allergy (Verified 01/29/25 08:19) Other oxycodone HCl (From Percocet) Allergy (Verified 01/29/25 08:19) Other hydrocodone bitartrate (From Vicodin) Adverse Reaction (Verified 01/29/25 08:19) Itching Medications ???Medication ???Instructions ???Recorded ???Confirmed ???Type fexofenadine 180 mg tablet 180 mg PO DAILY allergies 05/11/20 01/29/25 History (Terri Allergy) esomeprazole magnesium 40 mg 40 mg PO QDAY #90 caps 01/29/25 Rx capsule,delayed release PFSH Medical History Wears glasses Sleep apnea History of lipoma Olecranon bursitis, right elbow Medial epicondylitis, right elbow Right lateral epicondylitis Depression Anxiety Alcohol use Hx of impaired glucose tolerance Gastric reflux History of hiatal hernia Non-smoker CPAP (continuous positive airway pressure) dependence Shortness of breath on exertion Leg cramps History of pain when walking History of edema History of stress test neck/back pain Knee pain Shoulder pain Surgical History Hx of arthroscopy of left knee S/P vasectomy History of carpal tunnel surgery History of rotator cuff surgery planter facia release Family History Mother Diabetes Depression Father Alcoholism Social History Smoking Status: Never smoker alcohol intake: current alcohol intake frequency: a few times a month HPI HPI Chief Complaint: follow-up Details: MC BACH, is a 44 M who presents to the office today for OV 11/04/2024 44y/o male presents for consultation with a small HH. CT completed 09/24/2024 revealed a small hiatal hernia and liver steatosis. He reports he was diagnosed with HH in his early 20's. He also reports a colonoscopy was performed in his early s and revealed a colon polyp. Denies any family h/o colon cancer. He takes Nexium 20mg daily and reports occasional breakthrough symptoms. He reports experiencing >2 weeks of diarrhea April 2024 which he reports was secondary to food poisoning, treated with ATB. Fecal Calprotectin was elevated to 618 at that time with an elevated CRP. He will repeat calprotectin and CRP at this time. He will also proceed with bidirectional endoscopies. In terms of liver steatosis noted on prior CT. I have ordered additional labs and FibroScan. He will follow-up in the office to review findings. Patient Instructions: Colon EGD - Sutab Bowel prep Repeat Fecal Calprotectin Repeat CRP Acute Hepatitis Panel ELF FibroScan at [facility] Continue Nexium 20mg daily Follow-up in office to review results EGD 01/08/2025 The esophageal biopsies revealed rare eosinophils, this may be secondary to irritation, inflammation, or an mvhujsaf-ndvd-smuzjyu n. However, have a few of them, what we call rare can be a normal finding or just a sign of some mild irritation from acid reflux or something you ate. No cancer or precancer was noted. - Z-line irregular, 40 cm from the incisors. Biopsied. - Erythematous mucosa in the gastric body. Biopsied. - No gross lesions in the entire examined duodenum. Colon 01/08/2025 - The colon polyp that we removed during your colonoscopy was benign (tubular adenoma). We should repeat the colonoscopy in 5 years or sooner if new symptoms develop, to look for new polyps. Please let us know if you are having any ongoing GI symptoms or concerns. No colitis (inflammation) was noted on your random colon biopsies. - Diverticulosis in the recto-sigmoid colon, in the sigmoid colon and in the descending colon. - Congested mucosa in the recto-sigmoid colon, in the sigmoid colon and in the descending colon. Biopsied. - One 9 mm polyp in the cecum, removed with a hot snare. Resected and retrieved. - Repeat colonoscopy in 5 years for surveillance. - The examined portion of t (more content not included)... Normal [facility] Colonoscopy Reporton 025 Colonoscopy Report [facility] Medical Records Department [address] [place] [address] Colonoscopy Report MR#: [id number] Acct: [id number] Name: MC BACH Rep #: [id number] : 1980 44 From: Charles Dash DO PCP: Dr. Luz Elena Cobos MD Status:[facility] Patient Name: Mc Bach Procedure Date: 01/08/2025 9:34 AM Date of : 1980 Age: 44 Procedure: Colonoscopy Indications: Clinically significant diarrhea of unexplained origin, Incidental change in bowel habits noted Providers: Charles Dash DO Referring MD: Luz Elena Cobos Medicines: Monitored Anesthesia Care Patient Profile: This is a 44 year old male. Refer to note in patient chart for documentation of history and physical. Patient has symptoms of chronic abdominal cramping, chronic epigastric abdominal pain, chronic dyspepsia, chronic heartburn and chronic nausea. Last Colonoscopy: more than 10 years ago. Complications: No immediate complications. Procedure: Pre-Anesthesia Assessment: - Prior to the procedure, a History and Physical was performed, and patient medications and allergies were reviewed. The patient is competent. The risks and benefits of the procedure and the sedation options and risks were discussed with the patient. All questions were answered and informed consent was obtained. Patient identification and proposed procedure were verified by the physician in the pre-procedure area. Mental Status Examination: alert and oriented. Airway Examination: normal oropharyngeal airway and neck mobility. Respiratory Examination: clear to auscultation. CV Examination: normal. Prophylactic Antibiotics: The patient does not require prophylactic antibiotics. Prior Anticoagulants: The patient has taken no anticoagulant or antiplatelet agents. ASA Grade Assessment: II - A patient with mild systemic disease. After reviewing the risks and benefits, the patient was deemed in satisfactory condition to undergo the procedure. The anesthesia plan was to use monitored anesthesia care (MAC). Immediately prior to administration of medications, the patient was re-assessed for adequacy to receive sedatives. The heart rate, respiratory rate, oxygen saturations, blood pressure, adequacy of pulmonary ventilation, and response to care were monitored throughout the procedure. The physical status of the patient was re-assessed after the procedure. After I obtained informed consent, the scope was passed under direct vision. Throughout the procedure, the patient's blood pressure, pulse, and oxygen saturations were monitored continuously. The Colonoscope was introduced through the anus and advanced to the terminal ileum. The colonoscopy was performed without difficulty. The patient tolerated the procedure well. The quality of the bowel preparation was adequate. The terminal ileum, ileocecal valve, appendiceal orifice, and rectum were photographed. Scope In: 9:36:48 AM Scope Withdrawal Time 0 hours 13 minutes 43 seconds Scope Out: 9:52:24 AM Total Procedure Duration Time 0 hours 15 minutes 36 seconds Findings: The perianal and digital rectal examinations were normal. Multiple small and large-mouthed diverticula were found in the recto-sigmoid colon, sigmoid colon and descending colon. An area of mildly congested mucosa was found in the recto-sigmoid colon, in the sigmoid colon and in the descending colon. Biopsies were taken with a cold forceps for histology. Verification of patient identification for the specimen was done. Estimated blood loss was minimal. A 9 mm polyp was found in the cecum. The polyp was sessile. The polyp was removed with a hot snare. Resection and retrieval were complete. Verification of patient identification for the specimen was done. Estimated blood loss was minimal. The terminal ileum appeared normal. Impression: - Diverticulosis in the recto-sigmoid colon, in the sigmoid colon and in the descending colon. - Congested mucosa in the recto-sigmoid colon, in the sigmoid colon and in the descending colon. Biopsied. - One 9 mm polyp in the cecum, removed with a hot snare. Resected and retrieved. - The examined portion of the ileum was normal. Recommendation: - Discharge patient to home. - Resume previous diet. - Continue present medications. - Await pathology results. - Repeat colonoscopy in 5 years for surveillance. Procedure Code(s): --- Professional --- 72725, Colonoscopy, flexible; with removal of tumor(s), polyp(s), or other lesion(s) by snare technique 55224, 59, Colonoscopy, flexible; with biopsy, single or multiple CPT copyright 2021 [employer]. All rights reserved. The codes documented in this report are preliminary and upon continuous improvement coach review may be revised to meet current compliance requirements. Charles Dash DO 01/08/2025 10:06:39 AM (more content not included)... Normal [facility] EGD Reporton 01-08-2025 EGD Report [facility] Medical Records Department [address] [place] [address] EGD Report MR#: [id number] Acct: [id number] Name: MC BACH Rep #: [id number] : 1980 44 From: Charles Dash DO PCP: Dr. Luz Elena Cobos MD Status:[facility] Patient Name: Mc Bach Procedure Date: 01/08/2025 9:16 AM Date of : 1980 Age: 44 Procedure: Upper GI endoscopy Indications: Epigastric abdominal pain, Heartburn Providers: Charles Dash DO Referring MD: Luz Elena Cobos Medicines: Monitored Anesthesia Care Patient Profile: This is a 44 year old male. Refer to note in patient chart for documentation of history and physical. Patient has symptoms of chronic abdominal cramping, chronic epigastric abdominal pain, chronic dyspepsia, chronic heartburn and chronic nausea. Complications: No immediate complications. Procedure: Pre-Anesthesia Assessment: - Prior to the procedure, a History and Physical was performed, and patient medications and allergies were reviewed. The patient is competent. The risks and benefits of the procedure and the sedation options and risks were discussed with the patient. All questions were answered and informed consent was obtained. Patient identification and proposed procedure were verified by the physician in the pre-procedure area. Mental Status Examination: alert and oriented. Airway Examination: normal oropharyngeal airway and neck mobility. Respiratory Examination: clear to auscultation. CV Examination: normal. Prophylactic Antibiotics: The patient does not require prophylactic antibiotics. Prior Anticoagulants: The patient has taken no anticoagulant or antiplatelet agents. ASA Grade Assessment: II - A patient with mild systemic disease. After reviewing the risks and benefits, the patient was deemed in satisfactory condition to undergo the procedure. The anesthesia plan was to use monitored anesthesia care (MAC). Immediately prior to administration of medications, the patient was re-assessed for adequacy to receive sedatives. The heart rate, respiratory rate, oxygen saturations, blood pressure, adequacy of pulmonary ventilation, and response to care were monitored throughout the procedure. The physical status of the patient was re-assessed after the procedure. After obtaining informed consent, the endoscope was passed under direct vision. Throughout the procedure, the patient's blood pressure, pulse, and oxygen saturations were monitored continuously. The Colonoscope was introduced through the mouth, and advanced to the third part of the duodenum. Small bowel enteroscopy was deemed necessary. The upper GI endoscopy was accomplished without difficulty. The patient tolerated the procedure well. Scope In: 9:30:34 AM Scope Out: 9:34:34 AM Total Procedure Duration Time 0 hours 4 minutes 0 seconds Findings: The Z-line was irregular and was found 40 cm from the incisors. Biopsies were taken with a cold forceps for histology. Verification of patient identification for the specimen was done. Estimated blood loss was minimal. Patchy mildly erythematous mucosa without bleeding was found in the gastric body. Biopsies were taken with a cold forceps for Helicobacter pylori testing. Verification of patient identification for the specimen was done. Estimated blood loss was minimal. No gross lesions were noted in the entire examined duodenum. Impression: - Z-line irregular, 40 cm from the incisors. Biopsied. - Erythematous mucosa in the gastric body. Biopsied. - No gross lesions in the entire examined duodenum. Recommendation: - Discharge patient to home. - Resume previous diet. - Continue present medications. - Await pathology results. Procedure Code(s): --- Professional --- 78687, Small intestinal endoscopy, enteroscopy beyond second portion of duodenum, not including ileum; with biopsy, single or multiple CPT copyright 2021 [employer]. All rights reserved. The codes documented in this report are preliminary and upon continuous improvement coach review may be revised to meet current compliance requirements. Charles Dash DO 01/08/2025 10:02:42 AM This report has been signed electronically. Number of Addenda: 0 Note Initiated On: 01/08/2025 9:16 AM 01/08/25 1002 Date Charles Dash DO Cosigner Signature: Date (if indicated) CC: Dr. Luz Elena Cobos MD; Charles Dash DO Date Dictated: 01/08/25 0916 Date Transcribed: Director Of Business Systems: ALESSANDRO Signed Normal [facility] Immunohistochemical Stainson 01-08-2025 Immunohistochemical Stains -------- Patient Age/Sex Location Account Attending Physician -------- MC BACH 44/M EN [id number] Charles Dash DO -------- Specimen: [id number] Received: 01/08/25 Status: ANNA [place] Num: [id number] Spec Type: EGD BIOPSY Subm Dr: Charles Dash, DO HEADER OPERATION: Colonoscopy, EGD, biopsy PRE-OP DIAGNOSIS: Elevated fecal calprotectin, personal history of colon polyps, unspecified, heartburn TISSUE SUBMITTED: A- Distal esophagus biopsy, B- Gastric antrum biopsy, C- Cecum polyp, D- Random colonic polyp -------- MICROSCOPIC DIAGNOSIS A. Esophagus, distal, biopsy: * Squamous mucosa with mild reactive changes and rare eosinophils. B. Stomach, antrum, biopsy: * Chronic gastritis, negative for H pylori organisms (IHC). * Fragments of small intestinal mucosa. C. Colon, cecum, polyp, biopsy: * Tubular adenoma. D. Colon, random, biopsy: * No specific pathologic change. MICROSCOPIC DESCRIPTION Slides are reviewed. These tests were developed and their performance characteristics determined by [facility]. They may not have been cleared or approved by the U.S. Food and Drug Administration. The FDA has determined that such clearance or approval is not necessary. The above immunohistochemical/d ualISH markers are ordered and reviewed by the Pathologist. GROSS DESCRIPTION A. Received in formalin in a container labeled with the patient's name, date of , and distal esophagus biopsy are multiple small bravo-pink fragments of mucosal tissue measuring 0.7 x 0.4 x 0.2 cm in aggregate. Submitted in toto in A1. B. Received in formalin in a container labeled with the patient's name, date of , and gastric antrum biopsy are multiple bravo fragments of mucosal tissue measuring 1.0 x 0.5 x 0.3 cm in aggregate. Submitted in toto in B1. C. Received in formalin in a container labeled with the patient's name, date of , and cecum polyp are multiple bravo-pink fragments of mucosal tissue measuring 1.3 x 0.8 x 0.3 cm -------- Patient Age/Sex Location Account Attending Physician -------- MC BACH 44/M EN [id number] Charles Dash DO -------- in aggregate. Submitted in toto in C1. D. Received in formalin in a container labeled with the patient's name, date of , and random colonic biopsy are multiple bravo-pink fragments of mucosal tissue measuring 1.3 x 1.0 x 0.2 cm in aggregate. Submitted in toto in D1. [facility] 01-08-2025 [facility]:[id number] -------- Patient Age/Sex Location Account Attending Physician -------- MC BACH 44/M EN [id number] Charles Dash DO -------- Signed (signature on file) Dr. Yasmine Em MD 01/19/251654 -------- Normal [facility] Comment on above: Performed By: #### P ELSIE ####[facility] [id number] [place], [place], [id number] MR/POSTOP.ANEkendra 01-08-2025 MR/POSTOP.[facility] Medical Records Department [address] [place] [address] Anesthesia Postop Eval I 01/08/25 1001 MR#: [id number] Acct: [id number] Name: MC BACH Rep #: [id number] : 1980 44 From: Keith Velázquez PCP: Dr. Luz Elena Cobos MD Status:[facility] Y Race: C Location: EN Anesthesia: Postop Eval I Current Vital Signs Temperature: 97.4 F Pulse Rate: 70 Blood Pressure: 121/75 Respiratory Rate: 16 Pulse Ox: 95 Oxygen Delivery Method: Room Air Assessment Airway patent: Yes Spontaneous unlabored respirations: Yes Mental status: Awake and Calm nausea: No Vomiting: No Anesthesia Complication: No Fluid Hydration Crystalloid volume administer (ml): 200 Total IV fluid infused: 200 Progress Note Anesthesia document: Postop Eval 1 completed: Yes 01/08/25 1043 Date Keith Velázquez Cosigner Signature: Date CC: Signed Normal [facility] MR/[id number] 01-08-2025 [facility] Medical Records Department [address] [place] [id number] Anesthesia Postop Eval II 01/08/25 1453 MR#: [id number] Acct: [id number] Name: MC BACH Rep #: [id number] : 1980 44 From: Phan Dumont MD PCP: Dr. Luz Elena Cobos MD Status:[facility] Y Race: C Location: EN Anesthesia Postop Eval I Sum Postop Eval Completion status Anesthesia document: Postop Eval 1 completed: Yes Anesthesia Postop Eval I Summary Anesthesia Postop Eval I Summary: Anesthesia Postop Eval I: Assessment Summary Airway patent Yes 01/08/25 10:02 [email or web address] Spontaneous unlabored Yes 01/08/25 10:02 [email or web address] respirations Mental status Awake,Calm 01/08/25 10:02 [email or web address] nausea No 01/08/25 10:02 [email or web address] Vomiting No 01/08/25 10:02 [email or web address] Anesthesia Postop Eval I: Fluid Summary Crystalloid volume administer 200 01/08/25 10:02 [email or web address] (ml) Colloids volume administered ( ml) Blood Product volume administered (ml) Total IV fluid infused 200 01/08/25 10:02 [email or web address] Anesthesia Postop Eval I: Summary Notes Anesthesia Complication No 01/08/25 10:02 [email or web address] Anesthesia Complication Comment: Post-operative progress note Anesthesia: Postop Eval II Evaluation Mental status: Awake and Calm Pain Level: 0 nausea: No Vomiting: No Complications Anesthesia Complication: No 01/08/25 1453 Date Phan Tim Cheatham Signature: Date CC: Signed Normal [facility] 01-05-2025 /[facility] Medical Records Department [address] [place] [address] PAT - Anesthesia 01/05/25 1453 MR#: [id number] Acct: [id number] Name: MC BACH Rep #: [id number] : 1980 44 From: Shahid Hdz MD PCP: Dr. Luz Elena Cobos MD Status:[facility] Race: C Location: EN Pre-Assessment Diagnosis/Proposed Procedure Planned Operative Procedure(s): COLONOSCOPY, EGD Anesthesia History Anesthesia History - neuroscientist: Anesthesia History - neuroscientist Hx Hospitalization No 01/05/25 14:18 Any Problems With Anesthesia No 01/05/25 14:18 Cholinesterase deficiency No 01/05/25 14:18 You/Your Family Experience No 01/05/25 14:18 fever (hyperthermia) with Relationship Recent Exposure to Contagious No 11/14/24 09:02 Disease Does patient have nerve No 01/05/25 14:18 stimulator Patient instructed to have device shut off --Does patient have Pacemaker or ICD? When Was Last Pacemaker Check QUESTION #4 FULL TEXT: You/Your Family Experience fever (hyperthermia) with Anesthesia Last Oral Intake Last Oral intake: Last Oral Intake NPO since Meds taken in AM with sips of water? Meds patient instructed to take am of surgery PONV PONV - neuroscientist: PONV - neuroscientist Female No 01/05/25 14:18 HX of Motion Sickness No 01/05/25 14:18 HX of N/V After Surgery No 01/05/25 14:18 Non-Smoker Yes 01/05/25 14:18 Duration of Surgery greater No 01/05/25 14:18 than 60 minutes Number of Risk Factors 1 01/05/25 14:18 PONV Score Low Risk 01/05/25 14:18 Height Weight Height Weight: Anesthesia: Height Weight Height 5 ft 10 in 11/17/24 08:06 Respiratory Assessment Respiratory Assessment - neuroscientist: Respiratory Tract Infection Hx - neuroscientist Hx Respiratory Tract Infection No 01/05/25 14:18 STOP Sleep Apnea STOP Sleep Apnea - neuroscientist: STOP Sleep Apnea - neuroscientist Hx Hypertension No 01/05/25 14:18 Hx Sleep Apnea No 01/05/25 14:18 CPAP Yes 11/14/24 09:02 BIPAP No 11/14/24 09:02 Do you snore loudly (louder No 01/05/25 14:18 than talking or can be heard Do you often feel tired/ No 01/05/25 14:18 fatigued/ sleepy during daytime? Has anyone observed you stop No 01/05/25 14:18 breathing during sleep? STOP Results Negative 01/05/25 14:18 QUESTION #5 FULL TEXT : Do you snore loudly (louder than talking or can be heard through closed doors)? Tobacco Use History Tobacco Use History - neuroscientist: Tobacco Use History - neuroscientist Tobacco Use Non-smoker 11/14/24 09:02 Smoking Status Never smoker 01/05/25 14:18 Hx Tobacco Use No 01/05/25 14:18 Years Smoking Packs Smoked per Day Smoking Cessation Date was within the last 15 years Hx Smoking Cessation Date Hx Smoking Cessation Counseling Hematologic Medial History Hematologic Hx - neuroscientist: Hematologic Medical Hx - clinical rn Hx of Blood Transfusion No 01/05/25 14:18 Hx of Transfusion in last 3 No 01/05/25 14:18 Months Date of Last Transfusion (if within last 3 months) Ever experience any problems No 01/05/25 14:18 with transfusion(s)? Specify any problems Hx of Preganancy in last 3 N/A 01/05/25 14:18 Months Nurse Filling Out Transfusion [facility] 01/05/25 14:18 Questions: Date: 01/05/25 01/05/25 14:18 Time: 14:24 01/05/25 14:18 Patient unable to answer at this time (ie. confused, unrespo /Reproductio n History /Reproductiv e History - neuroscientist: /Reproductiv e Hx- neuroscientist Hx Now Gestational Age (in weeks): EDC: Hx Hx Para Hx Section SAB No 11/14/24 09:02 [facility] Medical History Wears glasses Sleep apnea History of lipoma Olecranon bursitis, right elbow Medial epicondylitis, right elbow Right lateral epicondylitis Depression Anxiety Alcohol use Hx of impaired glucose tolerance Gastric reflux History of hiatal hernia Non-smoker CPAP (continuous positive airway pressure) dependence Shortness of breath on exertion Leg cramps History of pain when walking History of edema History of stress test neck/back pain Knee pain Shoulder pain Home Medications ???Medication ???Instructions ???Recorded ???Last Taken ???Type esomeprazole magnesium 20 mg 20 mg PO DAILY stomach 07/03/18 05:45 History capsule,delayed release (Nexium) 20 MG fexofenadine 180 mg tablet 180 mg PO DAILY allergies 05/11/20 08/25/20 History (Terri Allergy) sodium sul 1.479 gram-potas ch See Rx Instructions PO PER PKG DIR (more content not included)... Normal [facility] Knee 4 or More Viewson 11-17 Knee 4 or More Views [facility] Imaging Services [address] [place] [address] Knee 4 or More Views MR#: [id number] Acct: [id number] Name: MC BACH Rep #: [id number] : 1980 M 44 From: Dorian Swan MD PCP: Dr. Luz Elena Cobos MD Status: DEP AMB Study: Knee 4 or More Views Date of Exam: 11/17/24 Exam# [id number] Ordering Dr: Kamini Castillo EXAM: XR Right Knee Complete, 4 or More Views CLINICAL INDICATION: TECHNIQUE: Four or more views of the right knee. COMPARISON: No relevant prior studies available. FINDINGS: BONES/JOINTS: Unremarkable. No acute fracture. No dislocation. SOFT TISSUES: Unremarkable. RAD/Knee 4 or More Views IMPRESSION: No acute fracture. Reading Location[facility] CC: NINFA Castillo; Dr. Luz Elena Cobos MD Director Of Business Systems: Signed Normal [facility] Orthopedic Visit Reporton Orthopedic Visit Report [facility] [address] [place] [address] OFFICE VISIT Date of Service: 11/17/24 MR#: [id number] Acct: [id number] Name: MC BACH Rep #: [id number] : 1980 Provider: NINFA salvador Age/Sex: 44/M Location: [facility] Status: Signed Intake Vital Signs 11/04/24 08:07 11/14/24 09:02 11/17/24 08:06 Height 5 ft 10 in 5 ft 10 in 5 ft 10 in Weight: 381 lb BMI 54.6 Intake Visit Reasons: RIGHT KNEE Is patient in pain?: Yes Allergies Environmental Allergies: Uncoded (dust mites) Allergy (Mild, Verified 11/17/24 08:09) Itching animal dander Allergy (Verified 11/17/24 08:09) Other oxycodone HCl (From Percocet) Allergy (Verified 11/17/24 08:09) Other hydrocodone bitartrate (From Vicodin) Adverse Reaction (Verified 11/17/24 08:09) Itching Medications ???Medication ???Instructions ???Recorded ???Confirmed ???Type esomeprazole magnesium 20 mg 20 mg PO DAILY stomach 07/03/18 History capsule,delayed release (Nexium) fexofenadine 180 mg tablet 180 mg PO DAILY allergies 05/11/20 11/17/24 History (Terri Allergy) sodium sul 1.479 gram-potas ch See Rx Instructions PO PER PKG DIR 11/04/24 11/17/24 Rx 0.188 gram-magnes sul 0.225 gram colonoscopy prep #24 tabs tablet (Sutab) PFSH Medical History (Updated 11/17/24 @ 08:58 by Kamini Castillo NP-C) Olecranon bursitis, right elbow Medial epicondylitis, right elbow Right lateral epicondylitis Depression Anxiety Alcohol use Marijuana use Hx of impaired glucose tolerance Gastric reflux History of hiatal hernia Non-smoker CPAP (continuous positive airway pressure) dependence Shortness of breath on exertion Leg cramps History of pain when walking History of edema History of stress test neck/back pain Knee pain Shoulder pain Surgical History Hx of arthroscopy of left knee S/P vasectomy History of carpal tunnel surgery History of rotator cuff surgery planter facia release Family History (Updated 11/04/24 @ 08:12 by Francisca Gusman) Mother Diabetes Depression Father Alcoholism Social History Smoking Status: Never smoker alcohol intake: current alcohol intake frequency: a few times a month HPI RIGHT KNEE Details: This documentation accurately reflects the service provided and the decisions made by me, Kamini Castillo, RAQUEL-C 11/17/24 0762. Part of today???s visit was documented by [ ], acting as scribe. MC BACH is a 44 year old M here today for right knee. Patient notes that on he started having pain with no known injury. 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 He states that he had swelling develop which has decreased. He denies any surgeries on his right knee. He complains of pain over his medial knee. When he ambulates he has a popping in his knee. He denies any locking. Patient has increased pain with walking, bending his knee, sitting to standing, changing directions and rolling over in bed. Patient has been icing and taking ibuprofen. Patient denies any xrays or MRI. Agree with above. Mc is a pleasant 44-year-old gentleman with 4-day history of acute right knee pain to the medial aspect. Has been taking ibuprofen, 800 mg 3 times daily and wearing a hinged knee brace since this happened. This does help a little bit. Patient did rest over the weekend and feels symptoms are mildly improved. Symptoms are aggravated with weightbearing, step use especially descending and any twisting motion on the knee. Some catching with activity. No episodes of give way. ROS Const All systems reviewed are unremarkable except as noted in H and other (A O x 3, no apparent distress. No recent illness.) ENT Denies dizziness Card Denies chest pain, Denies dyspnea, Denies edema and Reports other (No palpitations) Resp Denies cough, Denies dyspnea and Reports other (No recent URI) GI Reports system reviewed and no additional complaints, except as documented, Denies nausea and Denies vomiting Musc Reports as per HPI, Reports arthralgias and Reports joint swelling Neuro No dizziness Psych Reports system reviewed and no additional complaints, except as documented Aman/Lymph Denies easy bleeding and Denies easy bruising Ortho Exam Right Knee Date of injury: 11/13/24 Contralateral Normal: Yes Homans Sign: No KNEE: Skin is pink, warm, dry and intact. There is no discoloration or ecchymosis present Range of motion: 5 to 90 degrees Mild suprapatellar effusion is present, generalized mild to moderate anterior knee swelling, minimal swelling over the popliteal fossa and is nontender Palpatio (more content not included)... Normal [facility] Calprotectin, Stoolon [address] 62 ug/g Normal 0-120 [facility] Comment on above: Result Comment: Conc entration Interpretation Follow-Up < 5 - 50 ug/g Normal None >50 -120 ug/g Borderline Re-evaluate in 4-6 weeks >120 ug/g Abnormal Repeat as clinically indicated Performed at: [facility] Lab[address] [id number] [employer] Director: Edd Montoya MD, Phone: [phone] Performed By: #### L 7000.0700 ####[facility] [address] [place], [place], [id number] L3410.9998on 11-07-2024 [facility]. COMMENT Normal . [facility] Comment on above: Order Comment: [id number] 9ELF TEST TIGER SERUM RF Result Comment: Test Ordered: [id number] Enhanced Liver Fibrosis (ELF) ELF(TM) Score 8.44 Reference Range: <9.80 ELF(TM) Score Interpretation: Risk cut-offs to assess the likelihood of progression to cirrhosis and liver-related clinical events within 3.9 years following baseline ELF score (IQR: 14.0-22.4 months)*: Lower risk < 9.80 Mid risk 9.80 - 11.29 Higher risk >11.29 Note: The ELF(TM) Score is a unitless numerical value. *Kenneth SA, Pierce MCKEON, Zeferino T, et al. Selonsertib for patients with bridging fibrosis or compensated cirrhosis due to WHARTON: Results from randomized phase III STELLAR trials. J Hepatol. 2020 Mar;73(1):26-39. Performed at: [facility] [address] [id number] Broadcast Operations Director: Edd Montoya MD, Phone: [phone] Performed at: [facility] [address] [id number] Broadcast Operations Director: Joseph Stevens PhD, Phone: [phone] Performed By: #### L 3410.9998, L500.4050, L100.0100 ####[facility] [address] [place], [place], [id number] CRPon 11-05-2024 C-REACTIVE PROT 4.64 mg/L High 0.0-3.0 [facility] Comment on above: Performed By: #### L 5004050, L501.7410 ####[facility] [address] [place], [place], [id number] Calprotectin stoolOrdered By : Angela Fernandez on 11-05-2024 Calprotectin stool 62 ug/g 0-120 [facility] Comment on above: Concentration Interp retation Follow-Up< 5 - 50 ug/g Normal None>50 -120 ug/g Borderline Re-evaluate in 4-6 weeks >120 ug/g Abnormal Repeat as clinically indicatedPerformed at: [address] [id number] Director: Edd Montoya MD, Phone: [phone] Stool Calprotectin 62 ug/g 0-120 [facility] Comment on above: Concentration Interp retation Follow-Up< 5 - 50 ug/g Normal None>50 -120 ug/g Borderline Re-evaluate in 4-6 weeks >120 ug/g Abnormal Repeat as clinically indicatedPerformed at: [address] [id number] Director: Edd Montoya MD, Phone: [phone] Comprehensive Metabolic Prof ilon 11-05-2024 CO2 [Moles/Vol] 26.5 mmol/L Normal 22.0-29.0 [facility] Comment on above: Performed By: #### L 500.4050, L501.6710 ####[facility] [address] [place], [address] Hepatitis A AB, Totalon 10-12 HEPATITIS A,TOT Positive Abnormal Negative [facility] Comment on above: Result Comment: Comm ent: The HAV total antibody assay detects both IgG and IgM but does not differentiate between them. A negative result suggests susceptibility to infection. A positive result could be due to vaccination, previously resolved infection or active infection. Testing for HAV IgM should be performed if active HAV infection is suspected. [facility] offers profiles that will automatically reflex positive HAV total antibody results to IgM (e.g., panel #[id number] HAV Antibody w/ Rfx). Performed at: [address] [id number] Broadcast Operations Director: Joseph Stevens PhD, Phone: [phone] Performed By: #### L 3100.0300, L3760.0061, L3100.0460, L3893.4972, L3467.1269 ####[facility] [address] [place], [address] Hepatitis B Core Ab Totalon 11-05-2024 HEP B CORE,TOT Negative Normal Negative [facility] Comment on above: Performed By: #### L 3100.0300, L3890.6301, L3100.0460, L3890.6202, L3890.6102 ####[facility] [address] [place], [place], [id number] L3890.6102on 11-05-2024 HEP B Surf Ag Non-Reactive Normal Nonreactive [facility] Comment on above: Result Comment: Reac tive: Presumptive evidence of HBV. Repeatedly reactive samples must be confirmed using a neutralization test ([employer] HBsAg Confirmatory Test) Non-Reactive: HBsAg not detected; does not exclude the possibility of exposure to HBV Performed By: #### L 3100.0300, L3890.6301, L3100.0460, L3890.6202, L3890.6102 ####[facility] [address] [place], [place], [address] L3890.6202on 11-05-2024 HEP B Surf Ab REAC Normal [facility] Comment on above: Result Comment: <8.5 mIU/mL: Non-Reactive 8.5<= x <11.5 mIU/mL: Indeterminate >=11.5 mIU/mL: Reactive Non Reactive: Inconsistent with immunity less than <10 mIU/mL Reactive: Consistent with immunity greater than or equal to 10 mIU/mL Performed By: #### L 3100.0300, L3890.6301, L3100.0460, L3890.6202, L3890.6102 ####[facility] [address] [place], [place], [id number] L3890.6301on 11-05-2024 Hepatitis C Ab Non-Reactive Normal Nonreactive [facility] Comment on above: Result Comment: Reac tive: Presumptive evidence of antibodies to HCV. Follow CDC recommendations for supplemental testing. Non-Reactive: Antibodies to HCV were not detected; does not exclude the possibility of exposure to HCV Reactive Results are presumptive evidence of antibodies to HCV. Follow CDC recommendations for supplemental testing. Order confirmation testing: HCV Quant by PCR testing - HCVPCR lc#[id number] Non Reactive: < 0.8 Equivocal: >/= 0.8 to < 1.0 Reactive: >/= 1.0 The CDC requires that a reactive/equivocal HCV antibody result be sent out for confirmation. HCV Quant by PCR testing. Performed By: #### L 3100.0300, L3890.6301, L3100.0460, L3890.6202, L3890.6102 ####[facility] [address] [place], [address] Absolute lymphocyte countOrd ered By: Angela Fernandez on 11-04-2024 Lymphocytes Auto (Unsp spec) [#/Vol] 1.31 10*3/uL 0.83-4.51 [facility] Absolute neutrophil countOrd ered By: Angela Fernandez on 11-04-2024 Neutrophils (Bld) [#/Vol] 3.3 10*3/uL 2.0-7.7 [facility] Automated lymphocyte count a s percentage of total leukocytesOrdered By: Angela Fernandez on 11-04-2024 Lymphocytes/100 WBC Auto (Unsp spec) 24.6 % - [facility] BUN/creatinine ratioOrdered By: Angela Fernandez on 11-04-2024 Urea nitrogen/Creatinine [Mass ratio] 18.1 mg/mg 10-20 [facility] Basophil percentageOrdered B y: Angela Fernandez on 11-04-2024 Basophils/100 WBC (Bld) 1.1 % High 0-1 [facility] Bilirubin, totalOrdered By: Angela Fernandez on 11-04-2024 Bilirubin [Mass/Vol] 0.31 mg/dL 0.00-1.30 [facility] CBC W/Diff, Automatedon 10-12 Absolute Lymph 1.31 X10 3/uL Normal 0.83-4.51 [facility] Comment on above: Performed By: #### L 3410.9998, L500.4050, L100.0100 ####[facility] [address] [place], [address] Absolute Neut 3.3 X10 3/uL Normal 2.0-7.7 [facility] Comment on above: Performed By: #### L 3410.9998, L500.4050, L100.0100 ####[facility] [address] [place], [address] Basophils/100 WBC (Bld) 1.1 % High 0-1 [facility] Comment on above: Performed By: #### L 3410.9998, L500.4050, L100.0100 ####[facility] [address] [place], [address] Eosinophils/100 WBC (Bld) 2.6 % Normal 0-5 [facility] Comment on above: Performed By: #### L 3410.9998, L500.4050, L100.0100 ####[facility] [address] [place], [address] Erythrocyte distribution width (RBC) [Ratio] 13.8 % Normal 11.6-14.6 [facility] Comment on above: Performed By: #### L 3410.9998, L500.4050, L100.0100 ####[facility] [address] [place], [address] Hematocrit (Bld) [Volume fraction] 44.4 % Normal 40-54 [facility] Comment on above: Performed By: #### L 3410.9998, L500.4050, L100.0100 ####[facility] [address] [place], [address] Hemoglobin (Bld) [Mass/Vol] 13.9 g/dL Normal 13.0-16.5 [facility] Comment on above: Performed By: #### L 3410.9998, L500.4050, L100.0100 ####[facility] [address] [place], [address] IG% 0.400 Normal 0.0-0.9 [facility] Comment on above: Result Comment: IG% - Immature Granulocytes (promyelocytes, myelocytes and metamyelocytes) > 1% indicates that a LEFT SHIFT is Present. Performed By: #### L 3410.9998, L500.4050, L100.0100 ####[facility] [address] [place], [address] Lymphocytes/100 WBC (Bld) 24.6 % Normal 19-41 [facility] Comment on above: Performed By: #### L 3410.9998, L500.4050, L100.0100 ####[facility] [address] [place], [address] MCH (RBC) [Entitic mass] 26.8 pg Low 27.0-32.0 [facility] Comment on above: Performed By: #### L 3410.9998, L500.4050, L100.0100 ####[facility] [address] [place], [address] MCHC (RBC) [Mass/Vol] 31.3 g/dL Low 32-36 [facility] Comment on above: Performed By: #### L 3410.9998, L500.4050, L100.0100 ####[facility] [address] [place], [address] MCV (RBC) [Entitic vol] 85.7 fL Normal 80-94 [facility] Comment on above: Performed By: #### L 3410.9998, L500.4050, L100.0100 ####[facility] [address] [place], [address] Monocytes/100 WBC (Bld) 8.5 % Normal 0-10 [facility] Comment on above: Performed By: #### L 3410.9998, L500.4050, L100.0100 ####[facility] [address] [place], [address] Neutrophils/100 WBC (Bld) 62.8 % Normal 47-70 [facility] Comment on above: Performed By: #### L 3410.9998, L500.4050, L100.0100 ####[facility] [address] [place], [address] Nucleated RBC (Bld) [#/Vol] 0 10*3/uL Normal 0-5 [facility] Comment on above: Performed By: #### L 3410.9998, L500.4050, L100.0100 ####[facility] [address] [place], [address] Platelet mean volume (Bld) [Entitic vol] 9.7 fL Normal 6.2-12.0 [facility] Comment on above: Performed By: #### L 3410.9998, L500.4050, L100.0100 ####[facility] [address] [place], [address] Platelets (Bld) [#/Vol] 239 10*3/uL Normal 150-450 [facility] Comment on above: Performed By: #### L 3410.9998, L500.4050, L100.0100 ####[facility] [address] [place], [address] RBC (Bld) [#/Vol] 5.18 10*6/uL Normal 4.6-6.2 [facility] Comment on above: Performed By: #### L 3410.9998, L500.4050, L100.0100 ####[facility] [address] [place], [address] RDW SD 43.1 fl Normal 35.1-43.9 [facility] Comment on above: Performed By: #### L 3410.9998, L500.4050, L100.0100 ####[facility] [address] [place], [address] WBC (Bld) [#/Vol] 5.3 10*3/uL Normal 4.4-11.0 [facility] Comment on above: Performed By: #### L 3410.9998, L500.4050, L100.0100 ####[facility] [address] [place], [address] CRP [Mass/Vol]Ordered By: Ketan Fernandez on 11-04-2024 C-Reactive Protein Extended Range 4.64 mg/L High 0.0-3.0 [facility] Carbon dioxide measurementOr dered By: Angela Fernandez on 11-04-2024 CO2 [Moles/Vol] 26.5 mmol/L 22.0-29.0 [facility] Chloride measurementOrdered By: Angela Fernandez on 11-04-2024 Chloride [Moles/Vol] 106 mmol/L 96-108 [facility] Comprehensive Metabolic Prof ilon 11-04-2024 ALB Normal 3.2-5.0 [facility] Comment on above: Result Comment: PUTT ING UNDER DIFFERENT REQ Performed By: #### L 3410.9998, L500.4050, L100.0100 ####[facility] [address] [place], [address] ALK PHOS Normal 45-117 [facility] Comment on above: Result Comment: PUTT ING UNDER DIFFERENT REQ Performed By: #### L 3410.9998, L500.4050, L100.0100 ####[facility] [address] [place], [address] ALT Normal 16-61 [facility] Comment on above: Result Comment: PUTT ING UNDER DIFFERENT REQ Performed By: #### L 3410.9998, L500.4050, L100.0100 ####[facility] [address] [place], [address] AST Normal 15-37 [facility] Comment on above: Result Comment: PUTT ING UNDER DIFFERENT REQ Performed By: #### L 3410.9998, L500.4050, L100.0100 ####[facility] [address] [place], [address] BUN Normal 7-18 [facility] Comment on above: Result Comment: PUTT ING UNDER DIFFERENT REQ Performed By: #### L 3410.9998, L500.4050, L100.0100 ####[facility] [address] [place], [address] BUN/CRE Normal 10-20 [facility] Comment on above: Result Comment: PUTT ING UNDER DIFFERENT REQ Performed By: #### L 3410.9998, L500.4050, L100.0100 ####[facility] [address] [place], [address] Calcium Normal 8.5-10.1 [facility] Comment on above: Result Comment: PUTT ING UNDER DIFFERENT REQ Performed By: #### L 3410.9998, L500.4050, L100.0100 ####[facility] [address] [place], [address] CL Normal 98-107 [facility] Comment on above: Result Comment: PUTT ING UNDER DIFFERENT REQ Performed By: #### L 3410.9998, L500.4050, L100.0100 ####[facility] [address] [place], [address] CO2 Normal 21.0-32.0 [facility] Comment on above: Result Comment: PUTT ING UNDER DIFFERENT REQ Performed By: #### L 3410.9998, L500.4050, L100.0100 ####[facility] [address] [place], [address] CREAT,SERUM Normal 0.70-1.30 [facility] Comment on above: Result Comment: PUTT ING UNDER DIFFERENT REQ Performed By: #### L 3410.9998, L500.4050, L100.0100 ####[facility] [address] [place], [address] eGFR Normal >60 [facility] Comment on above: Result Comment: PUTT ING UNDER DIFFERENT REQ Performed By: #### L 3410.9998, L500.4050, L100.0100 ####[facility] [address] [place], [address] EST GFR - AA Normal >60 [facility] Comment on above: Result Comment: PUTT ING UNDER DIFFERENT REQ Performed By: #### L 3410.9998, L500.4050, L100.0100 ####[facility] [address] [place], [address] GAP Normal 5-15 [facility] Comment on above: Result Comment: PUTT ING UNDER DIFFERENT REQ Performed By: #### L 3410.9998, L500.4050, L100.0100 ####[facility] [address] [place], [address] GLU Normal 74-106 [facility] Comment on above: Result Comment: PUTT ING UNDER DIFFERENT REQ Performed By: #### L 3410.9998, L500.4050, L100.0100 ####[facility] [address] [place], [address] Potassium Normal 3.5-5.1 [facility] Comment on above: Result Comment: PUTT ING UNDER DIFFERENT REQ Performed By: #### L 3410.9998, L500.4050, L100.0100 ####[facility] [address] [place], [address] T BILI Normal 0.20-1.00 [facility] Comment on above: Result Comment: PUTT ING UNDER DIFFERENT REQ Performed By: #### L 3410.9998, L500.4050, L100.0100 ####[facility] [address] [place], [address] T PROT Normal 6.4-8.2 [facility] Comment on above: Result Comment: PUTT ING UNDER DIFFERENT REQ Performed By: #### L 3410.9998, L500.4050, L100.0100 ####[facility] [address] [place], [address] Comprehensive Metabolic Profil Normal 136-145 [facility] Comment on above: Result Comment: PUTT ING UNDER DIFFERENT REQ Performed By: #### L 3410.9998, L500.4050, L100.0100 ####[facility] [address] [place], [address] Creatinine [Moles/Vol]Ordere d By: Angela Fernandez on 11-04-2024 Creatinine [Mass/Vol] 1.1 mg/dL 0.8-1.3 [facility] Eosinophil percentageOrdered By: Angela Fernandez on 11-04-2024 Eosinophils/100 WBC (Bld) 2.6 % 0-5 [facility] Erythrocyte distribution wid th ratioOrdered By: Angela Fernandez on 11-04-2024 Erythrocyte distribution width (RBC) [Ratio] 13.8 % 11.6-14.6 [facility] Erythrocyte distribution wid th standard deviationOrdered By: Angela Fernandez on 11-04-2024 Erythrocyte distribution width (RBC) [Entitic vol] 43.1 fL 35.1-43.9 [facility] Erythrocyte distribution width (RBC) [Ratio] 43.1 fl 35.1-43.9 [facility] GFR/1.73 sq M.predicted stacey g non-blacks MDRD (S/P/Bld) [Vol rate/Area]Ordered By: Angela Fernandez on 11-04-2024 Estimated GFR (MDRD) Non-Af Amer 87 >60 [facility] Comment on above: mL/min/1.73m2 CKD-EP I Creatinine Equation (2020) Gastroenterology Visit Repor ton 11-04-2024 Gastroenterology Visit Report [facility] Gastroenterology [address] [place] [address] OFFICE VISIT Date of Service: 11/04/24 MR#: [id number] Acct: [id number] Name: MC BACH Rep #: [id number] : 1980 Provider: NINFA tong Age/Sex: 44/M Location: [facility] Status: Signed Intake Vital Signs 02/01/21 09:31 11/04/24 08:07 Height 5 ft 10 in 5 ft 10 in Weight: 383 lb 8 oz BMI 55.0 BP 100/67 Respiration 18 Pulse 75 Pulse Oximetry (%) 97 Oxygen Delivery Method room air Intake Visit Reasons: HIATAL HERINA 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 Medication Specialist Required: No Is patient in pain?: No Allergies Environmental Allergies: Uncoded (dust mites) Allergy (Mild, Verified 11/04/24 08:03) Itching animal dander Allergy (Verified 11/04/24 08:03) Other oxycodone HCl (From Percocet) Allergy (Verified 11/04/24 08:03) Other hydrocodone bitartrate (From Vicodin) Adverse Reaction (Verified 11/04/24 08:03) Itching Medications ???Medication ???Instructions ???Recorded ???Confirmed ???Type esomeprazole magnesium 20 mg 20 mg PO DAILY stomach 07/03/18 History capsule,delayed release (Nexium) fexofenadine 180 mg tablet 180 mg PO DAILY allergies 05/11/20 11/04/24 History (Terri Allergy) ondansetron HCl 4 mg tablet 4 mg PO .COMPLEX #5 tabs 11/04/24 11/04/24 Rx sodium sul 1.479 gram-potas ch See Rx Instructions PO PER PKG DIR 11/04/24 11/04/24 Rx 0.188 gram-magnes sul 0.225 gram colonoscopy prep #24 tabs tablet (Sutab) PFSH Medical History Olecranon bursitis, right elbow Medial epicondylitis, right elbow Right lateral epicondylitis Depression Anxiety Alcohol use Marijuana use Hx of impaired glucose tolerance Gastric reflux History of hiatal hernia Non-smoker CPAP (continuous positive airway pressure) dependence Shortness of breath on exertion Leg cramps History of pain when walking History of edema History of stress test neck/back pain Knee pain Shoulder pain Surgical History History of carpal tunnel surgery History of rotator cuff surgery Hx of arthroscopy of left knee planter facia release S/P vasectomy Family History (Updated 11/04/24 @ 08:12 by Francisca Gusman) Mother Diabetes Depression Father Alcoholism Social History Smoking Status: Never smoker alcohol intake: current alcohol intake frequency: a few times a month HPI HPI 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 CT completed 09/24/2024 revealed a small hiatal hernia and liver steatosis. He reports he was diagnosed with HH in his early - Colon EGD in his early s - reports the colonoscopy revealed a polyp - denies any family h/o crohn's or colitis - denies any weight loss CT (to f/u palpable abdominal lesion) small HH and liver steatosis, no mention of previously noted area of concern seen on US - reports surgical excision of lipoma Fecal Calprotectin: 05/07/2024 HIGH 618 Giardia: 05/07/2024 negative HAV Total Ab: HBVsAg: HBVsAb: HBV Core Ab Total: HCV Ab: CBC: 05/06/2024 WNL CMP: 05/06/2024 transaminases WNL CRP: 05/06/2024 HIGH 8.52 ELF: ABD US: 09/01/2024 In the subcutaneous tissue of the left epigastric region at area of palpable concern, there is a heterogeneous hyperechoic lesion measuring 6.4 x 8.9 x 2.5 cm. There is minimal to no internal vascularity. FibroScan: WEIGHT: 383lbs (BMI 55) - occasional alcohol intake - denies any alcohol since 08/29 - Aleve or Advil couple times a week - Paternal Aunt with pancreatic and liver CA - Caffeine - 32 ounces a day - he is not diabetic - he denies any HTN or HLD - symptoms are controlled with medications since his early - Nexium 20mg daily - denies any dysphagia - denies any family h/o esophageal or colon CA - fire in the middle of my chest - denies any vocal changes - denies any cough - reports he had food poisoning in April 2024 - symptoms lasted for >2 weeks with diarrhea - denies any associated bleeding - only symptom was diarrhea, denies any N/V - bowels are back to normal - denies any bleeding ROS Const Constitutional: No fatigue, fever(s) or weight change ENT ENT: No difficulty swallowing Gastro GI: Positive for abdominal pain, diarrhea, heartburn, nausea/dyspepsia and vomiting; No belching, bloating, change in bowel habits, change in stool character, coffee ground emesis, constipation, cramping, difficulty swallowing, feeling full early, excessive flatus, incontinent of stools, Vomiting blood/ (more content not included)... Normal [facility] Glomerular filtration rate ( GFR) estimation/1.73 sq m using serum, plasma, or whole bOrdered By: Angela Fernandez on 11-04-2024 GFR/1.73 sq M.predicted among non-blacks MDRD (S/P/Bld) [Vol rate/Area] 87 mL/min/{1.73_m2} >60 [facility] Comment on above: mL/min/1.73m2 CKD-EP I Creatinine Equation (2020) HBV core Ab Ql (S)Ordered By : Angela Fernandez on 11-04-2024 Hepatitis B Core Total Antibody Negative Negative [facility] HBV surface Ag Ql (S)Ordered By: Angela Fernandez on 11-04-2024 Hepatitis B Surface Antigen Non-Reactive Nonreactive [facility] Comment on above: Reactive: Presumptiv e evidence of HBV. Repeatedly reactive samples must be confirmed using a neutralization test ([employer] HBsAg Confirmatory Test)Non-Reactive: HBsAg not detected; does not exclude the possibility of exposure to HBV Hematocrit Auto (Bld) [Volum e fraction]Ordered By: Angela Fernandez on 11-04-2024 Hematocrit (Bld) [Volume fraction] 44.4 % 40-54 [facility] Hemoglobin measurementOrdere d By: Angela Fernandez on 11-04-2024 Hemoglobin (Bld) [Mass/Vol] 13.9 g/dL 13.0-16.5 [facility] Hepatitis A virus total anti body assayOrdered By: Angela Fernandez on 11-04-2024 Hepatitis A Antibody Total Positive High Negative [facility] Comment on above: Comment: The HAV tot al antibody assay detects both IgG andIgM but does not differentiate between them. A negativeresult suggests susceptibility to infection. A positiveresult could be due to vaccination, previously resolvedinfection or active infection. Testing for HAV IgM shouldbe performed if active HAV infection is suspected. [facility] profiles that will automatically reflex positive HAVtotal antibody results to IgM (e.g., panel #[id number] HAVAntibody w/ Rfx).Performed at: [facility] [address] [id number] Director: Joseph Stevens PhD, Phone: [phone] Hepatitis C antibodyOrdered By: Angela Fernandez on 11-04-2024 Hepatitis C Antibody Non-Reactive Nonreactive [facility] Comment on above: Reactive: Presumptiv e evidence of antibodies to HCV. Follow CDC recommendations for supplemental testing.Non-Reactive: Antibodies to HCV were not detected; does not exclude the possibility of exposure to HCVReactive Results are presumptive evidence of antibodies to HCV. Follow CDC recommendations for supplemental testing.Order confirmation testing: HCV Quant by PCR testing - HCVPCR #[id number] Non Reactive: < 0.8 Equivocal: >/= 0.8 to < 1.0 Reactive: >/= 1.0The CDC requires that a reactive/equivocal HCV antibody result be sent out for confirmation. HCV Quant by PCR testing. Immature granulocytes/100 WB C Auto (Bld)Ordered By: Angela Fernandez on 11-04-2024 Immature granulocytes/100 WBC (Bld) 0.400 % 0.0-0.9 [facility] Comment on above: IG% - Immature Granu locytes (promyelocytes, myelocytes and metamyelocytes) > 1% indicates that a LEFT SHIFT is Present. Laboratory - Chemistry and C hemistry - challengeOrdered By: Angela Fernandez on 11-04-2024 AST [Catalytic activity/Vol] 21 U/L <38 [facility] Laboratory - Microbiology an d Antimicrobial susceptibilityOrdered By: Angela Fernandez on 11-04-2024 HBV surface Ag Ql (S) Non-Reactive Nonreactive [facility] Comment on above: Reactive: Presumptiv e evidence of HBV. Repeatedly reactive samples must be confirmed using a neutralization test (ElecSLIC gamess HBsAg Confirmatory Test)Non-Reactive: HBsAg not detected; does not exclude the possibility of exposure to HBV Lymphocytes Auto (Unsp spec) [#/Vol]Ordered By: Angela Fernandez on 11-04-2024 Lymphocytes (Bld) [#/Vol] 1.31 10*3/uL 0.83-4.51 [facility] Lymphocytes/100 WBC Auto (Un sp spec)Ordered By: Angela Fernandez on 11-04-2024 Lymphocytes/100 WBC (Bld) 24.6 % 19-41 [facility] MCV (mean corpuscular volume ) determinationOrdered By: Angela Fernandez on 11-04-2024 MCV (RBC) [Entitic vol] 85.7 fL 80-94 [facility] Mean corpuscular hemoglobin (MCH) determinationOrdered By: Angela Fernandez on 11-04-2024 MCH (RBC) [Entitic mass] 26.8 pg Low 27.0-32.0 [facility] Mean corpuscular hemoglobin concentration (MCHC) determinationOrdered By: Angela Fernandez on 11-04-2024 MCHC (RBC) [Mass/Vol] 31.3 g/dL Low 32-36 [facility] Mean platelet volume determi nationOrdered By: Angela Fernandez on 11-04-2024 Platelet mean volume (Bld) [Entitic vol] 9.7 fL 6.2-12.0 [facility] Monocyte percentageOrdered B y: Angela Fernandez on 11-04-2024 Monocytes/100 WBC (Bld) 8.5 % 0-10 [facility] Neutrophil percentageOrdered By: Angela Fernandez on 11-04-2024 Neutrophils/100 WBC (Bld) 62.8 % 47-70 [facility] No Panel InformationOrdered By: Angela Fernandez on 11-04-2024 Hepatitis B Surface Antibody REAC [facility] Comment on above: <8.5 mIU/mL: Non-[place] ctive8.5<= x <11.5 mIU/mL: Indeterminate>=11.5 mIU/mL: Reactive Non Reactive: Inconsistent with immunity less than <10 mIU/mL Reactive: Consistent with immunity greater than or equal to 10 mIU/mL Nucleated red blood cell per centageOrdered By: Angela Fernandez on 11-04-2024 Nucleated RBC/100 WBC (Bld) [Ratio] 0 % 0-5 [facility] Platelet countOrdered By: Ketan Fernandez on 11-04-2024 Platelets (Bld) [#/Vol] 239 10*3/uL 150-450 [facility] RBC Auto (Bld) [#/Vol]Ordere d By: Angela Fernandez on 11-04-2024 RBC (Bld) [#/Vol] 5.18 10*6/uL 4.6-6.2 [facility] Serum globulin measurementOr dered By: Angela Fernandez on 11-04-2024 Globulin (S) [Mass/Vol] 2.2 g/dL 2.2-4.2 [facility] Serum glucose measurement (m ass/volume)Ordered By: Angela Fernandez on 11-04-2024 Glucose [Mass/Vol] 109 mg/dL High 70-99 [facility] Serum hepatitis B virus core antibody detectionOrdered By: Angela Fernandez on 11-04-2024 HBV core Ab Ql (S) Negative Negative [facility] Serum or plasma C reactive p rotein measurement (mass/volume)Ordered By: Angela Fernandez on 11-04-2024 CRP [Mass/Vol] 4.64 mg/L High 0.0-3.0 [facility] Serum or plasma alanine weller otransferase (ALT) measurementOrdered By: Angela Fernandez on 11-04-2024 ALT [Catalytic activity/Vol] 43 U/L <47 [facility] Serum or plasma albumin komal urement (mass/volume)Ordered By: Angela Fernandez on 11-04-2024 Albumin [Mass/Vol] 4.2 g/dL 3.5-5.0 [facility] Serum or plasma albumin/glob ulin mass ratioOrdered By: Angela Fernandez on 11-04-2024 Albumin/Globulin [Mass ratio] 1.9 {ratio} 0.9-2.4 [facility] Serum or plasma alkaline don sphatase measurementOrdered By: Angela Fernandez on 11-04-2024 ALP [Catalytic activity/Vol] 77 U/L 40-129 [facility] Serum or plasma anion gap de termination (moles/volume)Ordered By: Angela Fernandez on 11-04-2024 Anion gap [Moles/Vol] 9 mmol/L 5-15 [facility] Serum or plasma calcium komal urement (mass/volume)Ordered By: Angela Fernandez on 11-04-2024 Calcium [Mass/Vol] 9.4 mg/dL 7.6-11.0 [facility] Serum or plasma creatinine m easurement (moles/volume)Ordered By: Angela Fernandez on 11-04-2024 Creatinine [Moles/Vol] 1.1 mg/dL 0.8-1.3 [facility] Serum or plasma potassium me asurementOrdered By: Angela Fernandez on 11-04-2024 Potassium [Moles/Vol] 4.4 mmol/L 3.3-5.1 [facility] Serum or plasma sodium measu rement (moles/volume)Ordered By: Agnela Fernandez on 11-04-2024 Sodium [Moles/Vol] 142 mmol/L 133-145 [facility] Serum or plasma urea nitroge n measurement (mass/volume)Ordered By: Angela Fernandez on 11-04-2024 Urea nitrogen [Mass/Vol] 20 mg/dL High 4-19 [facility] Total proteinOrdered By: Ligia Fernandez on 11-04-2024 Protein [Mass/Vol] 6.4 g/dL 5.9-8.4 [facility] White blood cell (WBC) count Ordered By: Angela Fernandez on 11-04-2024 WBC (Bld) [#/Vol] 5.3 10*3/uL 4.4-11.0 [facility] CNOVon 10-13-2024 CNOV Office Visit (GENSWS ) MC BACH ([id number]) 1980 M Date Time Provider Department 10/13/24 10:00 AM HEIDI VALERA During your visit today, we recorded the following information about you: Temperature Pulse Blood pressure 98.1 degrees 83/minute 129/89 Heidi Valera MD 10/13/2024 10:10 AM Signed FOLLOW UP VISIT NAME: Mc Bach CLINIC NO.: [id number] DATE OF SERVICE: 10/13/2024 : 1980 REFERRING PHYSICIAN: Luz Elena Choiig is status post excision of anterior abdominal wall lipoma on 10/03/2024. Pathology reveals lipoma VITALS: There were no vitals taken for this visit. On examination, abdomen is soft and benign. Wound is healing well without evidence of infection Assessment IMPRESSION: status post excision of anterior abdominal wall lipoma PLAN: Patient is instructed to make an appointment to return to clinic if any worsening signs/symptoms. Patient will return to PCP for medical care. Patient acknowledges above. Patient wants referral for hiatal hernia repair - placed consultation to [facility]. Diagnoses: (Z98.890) Status post skin and subcutaneous tissue surgery (primary encounter diagnosis) Heidi Valera MD Allergies As of Date: 10/13/2024 Noted Allergy Reaction ANIMAL DANDER 02/16/2023 16 - Unknown Comments: Cat hair, cat pelt, dog HOUSE DUST 02/16/2023 16 - Unknown PERCOCET (OXYCODONE-ACETAMINOP HEN)02/16/2023 9 - Itching VICODIN (HYDROCODONE-ACETAMIN OPHE*02/16/2023 9 - Itching Date Reviewed: 10/13/2024 Reviewed by: Judith Sanchez RN - Fully Assessed Reason for Visit: Post Op [174] Cmt: Lipoma torso Primary Visit Diagnosis:Status post skin and subcutaneous tissue surgery [Z98.890] Order(s):CONSULT TO GENERAL SURGERY [9047] Order #: [id number]: 1 FUTURE Prescriptions as of 10/13/2024 - esomeprazole (NEXIUM) 20 mg capsule Take 20 mg by mouth once daily. - buPROPion HCL, smoking deter, 150 mg tab ER 12 hr Take 150 mg by mouth once daily. - dulaglutide (TRULICITY) 0.75 mg/0.5 mL pen injector Inject 0.75 mg subcutaneously one time a week. - busPIRone (BUSPAR) 10 mg tablet Take 10 mg by mouth once daily. - fexofenadine HCl (TERRI ODT ORAL) Take by mouth once daily. Problem List As Of Date: 10/13/2024 (None) Disposition: Return if symptoms worsen or fail to improve. Follow-up and Disposition History for Encounter Date Provider Department Center 10/13/2024 [id number] VALERA [facility] Encounter Status:Closed by HEIDI VALERA on 10/13/24 Normal [facility] ANES POSTPROC EVALon 025 ANES POSTPROC EVAL HNO ID: [id number] Author: TIERNEY GARCIA MD Service: Anesthesiology Author Type: Anesthesiologist Type: Anesthesia Postprocedure Evaluation Filed: 10/03/2024 18:25 Note Text: POST ANESTHESIA EVALUATION NOTE : 1980 Procedure Summary Date: 10/03/24 Room / Location: IN OR06 / IN OR Anesthesia Start: 1725 Anesthesia Stop: 1808 Procedure: EXCISION SOFT SUBFASCIAL TUMOR OF ABDOMINAL WALL = / > 5CM (Abdomen) Diagnosis: Lipoma of torso (Lipoma of torso [D17.1]) Surgeons: Heidi Valera MD Responsible Provider: Tierney Garcia MD Anesthesia Type: MAC ASA Status: 3 Anesthesia Type: MAC Last Vitals Vitals Value Taken Time BP 138/85 10/03/24 1823 Temp 36.2 ?C (97.2 ?F) 10/03/24 1808 Pulse 83 10/03/24 1823 Resp 54 10/03/24 182 SpO2 97 % 10/03/241822 Vitals shown include unfiled device data. Post Anesthesia Patient Status Patient Evaluation: PACU. PACU/ICU Patient Condition: stable. Anticipated Disposition: phase 2 then home. Neurological Status: aware and responsive. Pulmonary Status: breathing comfortably on room air Airway Control: returned to baseline unsupported. Cardiovascular Status: stable. Pain Management: clinically adequate - multimodal analgesia pain management approach Postoperative Hydration: acceptable. Intraoperative Events: no significant anesthesia events Post Operative Nausea/Vomiting Status: no significant post operative nausea or vomiting Recommendation: continue current plan of care. Anesthesia Observations No Documentation SIGNATURE: Tierney Garcia MD PATIENT NAME: Mc Bach DATE: October 03, 2024 TIME: 6:25 PM CSN: [id number] [facility] ANES PRE-OPon 10-03-2024 ANES PRE-OP HNO ID: [id number] Author: JOHN AMADOR DO Service: Anesthesiology Author Type: Anesthesiologist Type: Anesthesia Preprocedure Evaluation Filed: 10/03/2024 15:49 Note Text: ANESTHESIOLOGY DAY OF SURGERY NOTE : 1980 Procedure Information Date/Time: 10/03/24 1519 Procedure: EXCISION SOFT SUBFASCIAL TUMOR OF ABDOMINAL WALL = / > 5CM (Abdomen) Location: ME OR06 / IN OR Surgeons: Heidi Valera MD Estimated body mass index is 53.52 kg/m? as calculated from the following: Height as of this encounter: 177.8 cm (5' 10). Weight as of this encounter: 169.2 kg (373 lb). Most recent hematocrit and potassium results: No results found for this basename: HCT,HEMATOCRIT,K,POTA SSIUM Relevant Problems No relevant active problems I - PHYSICAL EVALUATION AIRWAY Patient intubated: No. Tracheostomy tube not present Mallampati: II. TM distance: >3 FB. Neck ROM: full ROM without neurological symptoms. Mouth opening: adequate. Short neck: no. Thick neck: no DENTAL Dental findings: teeth intact. II - ANESTHESIA PLAN ASA Score: 3 Anesthetic Plan: MAC NPO Status: adequate Beta Jemima Monitoring Plan Monitoring plan: standard ASA. Post Procedure Analgesic Plan Postoperative analgesic plan: parenteral or oral opioids, multimodal analgesia and per surgical service. Informed Consent Anesthetic risks, benefits, alternatives, personnel and consent discussed: yes. Patient / Responsible [employer] agrees to proceed: yes Patient / Surrogate agrees to blood products: Yes DNR status not reviewed with patient and/or family prior to surgery. Significant changes in the patient condition since the History and Physical, not otherwise documented in primary service progress note: no. Potential Anesthesia issues that may suggest increased risk of complications or contraindication to planned procedure: none. Discussed the possibility of lip / dental damage: yes Vitals Value Taken Time BP 148/80 10/03/24 1315 Pulse Resp 18 10/03/24 1315 Temp 36.2 ?C (97.2 ?F) 10/03/24 1315 SpO2 97 % 10/03/24 1315 Facility-Administered Medications as of 10/03/2024 Medication Dose Route Frequency lidocaine (PF) 10 mg/mL (1 %) 1-2 mg injection (XYLOCAINE) 0.1-0.2 mL INTRADERMAL PRN NaCl 0.9% iv flush bag 20 mL INTRAVENOUS PRN lactated ringers iv infusion 30 mL/hr INTRAVENOUS CONTINUOUS [COMPLETED] acetaminophen 1,000 mg tab(s) (TYLENOL) 1,000 mg ORAL Pre-Op Once [COMPLETED] promethazine 12.5 mg tab(s) (PHENERGAN) 12.5 mg ORAL Pre-Op Once Outpatient Medications as of 10/03/2024 Medication Sig esomeprazole (NEXIUM) 20 mg capsule Take 20 mg by mouth once daily. fexofenadine HCl (TERRI ODT ORAL) Take by mouth once daily. buPROPion HCL, smoking deter, 150 mg tab ER 12 hr Take 150 mg by mouth once daily. (Patient not taking: Reported on 02/19/2023) dulaglutide (TRULICITY) 0.75 mg/0.5 mL pen injector Inject 0.75 mg subcutaneously one time a week. (Patient not taking: Reported on 02/19/2023) busPIRone (BUSPAR) 10 mg tablet Take 10 mg by mouth once daily. (Patient not taking: Reported on 02/19/2023) I have interviewed and examined the patient. I have reviewed the medical record and/or the pre-anesthesia evaluation, pertinent labs, and test results. This contains updated information obtained within 48 hours of Surgery/Procedure. SIGNATURE: John Amador DO PATIENT NAME: Mc Bach DATE: October 03, 2024 TIME: 3:48 PM CSN: [id number] [facility] BRIEF OP NOTon 10-03-2024 BRIEF OP NOT HNO ID: [id number] Author: HEIDI VALERA MD Service: General Surgery Author Type: Physician Type: Brief Op Note Filed: 10/03/2024 17:52 Note Text: BRIEF OPERATIVE NOTE SURGERY DATE: 10/03/2024 Incision/Procedure Start Time: 17:41 Incision Close/Procedure End Time: 17:58 Surgeon(s)/Procedural ist(s) and Rn Cardiology(s): Nessa Valera Procedures: Excision of superficial abdomina lipoma - 15 cm Anesthesia: MAC Findings: superficial abdominal wall lipoma Estimated Blood Loss: minimal Specimens: lipoma Complications: None Closure Technique: Primary Preop Diagnosis: abdominal wall lipoma causing irritation Postop Diagnosis: same Patient was accompanied to the next level of care by a licensed practitioner from the surgical team pending completion of this brief op note (or operative note) SIGNATURE: Heidi Valera MD PATIENT NAME: Mc Bach DATE: October 03, 2024 TIME: 5:50 PM Acct: [id number] [facility] OPERATIVE NOon 10-03-2024 OPERATIVE NO HNO ID: [id number] Author: HEIDI VALERA MD Service: General Surgery Author Type: Physician Type: Operative Report Filed: 10/08/2024 18:43 Note Text: [facility] - Oper[facility] MC BACH : 1980 AGE: 44. SEX: M PATIENT TYPE: A HOSP C: [facility] LOCATION: [facility] ATTENDING PHYSICIAN: Heidi Valera M.D. CSN NUMBER: [id number] DATE OF SURGERY/PROCEDURE: 10/03/2024 INCISION/PROCEDURE START TIME: 5:41 PM INCISION CLOSE/PROCEDURE END TIME: 5:57 PM PREOPERATIVE DIAGNOSIS: abdominal wall lipoma POSTOPERATIVE DIAGNOSIS: superficial abdominal wall lipoma - > 10 cm of the upper abdominal wall SURGEON: Heidi Valera M.D. CEMENT WORKER: ophthalmic surgical assistant is Nessa Holcomb. She has assisted me as there is no surgery residents available. She assisted me in closure of the wound under my supervision. SURGERY/PROCEDURE: Excision of superficial abdominal lipoma of the upper abdominal wall. ANESTHESIA: MAC local. LOCATION: [facility]. INDICATIONS: The patient is a 44-year-old morbidly obese male who presents with a superficial abdominal lipoma of the upper abdominal wall which is causing pain. He requests removal. He has been counseled the risks of procedure including, but not limited to infection, bleeding, injury to any blood vessels, nerves, scar tissue, cosmetic deformity, nonresolution of symptoms, etc. The patient understands and agrees to proceed. DESCRIPTION OF PROCEDURE: After informed consent was given, the patient was brought to the operating room. Appropriate time-out protocol was followed. He was placed in the supine position. He was placed under anesthesia by the anesthesia provider. The patient's abdomen was then prepped with sterile surgical skin preparation. Appropriate sterile surgical drapes were placed. The lesion was at the upper abdominal wall. The skin and subcutaneous tissues at the site were then infiltrated with local anesthetic. A transverse skin incision was made over the mass. The incision was carried down through the subcutaneous tissues. The lipomatous mass was palpated out. It was consistent with a superficial lipoma. It was from the surrounding tissues using blunt dissection. Any hemorrhage was adequately controlled with electrocautery. The mass was then completely removed from the abdominal wall. It was about 15 cm in maximum dimension. It was forward to Pathology for analysis. Hemostasis was carefully controlled with electrocautery. The subdermal tissues were then approximated using Vicryl suture in interrupted simple fashion. Skin incision was closed with 4-0 Monocryl in a running subcuticular fashion. Dermabond and sterile dressing was applied. The patient tolerated procedure well and was brought to recovery room in stable condition. ESTIMATED BLOOD LOSS: Minimal. SPECIMENS: Lipomatous mass of the upper abdominal wall. COMPLICATIONS: None. Heidi Valera M.D. LW:[id number] /[id number] [facility] SURGICAL PATHOLOGYon 025 CASE REPORT [facility] Comment on above: Order Comment: Speci men Type: TISSUE SPECIMEN Ordering Facility: [facility] Address: [address] [place] [address] Result Comment: Surg [facility] Pathology Report Case: [id number] Authorizing Provider: Heidi Valera MD Collected: 10/03/2024 05:50 PM Ordering Location: [facility] Surgery Received: 10/06/2024 08:19 AM Pathologist: Jin Walker MD Specimen: Lipoma, abdominal wall lipoma Performed By: #### S #### [facility] CLIA [id number] [address] [place] [address] [place] CLINICAL HISTORY Normal [facility] Comment on above: Order Comment: Speci men Type: TISSUE SPECIMEN Ordering Facility: [facility] Address: [address] [place] [address] Result Comment: Pre- op diagnosis: Lipoma of torso [D17.1] Performed By: #### S #### [facility] CLIA [id number] [address] [place] [address] [place] FINAL DIAGNOSIS Normal [facility] Comment on above: Order Comment: Speci men Type: TISSUE SPECIMEN Ordering Facility: [facility] Address: [address] [place] [address] Result Comment: Soft tissue, abdominal wall, excision: - Lipoma with extensive fat necrosis. Performed By: #### S #### [facility] CLIA [id number] [address] [place] [address] [place] FINAL PERFORMING LAB Normal [facility] Comment on above: Order Comment: Speci men Type: TISSUE SPECIMEN Ordering Facility: [facility] Address: [address] [place] [address] Result Comment: Diag nostic interpretation performed at: [facility], [address] [place] [address] CLIA# [id number] Air Quality Engineer: Jeanmarie Decker MD Performed By: #### S #### [facility] CLIA [id number] [address] [place] [address] [place] GROSS DESCRIPTION A. Lipoma Normal [facility] Comment on above: Order Comment: Speci men Type: TISSUE SPECIMEN Ordering Facility: [facility] Address: [address] [place] [address] Result Comment: Rece ived in formalin labeled abdominal wall lipoma is a 9.5 x 8.3 x 4.0 cm segment of yellow lobulated fatty tissue. Sectioning reveals yellow lobulated fatty cut surfaces with approximately 5% central chalky bravo-yellow probable necrosis. No hemorrhage or discrete lesions are identified. Carburetor Expert sections to focus on areas of probable necrosis are submitted in five cassettes. Gross examination performed at [facility], [address] [place] [address] 10/06/24 Performed By: #### S #### [facility] CLIA [id number] [address] [place] [address] [place] [address] [place] HISTORY PHYSICALon HISTORY PHYSICAL HNO ID: [id number] Author: HEIDI VALERA MD Service: General Surgery Author Type: Physician Type: H&P Filed: 10/02/2024 16:21 Note Text: HISTORY AND PHYSICAL Mc Bach 1980 REFERRING PHYSICIAN: No ref. provider found CHIEF COMPLAINT: Consult (Lipoma removal, on left side of abdomen) HPI: The patient is a 44 year old male presents with lipomatous mass of upper left abdominal wall, overlying lower left rib cage. He states that it is causing pain in the area. He notes increasing size over the past 5-6 months. He had an US done at [facility] revealing lipomatous mass -however the images and the report are not available in this patient encounter. He states that he has had previous lipomas that were similar in presentation to this. PAST MEDICAL HISTORY PAST MEDICAL HISTORY Diagnosis Date Carpal tunnel syndrome Elbow injury Glucose intolerance Hiatal hernia History of colonic polyps Hyperinsulinemia Internal derangement of shoulder, right Knee pain, left Major depressive disorder Neck pain Obesity Onychogryphosis Plantar fasciitis Reflux esophagitis Skin tag Sleep apnea Thoracic back pain Vitamin D deficiency PAST SURGICAL HISTORY PAST SURGICAL HISTORY Procedure Laterality Date FASCIECTOMY PLANTAR FASCIA PARTIAL SPX Left KNEE ARTHROSCOP MENISCUS REPAIR MED/LAT Left LACERATIONS tendon laceration of right 5th finger LIPOMA (MEDIUM) Bilateral arm REMOVAL OF HEEL SPUR Left REPAIR OF SHOULDER rotator cuff, torn and detach labrium REVISE MEDIAN N/CARPAL TUNNEL SURG VASECTOMY CURRENT MEDICATIONS Current Outpatient Medications Medication Sig esomeprazole (NEXIUM) 20 mg capsule Take 20 mg by mouth once daily. fexofenadine HCl (TERRI ODT ORAL) Take by mouth once daily. buPROPion HCL, smoking deter, 150 mg tab ER 12 hr Take 150 mg by mouth once daily. (Patient not taking: Reported on 02/19/2023) dulaglutide (TRULICITY) 0.75 mg/0.5 mL pen injector Inject 0.75 mg subcutaneously one time a week. (Patient not taking: Reported on 02/19/2023) busPIRone (BUSPAR) 10 mg tablet Take 10 mg by mouth once daily. (Patient not taking: Reported on 02/19/2023) No current facility-administered medications for this visit. ALLERGIES: Animal Dander, House Dust, Percocet [Oxycodone-Acetaminop hen], and Vicodin [Hydrocodone-Acetamin ophen] PERSONAL HISTORY: SOCIAL HISTORY Social History Tobacco Use Smoking status: Never Smokeless tobacco: Never Vaping Use Vaping status: Former Substances: CBD Substance Use Topics Alcohol use: Yes Alcohol/week: 3.0 standard drinks of alcohol Types: 3 Cans of beer per week Comment: 2-3 weekly Drug use: Never Types: Marijuana FAMILY HISTORY FAMILY HISTORY Problem Relation Age of Onset Diabetes Paternal Grandmother REVIEW OF SYSTEMS: General: The patient denies fatigue, denies weight loss, denies weight gain, denies feeling hot, and denies feelings of cold. Eyes: The patient denies glaucoma, denies eye injury/surgery, wears glasses or contacts. Ear/Nose/Throat: The patient notes allergies, denies hayfever, denies ear infections, and denies bloody noses. Cardiovascular: The patient denies chest pain, denies heart disease, denies high blood pressure,denies cardiac stent, denies prior heart attack, denies irregular heart beat, denies high cholesterol, denies poor circulation, denies heart failure, other cardiac issues, denies claudication, denies cold feet, denies peripheral arterial stent. Respiratory: The patient denies tuberculosis, denies pneumonia, denies frequent cough, denies pulmonary embolism, denies shortness of breath, and denies coughing up blood. Gastrointestinal: The patient denies difficulty swallowing, notes acid reflux, denies ulcers, denies vomiting, denies jaundice/hepatitis, denies gallbladder problems, denies black or tarry stools, denies hemorrhoids, denies bleeding from rectum, denies diverticulitis, denies constipation, denies diarrhea, denies loss of stool control, and denies hernias. Kidney/Bladder: The patient denies kidney stones, denies urine infections, and denies bloody urine. Skin: The patient denies a history of skin cancer, denies bleeding/changing moles, and denies a history of skin rash. Neurologic: The patient denies a history of epilepsy/convulsions, denies headaches, denies head/spinal injuries, and denies stroke/TIA. Psychiatric: The patient denies psychiatric medications, denies depression, and denies voices, denies substance abuse. Endocrine: The patient denies thyroid disorders, denies diabetes, and denies hormonal problems. Hematologic: The patient denies a history of bruising, denies bleeding, and denies anemia, denies blood clots. Infections: The patient denies a history of measles and mumps, denies rheumatic fever, and denies sexually transmitted diseases. Musculoskeletal: The patient denies back pain/injury, denies back problems, (more content not included)... Normal [facility] Abdomen W/WO IV Contraston 0 09-24-2024 Abdomen W/WO IV Contrast [facility] Imaging Services [address] [place] [id number] Abdomen W/WO IV Contrast MR#: [id number] Acct: [id number] Name: MC BACH Rep #: [id number] : 1980 M 44 From: Wolfgang howard MD PCP: Dr. Luz Elena Cobos MD Status: REG [facility] Study: Abdomen W/WO IV Contrast Date of Exam: 5 Exam# [id number] Ordering Dr: Luz Elena Cobos MD [id number] STUDY: CT ABDOMEN WITH AND WITHOUT CONTRAST REASON FOR EXAM: Male, 44 years old. Us shows a lesion that is not clearly a lipoma and may be a hernia RADIATION DOSAGE (If Supplied By Facility): CTDIvol = ( 25.52 ) mGy, DLP = ( 2357.52 ) mGycm TECHNIQUE: Transaxial images were obtained pre and post I.V. administration of IV 100mL Isovue-370, and with oral contrast. Sagittal and coronal images were reconstructed. Individualized dose optimization techniques were used for this CT. COMPARISON: Comparison is made with prior study dated August 05, 2018. Comparison is also made with prior sonogram of the abdomen dated September 01, 2024. FINDINGS: The visualized lung bases are unremarkable. The visualized portions of the heart are within normal limits. There is decreased attenuation of the liver consistent with steatosis. Normal gallbladder and extrahepatic biliary system. Normal spleen. Normal pancreas. Normal bilateral adrenal glands. Normal right kidney. Normal left kidney. There is a small hiatal hernia. Normal small intestine. Normal colon. The appendix is visualized and appears normal. Normal abdominal aorta. Normal inferior vena cava. Normal retroperitoneum. Normal abdominal wall. No hernia is seen. Normal osseous structures. CT/Abdomen W/WO IV Contrast IMPRESSION: Fatty infiltration of liver. Small hiatal hernia. Electronically Signed: Wolfgang Slade MD at 14:45 EST Reading Location ID and State: [address] [place] [address] , Service support , CC: Dr. Luz Elena Cobos MD Director Of Business Systems: Signed Normal [facility] Abdomen Limitedon 09-01-2024 Abdomen Limited [facility] Imaging Services [address], [place] [id number] Abdomen Limited MR#: [id number] Acct: [id number] Name: MC BACH Rep #: [id number] : 1980 M 44 From: Jose treviño MD PCP: Dr. Luz Elena Cobos MD Status: REG CLI Study: Abdomen Limited Date of Exam: 09/01/24 Exam# [id number] Ordering Dr: Luz Elena Cobos MD ADDENDUM by Jose Powell MD on 09/01/24 at 1549 [id number] STUDY: SUPERFICIAL ULTRASOUND - EPIGASTRIC REGION REASON FOR EXAM: Male, 44 years old. left epigastic. known hx lipomas yet possible hernia TECHNIQUE: A superficial ultrasound was performed with real-time and static kang-scale imaging. COMPARISON: None. FINDINGS: In the subcutaneous tissue of the left epigastric region at area of palpable concern, there is a heterogeneous hyperechoic lesion measuring 6.4 x 8.9 x 2.5 cm. There is minimal to no internal vascularity. 09/01/24 1549 Date cc: Dr. Luz Elena Cobos MD * Signed ADDENDUM by Jose Powell MD on 09/01/24 at 1543 US/Abdomen Limited IMPRESSION: Findings are indeterminate. Differential includes fat-containing hernia versus fat-containing lesion. Recommend multiphase CT or MR abdomen with and without contrast. N.B. : Jasmin Garcia OT, confirmed on 09/02/2024 09:30:15 (ET) that the healthcare facility has received the radiology report. Electronically Signed: Jose Powell MD at 15:49 EST , 09/02/24 0937 Date cc: Dr. Luz Elena Cobos MD * Signed ACR Level 3 findings have been noted. An addendum which confirms receipt of the report will follow. [id number] STUDY: SUPERFICIAL ULTRASOUND - EPIGASTRIC REGION REASON FOR EXAM: Male, 44 years old. left epigastic. known hx lipomas yet possible hernia TECHNIQUE: A superficial ultrasound was performed with real-time and static kang-scale imaging. COMPARISON: None. FINDINGS: In the subcutaneous tissue of the left epigastric region at area of palpable concern, there is a heterogeneous hyperechoic lesion measuring 6.4 x 8.9 x 2.5 cm. There is minimal to no internal vascularity. US/Abdomen Limited IMPRESSION: Findings are indeterminate. Differential includes fat-containing hernia versus fat-containing lesion. Recommend multiphase CT or MR abdomen with and without contrast. Electronically Signed: Jose Powell MD at 15:49 EST , CC: Dr. Luz Elena Cobos MD Director Of Business Systems: Signed [facility] 09-01-2024 [facility] Office Visit (SWS ) MC BACH ([id number]) 1980 M Date Time Provider Department 09/01/24 4:00 PM HEIDI VALERA During your visit today, we recorded the following information about you: Temperature Pulse Blood pressure Weight 97.7 degrees 106/minute 132/88 172.8 kg Height 1.778 m Lebron Chowdhury LPN 09/06/2024 2:56 PM Signed REVIEW OF SYSTEMS: General: The patient denies fatigue, denies weight loss, denies weight gain, denies feeling hot, and denies feelings of cold. Eyes: The patient denies glaucoma, denies eye injury/surgery, wears glasses or contacts. Ear/Nose/Throat: The patient notes allergies, denies hayfever, denies ear infections, and denies bloody noses. Cardiovascular: The patient denies chest pain, denies heart disease, denies high blood pressure,denies cardiac stent, denies prior heart attack, denies irregular heart beat, denies high cholesterol, denies poor circulation, denies heart failure, other cardiac issues, denies claudication, denies cold feet, denies peripheral arterial stent. Respiratory: The patient denies tuberculosis, denies pneumonia, denies frequent cough, denies pulmonary embolism, denies shortness of breath, and denies coughing up blood. Gastrointestinal: The patient denies difficulty swallowing, notes acid reflux, denies ulcers, denies vomiting, denies jaundice/hepatitis, denies gallbladder problems, denies black or tarry stools, denies hemorrhoids, denies bleeding from rectum, denies diverticulitis, denies constipation, denies diarrhea, denies loss of stool control, and denies hernias. Kidney/Bladder: The patient denies kidney stones, denies urine infections, and denies bloody urine. Skin: The patient denies a history of skin cancer, denies bleeding/changing moles, and denies a history of skin rash. Neurologic: The patient denies a history of epilepsy/convulsions, denies headaches, denies head/spinal injuries, and denies stroke/TIA. Psychiatric: The patient denies psychiatric medications, denies depression, and denies voices, denies substance abuse. Endocrine: The patient denies thyroid disorders, denies diabetes, and denies hormonal problems. Hematologic: The patient denies a history of bruising, denies bleeding, and denies anemia, denies blood clots. Infections: The patient denies a history of measles and mumps, denies rheumatic fever, and denies sexually transmitted diseases. Musculoskeletal: The patient denies back pain/injury, denies back problems, denies sciatica, notes knee/foot trouble, denies arthritis, or denies gout. When was patient's last Mammogram screening? N/A Last Colonoscopy: 2002 SIMBA Fernandes Linda Marie, MD 09/06/2024 2:56 PM Signed HISTORY AND PHYSICAL Mc Bach 1980 REFERRING PHYSICIAN: No ref. provider found CHIEF COMPLAINT: Consult (Lipoma removal, on left side of abdomen) HPI: The patient is a 44 year old male presents with lipomatous mass of upper left abdominal wall, overlying lower left rib cage. He states that it is causing pain in the area. He notes increasing size over the past 5-6 months. He had an US done at [facility] revealing lipomatous mass -however the images and the report are not available in this patient encounter. He states that he has had previous lipomas that were similar in presentation to this. PAST MEDICAL HISTORY Diagnosis Date Carpal tunnel syndrome Elbow injury Glucose intolerance Hiatal hernia History of colonic polyps Hyperinsulinemia Internal derangement of shoulder, right Knee pain, left Major depressive disorder Neck pain Obesity Onychogryphosis Plantar fasciitis Reflux esophagitis Skin tag Sleep apnea Thoracic back pain Vitamin D deficiency PAST SURGICAL HISTORY Procedure Laterality Date FASCIECTOMY PLANTAR FASCIA PARTIAL SPX Left KNEE ARTHROSCOP MENISCUS REPAIR MED/LAT Left LACERATIONS tendon laceration of right 5th finger LIPOMA (MEDIUM) Bilateral arm REMOVAL OF HEEL SPUR Left REPAIR OF SHOULDER rotator cuff, torn and detach labrium REVISE MEDIAN N/CARPAL TUNNEL SURG VASECTOMY Current Outpatient Medications Medication Sig esomeprazole (NEXIUM) 20 mg capsule Take 20 mg by mouth once daily. fexofenadine HCl (TERRI ODT ORAL) Take by mouth once daily. buPROPion HCL, smoking deter, 150 mg tab ER 12 hr Take 150 mg by mouth once daily. (Patient not taking: Reported on 02/19/2023) dulaglutide (TRULICITY) 0.75 mg/0.5 mL pen injector Inject 0.75 mg subcutaneously one time a week. (Patient not taking: Reported on 02/19/2023) busPIRone (BUSPAR) 10 mg tablet Take 10 mg by mouth once daily. (Patient not taking: Reported on 02/19/2023) No current facility-administered medications for this visit. ALLERGIES: Animal Dander, House Dust, Percocet [Oxycodone-Acetaminop hen], and Vicodin [Hydrocodone-Acetamin ophen] PE (more content not included)... Normal [facility] ABOR VERIFICATIONon 019 ABO and Rh group Nom (Bld) B Positive [facility] ABO and Rh group Nom (Bld) ABO/Rh Verification [facility] Patient's ABO/Rh is verified. [facility] APTTon 05-08-2019 aPTT Coag (Bld) [Time] 24 s [facility] aPTT Coag (Bld) [Time] Therapeutic range for APTT's is 68 - 104 seconds [facility] Interpretation and review of laboratory results Normal [facility] Alcohol, Medicalon 9 Ethanol [Mass/Vol] mg/dL <10.00 mg/dL [facility] Interpretation and review of laboratory results Normal [facility] CBCon 05-08-2019 Erythrocyte distribution width (RBC) [Entitic vol] 13.5 % 11.6 - 14.8 % [facility] Hematocrit (Bld) [Volume fraction] 42.9 % 41 - 53 % [facility] Hemoglobin (Bld) [Mass/Vol] 13.6 g/dL 13.5 - 17.5 g/dL [facility] MCH (RBC) [Entitic mass] 27.1 pg 26 - 34 pg [facility] MCHC (RBC) [Mass/Vol] 31.7 g/dL 31 - 37 g/dL [facility] MCV (RBC) [Entitic vol] 85.6 fL 80 - 100 fL [facility] Nucleated RBC (Bld) [#/Vol] 0.00 10*3/uL [facility] Nucleated RBC/100 WBC (Bld) [Ratio] 0.0 % [facility] Platelet mean volume (Bld) [Entitic vol] 10.1 fL 9 - 15.5 fL [facility] Platelets (Bld) [#/Vol] 239 10*3/uL [facility] RBC (Bld) [#/Vol] 5.01 10*6/uL [facility] ealth WBC (Bld) [#/Vol] 6.29 10*3/uL [facility] CHEST ABDOMEN P ELVISon 05-08-2019 1. No acute findings within the chest, abdomen and pelvis. 2. No acute aortic injury. 3. Hepatic steatosis. /[facility] Workstation ID: [id number] [facility] EXAMINATION: CT ANGIOGRAM CHEST ABDOMEN PELVIS HISTORY: ORDERING SYSTEM PROVIDED HISTORY: TRAUMA, TECHNOLOGIST PROVIDED HISTORY: Injury/Trauma Reason for exam: 14 ft fall from ladder left forehead lac, left hip and leg pain Encounter Type: Initial Mechanism of injury: fall ORDERING SYSTEM PROVIDED DIAGNOSIS CODES: COMPARISON: None. TECHNIQUE: CT angiogram of the chest, abdomen and pelvis after administration of contrast. 70-second delayed imaging of the abdomen. Dose reduction techniques were achieved by using automated exposure control and/or adjustment of mA and/or kV according to patient size and/or use of iterative reconstruction technique. CONTRAST: IOPAMIDOL 76 % INTRAVENOUS SOLUTION - 100 mL, FINDINGS: CT angiogram: Thoracic aorta: Normal caliber without dissection. Normal 3-vessel aortic arch branching anatomy. Visualized great vessels are patent. Pulmonary arteries: Normal caliber. No central or large pulmonary embolus. Abdominal aorta: Normal caliber without dissection. Major visceral arteries are patent. CHEST: Mediastinum: Trachea and central airways are patent. Heart is normal in size without pericardial effusion. No mediastinal or hilar lymphadenopathy. Pleural cavity: No pneumothorax. No pleural effusion. Lungs: Lungs are clear. Chest wall/axilla: No axillary lymphadenopathy. Bones: No destructive lesions. ABDOMEN: Liver: Hepatic steatosis. Probable focal fatty sparing in the gallbladder fossa. Bile ducts: Normal caliber. Gallbladder: No calcified gallstones. Normal caliber wall. Pancreas: Normal. Spleen: Normal. Adrenals: Normal. Kidneys: Normal. PELVIS: Reproductive organs: No pelvic masses. Ureters: Normal. Bladder: Normal. OTHER ABDOMEN AND PELVIS: Bowel: Normal caliber. Peritoneum: No free intraperitoneal air. No ascites or fluid collection. Lymph nodes: No enlarged lymph nodes. Abdominal wall: Normal. Osseous structures: No destructive lesions. [facility] 05/08/2019 6:09 PM EDT EXAMINATION: CT ANGIOGRAM CHEST ABDOMEN PELVIS HISTORY: ORDERING SYSTEM PROVIDED HISTORY: TRAUMA, TECHNOLOGIST PROVIDED HISTORY: Injury/Trauma Reason for exam: 14 ft fall from ladder left forehead lac, left hip and leg pain Encounter Type: Initial Mechanism of injury: fall ORDERING SYSTEM PROVIDED DIAGNOSIS CODES: COMPARISON: None. TECHNIQUE: CT angiogram of the chest, abdomen and pelvis after administration of contrast. 70-second delayed imaging of the abdomen. Dose reduction techniques were achieved by using automated exposure control and/or adjustment of mA and/or kV according to patient size and/or use of iterative reconstruction technique. CONTRAST: IOPAMIDOL 76 % INTRAVENOUS SOLUTION - 100 mL, FINDINGS: CT angiogram: Thoracic aorta: Normal caliber without dissection. Normal 3-vessel aortic arch branching anatomy. Visualized great vessels are patent. Pulmonary arteries: Normal caliber. No central or large pulmonary embolus. Abdominal aorta: Normal caliber without dissection. Major visceral arteries are patent. CHEST: Mediastinum: Trachea and central airways are patent. Heart is normal in size without pericardial effusion. No mediastinal or hilar lymphadenopathy. Pleural cavity: No pneumothorax. No pleural effusion. Lungs: Lungs are clear. Chest wall/axilla: No axillary lymphadenopathy. Bones: No destructive lesions. ABDOMEN: Liver: Hepatic steatosis. Probable focal fatty sparing in the gallbladder fossa. Bile ducts: Normal caliber. Gallbladder: No calcified gallstones. Normal caliber wall. Pancreas: Normal. Spleen: Normal. Adrenals: Normal. Kidneys: Normal. PELVIS: Reproductive organs: No pelvic masses. Ureters: Normal. Bladder: Normal. OTHER ABDOMEN AND PELVIS: Bowel: Normal caliber. Peritoneum: No free intraperitoneal air. No ascites or fluid collection. Lymph nodes: No enlarged lymph nodes. Abdominal wall: Normal. Osseous structures: No destructive lesions. IMPRESSION: 1. No acute findings within the chest, abdomen and pelvis. 2. No acute aortic injury. 3. Hepatic steatosis. [employer] Workstation ID: [id number] [facility] (RBC) [Entitic mass] EXAMINATION: CT ANGIOGRAM CHEST ABDOMEN PELVIS HISTORY: ORDERING SYSTEM PROVIDED HISTORY: TRAUMA, TECHNOLOGIST PROVIDED HISTORY: Injury/Trauma Reason for exam: 14 ft fall from ladder left forehead lac, left hip and leg pain Encounter Type: Initial Mechanism of injury: fall ORDERING SYSTEM PROVIDED DIAGNOSIS CODES: COMPARISON: None. TECHNIQUE: CT angiogram of the chest, abdomen and pelvis after administration of contrast. 70-second delayed imaging of the abdomen. Dose reduction techniques were achieved by using automated exposure control and/or adjustment of mA and/or kV according to patient size and/or use of iterative reconstruction technique. CONTRAST: IOPAMIDOL 76 % INTRAVENOUS SOLUTION - 100 mL, FINDINGS: CT angiogram: Thoracic aorta: Normal caliber without dissection. Normal 3-vessel aortic arch branching anatomy. Visualized great vessels are patent. Pulmonary arteries: Normal caliber. No central or large pulmonary embolus. Abdominal aorta: Normal caliber without dissection. Major visceral arteries are patent. CHEST: Mediastinum: Trachea and central airways are patent. Heart is normal in size without pericardial effusion. No mediastinal or hilar lymphadenopathy. Pleural cavity: No pneumothorax. No pleural effusion. Lungs: Lungs are clear. Chest wall/axilla: No axillary lymphadenopathy. Bones: No destructive lesions. ABDOMEN: Liver: Hepatic steatosis. Probable focal fatty sparing in the gallbladder fossa. Bile ducts: Normal caliber. Gallbladder: No calcified gallstones. Normal caliber wall. Pancreas: Normal. Spleen: Normal. Adrenals: Normal. Kidneys: Normal. PELVIS: Reproductive organs: No pelvic masses. Ureters: Normal. Bladder: Normal. OTHER ABDOMEN AND PELVIS: Bowel: Normal caliber. Peritoneum: No free intraperitoneal air. No ascites or fluid collection. Lymph nodes: No enlarged lymph nodes. Abdominal wall: Normal. Osseous structures: No destructive lesions. IMPRESSION: 1. No acute findings within the chest, abdomen and pelvis. 2. No acute aortic injury. 3. Hepatic steatosis. /[employer] Workstation ID: [id number] Dictated by: AMINA LOZANO on SunMay 08, 2019 3:09:21 PM EDT Transcribed by: JOSE ALBERTO GARVEY on SunMay 08, 2019 3:27:10 PM EDT Finalized by: AMINA LOZANO on SunMay 08, 2019 6:07:02 PM EDT Normal [facility] Comment on above: Order Comment: Injur y/Trauma or Illness?:Injury/Trauma How long have you had these symptoms (acute/chronic)?:Acute Reason for exam?:14 ft fall from ladder left forhead lac, left hip and leg pain Type of Exam?:Initial Mechanism of injury?:fall CT CERVICAL SPINE WITHOUT CO NTRASTon 05-08-2019 Interface, Rad [place] 05/08/2019 6:09 PM EDT EXAMINATION: CT CERVICAL SPINE WITHOUT CONTRAST HISTORY: ORDERING SYSTEM PROVIDED HISTORY: Trauma, TECHNOLOGIST PROVIDED HISTORY: Injury/Trauma Reason for exam: 14 ft fall from ladder left forhead lac, left hip and leg pain Encounter Type: Initial Mechanism of injury: fall ORDERING SYSTEM PROVIDED DIAGNOSIS CODES: COMPARISON: None. TECHNIQUE: CT cervical spine without contrast. Dose reduction techniques were achieved by using automated exposure control and/or adjustment of mA and/or kV according to patient size and/or use of iterative reconstruction technique. FINDINGS: There is straightening of the cervical lordosis. No subluxation. Vertebral body heights are maintained. No acute fracture. Craniocervical junction is normal in appearance. Atlantodental distance is not widened. No prevertebral soft tissue swelling. IMPRESSION: 1. No acute fracture or traumatic malalignment. 2. Straightening of the cervical lordosis. ST/[employer] Workstation ID: [id number] [facility] 1. No acute fracture or traumatic malalignment. 2. Straightening of the cervical lordosis. ST/[employer] Workstation ID: [id number] [facility] EXAMINATION: CT CERVICAL SPINE WITHOUT CONTRAST HISTORY: ORDERING SYSTEM PROVIDED HISTORY: Trauma, TECHNOLOGIST PROVIDED HISTORY: Injury/Trauma Reason for exam: 14 ft fall from ladder left forhead lac, left hip and leg pain Encounter Type: Initial Mechanism of injury: fall ORDERING SYSTEM PROVIDED DIAGNOSIS CODES: COMPARISON: None. TECHNIQUE: CT cervical spine without contrast. Dose reduction techniques were achieved by using automated exposure control and/or adjustment of mA and/or kV according to patient size and/or use of iterative reconstruction technique. FINDINGS: There is straightening of the cervical lordosis. No subluxation. Vertebral body heights are maintained. No acute fracture. Craniocervical junction is normal in appearance. Atlantodental distance is not widened. No prevertebral soft tissue swelling. [facility] CT CERVICAL SPINE WITHOUT CONTRAST EXAMINATION: CT CERVICAL SPINE WITHOUT CONTRAST HISTORY: ORDERING SYSTEM PROVIDED HISTORY: Trauma, TECHNOLOGIST PROVIDED HISTORY: Injury/Trauma Reason for exam: 14 ft fall from ladder left forhead lac, left hip and leg pain Encounter Type: Initial Mechanism of injury: fall ORDERING SYSTEM PROVIDED DIAGNOSIS CODES: COMPARISON: None. TECHNIQUE: CT cervical spine without contrast. Dose reduction techniques were achieved by using automated exposure control and/or adjustment of mA and/or kV according to patient size and/or use of iterative reconstruction technique. FINDINGS: There is straightening of the cervical lordosis. No subluxation. Vertebral body heights are maintained. No acute fracture. Craniocervical junction is normal in appearance. Atlantodental distance is not widened. No prevertebral soft tissue swelling. IMPRESSION: 1. No acute fracture or traumatic malalignment. 2. Straightening of the cervical lordosis. /[employer] Workstation ID: [id number] Dictated by: AMINA LOZANO on SunMay 08, 2019 2:52:48 PM EDT Transcribed by: DEBORAH WRIGHT IN [employer] on SunMay 08, 2019 3:13:46 PM EDT Finalized by: AMINA LOZANO on [place] May 08, 2019 6:07:15 PM EDT Normal [facility] Comment on above: Order Comment: Injur y/Trauma or Illness?:Injury/Trauma How long have you had these symptoms (acute/chronic)?:Acute Reason for exam?:level two trauma History of cancer?:u Surgeries, chemotherapy, or radiation?:u Type of Exam?:Initial Mechanism of injury?:lt wrist pain, fell off ladder CT HEAD OR BRAIN WITHOUT CON TRASTon 05-08-2019 Interface, Rad In [employer] - 05/08/2019 6:09 PM EDT EXAMINATION: CT HEAD OR BRAIN WITHOUT CONTRAST HISTORY: ORDERING SYSTEM PROVIDED HISTORY: Trauma, TECHNOLOGIST PROVIDED HISTORY: Injury/Trauma Reason for exam: 14 ft fall from ladder left forhead lac, left hip and leg pain Encounter Type: Initial Mechanism of injury: fall ORDERING SYSTEM PROVIDED DIAGNOSIS CODES: COMPARISON: None. TECHNIQUE: CT examination of the head without IV contrast. Dose reduction techniques were achieved by using automated exposure control and/or adjustment of mA and/or kV according to patient size and/or use of iterative reconstruction technique. FINDINGS: Ventricles and sulci are normal in size and configuration. No extraaxial collection. No intracranial hemorrhage. No mass effect or edema. No CT evidence of large territorial infarction. Visualized paranasal sinuses are well aerated. Mastoids are clear. No depressed calvarial fracture. Mild left frontal scalp contusion. IMPRESSION: No intracranial hemorrhage or mass effect. [email or web address] Workstation ID: [id number] [facility] EXAMINATION: CT HEAD OR BRAIN WITHOUT CONTRAST HISTORY: ORDERING SYSTEM PROVIDED HISTORY: Trauma, TECHNOLOGIST PROVIDED HISTORY: Injury/Trauma Reason for exam: 14 ft fall from ladder left forhead lac, left hip and leg pain Encounter Type: Initial Mechanism of injury: fall ORDERING SYSTEM PROVIDED DIAGNOSIS CODES: COMPARISON: None. TECHNIQUE: CT examination of the head without IV contrast. Dose reduction techniques were achieved by using automated exposure control and/or adjustment of mA and/or kV according to patient size and/or use of iterative reconstruction technique. FINDINGS: Ventricles and sulci are normal in size and configuration. No extraaxial collection. No intracranial hemorrhage. No mass effect or edema. No CT evidence of large territorial infarction. Visualized paranasal sinuses are well aerated. Mastoids are clear. No depressed calvarial fracture. Mild left frontal scalp contusion. [facility] No intracranial hemorrhage or mass effect. [email or web address] Workstation ID: [id number] [facility] CT HEAD OR BRAIN WITHOUT CONTRAST EXAMINATION: CT HEAD OR BRAIN WITHOUT CONTRAST HISTORY: ORDERING SYSTEM PROVIDED HISTORY: Trauma, TECHNOLOGIST PROVIDED HISTORY: Injury/Trauma Reason for exam: 14 ft fall from ladder left forhead lac, left hip and leg pain Encounter Type: Initial Mechanism of injury: fall ORDERING SYSTEM PROVIDED DIAGNOSIS CODES: COMPARISON: None. TECHNIQUE: CT examination of the head without IV contrast. Dose reduction techniques were achieved by using automated exposure control and/or adjustment of mA and/or kV according to patient size and/or use of iterative reconstruction technique. FINDINGS: Ventricles and sulci are normal in size and configuration. No extraaxial collection. No intracranial hemorrhage. No mass effect or edema. No CT evidence of large territorial infarction. Visualized paranasal sinuses are well aerated. Mastoids are clear. No depressed calvarial fracture. Mild left frontal scalp contusion. IMPRESSION: No intracranial hemorrhage or mass effect. [email or web address] Workstation ID: [id number] Dictated by: AMINA LOZANO on SunMay 08, 2019 2:32:56 PM EDT Transcribed by: DEBORAH WRIGHT IN [employer] on SunMay 08, 2019 3:06:20 PM EDT Finalized by: AMINA LOZANO on SunMay 08, 2019 6:07:30 PM EDT Normal [facility] Comment on above: Order Comment: Injur y/Trauma or Illness?:Injury/Trauma How long have you had these symptoms (acute/chronic)?:Acute Reason for exam?:level two trauma History of cancer?:u Surgeries, chemotherapy, or radiation?:u Type of Exam?:Initial Mechanism of injury?:lt wrist pain, fell off ladder CT LUMBAR SPINE WITHOUT CONT RAST RECONSTRUCTEDon 05-08-2019 CT LUMBAR SPINE WITHOUT CONTRAST RECONSTRUCTED EXAMINATION: CT LUMBAR SPINE WITHOUT CONTRAST RECONSTRUCTED HISTORY: ORDERING SYSTEM PROVIDED HISTORY: TRAUMA, TECHNOLOGIST PROVIDED HISTORY: Injury/Trauma Reason for exam: 14 ft fall from ladder left forehead lac, left hip and leg pain Encounter Type: Initial Mechanism of injury: fall ORDERING SYSTEM PROVIDED DIAGNOSIS CODES: COMPARISON: None. TECHNIQUE: CT lumbar spine without contrast. Dose reduction techniques were achieved by using automated exposure control and/or adjustment of mA and/or kV according to patient size and/or use of iterative reconstruction technique. FINDINGS: Age-indeterminate left L5 pars interarticularis fracture. No associated listhesis. No fracture seen elsewhere. Normal lumbar lordosis. Normal vertebral body heights. Mild multilevel degenerative disc changes. IMPRESSION: Age-indeterminate left L5 pars articularis fracture without listhesis. No additional fractures identified. [employer] Workstation ID: [id number] Dictated by: AMINA LOZANO on SunMay 08, 2019 2:52:01 PM EDT Transcribed by: JOSE ALBERTO GARVEY on SunMay 08, 2019 3:18:05 PM EDT Finalized by: AMINA LOZANO on SunMay 08, 2019 6:07:06 PM EDT Normal [facility] Comment on above: Order Comment: Injur y/Trauma or Illness?:Injury/Trauma How long have you had these symptoms (acute/chronic)?:Acute Reason for exam?:14 ft fall from ladder left forhead lac, left hip and leg pain Type of Exam?:Initial Mechanism of injury?:fall CT Lumbar Spine Without Cont rast Reconstructedon 05-08-2019 Age-indeterminate left L5 pars articularis fracture without listhesis. No additional fractures identified. [employer] Workstation ID: [id number] [facility] Interface, Rad In [facility] Speechq - 05/08/2019 6:09 PM EDT EXAMINATION: CT LUMBAR SPINE WITHOUT CONTRAST RECONSTRUCTED HISTORY: ORDERING SYSTEM PROVIDED HISTORY: TRAUMA, TECHNOLOGIST PROVIDED HISTORY: Injury/Trauma Reason for exam: 14 ft fall from ladder left forehead lac, left hip and leg pain Encounter Type: Initial Mechanism of injury: fall ORDERING SYSTEM PROVIDED DIAGNOSIS CODES: COMPARISON: None. TECHNIQUE: CT lumbar spine without contrast. Dose reduction techniques were achieved by using automated exposure control and/or adjustment of mA and/or kV according to patient size and/or use of iterative reconstruction technique. FINDINGS: Age-indeterminate left L5 pars interarticularis fracture. No associated listhesis. No fracture seen elsewhere. Normal lumbar lordosis. Normal vertebral body heights. Mild multilevel degenerative disc changes. IMPRESSION: Age-indeterminate left L5 pars articularis fracture without listhesis. No additional fractures identified. [employer] Workstation ID: [id number] [facility] EXAMINATION: CT LUMBAR SPINE WITHOUT CONTRAST RECONSTRUCTED HISTORY: ORDERING SYSTEM PROVIDED HISTORY: TRAUMA, TECHNOLOGIST PROVIDED HISTORY: Injury/Trauma Reason for exam: 14 ft fall from ladder left forehead lac, left hip and leg pain Encounter Type: Initial Mechanism of injury: fall ORDERING SYSTEM PROVIDED DIAGNOSIS CODES: COMPARISON: None. TECHNIQUE: CT lumbar spine without contrast. Dose reduction techniques were achieved by using automated exposure control and/or adjustment of mA and/or kV according to patient size and/or use of iterative reconstruction technique. FINDINGS: Age-indeterminate left L5 pars interarticularis fracture. No associated listhesis. No fracture seen elsewhere. Normal lumbar lordosis. Normal vertebral body heights. Mild multilevel degenerative disc changes. [facility] CT THORACIC SPINE WITHOUT CO NTRAST RECONSTRUCTEDon 05-08-2019 CT THORACIC SPINE WITHOUT CONTRAST RECONSTRUCTED EXAMINATION: CT THORACIC SPINE WITHOUT CONTRAST RECONSTRUCTED HISTORY: ORDERING SYSTEM PROVIDED HISTORY: TRAUMA, TECHNOLOGIST PROVIDED HISTORY: Injury/Trauma Reason for exam: 14 ft fall from ladder left forehead lac, left hip and leg pain Encounter Type: Initial Mechanism of injury: fall ORDERING SYSTEM PROVIDED DIAGNOSIS CODES: COMPARISON: None. TECHNIQUE: CT thoracic spine without contrast. Dose reduction techniques were achieved by using automated exposure control and/or adjustment of mA and/or kV according to patient size and/or use of iterative reconstruction technique. FINDINGS: There is normal thoracic kyphosis. No subluxation. Vertebral body heights are maintained. No fracture is seen. IMPRESSION: No acute fracture or traumatic malalignment. [employer] Workstation ID: [id number] Dictated by: AMINA LOZANO on SunMay 08, 2019 2:46:08 PM EDT Transcribed by: SOBIA GREGG on SunMay 08, 2019 3:15:04 PM EDT Finalized by: AMINA LOZANO on SunMay 08, 2019 6:07:09 PM EDT [facility] Comment on above: Order Comment: Injur y/Trauma or Illness?:Injury/Trauma How long have you had these symptoms (acute/chronic)?:Acute Reason for exam?:level two trauma History of cancer?:u Surgeries, chemotherapy, or radiation?:u Type of Exam?:Initial Mechanism of injury?:lt wrist pain, fell off ladder CT Thoracic Spine Without Co ntrast Reconstructedon 05-08-2019 Interface, Rad In [employer] - 05/08/2019 6:09 PM EDT EXAMINATION: CT THORACIC SPINE WITHOUT CONTRAST RECONSTRUCTED HISTORY: ORDERING SYSTEM PROVIDED HISTORY: TRAUMA, TECHNOLOGIST PROVIDED HISTORY: Injury/Trauma Reason for exam: 14 ft fall from ladder left forehead lac, left hip and leg pain Encounter Type: Initial Mechanism of injury: fall ORDERING SYSTEM PROVIDED DIAGNOSIS CODES: COMPARISON: None. TECHNIQUE: CT thoracic spine without contrast. Dose reduction techniques were achieved by using automated exposure control and/or adjustment of mA and/or kV according to patient size and/or use of iterative reconstruction technique. FINDINGS: There is normal thoracic kyphosis. No subluxation. Vertebral body heights are maintained. No fracture is seen. IMPRESSION: No acute fracture or traumatic malalignment. [employer] Workstation ID: [id number] [facility] No acute fracture or traumatic malalignment. [employer] Workstation ID: [id number] [facility] EXAMINATION: CT THORACIC SPINE WITHOUT CONTRAST RECONSTRUCTED HISTORY: ORDERING SYSTEM PROVIDED HISTORY: TRAUMA, TECHNOLOGIST PROVIDED HISTORY: Injury/Trauma Reason for exam: 14 ft fall from ladder left forehead lac, left hip and leg pain Encounter Type: Initial Mechanism of injury: fall ORDERING SYSTEM PROVIDED DIAGNOSIS CODES: COMPARISON: None. TECHNIQUE: CT thoracic spine without contrast. Dose reduction techniques were achieved by using automated exposure control and/or adjustment of mA and/or kV according to patient size and/or use of iterative reconstruction technique. FINDINGS: There is normal thoracic kyphosis. No subluxation. Vertebral body heights are maintained. No fracture is seen. [facility] Comprehensive Metabolic Pane giselle 05-08-2019 Albumin [Mass/Vol] 3.7 g/dL 3.2 - 5.2 g/dL [facility] ALP [Catalytic activity/Vol] 60 U/L 40 - 140 U/L [facility] ALT [Catalytic activity/Vol] 60 U/L 14 - 65 U/L [facility] Anion gap [Moles/Vol] 12 mmol/L 10 - 2 0 mmol/L [facility] AST [Catalytic activity/Vol] 28 U/L 0 - 45 U/L [facility] Bilirubin [Mass/Vol] 0.6 mg/dL 0 - 1.3 mg/dL [facility] Calcium [Mass/Vol] 8.6 mg/dL 8.4 - 10. 2 mg/dL [facility] Chloride [Moles/Vol] 109 mmol/L High 98 - 10 8 mmol/L [facility] Creatinine [Mass/Vol] 1.07 mg/dL 0.5 - 1.3 mg/dL [facility] GFR/1.73 sq M predicted among non-blacks MDRD (S/P/Bld) [Vol rate/Area] The eGFR should be used for monitoring renal function only and not for medication dosing. [facility] GFR/1.73 sq M.predicted CKD-EPI (S/P/Bld) [Vol rate/Area] 101 >=60 mL/min/1.73 m2 [facility] GFR/1.73 sq M.predicted CKD-EPI (S/P/Bld) [Vol rate/Area] 88 >=60 mL/min/1.73 m2 [facility] Glucose [Mass/Vol] 92 mg/dL 65 - 99 mg/dL [facility] HCO3 [Moles/Vol] 24 mmol/L 21 - 32 mmol/L [facility] Interpretation and review of laboratory results Abnormal [facility] Potassium [Moles/Vol] 3.3 mmol/L Low 3.5 - 5.1 mmol/L [facility] Protein [Mass/Vol] 6.8 g/dL 6 - 8 g/dL [facility] Sodium [Moles/Vol] 142 mmol/L 135 - 145 mmol/L [facility] Urea nitrogen [Mass/Vol] 16 mg/dL 8 - 25 mg/d L [facility] Urea nitrogen/Creatinine [Mass ratio] 15.0 mg/mg [facility] Magnesium Levelon 05-08-2019 Magnesium [Mass/Vol] 2.0 mg/dL 1.6 - 2 .4 mg/dL [facility] Otheron 05-08-2019 Interface, Rad In [employer] - 05/08/2019 3:55 PM EDT EXAMINATION: XR WRIST LEFT 3+ VIEWS (STANDARD); XR HAND LEFT 3+ VIEWS (STANDARD) HISTORY: pain COMPARISON: None. TECHNIQUE: Three views left wrist, three views left hand FINDINGS: No fracture or dislocation is seen. Joint spaces are well maintained. No bony erosive changes. Soft tissues are unremarkable. No radiopaque foreign bodies. IMPRESSION: Normal left wrist and hand Workstation ID: [id number] [facility] Normal left wrist an d hand Workstation ID: [id number] [facility] EXAMINATION: XR WRIS T LEFT 3+ VIEWS (STANDARD); XR HAND LEFT 3+ VIEWS (STANDARD) HISTORY: pain COMPARISON: None. TECHNIQUE: Three views left wrist, three views left hand FINDINGS: No fracture or dislocation is seen. Joint spaces are well maintained. No bony erosive changes. Soft tissues are unremarkable. No radiopaque foreign bodies. [facility] Interpretation and review of laboratory results Normal [facility] POC Venous Blood Gas Panel-P ulmon 05-08-2019 Base excess Calc (BldV) [Moles/Vol] 0.4 mmol/L [facility] Breath rate setting Ventilator synchronized intermittent mandatory 0 [facility] h CO2 (BldV) [Partial pressure] 42.2 mm[Hg] [facility] HCO3 (Bld) [Moles/Vol] 25.6 mmol/L 24 - 28 mmol/L [facility] Hematocrit (BldA) [Volume fraction] 44.2 % 41 - 53 % [facility] Hemoglobin (Bld) [Mass/Vol] 14.4 g/dL 13.5 - 18 g/dL [facility] Inhaled oxygen concentration 0 % [facility] Interpretation and review of laboratory results Abnormal [facility] Oxygen (BldV) [Partial pressure] 174 mm[Hg] High [facility] Oxygen saturation in Venous blood 99.4 % [facility] pH (BldV) 7.39 [pH] [facility] Tidal volume setting Ventilator 0 [facility] Phosphoruson 05-08-2019 Phosphate [Mass/Vol] 2.8 mg/dL 2.7 - 4 .5 mg/dL [facility] Type and Screenon 05-08-2019 ABO and Rh group Nom (d) B Positive [facility] Blood group antibody screen Ql Negative [facility] Specimen Expires 05/11/2019 23:59 EST [facility] XR ANKLE LEFT 3+ VIEWS (BRYAN JERI)on 05-08-2019 EXAMINATION: XR ANKL E LEFT 3+ VIEWS (STANDARD) HISTORY: ORDERING SYSTEM PROVIDED HISTORY: pain, TECHNOLOGIST PROVIDED HISTORY: Injury/Trauma Reason for exam: level two trauma Cancer History: u Surgery, RadiationHistory: u Encounter Type: Initial Mechanism of injury: lt ankle pain, fell off ladder ORDERING SYSTEM PROVIDED DIAGNOSIS CODES: COMPARISON: None. FINDINGS: Three views of the left ankle. 5 mm rounded density projects over the plantar aponeurosis origin suggestive of sequela of remote trauma, calcification or acute avulsed fracture. No additional fractures identified. Moderate Achilles calcaneal enthesophyte. Joints and ankle mortise are anatomically aligned. Joint spaces are preserved. Soft tissues are within normal limits. [facility] Small rounded densit y projects over the plantar aponeurosis origin on the lateral view. Favor globular calcification or sequela of remote trauma. [place] less likely to represent an acute avulsed fracture. Please correlate with point tenderness. [facility] Workstation ID: [id number] [facility] Interface, Rad In [employer] - 05/08/2019 6:05 PM EDT EXAMINATION: XR ANKLE LEFT 3+ VIEWS (STANDARD) HISTORY: ORDERING SYSTEM PROVIDED HISTORY: pain, TECHNOLOGIST PROVIDED HISTORY: Injury/Trauma Reason for exam: level two trauma Cancer History: u Surgery, RadiationHistory: u Encounter Type: Initial Mechanism of injury: lt ankle pain, fell off ladder ORDERING SYSTEM PROVIDED DIAGNOSIS CODES: COMPARISON: None. FINDINGS: Three views of the left ankle. 5 mm rounded density projects over the plantar aponeurosis origin suggestive of sequela of remote trauma, calcification or acute avulsed fracture. No additional fractures identified. Moderate Achilles calcaneal enthesophyte. Joints and ankle mortise are anatomically aligned. Joint spaces are preserved. Soft tissues are within normal limits. IMPRESSION: Small rounded density projects over the plantar aponeurosis origin on the lateral view. Favor globular calcification or sequela of remote trauma. [place] less likely to represent an acute avulsed fracture. Please correlate with point tenderness. [email or web address] Workstation ID: [id number] [facility] XR ANKLE LEFT 3+ VIEWS (STANDARD) EXAMINATION: XR ANKLE LEFT 3+ VIEWS (STANDARD) HISTORY: ORDERING SYSTEM PROVIDED HISTORY: pain, TECHNOLOGIST PROVIDED HISTORY: Injury/Trauma Reason for exam: level two trauma Cancer History: u Surgery, RadiationHistory: u Encounter Type: Initial Mechanism of injury: lt ankle pain, fell off ladder ORDERING SYSTEM PROVIDED DIAGNOSIS CODES: COMPARISON: None. FINDINGS: Three views of the left ankle. 5 mm rounded density projects over the plantar aponeurosis origin suggestive of sequela of remote trauma, calcification or acute avulsed fracture. No additional fractures identified. Moderate Achilles calcaneal enthesophyte. Joints and ankle mortise are anatomically aligned. Joint spaces are preserved. Soft tissues are within normal limits. IMPRESSION: Small rounded density projects over the plantar aponeurosis origin on the lateral view. Favor globular calcification or sequela of remote trauma. [place] less likely to represent an acute avulsed fracture. Please correlate with point tenderness. [email or web address] Workstation ID: [id number] Dictated by: AMINA LOZANO on SunMay 08, 2019 4:01:31 PM EDT Transcribed by: DEBORAH WRIGHT IN [employer] on SunMay 08, 2019 4:20:00 PM EDT Finalized by: AMINA LOZANO on SunMay 08, 2019 6:02:36 PM EDT [facility] Comment on above: Order Comment: Injur y/Trauma or Illness?:Injury/Trauma How long have you had these symptoms (acute/chronic)?:Acute Reason for exam?:level two trauma History of cancer?:u Surgeries, chemotherapy, or radiation?:u Type of Exam?:Initial Mechanism of injury?:lt ankle pain, fell off ladder XR CHEST PA/APon 05-08-2019 XR CHEST PA/AP EXAMINATION: XR CHEST PA/AP HISTORY: ORDERING SYSTEM PROVIDED HISTORY: Trauma Level 2, TECHNOLOGIST PROVIDED HISTORY: Injury/Trauma Reason for exam: level two trauma Cancer History: u Surgery, RadiationHistory: u Encounter Type: Initial Mechanism of injury: fel off ladder ORDERING SYSTEM PROVIDED DIAGNOSIS CODES: COMPARISON: None. FINDINGS: One-view chest x-ray. No pneumothorax, pleural effusion or focal airspace consolidation. Heart is normal in size. No displaced rib fractures. IMPRESSION: 1. No acute cardiopulmonary process. 2. No acute displaced rib fractures. [employer] Workstation ID: [id number] Dictated by: AMINA LOZANO on SunMay 08, 2019 2:03:35 PM EDT Transcribed by: DONN WILKINSON on SunMay 08, 2019 2:44:34 PM EDT Finalized by: AMINA LOZANO on SunMay 08, 2019 6:09:05 PM EDT Normal [facility] Comment on above: Order Comment: Injur y/Trauma or Illness?:Injury/Trauma How long have you had these symptoms (acute/chronic)?:Acute Reason for exam?:level two trauma History of cancer?:u Surgeries, chemotherapy, or radiation?:u Type of Exam?:Initial Mechanism of injury?:lt wrist pain, fell off ladder XR Chest 1 Viewon 05-08-2019 Interface, Rad In [employer] - 05/08/2019 6:11 PM EDT EXAMINATION: XR CHEST PA/AP HISTORY: ORDERING SYSTEM PROVIDED HISTORY: Trauma Level 2, TECHNOLOGIST PROVIDED HISTORY: Injury/Trauma Reason for exam: level two trauma Cancer History: u Surgery, RadiationHistory: u Encounter Type: Initial Mechanism of injury: fel off ladder ORDERING SYSTEM PROVIDED DIAGNOSIS CODES: COMPARISON: None. FINDINGS: One-view chest x-ray. No pneumothorax, pleural effusion or focal airspace consolidation. Heart is normal in size. No displaced rib fractures. IMPRESSION: 1. No acute cardiopulmonary process. 2. No acute displaced rib fractures. [email or web address] Workstation ID: [id number] [facility] EXAMINATION: XR CHES T PA/AP HISTORY: ORDERING SYSTEM PROVIDED HISTORY: Trauma Level 2, TECHNOLOGIST PROVIDED HISTORY: Injury/Trauma Reason for exam: level two trauma Cancer History: u Surgery, RadiationHistory: u Encounter Type: Initial Mechanism of injury: fel off ladder ORDERING SYSTEM PROVIDED DIAGNOSIS CODES: COMPARISON: None. FINDINGS: One-view chest x-ray. No pneumothorax, pleural effusion or focal airspace consolidation. Heart is normal in size. No displaced rib fractures. [facility] 1. No acute cardiopulmonary process. 2. No acute displaced rib fractures. ST/trn Workstation ID: [id number] [facility] XR FEMUR LEFT 2+ VIEWS (BRYAN DARD)on 05-08-2019 XR FEMUR LEFT 2+ VIEWS (STANDARD) EXAMINATION: XR FEMUR LEFT 2+ VIEWS (STANDARD) HISTORY: ORDERING SYSTEM PROVIDED HISTORY: pain, TECHNOLOGIST PROVIDED HISTORY: Injury/Trauma Reason for exam: level two trauma Cancer History: u Surgery, RadiationHistory: u Encounter Type: Initial Mechanism of injury: lt femur pain ORDERING SYSTEM PROVIDED DIAGNOSIS CODES: COMPARISON: None. FINDINGS: Two views of the left femur. No acute fracture. Soft tissues appear unremarkable. IMPRESSION: No acute osseous abnormality. [email or web address] Workstation ID: [id number] Dictated by: AMINA LOZANO on SunMay 08, 2019 4:03:54 PM EDT Transcribed by: DONN WILKINSON on SunMay 08, 2019 4:21:33 PM EDT Finalized by: AMINA LOZANO on SunMay 08, 2019 6:00:08 PM EDT [facility] Comment on above: Order Comment: Injur y/Trauma or Illness?:Injury/Trauma How long have you had these symptoms (acute/chronic)?:Acute Reason for exam?:level two trauma History of cancer?:u Surgeries, chemotherapy, or radiation?:u Type of Exam?:Initial Mechanism of injury?:lt femur pain XR FOOT LEFT 3+ VIEWS (STAND MARÍA ELENA)on 05-08-2019 EXAMINATION: XR FOOT LEFT 3+ VIEWS (STANDARD) HISTORY: ORDERING SYSTEM PROVIDED HISTORY: pain, TECHNOLOGIST PROVIDED HISTORY: Injury/Trauma Reason for exam: level two trauma Cancer History: u Surgery, RadiationHistory: u Encounter Type: Initial Mechanism of injury: lt foot pain, fell off ladder ORDERING SYSTEM PROVIDED DIAGNOSIS CODES: COMPARISON: None. FINDINGS: Three views of the left foot. 5 mm rounded density projects over the origin of the plantar aponeurosis. Mild Achilles calcaneal enthesophyte. Joint alignment is anatomic. Joint spaces are preserved. Soft tissues are within normal limits. [facility] Indeterminate 5 mm rounded density projects over the origin of the plantar aponeurosis. Favored to relate to globular calcification or sequela of remote trauma. Cannot exclude acute avulsed fracture. No acute osseous abnormality seen elsewhere. [employer] Workstation ID: [id number] [facility] Interface, Rad In [employer] - 05/08/2019 6:02 PM EDT EXAMINATION: XR FOOT LEFT 3+ VIEWS (STANDARD) HISTORY: ORDERING SYSTEM PROVIDED HISTORY: pain, TECHNOLOGIST PROVIDED HISTORY: Injury/Trauma Reason for exam: level two trauma Cancer History: u Surgery, RadiationHistory: u Encounter Type: Initial Mechanism of injury: lt foot pain, fell off ladder ORDERING SYSTEM PROVIDED DIAGNOSIS CODES: COMPARISON: None. FINDINGS: Three views of the left foot. 5 mm rounded density projects over the origin of the plantar aponeurosis. Mild Achilles calcaneal enthesophyte. Joint alignment is anatomic. Joint spaces are preserved. Soft tissues are within normal limits. IMPRESSION: Indeterminate 5 mm rounded density projects over the origin of the plantar aponeurosis. Favored to relate to globular calcification or sequela of remote trauma. Cannot exclude acute avulsed fracture. No acute osseous abnormality seen elsewhere. [employer] Workstation ID: [id number] [facility] XR FOOT LEFT 3+ VIEWS (STANDARD) EXAMINATION: XR FOOT LEFT 3+ VIEWS (STANDARD) HISTORY: ORDERING SYSTEM PROVIDED HISTORY: pain, TECHNOLOGIST PROVIDED HISTORY: Injury/Trauma Reason for exam: level two trauma Cancer History: u Surgery, RadiationHistory: u Encounter Type: Initial Mechanism of injury: lt foot pain, fell off ladder ORDERING SYSTEM PROVIDED DIAGNOSIS CODES: COMPARISON: None. FINDINGS: Three views of the left foot. 5 mm rounded density projects over the origin of the plantar aponeurosis. Mild Achilles calcaneal enthesophyte. Joint alignment is anatomic. Joint spaces are preserved. Soft tissues are within normal limits. IMPRESSION: Indeterminate 5 mm rounded density projects over the origin of the plantar aponeurosis. Favored to relate to globular calcification or sequela of remote trauma. Cannot exclude acute avulsed fracture. No acute osseous abnormality seen elsewhere. [employer] Workstation ID: [id number] Dictated by: AMINA LOZANO on SunMay 08, 2019 4:10:37 PM EDT Transcribed by: DEBORAH WRIGHT IN [employer] on SunMay 08, 2019 4:32:56 PM EDT Finalized by: AMINA LOZANO on SunMay 08, 2019 6:00:05 PM EDT [facility] Comment on above: Order Comment: Injur y/Trauma or Illness?:Injury/Trauma How long have you had these symptoms (acute/chronic)?:Acute Reason for exam?:level two trauma History of cancer?:u Surgeries, chemotherapy, or radiation?:u Type of Exam?:Initial Mechanism of injury?:lt foot pain, fell off ladder XR FOREARM RIGHT 2 VIEWSon 0 05-08-2019 XR FOREARM RIGHT 2 VIEWS EXAMINATION: XR FOREARM RIGHT 2 VIEWS HISTORY: M, 38 y/o , pain COMPARISON: Right wrist films, same date TECHNIQUE: Two views of the right forearm are performed. FINDINGS: There is no fracture within the radius and ulna. There is slight irregularity to the dorsal aspect of the triquetrum, which may represent a nondisplaced fracture. There is soft tissue swelling along the dorsum of the wrist. IMPRESSION: Question triquetrum fracture. No additional bony abnormality. Workstation ID: [id number] Dictated by: LUCIO JALLOH on SunMay 08, 2019 3:56:56 PM EDT Transcribed by: LUCIO JALLOH on SunMay 08, 2019 3:56:56 PM EDT Finalized by: LUCIO JALOLH on SunMay 08, 2019 3:56:56 PM EDT [facility] Comment on above: Order Comment: Injur y/Trauma or Illness?:Injury/Trauma How long have you had these symptoms (acute/chronic)?:Acute Reason for exam?:level two trauma History of cancer?:u Surgeries, chemotherapy, or radiation?:u Type of Exam?:Initial Mechanism of injury?:rt forearm pain XR Femur Left 2+ Views (Bryan garcia)on 05-08-2019 EXAMINATION: XR FEMU R LEFT 2+ VIEWS (STANDARD) HISTORY: ORDERING SYSTEM PROVIDED HISTORY: pain, TECHNOLOGIST PROVIDED HISTORY: Injury/Trauma Reason for exam: level two trauma Cancer History: u Surgery, RadiationHistory: u Encounter Type: Initial Mechanism of injury: lt femur pain ORDERING SYSTEM PROVIDED DIAGNOSIS CODES: COMPARISON: None. FINDINGS: Two views of the left femur. No acute fracture. Soft tissues appear unremarkable. [facility] No acute osseous abnormality. [employer] Workstation ID: [id number] [place] [facility], Rad In [employer] - 05/08/2019 6:02 PM EDT EXAMINATION: XR FEMUR LEFT 2+ VIEWS (STANDARD) HISTORY: ORDERING SYSTEM PROVIDED HISTORY: pain, TECHNOLOGIST PROVIDED HISTORY: Injury/Trauma Reason for exam: level two trauma Cancer History: u Surgery, RadiationHistory: u Encounter Type: Initial Mechanism of injury: lt femur pain ORDERING SYSTEM PROVIDED DIAGNOSIS CODES: COMPARISON: None. FINDINGS: Two views of the left femur. No acute fracture. Soft tissues appear unremarkable. IMPRESSION: No acute osseous abnormality. [email or web address] Workstation ID: [id number] [facility] XR Forearm Right 2 Viewson 0 05-08-2019 Question triquetrum fracture. No additional bony abnormality. Workstation ID: [id number] [employer] Interface, Rad In [employer] - 05/08/2019 3:59 PM EDT EXAMINATION: XR FOREARM RIGHT 2 VIEWS HISTORY: M, 38 y/o , pain COMPARISON: Right wrist films, same date TECHNIQUE: Two views of the right forearm are performed. FINDINGS: There is no fracture within the radius and ulna. There is slight irregularity to the dorsal aspect of the triquetrum, which may represent a nondisplaced fracture. There is soft tissue swelling along the dorsum of the wrist. IMPRESSION: Question triquetrum fracture. No additional bony abnormality. Workstation ID: [id number] [facility] EXAMINATION: XR FOREARM RIGHT 2 VIEWS HISTORY: M, 38 y/o , pain COMPARISON: Right wrist films, same date TECHNIQUE: Two views of the right forearm are performed. FINDINGS: There is no fracture within the radius and ulna. There is slight irregularity to the dorsal aspect of the triquetrum, which may represent a nondisplaced fracture. There is soft tissue swelling along the dorsum of the wrist. [facility] XR HAND LEFT 3+ VIEWS (STAND MARÍA ELENA)on 05-08-2019 XR HAND LEFT 3+ VIEWS (STANDARD) EXAMINATION: XR WRIST LEFT 3+ VIEWS (STANDARD); XR HAND LEFT 3+ VIEWS (STANDARD) HISTORY: pain COMPARISON: None. TECHNIQUE: Three views left wrist, three views left hand FINDINGS: No fracture or dislocation is seen. Joint spaces are well maintained. No bony erosive changes. Soft tissues are unremarkable. No radiopaque foreign bodies. IMPRESSION: Normal left wrist and hand Workstation ID: [id number] Dictated by: LUIS SIMPSON on SunMay 08, 2019 3:52:45 PM EDT Transcribed by: LUIS SIMPSON on SunMay 08, 2019 3:52:45 PM EDT Finalized by: LUIS SIMPSON on SunMay 08, 2019 3:52:45 PM EDT [facility] Comment on above: Order Comment: Injur y/Trauma or Illness?:Injury/Trauma How long have you had these symptoms (acute/chronic)?:Acute Reason for exam?:level two trauma History of cancer?:u Surgeries, chemotherapy, or radiation?:u Type of Exam?:Initial Mechanism of injury?:lt hand pain XR KNEE LEFT 2 VIEWS (STANDA RD)on 05-08-2019 EXAMINATION: XR KNEE LEFT 2 VIEWS (STANDARD) HISTORY: ORDERING SYSTEM PROVIDED HISTORY: pain, TECHNOLOGIST PROVIDED HISTORY: Injury/Trauma Reason for exam: level two trauma Cancer History: u Surgery, RadiationHistory: u Encounter Type: Initial Mechanism of injury: lt knee pain ORDERING SYSTEM PROVIDED DIAGNOSIS CODES: COMPARISON: None. FINDINGS: Two views of the left knee. No acute fracture. Joint alignment is anatomic. Joint spaces are preserved. No significant joint effusion. Soft tissues are within normal limits. [facility] No acute fracture or traumatic malalignment. [email or web address] Workstation ID: [id number] [facility] - 05/08/2019 6:06 PM EDT EXAMINATION: XR KNEE LEFT 2 VIEWS (STANDARD) HISTORY: ORDERING SYSTEM PROVIDED HISTORY: pain, TECHNOLOGIST PROVIDED HISTORY: Injury/Trauma Reason for exam: level two trauma Cancer History: u Surgery, RadiationHistory: u Encounter Type: Initial Mechanism of injury: lt knee pain ORDERING SYSTEM PROVIDED DIAGNOSIS CODES: COMPARISON: None. FINDINGS: Two views of the left knee. No acute fracture. Joint alignment is anatomic. Joint spaces are preserved. No significant joint effusion. Soft tissues are within normal limits. IMPRESSION: No acute fracture or traumatic malalignment. [email or web address] Workstation ID: [id number] [facility] XR KNEE LEFT 2 VIEWS (STANDARD) EXAMINATION: XR KNEE LEFT 2 VIEWS (STANDARD) HISTORY: ORDERING SYSTEM PROVIDED HISTORY: pain, TECHNOLOGIST PROVIDED HISTORY: Injury/Trauma Reason for exam: level two trauma Cancer History: u Surgery, RadiationHistory: u Encounter Type: Initial Mechanism of injury: lt knee pain ORDERING SYSTEM PROVIDED DIAGNOSIS CODES: COMPARISON: None. FINDINGS: Two views of the left knee. No acute fracture. Joint alignment is anatomic. Joint spaces are preserved. No significant joint effusion. Soft tissues are within normal limits. IMPRESSION: No acute fracture or traumatic malalignment. [facility] Workstation ID: [id number] Dictated by: AMINA LOZANO on SunMay 08, 2019 3:53:24 PM EDT Transcribed by: DEBORAH WRIGHT IN [employer] on SunMay 08, 2019 4:11:19 PM EDT Finalized by: AMINA LOZANO on SunMay 08, 2019 6:03:32 PM EDT [facility] Comment on above: Order Comment: Injur y/Trauma or Illness?:Injury/Trauma How long have you had these symptoms (acute/chronic)?:Acute Reason for exam?:level two trauma History of cancer?:u Surgeries, chemotherapy, or radiation?:u Type of Exam?:Initial Mechanism of injury?:lt knee pain XR PELVIS 1 VIEW (STANDARD)o n 05-08-2019 XR PELVIS 1 VIEW (STANDARD) EXAMINATION: XR PELVIS 1 VIEW (STANDARD) HISTORY: ORDERING SYSTEM PROVIDED HISTORY: Trauma Level 2, TECHNOLOGIST PROVIDED HISTORY: Injury/Trauma Reason for exam: level two trauma Cancer History: u Surgery, RadiationHistory: u Encounter Type: Initial Mechanism of injury: fell off ladder ORDERING SYSTEM PROVIDED DIAGNOSIS CODES: COMPARISON: None FINDINGS: Frontal view of the pelvis. No acute fracture or traumatic malalignment. Joint spaces are preserved. Soft tissues appear unremarkable. IMPRESSION: Grossly, no acute osseous abnormality. / Workstation ID: [id number] Dictated by: AMINA LOZANO on SunMay 08, 2019 2:05:32 PM EDT Transcribed by: BIJAL GOYAL on SunMay 08, 2019 2:46:23 PM EDT Finalized by: AMINA LOZANO on SunMay 08, 2019 6:09:02 PM EDT [facility] Comment on above: Order Comment: Injur y/Trauma or Illness?:Injury/Trauma How long have you had these symptoms (acute/chronic)?:Acute Reason for exam?:level two trauma History of cancer?:u Surgeries, chemotherapy, or radiation?:u Type of Exam?:Initial Mechanism of injury?:lt wrist pain, fell off ladder XR Pelvis 1 View (Standard)o n 05-08-2019 Grossly, no acute osseous abnormality. ST[facility] Workstation ID: [id number] [facility] EXAMINATION: XR PELVIS 1 VIEW (STANDARD) HISTORY: ORDERING SYSTEM PROVIDED HISTORY: Trauma Level 2, TECHNOLOGIST PROVIDED HISTORY: Injury/Trauma Reason for exam: level two trauma Cancer History: u Surgery, RadiationHistory: u Encounter Type: Initial Mechanism of injury: fell off ladder ORDERING SYSTEM PROVIDED DIAGNOSIS CODES: COMPARISON: None FINDINGS: Frontal view of the pelvis. No acute fracture or traumatic malalignment. Joint spaces are preserved. Soft tissues appear unremarkable. [facility] Interface, Rad In [employer] - 05/08/2019 6:11 PM EDT EXAMINATION: XR PELVIS 1 VIEW (STANDARD) HISTORY: ORDERING SYSTEM PROVIDED HISTORY: Trauma Level 2, TECHNOLOGIST PROVIDED HISTORY: Injury/Trauma Reason for exam: level two trauma Cancer History: u Surgery, RadiationHistory: u Encounter Type: Initial Mechanism of injury: fell off ladder ORDERING SYSTEM PROVIDED DIAGNOSIS CODES: COMPARISON: None FINDINGS: Frontal view of the pelvis. No acute fracture or traumatic malalignment. Joint spaces are preserved. Soft tissues appear unremarkable. IMPRESSION: Grossly, no acute osseous abnormality. ST/[facility] Workstation ID: [id number] [facility] XR WRIST LEFT 3+ VIEWS (BRYAN JERI)on 05-08-2019 XR WRIST LEFT 3+ VIEWS (STANDARD) EXAMINATION: XR WRIST LEFT 3+ VIEWS (STANDARD); XR HAND LEFT 3+ VIEWS (STANDARD) HISTORY: pain COMPARISON: None. TECHNIQUE: Three views left wrist, three views left hand FINDINGS: No fracture or dislocation is seen. Joint spaces are well maintained. No bony erosive changes. Soft tissues are unremarkable. No radiopaque foreign bodies. IMPRESSION: Normal left wrist and hand Workstation ID: [id number] Dictated by: LUIS SIMPSON on SunMay 08, 2019 3:52:45 PM EDT Transcribed by: LUIS SIMPSON on SunMay 08, 2019 3:52:45 PM EDT Finalized by: LUIS SIMPSON on SunMay 08, 2019 3:52:45 PM EDT [facility] Comment on above: Order Comment: Injur y/Trauma or Illness?:Injury/Trauma How long have you had these symptoms (acute/chronic)?:Acute Reason for exam?:level two trauma History of cancer?:u Surgeries, chemotherapy, or radiation?:u Type of Exam?:Initial Mechanism of injury?:lt wrist pain, fell off ladder XR WRIST RIGHT 3+ VIEWS (STA NDARD)on 05-08-2019 XR WRIST RIGHT 3+ VIEWS (STANDARD) EXAMINATION: XR WRIST RIGHT 3+ VIEWS (STANDARD) HISTORY: M, 38 y/o , pain s/p fall COMPARISON: None TECHNIQUE: Four views of the right wrist are performed. FINDINGS: There is irregularity to the triquetrum, question nondisplaced fracture.The remaining bony structures are unremarkable.Joint spaces are maintained. IMPRESSION: Suspected nondisplaced fracture to the triquetrum, ulnar aspect. Workstation ID: [id number] Dictated by: LUCIO JALLOH on SunMay 08, 2019 3:52:44 PM EDT Transcribed by: LUCIO JALLOH on SunMay 08, 2019 3:52:44 PM EDT Finalized by: LUCIO JALLOH on SunMay 08, 2019 3:52:44 PM EDT [facility] Comment on above: Order Comment: Injur y/Trauma or Illness?:Injury/Trauma How long have you had these symptoms (acute/chronic)?:Acute Reason for exam?:level two trauma History of cancer?:u Surgeries, chemotherapy, or radiation?:u Type of Exam?:Initial Mechanism of injury?:rt wrist pain, fell off ladder XR Wrist Right 3+ Views (Sta ndard)on 05-08-2019 [facility] - 05/08/2019 3:55 PM EDT EXAMINATION: XR WRIST RIGHT 3+ VIEWS (STANDARD) HISTORY: M, 38 y/o , pain s/p fall COMPARISON: None TECHNIQUE: Four views of the right wrist are performed. FINDINGS: There is irregularity to the triquetrum, question nondisplaced fracture.The remaining bony structures are unremarkable.Joint spaces are maintained. IMPRESSION: Suspected nondisplaced fracture to the triquetrum, ulnar aspect. Workstation ID: [id number] [facility] EXAMINATION: XR WRIS T RIGHT 3+ VIEWS (STANDARD) HISTORY: M, 38 y/o , pain s/p fall COMPARISON: None TECHNIQUE: Four views of the right wrist are performed. FINDINGS: There is irregularity to the triquetrum, question nondisplaced fracture.The remaining bony structures are unremarkable.Joint spaces are maintained. [facility] Suspected nondisplaced fracture to the triquetrum, ulnar aspect. Workstation ID: [id number] [facility] Vital Signs Date Time Vital Sign Value Performing Clinician Facility 05-19-2025 14:48-0400 Body height 177.[address] Luz Elena Cobos MD Work Phone: [facility] 05-19-2025 14:48-0400 Body mass index (BMI) [Ratio] 55.3 kg/m2 Dr. Luz Elena Cobos MD Work Phone: 9(612)997-781097 [place] [address] 05-19-2025 14:48-0400 Body weight 175.[address] Luz Elena Cobos MD Work Phone: 7(770)229-900739 [address] 05-18-2025 08:39-0400 Body height 177.[address] Luz Elena Cobos MD Work Phone: 3(962)344-874739 [address] 05-18-2025 08:39-0400 Body mass index (BMI) [Ratio] 55 kg/m2 Dr. Luz Elena Cobos MD Work Phone: 4(072)055-184039 [address] 05-18-2025 08:39-0400 Body temperature 97.8 [degF] Dr. Luz Elena Cobos MD Work Phone: 2(431)494-895039 [address] 05-18-2025 08:39-0400 Body weight 174.[address] Luz Elena Cobos MD Work Phone: 2(783)344-802597 [place] [address] 05-18-2025 08:39-0400 Diastolic blood pressure 83 mm[Hg] Dr. Luz Elena Cobos MD Work Phone: [facility] 05-18-2025 08:39-0400 Heart rate 67 /min Dr. Luz Elena Cobos MD Work Phone: [facility] 05-18-2025 08:39-0400 Respiratory rate 16 /min Dr. Luz Elena Cobos MD Work Phone: [facility] 05-18-2025 08:39-0400 SaO2% (BldA) [Mass fraction] 97 % Dr. Luz Elena Cobos MD Work Phone: 8(694)234-059825 [place] [address] 05-18-2025 08:39-0400 Systolic blood pressure 131 mm[Hg] Dr. Luz Elena Cobos MD Work Phone: 0(908)209-326325 [place] [address] 04-09-2025 15:03-0400 Body temperature 98.2 [degF] Dr. Luz Elena Cobos MD Work Phone: 3(010)110-042025 [place] [address] 04-09-2025 15:03-0400 Diastolic blood pressure 88 mm[Hg] Dr. Luz Elena Cobos MD Work Phone: 4(609)277-601925 [place] [address] 04-09-2025 15:03-0400 Heart rate 69 /min Dr. Luz Elena Cobos MD Work Phone: 1(143)158-139625 [place] [address] 04-09-2025 15:03-0400 Respiratory rate 15 /min Dr. Luz Elena Cobos MD Work Phone: 8(511)725-355625 [place] [address] 04-09-2025 15:03-0400 SaO2% (BldA) [Mass fraction] 97 % Dr. Luz Elena Cobos MD Work Phone: 3(296)869-723225 [place] [address] 04-09-2025 15:03-0400 Systolic blood pressure 145 mm[Hg] Dr. Luz Elena Cobos MD Work Phone: 9(384)362-828125 [place] [address] 04-09-2025 11:07-0400 Body height 177.[address] Luz Elena Cobos MD Work Phone: 0(088)461-091925 [place] [address] 04-09-2025 11:07-0400 Body mass index (BMI) [Ratio] 40.1 kg/m2 Dr. Luz Elena Cobos MD Work Phone: 8(215)204-850025 [place] [address] 04-09-2025 11:07-0400 Body weight 126.[address] Luz Elena Cobos MD Work Phone: 1(349)176-274225 [place] [address] 01-29-2025 08:21-0400 Body height 177.[address] Luz Elena Cobos MD Work Phone: 5(022)906-367125 [place] [address] 01-29-2025 08:21-0400 Body mass index (BMI) [Ratio] 54.8 kg/m2 Dr. Luz Elena Cobos MD Work Phone: [facility] 01-29-2025 08:21-0400 Body weight 173.[address] Luz Elena Cobos MD Work Phone: [facility] 01-29-2025 08:21-0400 Diastolic blood pressure 88 mm[Hg] Dr. Luz Elena Cobos MD Work Phone: 0(722)679-507997 [place] [address] 01-29-2025 08:21-0400 Heart rate 70 /min Dr. Luz Elena Cobos MD Work Phone: 6(458)842-429897 [place] [address] 01-29-2025 08:21-0400 Respiratory rate 18 /min Dr. Luz Elena Cobos MD Work Phone: 6(669)193-481825 [place] [address] 01-29-2025 08:21-0400 SaO2% (BldA) [Mass fraction] 97 % Dr. Luz Elena Cobos MD Work Phone: 7(917)542-464725 [place] [address] 01-29-2025 08:21-0400 Systolic blood pressure 128 mm[Hg] Dr. Luz Elena Cobos MD Work Phone: 4(053)630-227697 [place] [address] 01-08-2025 10:10-0400 Body temperature 97.5 [degF] Dr. Luz Elena Cobos MD Work Phone: 4(130)613-554097 [place] [address] 01-08-2025 10:10-0400 Diastolic blood pressure 79 mm[Hg] Dr. Luz Elena Cobos MD Work Phone: 6(581)379-311425 [place] [address] 01-08-2025 10:10-0400 Heart rate 61 /min Dr. Luz Elena Cobos MD Work Phone: 6(159)820-069897 [place] [address] 01-08-2025 10:10-0400 Respiratory rate 16 /min Dr. Luz Elena Cobos MD Work Phone: 8(691)642-804297 [place] [address] 01-08-2025 10:10-0400 SaO2% (BldA) [Mass fraction] 96 % Dr. Luz Elena Cobos MD Work Phone: [facility] 01-08-2025 10:10-0400 Systolic blood pressure 125 mm[Hg] Dr. Luz Elena Cobos MD Work Phone: 8(601)415-536997 [place] [address] 01-08-2025 08:47-0400 Body mass index (BMI) [Ratio] 53.1 kg/m2 Dr. Luz Elena Cobos MD Work Phone: 0(652)025-581497 [place] [address] 01-08-2025 08:47-0400 Body weight [address] Luz Elena Cobos MD Work Phone: 8(834)462-231625 [place] [address] 11-17-2024 08:06-0400 Body height 177.[address] Luz Elena Cobos MD Work Phone: 3(533)770-691925 [place] [address] 11-17-2024 08:06-0400 Body mass index (BMI) [Ratio] 54.6 kg/m2 Dr. Luz Elena Cobos MD Work Phone: 9(269)647-079625 [place] [address] 11-17-2024 08:06-0400 Body weight 172.[address] Luz Elena Cobos MD Work Phone: 1(566)286-723225 [place] [address] 11-04-2024 08:07-0500 Body mass index (BMI) [Ratio] 55 kg/m2 Dr. Luz Elena Cobos MD Work Phone: 9(101)080-469425 [place] [address] 11-04-2024 08:07-0500 Body weight 173.[address] Luz Elena Cobos MD Work Phone: 6(498)728-307225 [place] [address] 11-04-2024 08:07-0500 Diastolic blood pressure 67 mm[Hg] Dr. Luz Elena Cobos MD Work Phone: 9(326)593-688425 [place] [address] 11-04-2024 08:07-0500 Heart rate 75 /min Dr. Luz Elena Cobos MD Work Phone: 0(358)473-863825 [place] [address] 11-04-2024 08:07-0500 Respiratory rate 18 /min Dr. Luz Elena Cobos MD Work Phone: 2(943)121-985125 [place] [address] 11-04-2024 08:07-0500 SaO2% (BldA) [Mass fraction] 97 % Dr. Luz Elena Cobos MD Work Phone: 6(518)309-608825 [place] [address] 11-04-2024 08:07-0500 Systolic blood pressure 100 mm[Hg] Dr. Luz Elena Cobos MD Work Phone: 6(338)409-682325 [place] [address] 10-13-2024 09:49-0500 Body temperature 98.1 [degF] Heidi Valera MD Work Phone: [facility] 10-13-2024 09:49-0500 Diastolic blood pressure 89 mm[Hg] Heidi Valera MD Work Phone: [facility] 10-13-2024 09:49-0500 Heart rate 83 /min Heidi Valera MD Work Phone: [facility] 10-13-2024 09:49-0500 SaO2% (BldA) [Mass fraction] 97 % Heidi Valera MD Work Phone: [facility] 10-13-2024 09:49-0500 Systolic blood pressure 129 mm[Hg] Heidi Valera MD Work Phone: [facility] 09-01-2024 15:44-0500 Body height 177.8 cm Heidi Valera MD Work Phone: [facility] 09-01-2024 15:44-0500 Body mass index (BMI) [Ratio] 54.67 kg/m2 Heidi Valera MD Work Phone: [facility] 09-01-2024 15:44-0500 Body temperature 97.7 [degF] Heidi Valera MD Work Phone: [facility] 09-01-2024 15:44-0500 Body weight 172.82 kg Heidi Valera MD Work Phone: [facility] 09-01-2024 15:44-0500 Diastolic blood pressure 88 mm[Hg] Heidi Valera MD Work Phone: [facility] 09-01-2024 15:44-0500 Heart rate 106 /min Heidi Valera MD Work Phone: [facility] 09-01-2024 15:44-0500 SaO2% (BldA) [Mass fraction] 96 % Heidi Valera MD Work Phone: [facility] 09-01-2024 15:44-0500 Systolic blood pressure 132 mm[Hg] Heidi Valera MD Work Phone: [facility] 03-09-2023 14:16-0400 Body temperature 98.2 [degF] Heidi Valera MD Work Phone: [facility] 03-09-2023 14:16-0400 Body weight 170.1 kg Heidi Valera MD Work Phone: [facility] 03-09-2023 14:16-0400 Diastolic blood pressure 94 mm[Hg] Heidi Valera MD Work Phone: [facility] 03-09-2023 14:16-0400 Heart rate 94 /min Heidi Valera MD Work Phone: [facility] 03-09-2023 14:16-0400 SaO2% (BldA) [Mass fraction] 96 % Heidi Valera MD Work Phone: [facility] 03-09-2023 14:16-0400 Systolic blood pressure 142 mm[Hg] Heidi Valera MD Work Phone: [facility] 02-19-2023 15:59-0400 Body height 177.8 cm Heidi Valera MD Work Phone: [facility] 02-19-2023 15:59-0400 Body temperature 98.1 [degF] Heidi Valera MD Work Phone: [facility] 02-19-2023 15:59-0400 Body weight 169.19 kg Heidi Valera MD Work Phone: [facility] 02-19-2023 15:59-0400 Diastolic blood pressure 80 mm[Hg] Heidi Valera MD Work Phone: [facility] 02-19-2023 15:59-0400 Heart rate 89 /min Heidi Valera MD Work Phone: [facility] 02-19-2023 15:59-0400 SaO2% (BldA) [Mass fraction] 100 % Heidi Valera MD Work Phone: [facility] 02-19-2023 15:59-0400 Systolic blood pressure 136 mm[Hg] Heidi Valera MD Work Phone: [facility] 05-08-2019 19:00-0400 BP Di[facility] 82 mm[Hg] [facility] 05-08-2019 19:00-0400 BP Systolic 137 mm[Hg] [facility] 05-08-2019 19:00-0400 Pulse (Heart Rate) 88 /min [facility] 05-08-2019 19:00-0400 Pulse Oximetry 96 % [facility] 05-08-2019 16:55-0400 Respiratory Rate 18 /min [facility] 05-08-2019 14:14-0400 Respiratory rate 0 /[facility] 05-08-2019 13:43-0400 Body Temperature 98.4 [degF] [facility] Encounters Encounter Date Encounter Type Care Provider Facility Start: 08-01-2025 ambulatory Luz Elena Cobos Facility:[facility] Start: 07-09-2025 End: 07-09-2025 ambulatory Luz Elena Cobos Facility:[facility] Start: 05-19-2025 End: 05-19-[address] Kal Martinez MD -[facility] Start: 05-19-2025 End: 05-19-[address] Luz Elena Cobos MD Work Phone: -[facility] Start: 05-18-2025 End: 05-18-2025 Patient encounter procedure Angela OCASIO -[facility] Work Phone: Start: 05-18-2025 End: 05-18-[address] Luz Elena Cobos MD Work Phone: -[facility] Start: 05-12-2025 ambulatory Luz Elena Cobos Facility:[facility] Start: 05-12-2025 Non-patient / Non-visit Dr. Clifford Wren MD -[facility] Start: 05-12-2025 End: 05-12-[address] Luz Elena Cobos MD Work Phone: -Cardiovascular Services Start: 05-12-2025 End: 05-12-[address] Luz Elena Cobos MD -Cardiovascular Services Work Phone: Start: 05-12-2025 End: 05-12-2025 ambulatory Luz Elena Cobos Facility:[facility] Start: 04-09-2025 End: 04-09-2025 Emergency department patient visit Dr. Luz Elena Cobos MD Work Phone: -Emergency Department Work Phone: Start: 01-30-2025 End: 01-30-[address] Luz Elena Cobos MD Work Phone: [facility] Work Phone: Start: 01-30-2025 End: 01-30-2025 Patient encounter procedure Angela OCASIO -Laboratory Work Phone: Start: 01-29-2025 End: 01-29-2025 Patient encounter procedure Angela OCASIO -[facility] Work Phone: Start: 01-29-2025 End: 01-30-2025 ambulatory Angela Fernandez Facility:[facility] Start: 01-08-2025 Non-patient / Non-visit Charles Gordon nd, DO -[facility] Start: 01-08-2025 End: 01-08-2025 Admission to same day surgery center Charles Dash DO -Endoscopy Work Phone: Start: 01-08-2025 End: 01-08-2025 ambulatory Luz Elena Cobos Facility:[facility] Start: 11-17-2024 End: 11-17-2024 Patient encounter procedure Kamini OCASIO -[facility] Work Phone: Start: 11-17-2024 End: 11-17-2024 ambulatory Kamini Castillo Facility:[facility] Start: 11-05-2024 End: 11-05-[address] Luz Elena Cobos MD Work Phone: [facility] Work Phone: Start: 11-05-2024 End: 11-05-2024 Patient encounter procedure Angela OCASIO -Laboratory, Specimen Work Phone: Start: 11-04-2024 End: 11-05-[address] Luz Elena Cobos MD Work Phone: [facility] Work Phone: Start: 11-04-2024 End: 11-04-2024 Patient encounter procedure Angela OCASIO -Laboratory Work Phone: Start: 11-04-2024 End: 11-04-2024 Patient encounter procedure Angela OCASIO -[facility] Work Phone: Start: 11-04-2024 End: 11-04-2024 ambulatory Luz Elena Cobos Facility:[facility] Start: 11-04-2024 End: 11-04-2024 ambulatory Luz Elena Cobos Facility:[facility] Start: 10-13-2024 End: 10-13-2024 ambulatory HEIDI VALERA Facility:[facility] Start: 10-13-2024 End: 10-13-2024 Patient encounter procedure Heidi Valera MD Work Phone: General Surgery Comment on above: Status post skin and subcutaneous tissue surgery (Primary Dx) Start: 10-03-2024 End: 10-03-2024 ambulatory LUZ ELENA COBOS Facility:[facility] Start: 09-27-2024 End: 09-27-2024 Orders Only Heidi Valera MD Work Phone: General Surgery Comment on above: Lipoma of torso (Maile lebron Dx) Start: 09-24-2024 End: 09-24-[address] Luz Elena Cobos MD -Cat Scan, [facility] Work Phone: Start: 09-24-2024 End: 09-24-2024 ambulatory Luz Elena Cobos Facility:[facility] Start: 09-01-2024 End: 09-01-2024 ambulatory HEIDI VALERA Facility:[facility] Start: 09-01-2024 End: 09-01-2024 Patient encounter procedure Heidi Valera MD Work Phone: General Surgery Comment on above: Lipoma of torso (Maile lebron Dx); Dysesthesia Start: 09-01-2024 End: 09-01-2024 ambulatory Luz Elena Cobos Facility:[facility] Start: 03-09-2023 End: 03-09-2023 Patient encounter procedure Heidi Valera MD Work Phone: General Surgery Comment on above: Status post skin and subcutaneous tissue surgery (Primary Dx) Start: 02-19-2023 End: 02-19-2023 Patient encounter procedure Heidi Valera MD Work Phone: General Surgery Comment on above: Localized superficia l swelling, mass, or lump Start: 08-18-2022 End: 08-18-[address] Luz Elena Cobos Work Phone: [facility] Work Phone: Start: 08-18-2022 End: 08-18-[address] Luz Elena Cobos Work Phone: [facility]-Physical Therapy Start: 07-17-2022 End: 07-17-[address] Luz Elena Cobos Work Phone: [facility] Start: 07-07-2022 End: 07-07-2022 ambulatory [facility] Work Phone: Start: 07-07-2022 End: 07-07-[address] [facility] Start: 05-08-2019 End: 05-12-2019 Patient encounter procedure [facility] Start: 05-08-2019 End: 05-08-2019 Emergency department patient visit [facility] Start: 05-08-2019 End: 05-08-2019 Emergency department patient visit Nikochandrika Marky Seals Work Phone: [facility] Emergency Department Comment on above: Other closed fractur e of metacarpal bone, unspecified metacarpal, unspecified portion of metacarpal, initial encounter (Primary Dx); Fall from height of greater than 3 feet; Fall, initial encounter; Closed head injury, initial encounter; Contusion of left hip and thigh, initial encounter; Contusion of chest wall, unspecified laterality, initial encounter Procedures Date Procedure Procedure Detail Performing Clinician Start: 05-19-2025 X-ray of knee, four or more views Dr. Luz Elena Cobos MD Work Phone: Start: 04-09-2025 Plain chest X-ray Dr. Dayron Cobos MD Work Phone: Start: 04-09-[address] Luz Elena Cobos MD Work Phone: Start: 11-17-2024 X-ray of knee, four or more views Dr. Luz Elena Cobos MD Work Phone: Start: 11-04-2024 Hepatitis A virus an tibody, total measurement Dr. Luz Elena Cobos MD Work Phone: Comment on above: Comment: The HAV tot al antibody assay detects both IgG andIgM but does not differentiate between them. A negativeresult suggests susceptibility to infection. A positiveresult could be due to vaccination, previously resolvedinfection or active infection. Testing for HAV IgM shouldbe performed if active HAV infection is suspected. Labcorpoffers profiles that will automatically reflex positive HAVtotal antibody results to IgM (e.g., panel #[id number] HAVAntibody w/ Rfx).Performed at: [facility] [id number] Director: Joseph Stevens PhD, Phone: [phone] Start: 11-04-2024 Hepatitis C antibody measurement Dr. Luz Elena Cobos MD Work Phone: Comment on above: Reactive: Presumptiv e evidence of antibodies to HCV. Follow CDC recommendations for supplemental testing.Non-Reactive: Antibodies to HCV were not detected; does not exclude the possibility of exposure to HCVReactive Results are presumptive evidence of antibodies to HCV. Follow CDC recommendations for supplemental testing.Order confirmation testing: HCV Quant by PCR testing - HCVPCR #[id number] Non Reactive: < 0.8 Equivocal: >/= 0.8 to < 1.0 Reactive: >/= 1.0The CDC requires that a reactive/equivocal HCV antibody result be sent out for confirmation. HCV Quant by PCR testing. Start: 09-24-2024 CT of abdomen with contrast Dr. Luz Elena Cobos MD Work Phone: Start: 09-01-[address] Luz Elena Cobos MD Work Phone: Start: 07-07-2022 Plain x-ray of elbow Start: 05-08-2019 Radiologic examinati on femur minimum 2 views Sarah Lovelace Work Phone: Start: 05-08-2019 X-ray of left ankle Clifton BarrettNicola Lovelace Work Phone: Start: 05-08-2019 End: 05-08-2019 X-ray of left foot Sarah Lovelace Work Phone: Start: 05-08-2019 Radex forearm 2 views T emygordon Lovelace Work Phone: Start: 05-08-2019 Radex hand minimum 3 views Sarah Lovelace Work Phone: Start: 05-08-2019 End: 05-08-2019 Radex wrist complete minimum 3 views Sarah Lovelace Work Phone: Start: 05-08-2019 Blood group typing Jered Seals Work Phone: Start: 05-08-2019 CT LUMBAR SPINE WITH OUT CONTRAST MOD 26 Lianne Kothari Work Phone: Start: 05-08-2019 CT THORACIC SPINE WI THOUT CONTRAST MOD 26 Lianne Kothari Work Phone: Start: 05-08-2019 CT angiography of pu lmonary and abdominal and pelvic arteries Liannejarrett Terryarya Kothari Work Phone: Start: 05-08-2019 CT cervical spine wi thout contrast Lianne Guardado Taye Work Phone: Start: 05-08-2019 CT of head without contrast Liannejarrett Terryarya Kothari Work Phone: Start: 05-08-2019 Gases blood ph direc t komal xcpt pulse oximitry Erick Seals Work Phone: Start: 05-08-2019 Radiologic examinati on pelvis 1/2 views Erick Seals Work Phone: Start: 05-08-2019 Radiologic exam ches t single view Erick Seals Work Phone: Start: 05-08-2019 aPTT in Blood by Coagulation assay Erick Seals Work Phone: Start: 05-08-2019 Blood type and Indir ect antibody screen panel - Blood Erick Liillon Work Phone: Start: 05-08-2019 Complete blood count (hemogram) panel - Blood by Automated count Erick Liillon Work Phone: Start: 05-08-2019 Comprehensive metabo lic 2000 panel - Serum or Plasma Erick Liillon Work Phone: Start: 05-08-2019 Ethanol [Mass/volume ] in Serum or Plasma Erick Liillon Work Phone: Start: 05-08-2019 Magnesium [Mass/volu me] in Serum or Plasma Erick Liillon Work Phone: Start: 05-08-2019 Phosphate [Mass/volu me] in Serum or Plasma Erick Liillon Work Phone: H/O: surgery Status post skin and subcutaneous tissue surgery Heidi Valera MD Work Phone: H/O: surgery Status post skin and subcutaneous tissue surgery Heidi Valera MD Work Phone: Plan of Treatment Date Care Activity Detail Author Start: 05-08-2029 Urine microalbumin profile DTaP,Tdap,Td Vaccine (3 - Td or Tdap) [facility] Start: 05-19-2025 X-ray of knee, four or more views Knee 4 or More Views [facility] Start: 05-19-2025 XR Knee GE 4 Views [facility] Start: 04-09-2025 [facility] Start: 04-09-2025 [facility] Start: 01-08-2025 Colonoscopy w/biopsy single/multiple COLONOSCOPY AND BIOPSY [facility] Start: 01-08-2025 Colsc flx w/rmvl of tumor polyp lesion snare tq COLONOSCOPY W/LESION REMOVAL [facility] Start: 01-08-2025 Egd transoral biopsy single/multiple EGD BIOPSY SINGLE/MULTIPLE [facility] Start: 01-08-2025 Patient discharge [facility] Start: 05-11-2024 Covid-19 Vaccine ( season) Covid-19 Vaccine ( season) [facility] Start: 05-11-2024 Influenza vaccination Influenza Vacc ine (#1) [facility] Start: 05-11-2023 Influenza vaccination [facility] Start: 09-10-2022 DEPRESSION ASSESSMENT DEPRESSION ASS ESSMENT [facility] Start: 07-17-2022 Patient referral [facility] Work Phone: Start: 03-10-2021 COVID-19 VACCINE (3 - Booster for Moderna series) COVID-19 VACCINE (3 - Booster for Moderna series) [facility] Start: 05-11-2019 Influenza vaccinatio n given SEQUENTIAL INFLUENZA VACCINE (#1) [facility] Start: 2015 Lipid panel Lipid Screening [facility] Start: 2015 LIPID SCREEN LIPID SCREEN [facility] Start: 1999 Hepatitis B Vaccine (1 of 3 - 19+ 3-dose series) Hepatitis B Vaccine (1 of 3 - 19+ 3-dose series) [facility] Start: 1999 Urine microalbumin profile DTAP,TDAP,TD (1 - Tdap) [facility] Start: 1998 Anxiety Screening Anxiety Screening [facility] Start: 1998 Depression Screening Depression Scre ening [facility] Start: 1998 HEPATITIS C SCREENING HEPATITIS C [facility] Start: 1998 Hepatitis C screening Hepatitis C [facility] Start: 1998 HIV SCREENING HIV SCREENING [facility] Start: 1998 HIV screening HIV Screening [facility] Start: 1983 History and physical examination, annual for health maintenance Wellness Visit [facility] Start: 1980 HEPATITIS B (1 of 3 - 3-dose series) HEPATITIS B (1 of 3 - 3-dose series) [facility] Start: 1980 Tetanus vaccination TETANUS EVERY 10 YR [facility] Exc tumor soft tissu e abdl wall subfascial 5cm/> EXCISION SOFT SUBFACIAL TUMOR OF ABDOMINAL WALL = / > 5CM Lipoma of torso ME OR Patient Education [facility] Work Phone: Patient referral [facility] Work Phone: End: 05-08-2019 US ED Fast Scan US ED Fast Scan Imaging STAT One time imaging One time imaging for 1 Occurrences starting 05/08/2019 until 05/08/2019 [facility] Comment on above: One time imaging One time imaging for 1 Occurrences starting 05/08/2019 until 05/08/2019 US ED Fast Scan US ED Fast Scan Imaging STAT 05/08/2019 1:45 PM EDT [facility] Immunizations Immunization Date Immunization Notes Care Provider Fa [facility] 07-11-2021 influenza virus vaccine, unspecified formulation Heidi Valera MD Work Phone: [facility] 08-26-2020 influenza, injectabl e, quadrivalent, preservative free Dr. Luz Elena Cobos MD Work Phone: [facility] 08-26-2020 influenza, seasonal, injectable [facility] Work Phone: 05-08-2019 diphtheria, tetanus toxoids and acellular pertussis vaccine, unspecified formulation [facility] 05-08-2019 tetanus toxoid, redu alejandra diphtheria toxoid, and acellular pertussis vaccine, adsorbed [facility] Payers Date Payer Category Payer Self-pay [id number] 2024 Worker's Compensation [id number] 2024 Unknown MMO MMO [employer]PER[employer] PPO [id number] 2024-Present [phone] [address] [place] [address] PPO [id number] 2024 Unknown [id number] 2022 Private Health Insurance [facility] CHOICE PLUS [id number] 2022-Present [phone] [address] [place] [address] O [id number] 2019 Worker's Compensation 2016 Private Health Insurance [facility] [id number] 1980 Unknown [id number]. 2.903 1980 Unknown [id number] 2.16.840.1.522277.3.579. 2.[address] [facility] [id number] Unknown [id number] 2.16.840.1.413194.3.579. 2.462 Unknown [id number] 2.16.840.1.819904.3.579. 2.462 Unknown [id number] 2.16.840.1.910181.3.579. 2.462 Unknown [id number] 2.16.840.1.304975.3.579. 2.462 Unknown [id number] 2.16.840.1.518564.3.579. 2.462 Unknown [id number] 2.16.840.1.377944.3.579. 2.462 Unknown [id number] 2.16.840.1.174371.3.579. 2.462 Unknown [id number] 2.16.840.1.405326.3.579. 2.462 Unknown [id number] 2.16.840.1.817515.3.579. 2.462 Unknown [id number] 2.16.840.1.399339.3.579. 2.462 Unknown [id number] 2.16.840.1.215860.3.579. 2.462 Unknown [id number] 2.16.840.1.356643.3.579. 2.462 Unknown [id number] 2.16.840.1.127782.3.579. 2.462 Unknown [id number] 2.16.840.1.763822.3.579. 2.462 Unknown [id number] 2.16.840.1.238947.3.579. 2.462 Unknown [id number] 2.16.840.1.213319.3.579. 2.462 Unknown [id number] 2.16.840.1.359851.3.579. 2.462 Unknown [id number] 2.16.840.1.611062.3.579. 2.462 Unknown [id number] 2.16.840.1.327763.3.579. 2.462 Worker's Compensation [employer] COMPENSATION xxxxxxxxx Effective for all dates xxxxxxxxx [id number] Social History Date Type Detail Facility Tobacco smoking stat [facility] Unknown if ever smoked [facility] Sex Assigned At Not on file [facility] Start: 05-25-2021 End: 07-17-2022 Tobacco smoking status VAIS Unknown if ever smoked [facility] Work Phone: Start: 08-25-2020 Heavy [facility] Start: 08-25-2020 None [facility] Start: 08-25-2020 Spouse/ Significant Other;With Family [facility] Start: 01-27-2021 Non-smoker [facility] Start: 1980 Sex Assigned At Male [facility] Start: 02-19-2023 End: 05-18-2025 Tobacco smoking status VAIS Never smoked tobacco [facility] Start: 02-19-2023 Tobacco use and exposure Smokeless tobacco non-user [facility] Start: 02-19-2023 End: 10-13-2024 Alcohol intake Current drinker of alcohol (finding) [facility] Start: 02-19-2023 End: 10-13-2024 Alcohol intake [facility] Start: 02-19-2023 Alcohol Comment 2-3 weekly [facility] Start: 02-19-2023 End: 09-01-2024 Tobacco use panel [facility] National Score (1-10 0), lower number is lower risk 51 [facility] Start: 02-18-2023 Gender identity Identifies as male gender (finding) [facility] Start: 02-18-2023 Sexual orientation Heterosexual (finding) [facility] Start: 11-18-2024 End: 11-18-2024 Sex Male (finding) [facility] Medical Equipment Procedure Code Equipment Code Equipment Origin al Text Equipment Identifier Dates Arthroscopy, knee NEEDLE CVD DEL FADY SYSTEM FDA Start: 02-01-2021 Arthroscopy, knee NEEDLE CVD DEL FADY SYSTEM FDA Start: 02-01-2021 Arthroscopy, knee NEEDLE CVD DEL FADY SYSTEM FDA Start: 02-01-2021 Arthroscopy, knee NEEDLE CVD DEL FADY SYSTEM FDA Start: 02-01-2021 Arthroscopy, knee NEEDLE CVD DEL FADY SYSTEM FDA Start: 02-01-2021 Arthroscopy, knee NEEDLE CVD DEL FADY SYSTEM FDA Start: 02-01-2021 Arthroscopy, knee NEEDLE CVD DEL FADY SYSTEM FDA Start: 02-01-2021 Arthroscopy, knee NEEDLE CVD DEL FADY SYSTEM FDA Start: 02-01-2021 Arthroscopy, knee NEEDLE CVD DEL FADY SYSTEM FDA Start: 02-01-2021 Arthroscopy, knee NEEDLE CVD DEL FADY SYSTEM FDA Start: 02-01-2021 Arthroscopy, knee NEEDLE CVD DEL F[employer]Y SYSTEM FDA Start: 02-01-2021 Arthroscopy, knee NEEDLE CVD [employer] [facility] SYSTEM FDA Start: 02-01-2021 Arthroscopy, knee NEEDLE CVD DEL F[facility]Y SYSTEM FDA Start: 02-01-2021 Arthroscopy, knee NEEDLE CVD DEL F[facility]Y SYSTEM FDA Start: 02-01-2021 Arthroscopy, knee NEEDLE CVD DEL FADY SYSTEM FDA Start: 02-01-2021 Arthroscopy, knee NEEDLE CVD [facility] FDA Start: 02-01-2021 Arthroscopy, knee NEEDLE CVD [facility] FDA Start: 02-01-2021 Arthroscopy, knee NEEDLE CVD [facility] FDA Start: 02-01-2021 Arthroscopy, knee NEEDLE CVD [facility] FDA Start: 02-01-2021 Arthroscopy, knee NEEDLE CVD [facility] FDA Start: 02-01-2021 Arthroscopy, knee NEEDLE CVD [facility] FDA Start: 02-01-2021 Arthroscopy, knee NEEDLE CVD [facility] FDA Start: 02-01-2021 Arthroscopy, knee NEEDLE CVD [facility] FDA Start: 02-01-2021 Arthroscopy, knee NEEDLE [facility] FDA Start: 02-01-2021 Arthroscopy, knee NEEDLE CVD [facility] FDA Start: 02-01-2021 Arthroscopy, knee NEEDLE CVD [facility] FDA Start: 02-01-2021 Arthroscopy, knee NEEDLE CVD [facility] FDA Start: 02-01-2021 Arthroscopy, knee NEEDLE CVD [facility] FDA Start: 02-01-2021 Arthroscopy, knee NEEDLE CVD [facility] FDA Start: 02-01-2021 Arthroscopy, knee NEEDLE CVD [facility] FDA Start: 02-01-2021 Goals Date Patient Goal Desired Activity /State Mental Status Date Assessment Result Facility 01-08-2025 Cognitive function Voice/Name [facility] Work Phone: Clinical Notes 02-19-2023 to 05-18-2025 Note Date & Type Note Facility 05-18-2025 Progress note [facility] 04-09-2025 Radiology Diagnostic study note [facility] Imaging Services [address] [place] [address] Chest 1 View (Portable) MR#: [id number] Acct: [id number] Name: MC BACH Rep #: [id number] : 1980 M 44 From: Shannon Medina MD PCP: Dr. Luz Elena Cobos MD Status: REG ER Study:Chest 1 View (Portable) Date of Exam: 04/09/25 Exam# [id number] Ordering Dr: Michoacano Castillo MD PROCEDURE: CHEST 1 VIEW (PORTABLE) 04/09/2025 REASON FOR EXAM: CHEST PAIN TECHNIQUE: Frontal view of the chest. COMPARISON: August 25, 2020 FINDINGS: There is mild cardiomegaly without overt CHF. There is no focal infiltrate or consolidation. There is no pneumothorax or effusion. There is no acute bony abnormality. RAD/Chest 1 View (Portable) IMPRESSION: There is mild cardiomegaly without overt CHF, similar to the prior. Reading Location: [facility] CC: Dr. Michoacano Castillo MD; Dr. Luz Elena Cobos MD ~ Director Of Business Systems: Signed [facility] 04-09-2025 Hospital Discharge instructions Additional Instructions Return to the emergency department with increased sweating or left arm pain/numbness, chest pain, new or worsening symptoms. Follow-up with your primary care provider in 3 to 5 days. [facility] Work Phone: 01-29-2025 Evaluation note Diagnosis Onset Date Resolution GERD (gastroesophageal reflux disease) acute January 29, 2025 8 :14am Morbid obesity acute January 29, 2025 8:14am Steatosis, liver acute January 8:14am GERD (gastroesophageal reflux disease) acute May 18 8:12am Morbid obesity acute May 18, 2025 8:12am Steatosis, liver acute 2024 8:12am [facility] Work Phone: 1(804) 898-465205-22-2025 Evaluation note* Diagnosis Onset Date Resolution Status Admit Date GERD (gastroesophageal reflu x disease) acute January 29, 2025 8 :14am Morbid obesity acute January 29, 2025 8:14am Steatosis, liver acute January 8:14am GERD (gastroesophageal reflu x disease) acute May 18, 025 8:12am Morbid obesity acute May 18, 2025 8:12am Steatosis, liver acute 2024 8:12am Osteoarthritis of left knee acute May 19, 2025 2:41pm Swelling of knee joint, left acute May 19, 2025 2:41pm [facility] Work Phone: 1(400) 854-442905-01-2025 Evaluation note* Diagnosis Onset Date Resolution Status Admit Date Elevated fecal calprotectin acute January 08, 2025 7:58am Heartburn acute January 08, 2025 7:58am Personal history of colon po lyps, unspecified acute January 08, 2025 7: 58am GERD (gastroesophageal reflu x disease) acute January 29, 2025 8 :14am Morbid obesity acute January 29, 2025 8:14am Steatosis, liver acute January 8:14am [facility] Work Phone: 1(503) 810-580105-01-2025 [facility] Medical Records Department [address] [place] [address] History Physical Exam 01/08/25 0900 MR#: [id number] Acct: [id number] Name: MC BACH Rep #: [id number] : 1980 44 From: [facility] Friend DO PCP: Dr. Luz Elena Cobos MD Status:[facility] Location: [place] [address] HPI - General General Date of Admission: 01/08/25 Date of Service: 01/08/25 Chief Complaint: Abnormal labs and diarrhea with elevated fecal calprotectin and history of polyps HPI Narrative 44y/o male presents for consultation with a small HH. CT completed 09/24/2024 revealed a small hiatal hernia and liver steatosis. He reports he was diagnosed with HH in his early - Colon EGD in his early s - reports the colonoscopy revealed a polyp - denies any family h/o crohn's or colitis - denies any weight loss CT (to f/u palpable abdominal lesion) small HH and liver steatosis, no mention of previously noted area of concern seen on US - reports surgical excision of lipoma Fecal Calprotectin: 05/07/2024 HIGH 618 Giardia: 05/07/2024 negative HAV Total Ab: HBVsAg: HBVsAb: HBV Core Ab Total: HCV Ab: CBC: 05/06/2024 WNL CMP: 05/06/2024 transaminases WNL CRP: 05/06/2024 HIGH 8.52 ELF: ABD US: 09/01/2024 In the subcutaneous tissue of the left epigastric region at area of palpable concern, there is a heterogeneous hyperechoic lesion measuring 6.4 x 8.9 x 2.5 cm. There is minimal to no internal vascularity. FibroScan: WEIGHT: 383lbs (BMI 55) - occasional alcohol intake - denies any alcohol since 08/29 - Aleve or Advil couple times a week - Paternal Aunt with pancreatic and liver CA - Caffeine - 32 ounces a day - he is not diabetic - he denies any HTN or HLD - symptoms are controlled with medications since his early - Nexium 20mg daily - denies any dysphagia - denies any family h/o esophageal or colon CA - fire in the middle of my chest - denies any vocal changes - denies any cough - reports he had food poisoning in April 2024 - symptoms lasted for >2 weeks with diarrhea - denies any associated bleeding - only symptom was diarrhea, denies any N/V - bowels are back to normal - denies any bleeding [facility] Medical History Wears glasses Sleep apnea History of lipoma Olecranon bursitis, right elbow Medial epicondylitis, right elbow Right lateral epicondylitis Depression Anxiety Alcohol use Hx of impaired glucose tolerance Gastric reflux History of hiatal hernia Non-smoker CPAP (continuous positive airway pressure) dependence Shortness of breath on exertion Leg cramps History of pain when walking History of edema History of stress test neck/back pain Knee pain Shoulder pain Home Medications ???Medication ???Instructions ???Recorded ???Last Taken ???Type esomeprazole magnesium 20 mg 20 mg PO DAILY stomach 07/03/18 History capsule,delayed release (Nexium) fexofenadine 180 mg tablet 180 mg PO DAILY allergies 05/11/20 01/07/25 History (Terri Allergy) sodium sul 1.479 gram-potas ch See Rx Instructions PO PER PKG DIR 11/04/24 01/08/25 Rx 0.188 gram-magnes sul 0.225 gram colonoscopy prep #24 tabs tablet (Sutab) Allergy/AdvReac Type Severity Reaction Status Date / Time Environmental Allergies: Allergy Mild Itching Verified 01/08/25 08:46 Uncoded (dust mites) animal dander Allergy Other Verified 01/08/25 08:46 oxycodone HCl (From Percocet) Allergy Other Verified 01/08/25 08:46 hydrocodone bitartrate (From AdvReac Itching Verified 01/08/25 08:46 Vicodin) Family History Mother Diabetes Depression Father Alcoholism Surgical History Hx of arthroscopy of left knee S/P vasectomy History of carpal tunnel surgery History of rotator cuff surgery planter facia release Social History Smoking Status: Never smoker alcohol intake: current alcohol intake frequency: a few times a month ROS Constitutional Constitutional: Denies fatigue, fever(s), poor appetite, weight gain or weight loss Gastrointestinal Gastrointestinal: Denies belching, bloating, change in bowel habits, change in stool character, chewing difficulty, coffee ground emesis, constipation, cramping, diarrhea, dyspepsia, dysphagia, early satiety, excessive flatus, fecal incontinence, heartburn, hematemesis, hematochezia, hemorrhoids, loose stools, melena, nausea, odynophagia, rectal bleeding, tenesmus, vomiting or weight changes Vital Signs Vital Signs Vital Signs: 01/08/25 08:47 01/08/25 08:47 01/08/25 09:05 Temperature 97.7 F L 97.7 F L (more content not included)...[facility]02-25-2025 Evaluation note* Diagnosis Onset Date Resolution Status Admit Date Elevated fecal calprotectin acute November 04, 2024 7:41am Heartburn acute November 04, 2024 7:41am Morbid obesity acute October 122024 7:41am Personal history of colon polyps, unspecified acute October 7:41am Steatosis, liver acute November 04, 2024 7:41am MCL sprain of right knee acute November 17, 2024 7:49am [facility] Work Phone: 1(713) 187-268202-25-2025 Evaluation note* Diagnosis Onset Date Resolution Status Admit Date Elevated fecal calprotectin acute November 04, 2024 7:41am Heartburn acute November 04, 2024 7:41am Morbid obesity acute October 122024 7:41am Personal history of colon polyps, unspecified acute October 7:41am Steatosis, liver acute November 04, 2024 7:41am MCL sprain of right knee acute March 10th, 2025 7:49am Elevated fecal calprotectin acute January 08, 2025 7:58am Heartburn acute January 08, 2025 7:58am Personal history of colon polyps, unspecified acute January 08 7:58am GERD (gastroesophageal reflu x disease) acute January 29, 2025 8 :14am Morbid obesity acute January 29, 2025 8:14am Steatosis, liver acute January 8:14am [facility] Work Phone: 1(810) 239-669202-03-2025 NoteHNO ID: [id number] Author: HEIDI VALERA MD Service: ? Author Type: Physician Type: Progress Notes Filed: 10/13/2024 10:10 Note Text: FOLLOW UP VISIT NAME: [facility] NO.: [id number] DATE OF SERVICE: 10/13/2024 : 1980 REFERRING PHYSICIAN: Luz Elena Angeles is status post excision of anterior abdominal wall lipoma on 10/03/2024. Pathology reveals lipoma VITALS: There were no vitals taken for this visit. On examination, abdomen is soft and benign. Wound is healing well without evidence of infection Assessment IMPRESSION: status post excision of anterior abdominal wall lipoma PLAN: Patient is instructed to make an appointment to return to clinic if any worsening signs/symptoms. Patient will return to PCP for medical care. Patient acknowledges above. Patient wants referral for hiatal hernia repair - placed consultation to [facility]. Diagnoses: (Z98.890) Status post skin and subcutaneous tissue surgery (primary encounter diagnosis) Heidi Valera, [facility]02-03-2025 History of Present illness Narrative* Heidi Valera MD - 10/13/2024 9:43 AM EST FOLLOW UP VISIT NAME: [facility] NO.: [id number] DATE OF SERVICE: 10/13/2024 : 1980 REFERRING PHYSICIAN: Luz Elena Angeles is status post excision of anterior abdominal wall lipoma on 10/03/2024. Pathology reveals lipoma VITALS: There were no vitals taken for this visit. On examination, abdomen is soft and benign. Wound is healing well without evidence of infection Assessment IMPRESSION: status post excision of anterior abdominal wall lipoma PLAN: Patient is instructed to make an appointment to return to clinic if any worsening signs/symptoms. Patient will return to PCP for medical care. Patient acknowledges above. Patient wants referral for hiatal hernia repair - placed consultation to [facility]. Diagnoses: (Z98.890) Status post skin and subcutaneous tissue surgery (primary encounter diagnosis) Heidi Valera MD [facility] NoteHNO ID: [id number] Author: HEIDI VALERA MD Service: ? Author Type: Physician Type: Progress Notes Filed: 09/06/2024 14:56 Note Text: HISTORY AND PHYSICAL Mc Bach 1980 REFERRING PHYSICIAN: No ref. provider found CHIEF COMPLAINT: Consult (Lipoma removal, on left side of abdomen) HPI: The patient is a 44 year old male presents with lipomatous mass of upper left abdominal wall, overlying lower left rib cage. He states that it is causing pain in the area. He notes increasing size over the past 5-6 months. He had an US done at [facility] revealing lipomatous mass -however the images and the report are not available in this patient encounter. He states that he has had previous lipomas that were similar in presentation to this. PAST MEDICAL HISTORY Diagnosis Date Carpal tunnel syndrome Elbow injury Glucose intolerance Hiatal hernia History of colonic polyps Hyperinsulinemia Internal derangement of shoulder, right Knee pain, left Major depressive disorder Neck pain Obesity Onychogryphosis Plantar fasciitis Reflux esophagitis Skin tag Sleep apnea Thoracic back pain Vitamin D deficiency PAST SURGICAL HISTORY Procedure Laterality Date FASCIECTOMY PLANTAR FASCIA PARTIAL SPX Left KNEE ARTHROSCOP MENISCUS REPAIR MED/LAT Left LACERATIONS tendon laceration of right 5th finger LIPOMA (MEDIUM) Bilateral arm REMOVAL OF HEEL SPUR Left REPAIR OF SHOULDER rotator cuff, torn and detach labrium REVISE MEDIAN N/CARPAL TUNNEL SURG VASECTOMY Current Outpatient Medications Medication Sig esomeprazole (NEXIUM) 20 mg capsule Take 20 mg by mouth once daily. fexofenadine HCl (TERRI ODT ORAL) Take by mouth once daily. buPROPion HCL, smoking deter, 150 mg tab ER 12 hr Take 150 mg by mouth once daily. (Patient not taking: Reported on 02/19/2023) dulaglutide (TRULICITY) 0.75 mg/0.5 mL pen injector Inject 0.75 mg subcutaneously one time a week. (Patient not taking: Reported on 02/19/2023) busPIRone (BUSPAR) 10 mg tablet Take 10 mg by mouth once daily. (Patient not taking: Reported on 02/19/2023) No current facility-administered medications for this visit. ALLERGIES: Animal Dander, House Dust, Percocet [Oxycodone-Acetaminophen], and Vicodin [Hydrocodone-Acetaminophen] PERSONAL HISTORY: Social History Tobacco Use Smoking status: Never Smokeless tobacco: Never Vaping Use Vaping status: Former Substances: CBD Substance Use Topics Alcohol use: Yes Alcohol/week: 3.0 standard drinks of alcohol Types: 3 Cans of beer per week Comment: 2-3 weekly Drug use: Never Types: Marijuana FAMILY HISTORY Problem Relation Age of Onset Diabetes Paternal Grandmother REVIEW OF SYSTEMS: General: The patient denies fatigue, denies weight loss, denies weight gain, denies feeling hot, and denies feelings of cold. Eyes: The patient denies glaucoma, denies eye injury/surgery, wears glasses or contacts. Ear/Nose/Throat: The patient notes allergies, denies hayfever, denies ear infections, and denies bloody noses. Cardiovascular: The patient denies chest pain, denies heart disease, denies high blood pressure,denies cardiac stent, denies prior heart attack, denies irregular heart beat, denies high cholesterol, denies poor circulation, denies heart failure, other cardiac issues, denies claudication, denies cold feet, denies peripheral arterial stent. Respiratory: The patient denies tuberculosis, denies pneumonia, denies frequent cough, denies pulmonary embolism, denies shortness of breath, and denies coughing up blood. Gastrointestinal: The patient denies difficulty swallowing, notes acid reflux, denies ulcers, denies vomiting, denies jaundice/hepatitis, denies gallbladder problems, denies black or tarry stools, denies hemorrhoids, denies bleeding from rectum, denies diverticulitis, denies constipation, denies diarrhea, denies loss of stool control, and denies hernias. Kidney/Bladder: The patient denies kidney stones, denies urine infections, and denies bloody urine. Skin: The patient denies a history of skin cancer, denies bleeding/changing moles, and denies a history of skin rash. Neurologic: The patient denies a history of epilepsy/convulsions, denies headaches, denies head/spinal injuries, and denies stroke/TIA. Psychiatric: The patient denies psychiatric medications, denies depression, and denies voices, denies substance abuse. Endocrine: The patient denies thyroid disorders, denies diabetes, and denies hormonal problems. Hematologic: The patient denies a history of bruising, denies bleeding, and denies anemia, denies blood clots. Infections: The patient denies a history of measles and mumps, denies rheumatic fever, and denies sexually transmitted diseases. Musculoskeletal: The patient denies back pain/injury, denies back problems, denies sciatica, notes knee/foot trouble, denies arthritis, or denies gout. PHYSICAL EXAMINATION: Ge (more content not included)...[facility]12-23-2024 History of Present illness Narrative* Heidi Valera MD - 09/01/2024 4:10 PM EST HISTORY AND PHYSICAL Mc Bach 1980 REFERRING PHYSICIAN: No ref. provider found CHIEF COMPLAINT: Consult (Lipoma removal, on left side of abdomen) HPI: The patient is a 44 year old male presents with lipomatous mass of upper left abdominal wall, overlying lower left rib cage. He states that it is causing pain in the area. He notes increasing size over the past 5-6 months. He had an US done at [facility] revealing lipomatous mass -however the images and the report are not available in this patient encounter. He states that he has had previous lipomas that were similar in presentation to this. PAST MEDICAL HISTORY Diagnosis Date Carpal tunnel syndrome Elbow injury Glucose intolerance Hiatal hernia History of colonic polyps Hyperinsulinemia Internal derangement of shoulder, right Knee pain, left Major depressive disorder Neck pain Obesity Onychogryphosis Plantar fasciitis Reflux esophagitis Skin tag Sleep apnea Thoracic back pain Vitamin D deficiency PAST SURGICAL HISTORY Procedure Laterality Date FASCIECTOMY PLANTAR FASCIA PARTIAL SPX Left KNEE ARTHROSCOP MENISCUS REPAIR MED/LAT Left LACERATIONS tendon laceration of right 5th finger LIPOMA (MEDIUM) Bilateral arm REMOVAL OF HEEL SPUR Left REPAIR OF SHOULDER rotator cuff, torn and detach labrium REVISE MEDIAN N/CARPAL TUNNEL SURG VASECTOMY Current Outpatient Medications Medication Sig esomeprazole (NEXIUM) 20 mg capsule Take 20 mg by mouth once daily. fexofenadine HCl (TERRI ODT ORAL) Take by mouth once daily. buPROPion HCL, smoking deter, 150 mg tab ER 12 hr Take 150 mg by mouth once daily. (Patient not taking: Reported on 02/19/2023) dulaglutide (TRULICITY) 0.75 mg/0.5 mL pen injector Inject 0.75 mg subcutaneously one time a week. (Patient not taking: Reported on 02/19/2023) busPIRone (BUSPAR) 10 mg tablet Take 10 mg by mouth once daily. (Patient not taking: Reported on 02/19/2023) No current facility-administered medications for this visit. ALLERGIES: Animal Dander, House Dust, Percocet [Oxycodone-Acetaminophen], and Vicodin [Hydrocodone-Acetaminophen] PERSONAL HISTORY: Social History Tobacco Use Smoking status: Never Smokeless tobacco: Never Vaping Use Vaping status: Former Substances: CBD Substance Use Topics Alcohol use: Yes Alcohol/week: 3.0 standard drinks of alcohol Types: 3 Cans of beer per week Comment: 2-3 weekly Drug use: Never Types: Marijuana FAMILY HISTORY Problem Relation Age of Onset Diabetes Paternal Grandmother REVIEW OF SYSTEMS: General: The patient denies fatigue, denies weight loss, denies weight gain, denies feeling hot, and denies feelings of cold. Eyes: The patient denies glaucoma, denies eye injury/surgery, wears glasses or contacts. Ear/Nose/Throat: The patient notes allergies, denies hayfever, denies ear infections, and denies bloody noses. Cardiovascular: The patient denies chest pain, denies heart disease, denies high blood pressure,denies cardiac stent, denies prior heart attack, denies irregular heart beat, denies high cholesterol, denies poor circulation, denies heart failure, other cardiac issues, denies claudication, denies cold feet, denies peripheral arterial stent. Respiratory: The patient denies tuberculosis, denies pneumonia, denies frequent cough, denies pulmonary embolism, denies shortness of breath, and denies coughing up blood. Gastrointestinal: The patient denies difficulty swallowing, notes acid reflux, denies ulcers, denies vomiting, denies jaundice/hepatitis, denies gallbladder problems, denies black or tarry stools, denies hemorrhoids, denies bleeding from rectum, denies diverticulitis, denies constipation, denies diarrhea, denies loss of stool control, and denies hernias. Kidney/Bladder: The patient denies kidney stones, denies urine infections, and denies bloody urine. Skin: The patient denies a history of skin cancer, denies bleeding/changing moles, and denies a history of skin rash. Neurologic: The patient denies a history of epilepsy/convulsions, denies headaches, denies head/spinal injuries, and denies stroke/TIA. Psychiatric: The patient denies psychiatric medications, denies depression, and denies voices, denies substance abuse. Endocrine: The patient denies thyroid disorders, denies diabetes, and denies hormonal problems. Hematologic: The patient denies a history of bruising, denies bleeding, and denies anemia, denies blood clots. Infections: The patient denies a history of measles and mumps, denies rheumatic fever, and denies sexually transmitted diseases. Musculoskeletal: The patient denies back pain/injury, denies back problems, denies sciatica, notes knee/foot trouble, denies arthritis, or denies gout. PHYSICAL EXAMINATION: General: The patient is 44 year old male, well nourished, well hydrated in no acute distress. The patient is oriented to time, place, and person. VITALS: Blood pressure 132/88, pulse 106, temperature 36.5 C (97.7 F), height 177.8 cm (5' 10), weight (!) 172.8 kg (381 lb), SpO2 96%. Body mass index is 54.67 kg/m . Head: Normal cephalic, atraumatic Eyes: pupils are equally round, sclera are clear/anicteric, wearing glasses Neck is supple with no tracheal deviation Cardiac: normal heart sounds, regular Respiratory: Normal respiratory excursion and pattern. Abdominal exam: protuberant and benign, patient points to area that is the left upper quadrant of the abdominal wall - there is an illdefined subcutaneous lipomatous mass palpated Extremities: no clubbing, cyanosis or edema. Neuro: non focal Psych: normal mood The sensitive examination was discussed with the Patient or Patient's Authorized Carburetor Expert. Asapplicable, any other physician, advance practice provider, medical student, or other health professional student that will be observing or involved in the sensitive examination for educational or training purposes was discussed with the Patient or Authorized Carburetor Expert. The Patient or Authorized Carburetor Expert has agreed to proceed with the sensitive examination. (Sensitive examination includes inspection and/or palpation of the breasts, pelvis, prostate and anorectal regions) Assessment IMPRESSION: lipomatous mass PLAN: I have discussed the above with the patient. I have offered excision of lipomatous mass. I have explained the procedure to the patient. I have counseled the patient as to the risks of the procedure, including but not limited to: infection, bleeding, injury to any blood vessels/nerves, scar tissue, cosmetic deformity, wound infections, complications of anesthesia, etc. - the patient understands. The patient wishes to proceed. To be done at [facility] [place] I have answered all questions to the patient s satisfaction and the patient has no further questions. I have confirmed and edited as necessary, the PFSH and ROS obtained by others . Diagnoses: (D17.1) Lipoma of torso (primary encounter diagnosis) (R20.8) Dysesthesia I spent a total of 29 minutes on the date of the service which included preparing to see the patient with review of any pertinent laboratory studies/radiological imaging/medical records, [id number] care, obtaining oral medical history from the patient in this encounter, performing a medically appropriate examination, counseling and educating the patient/family/caregiver, and ordering and/or scheduling of medications/tests/procedures, and completing appropriate medical documentation. Heidi Valera MD * Lebron Chowdhury LPN - 09/01/2024 3:38 PM EST REVIEW OF SYSTEMS: General: The patient denies fatigue, denies weight loss, denies weight gain, denies feeling hot, and denies feelings of cold. Eyes: The patient denies glaucoma, denies eye injury/surgery, wears glasses or contacts. Ear/Nose/Throat: The patient notes allergies, denies hayfever, denies ear infections, and denies bloody noses. Cardiovascular: The patient denies chest pain, denies heart disease, denies high blood pressure,denies cardiac stent, denies prior heart attack, denies irregular heart beat, denies high cholesterol, denies poor circulation, denies heart failure, other cardiac issues, denies claudication, denies cold feet, denies peripheral arterial stent. Respiratory: The patient denies tuberculosis, denies pneumonia, denies frequent cough, denies pulmonary embolism, denies shortness of breath, and denies coughing up blood. Gastrointestinal: The patient denies difficulty swallowing, notes acid reflux, denies ulcers, denies vomiting, denies jaundice/hepatitis, denies gallbladder problems, denies black or tarry stools, denies hemorrhoids, denies bleeding from rectum, denies diverticulitis, denies constipation, denies diarrhea, denies loss of stool control, and denies hernias. Kidney/Bladder: The patient denies kidney stones, denies urine infections, and denies bloody urine. Skin: The patient denies a history of skin cancer, denies bleeding/changing moles, and denies a history of skin rash. Neurologic: The patient denies a history of epilepsy/convulsions, denies headaches, denies head/spinal injuries, and denies stroke/TIA. Psychiatric: The patient denies psychiatric medications, denies depression, and denies voices, denies substance abuse. Endocrine: The patient denies thyroid disorders, denies diabetes, and denies hormonal problems. Hematologic: The patient denies a history of bruising, denies bleeding, and denies anemia, denies blood clots. Infections: The patient denies a history of measles and mumps, denies rheumatic fever, and denies sexually transmitted diseases. Musculoskeletal: The patient denies back pain/injury, denies back problems, denies sciatica, notes knee/foot trouble, denies arthritis, or denies gout. When was patient's last Mammogram screening? N/A Last Colonoscopy: 2002 Lebron Chowdhury LPN documented in this encounterOhio[facility]12-23-[facility]24 NoteHNO ID: [id number] Author: LEBRON CHOWDHURY LPN Service: ? Author Type: LICENSED NURSE Type: Progress Notes Filed: 09/06/2024 14:56 Note Text: REVIEW OF SYSTEMS: General: The patient denies fatigue, denies weight loss, denies weight gain, denies feeling hot, and denies feelings of cold. Eyes: The patient denies glaucoma, denies eye injury/surgery, wears glasses or contacts. Ear/Nose/Throat: The patient notes allergies, denies hayfever, denies ear infections, and denies bloody noses. Cardiovascular: The patient denies chest pain, denies heart disease, denies high blood pressure,denies cardiac stent, denies prior heart attack, denies irregular heart beat, denies high cholesterol, denies poor circulation, denies heart failure, other cardiac issues, denies claudication, denies cold feet, denies peripheral arterial stent. Respiratory: The patient denies tuberculosis, denies pneumonia, denies frequent cough, denies pulmonary embolism, denies shortness of breath, and denies coughing up blood. Gastrointestinal: The patient denies difficulty swallowing, notes acid reflux, denies ulcers, denies vomiting, denies jaundice/hepatitis, denies gallbladder problems, denies black or tarry stools, denies hemorrhoids, denies bleeding from rectum, denies diverticulitis, denies constipation, denies diarrhea, denies loss of stool control, and denies hernias. Kidney/Bladder: The patient denies kidney stones, denies urine infections, and denies bloody urine. Skin: The patient denies a history of skin cancer, denies bleeding/changing moles, and denies a history of skin rash. Neurologic: The patient denies a history of epilepsy/convulsions, denies headaches, denies head/spinal injuries, and denies stroke/TIA. Psychiatric: The patient denies psychiatric medications, denies depression, and denies voices, denies substance abuse. Endocrine: The patient denies thyroid disorders, denies diabetes, and denies hormonal problems. Hematologic: The patient denies a history of bruising, denies bleeding, and denies anemia, denies blood clots. Infections: The patient denies a history of measles and mumps, denies rheumatic fever, and denies sexually transmitted diseases. Musculoskeletal: The patient denies back pain/injury, denies back problems, denies sciatica, notes knee/foot trouble, denies arthritis, or denies gout. When was patient's last Mammogram screening? N/A Last Colonoscopy: 2002 Lebron Chowdhury, [facility]06-30-2023 History of Present illness Narrative* Heidi Valera MD - 03/09/2023 2:31 PM EDT FOLLOW UP VISIT NAME: Mc [facility] NO.: [id number] DATE OF SERVICE: 03/09/2023 : 1980 REFERRING PHYSICIAN: Luz Elena Angeles is s/p excision of fibrofatty tissue of inner right thigh on 03/02/2023 VITALS: Blood pressure 142/94, pulse 94, temperature 36.8 C (98.2 F), weight (!) 170.1 kg (375 lb),SpO2 96 %. On examination, wound is healing well. Assessment IMPRESSION: status post excision of fibrofatty skin lesion PLAN: Counseled patient to keep area clean and dry. Patient is instructed to make an appointment to return to clinic if any worsening signs/symptoms. Patient will return to his PCP for medical care. Patient acknowledges above. Diagnoses: (Z98.890) Status post skin and subcutaneous tissue surgery (primary encounter diagnosis) I have confirmed and edited as necessary, the PFSH and ROS obtained by others. Heidi Valera MD documented in this encounterOhiohealth [facility]06-12-2023 History of Present illness Narrative* Heidi Valera MD - 02/19/2023 4:08 PM EDT Mc Bach 1980 REFERRING PHYSICIAN: No ref. provider found CHIEF COMPLAINT: Consult (Skin tag) HPI: The patient is a 42 year old male presents with a localized skin swelling. He states that he has noted this for a while. He states that it causes traction trauma when wearing clothing and pressure tenderness when sitting. PAST MEDICAL HISTORY Diagnosis Date Carpal tunnel syndrome Elbow injury Glucose intolerance Hiatal hernia History of colonic polyps Hyperinsulinemia Internal derangement of shoulder, right Knee pain, left Major depressive disorder Neck pain Obesity Onychogryphosis Plantar fasciitis Reflux esophagitis Skin tag Sleep apnea Thoracic back pain Vitamin D deficiency PAST SURGICAL HISTORY Procedure Laterality Date FASCIECTOMY PLANTAR FASCIA PARTIAL SPX Left KNEE ARTHROSCOP MENISCUS REPAIR MED/LAT Left LACERATIONS tendon laceration of right 5th finger LIPOMA (MEDIUM) Bilateral arm REMOVAL OF HEEL SPUR Left REPAIR OF SHOULDER rotator cuff, torn and detach labrium REVISE MEDIAN N/CARPAL TUNNEL SURG VASECTOMY Current Outpatient Medications Medication Sig esomeprazole (NEXIUM) 20 mg capsule Take 20 mg by mouth once daily. fexofenadine HCl (TERRI ODT ORAL) Take by mouth once daily. buPROPion HCL, smoking deter, 150 mg tab ER 12 hr Take 150 mg by mouth once daily. (Patient not taking: Reported on 02/19/2023) dulaglutide (TRULICITY) 0.75 mg/0.5 mL pen injector Inject 0.75 mg subcutaneously one time a week. (Patient not taking: Reported on 02/19/2023) busPIRone (BUSPAR) 10 mg tablet Take 10 mg by mouth once daily. (Patient not taking: Reported on 02/19/2023) No current facility-administered medications for this visit. ALLERGIES: Animal Dander, House Dust, Percocet [Oxycodone-Acetaminophen], and Vicodin [Hydrocodone-Acetaminophen] PERSONAL HISTORY: Social History Tobacco Use Smoking status: Never Smokeless tobacco: Never Vaping Use Vaping Use: Some days Substances: CBD Substance Use Topics Alcohol use: Yes Alcohol/week: 3.0 standard drinks Types: 3 Cans of beer per week Comment: 2-3 weekly FAMILY HISTORY Problem Relation Age of Onset Diabetes Paternal Grandmother REVIEW OF SYMPTOMS: The review of systems data was entered by the nurse and reviewed by me There are no exam notes on file for this visit. PHYSICAL EXAMINATION: General: The patient is 42 year old male, well nourished, well hydrated in no acute distress. The patient is oriented to time, place, and person. VITALS: Blood pressure 136/80, pulse 89, temperature 36.7 C (98.1 F), height 177.8 cm (5' 10), weight (!) 169.2 kg (373 lb), SpO2 100 %. Body mass index is 53.52 kg/m . Head: Normal cephalic, atraumatic Eyes: pupils are equally round, sclera are clear/anicteric Neck is supple with no tracheal deviation Respiratory: Normal respiratory excursion and pattern. Abdominal exam: benign Extremities: fibrofatty skin lesion protruding from inferior to right buttock - no clubbing, cyanosis or edema. Neuro: non focal Psych: normal mood Assessment IMPRESSION: localized swelling PLAN: I have discussed the above with the patient. I have offered excision of this fibrofatty skin protrusion. I have explained the procedure to the patient. I have counseled the patient as to the risks of the procedure, including but not limited to: infection, bleeding, injury to any blood vessels/nerves, scar tissue, wound infections, complications of anesthesia, etc. - the patient understands. The patient wishes to proceed. I have answered all questions to the patient s satisfaction and the patient has no further questions. I have confirmed and edited as necessary, the PFSH and ROS obtained by others. . Diagnoses: (R22.9) Localized superficial swelling, mass, or lump Return to Clinic: The patient will be schedule for the above procedure in the office using local anesthesia. Medical Decision Making: Risk: Low: Low risk from testing/treatment Medical Decision Making Level: 2 - Straightforward Heidi Valera MD [facility] noteNo assessment information availableWPaulding County Hospital Work Phone: Evaluation note* Diagnosis Onset Date Resolution Status Medial epicondylitis, right elbow acute Olecranon bursitis, right elbow acute Right lateral epicondylitis acute [facility] Work Phone: Evaluation note* Diagnosis Localized superficial swelling, mass, or lump [facility] Diagnosis Status post skin and subcutaneous tissue surgery- Primary Other postprocedural status documented in this [facility]* Diagnosis Lipoma of torso- Primary Dysesthesia Disturbance of skin sensation [facility] Diagnosis Lipoma of torso- Primary [facility]* Diagnosis Status post skin and subcutaneous tissue surgery- Primary Other postprocedural status [facility] this [facility] Author Angela Fernandez [facility] Note Date/Time May 18, 2025 8:53am [facility] [address] [place] [address] OFFICE VISIT Date of Service: 05/18/25 MR#: [id number] Acct: [id number] Name: MC BACH Rep #: [id number] : 1980 Provider: NINFA Fernandez Age/Sex: 44/M Location: [facility] Status: Signed Intake Vital Signs 01/29/25 08:21 04/09/25 11:07 05/18/25 08:39 Height 5 ft 10 in 5 ft 10 in 5 ft 10 in Weight: 384 lb BMI 55.0 BP 131/83 H Respiration 16 Pulse 67 Temp 97.8 F Temp Source Temporal Pulse Oximetry (%) 97 Oxygen Delivery Method room air Intake Visit Reasons: 3 M FU Chief Complaint: follow-up Medication Specialist Required: No Accompanied by: Self Is patient in pain?: No Allergies Environmental Allergies: Uncoded (dust mites) Allergy (Mild, Verified 04/09/25 11:14) Itching animal dander Allergy (Verified 04/09/25 11:14) Other oxycodone HCl (From Percocet) Allergy (Verified 04/09/25 11:14) Other hydrocodone bitartrate (From Vicodin) Adverse Reaction (Verified 04/09/25 11:14) Itching Medications ?Medication ?Instructions ?Recorded ?Confirmed ?Type fexofenadine 180 mg tablet 180 mg PO DAILY allergies 0 05/11/20 05/18/25 History (Terri Allergy) esomeprazole magnesium 40 mg 40 mg PO QDAY #90 caps 05/18/25 Rx capsule,delayed release PFSH Medical History Wears glasses Sleep apnea History of lipoma Olecranon bursitis, right elbow Medial epicondylitis, right elbow Right lateral epicondylitis Depression Anxiety Alcohol use Hx of impaired glucose tolerance Gastric reflux History of hiatal hernia Non-smoker CPAP (continuous positive airway pressure) dependence Shortness of breath on exertion Leg cramps History of pain when walking History of edema History of stress test neck/back pain Knee pain Shoulder pain Surgical History Hx of arthroscopy of left knee S/P vasectomy History of carpal tunnel surgery History of rotator cuff surgery planter facia release Family History Mother Diabetes Depression Father Alcoholism Social History Smoking Status: Never smoker alcohol intake: current alcohol intake frequency: a few times a month HPI HPI Chief Complaint: follow-up Details: OV 01/29/2025 44-year-old male presents for follow-up post procedure. He reports experiencinggreater than 2 weeks of diarrhea April 2024 which he felt was secondary to foodpoisoning and treated with antibiotics. Fecal calprotectin was elevated to 618 at that time and repeat fecal calprotectin is 62. Colonoscopy and EGD were performed 01/08/2025. The esophageal biopsies revealed rare eosinophils, this maybe secondary to irritation, inflammation, or an allergic type reaction. However, having a few of them, what we call open rare can be a normal finding or just a sign of some mild irritation from acid reflux or possibly food induced. No cancer or precancerous cells were noted. Colonoscopy revealed a tubular adenoma, random biopsies were unremarkable; it is recommended he repeat colonoscopy in 5 years. He reports intermittent breakthrough symptoms of GERD and inability to miss a dose of esomeprazole. I have increased esomeprazole to 40 mg once daily. In terms of liver steatosis noted on prior CT scan 09/24/2024. Labs reveal immunity to hepatitis A and B. CBC and CMP are unremarkable. FibroScan was performed 11/11/2024 and revealed mild fibrosis with mild liver fat. I recommend dietary and lifestyle modifications to promote weight loss. He should repeat FibroScan in 1 year. He will follow-up with his insurance and review covered medications to assist with weight loss. He will follow-up in the office in 3 months. Increase Nexium to 40mg daily Contact insurance to discuss covered medications to assist with weight loss - Please call patient and advise his insurance has denied the GLP-1 reporting they only provide coverage for these medications for Diabetes. I recommend he schedule a consult with the non-surgical weight loss clinic at [facility] to discuss other potential treatment options for weight loss. Referral has been placed. Bariatric Surgery [facility] & Non-surgical weight loss [address], [place] [address] Patient Brochure for non-surgical weight loss - view the following link to learnmore [email or web address] CBC: 04/09/2025 HGB 13.9, PLT 249 BMP: 04/09/2025 A1C: 01/30/2025 5.9 TSH: 01/30/2025 WNL WEIGHT: 384.8lb BMI 01/29/2025 382.8lbs - has not consulted - has not had a drop of alcohol since September 2024, was drinking at least 6 drinks a week - denies any pain - denies any diarrhea - denies any HB on Nexium 40mg daily - he reports he is reading labels now and is making his own bread - rarely dining out now - he reports an increase in fruits and vegetables - when drinking pop he is drinking only beverages with cane sugar - he has started waling a couple nights a week - Advil and Aleve frequently, due to left knee pain ROS Const Constitutional: No fatigue, fever(s) or weight change ENT ENT: No difficulty swallowing Gastro GI: Positive for bloating; No abdominal pain, belching, change in bowel habits, change in stool character, coffee ground emesis, constipation, cramping, diarrhea, heartburn, difficulty swallowing, feeling full early, excessive flatus, incontinent of stools, Vomiting blood/hematemesis, Blood in stool, loose stools, Black,tarry stools, nausea/dyspepsia, pain with swallowing, vomiting or other Musc Musculoskeletal: Positive for joint pain, back pain, joint swelling and stiffness Skin Skin: No yellowing of the eye or itchy eyes Psych Psychiatric: Positive for anxiety and No depression Endo Endocrine: No fatigue or weight change Aller/Imm Allergy/Immunologic: No itchy eyes Aman/Lymp Hematologic/Lymphatic: No easy bleeding or easy bruising Exam Const General: cooperative, healthy appearing, no acute distress and well developed Nutritional Appearance: well nourished and obese morbidly obese Orientation: alert and oriented x3 HENMT Head: normocephalic Ears: hearing grossly normal bilaterally Mouth: moist mucous membranes Teeth and gingiva: dentition normal Eyes Conjunctivae: conjunctivae normal Sclera: sclerae normal Neck Neck: normal visual inspection, full ROM and trachea midline Resp Effort & Inspection: normal respiratory effort, able to speak in complete sentences and symmetric chest movement Neuro General: patient alert and patient oriented x3 Cranial Nerves: other (CN's grossly intact, non-focal exam) Cognition: normal cognition Speech: speech normal Psych Appearance: grossly normal and well kempt Affect: normal affect Attitude: cooperative Thought Process: normal Assessment and Plan Assessment and Plan (1) GERD (gastroesophageal reflux disease): Status: Acute (2) Steatosis, liver: Status: Acute (3) Morbid obesity: Status: Acute Medications: Refilled esomeprazole magnesium take once daily 30 minutes before breakfast daily 40 mg PO QDAY 90 caps 3RF Plan 44-year-old male presents for follow-up of GERD and MASLD. He reports resolution of heartburn symptoms with esomeprazole 40 mg once daily. In terms of MASLD, despite dietary changes he has not experienced any weight loss. I have recommended consultation with nonsurgical weight loss clinic at [facility]. We have discussed the importance of weight loss. He will continue to abstain from any alcohol intake and follow-up in the office in 6 months. Patient Instructions: Bariatric Surgery [facility] & Non-surgical weight loss [address], [place] [address] Patient Brochure for non-surgical weight loss - view the following link to learnmore [email or web address] - limit use of non-steroidal medications - FibroScan November 2025 - abstain from all alcohol intake - Follow-up in 6 months Plan Details Follow Up: 6 Months Coding Level of Care Code Off vis,est,level 3 Diagnoses GERD (gastroesophageal reflux disease) K21.9 Steatosis, liver K76.0 Morbid obesity E66.01 Clinical Quality Measures Smoking Screening Smoking Status: Never smoker 05/18/25 0853 <Electronically signed by Angela OCASIO> Date _ Angela OCASIO Cosigner Signature: Date (if applicable) CC: ~ [facility] Work Phone: Reason for referral (narrative)No reason for referral information availableWPaulding County Hospital Work Phone: Summary Purpose Family History No Family History Records Found Relationship Condition Age at Onset Recorded Date/T giovani mother Diabetes mellitus Unknown Relationship Condition Age at Onset Recorded Date/T giovani mother Diabetes mellitus Unknown Depression Unknown father Alcoholism Unknown Advance Directives No Advanced Directives Records FoundDocuments on File Type Date Recorded 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 Advance Directives and Livin g Will 05/08/2019 4:17 PM Advance Directive Response Recorded Date/ Time Advance Directives No January 20 5 8:17am Living Will No January 27, 2021 1 1:01am Power of Visual Associate No January 27, 2021 11:01am Advance Directive Response Recorded Date/ Time Advance Directives No January 20 5 7:17am Living Will No January 27, 2021 1 0:01am Power of Visual Associate No January 27, 2021 10:01am Advance Directive Response Recorded Date/ Time Advance Directives No January 20 5 8:17am Advance Directive Response Recorded Date/ Time Do you have a Healthcare Power of Visual Associate? No January 05, 2025 2:18pm Advance Directives No January 20 5 8:17am Advance Directive Response Recorded Date/ Time Do you have a Healthcare Power of Visual Associate? No January 05, 2025 2:18pm Do you have a Healthcare Power of Visual Associate? No April 09, 2025 11:07am Advance Directives No January 20 8:17am Advance Directive Response Recorded Date/ Time Do you have a Healthcare Power of Visual Associate? No April 09, 2025 11:07am Advance Directives No January 20 8:17am Discharge Instructions * Attachments The following attachments cannot be sent through Care Everywhere. * Chest Contusion (Kyrgyz) * Head Injury: Closed: General Info (Kyrgyz) * Hand Fracture (Kyrgyz) documented in this encounter Assessments Diagnosis Other closed fracture of metacarpal bone, unspecified metacarpal, unspecified portion of metacarpal, initial encounter- Primary Fall, initial encounter Closed head injury, initial encounter Contusion of left hip and thigh, initial encounter Contusion of chest wall, unspecified laterality, initial encounter Chief Complaint and Reason for Visit Chief Complaint RIGHT ELBOW INJURY Chief Complaint RIGHT ELBOW INJURY RIGHT ELBOW R ELBOW/RX HERE Reason for Visit Medial epicondylitis , right elbow Olecranon bursitis, right elbow Right lateral epicondylitis Chief Complaint Admit Date LEFT EPIGASTIC PAIN September 01, 2024 7:11am EPISGASTRIC LESION, LIPOMA VS HERNIA Homer garcia 2024 7:21am HIATAL HERINA November 04, 2024 7:41am EORDERS November 04, 2024 8:49am RIGHT KNEE November 17, 2024 7:4 9am room 1 November 17, 2024 8:1 1am Reason for Visit Admit Date Elevated fecal calprotectin October 7:41am Heartburn November 04, 2024 7:41am Morbid obesity November 04, 2024 7:41am Personal history of colon polyps, unspec ified November 04, 2024 7:41am Steatosis, liver November 04, 2024 7:41am MCL sprain of right knee November 17 7:49am Chief Complaint Admit Date HIATAL HERINA November 04, 2024 7:41am EORDERS November 04, 2024 8:49am RIGHT KNEE November 17, 2024 7:4 9am room 1 November 17, 2024 8:1 1am Test Result January 29, 2025 8:14a m INT LABS January 30, 2025 7:35a m Reason for Visit Admit Date Elevated fecal calprotectin October 7:41am Heartburn November 04, 2024 7:41am Morbid obesity November 04, 2024 7:41am Personal history of colon polyps, unspec ified November 04, 2024 7:41am Steatosis, liver November 04, 2024 7:41am MCL sprain of right knee November 17 7:49am Elevated fecal calprotectin January 08 7:58am Heartburn January 08, 2025 7:58am Personal history of colon polyps, unspec ified January 08, 2025 7:58am GERD (gastroesophageal reflux disease) M ay 2024 8:14am Morbid obesity January 29, 2025 8:14a m Steatosis, liver January 29, 2025 8:14a m Chief Complaint Admit Date Test Result January 29, 2025 8:14a m INT LABS January 30, 2025 7:35a m l arm pain April 09, 2025 11:0 6am Reason for Visit Admit Date Elevated fecal calprotectin January 08 7:58am Heartburn January 08, 2025 7:58am Personal history of colon polyps, unspec ified January 08, 2025 7:58am GERD (gastroesophageal reflux disease) M ay 2024 8:14am Morbid obesity January 29, 2025 8:14a m Steatosis, liver January 29, 2025 8:14a m Chief Complaint Admit Date Test Result January 29, 2025 8:14a m INT LABS January 30, 2025 7:35a m l arm pain April 09, 2025 11:0 6am CHEST PAIN May 12, 2025 12:10pm CHEST PAIN May 12, 2025 4:15pm 3 M FU May 18, 2025 8:12am Reason for Visit Admit Date GERD (gastroesophageal reflux disease) M ay 2024 8:14am Morbid obesity January 29, 2025 8:14a m Steatosis, liver January 29, 2025 8:14a m [facility]12[facility] Morbid obesity May 18, 2025 8:12am Steatosis, liver May 18, 2025 8:12am Chief Complaint Admit Date Test Result January 29, 2025 8:14a m INT LABS January 30, 2025 7:35a m l arm pain April 09, 2025 11:0 6am CHEST PAIN May 12, 2025 12:10pm CHEST PAIN May 12, 2025 4:15pm 3 M FU May 18, 2025 8:12am LEFT KNEE May 19, 2025 2:41pm Room 1 May 19, 2025 2:56pm Reason for Visit Admit Date GERD (gastroesophageal reflux disease) M ay 2024 8:14am Morbid obesity January 29, 2025 8:14a m Steatosis, liver January 29, 2025 8:14a m GERD (gastroesophageal reflux disease) S eptember 2024 8:12am Morbid obesity May 18, 2025 8:12am Steatosis, liver May 18, 2025 8:12am Osteoarthritis of left knee May 2:41pm Swelling of knee joint, left May 192024 2:41pm Reason for Referral Specialty Diagnoses / Procedures Referred By Fuad t Referred To Contact General Surgery Diagnoses Hiatal hernia Procedures CONSULT TO GENERAL SURGERY Heidi Valera MD [address] [place] [address] [address] Phone: [phone] Referral ID Status Reason Start Date Expiration Date Visits Requested Visits Authorized [id number] Authorized PCP Requested Referral 10/13/2024 10/13/2025 1 1 Additional Source Comments (unrecognized sect ion and content) No Status Records FoundNo Status Records FoundNo Status Records FoundNo Status Records Found INFORMATION SOURCE (unrecogn ized section and content) DATE CREATED AUTHOR 06/23/2019 [facility] DATE CREATED AUTHOR AUTHOR'S ORGANIZ ATION 10/10/2024 [facility] DATE CREATED AUTHOR AUTHOR'S ORGANIZ ATION 10/14/2024 [facility] DATE CREATED AUTHOR AUTHOR'S ORGANIZ ATION 07/23/2025 [facility] Reason for Visit (unrecogniz ed section and content) Reason Comments Fall Trauma Reason Comments Consult Skin tag Reason Comments Post Op Reason Comments Consult Lipoma removal, on l eft side of abdomen Reason Comments Post Op Lipoma torso Radu, Sarah R., INTERACTIVE MEDIA DESIGNER - 05/08/2019 3:32 PM EDTMuiGerri barrett CNP - 05/08/2019 3:30 PM EDT Procedure Notes (unrecognize d section and content) Laceration Repair: left forehead. Indications: laceration This is Mr. Bach, he is a 38yo male who sustained a laceration after falling off a ladder. Verbal consent was obtained. Left forehead was dressed. The laceration was approximately 2 cm. It was anesthetized with 1% Lidocaine without Epi. The wound was liberally cleansed with normal saline. It was inspected for foreign bodies to which there was none. It was then approximated with 6-0 prolene, on an interrupted fashion. The patient tolerated procedure well. EBL less than 10ml. Tetanus ordered. No need for antibiotics. Sutures out in 5-7 days. Procedures Laceration Repair Left Knee Indication: laceration This is Mr. Bach he is a 28 year old male who sustained a laceration after fall uli a ladder. Left knee was addressed, the wound measures 3 cm in length. It was anesthetized with 1% lidocaine without epi. The wound was then cleansed with saline. It was inspected with foreign bodies with none found. The wound was approximated using 3-0 ethilon, in a vertical mattress sutures. The patient tolerated this procedure without incident. VSS. EBL <10 ml. Tetanus ordered. No need for antibiotics. Sutures out in 7-10 days. documented in this encounter Dorina Juarez RN - 05/08/2019 7:50 PM SHILPATDorina Juarez RN - 05/08/2019 7:14 PM EDTGuerda Gordon RN - 05/08/2019 4:45 PM SHILPATDorina Juarez RN - 05/08/2019 2:29 PM EDT ED Notes (unrecognized secti on and content) All splinting complete by May COTTRELL; pt assisted into gowns , pt assisted to for transport to [facility]; pt assisted by this RN to [facility], on way to lobby pt reports nausea and vomits sm amt of clear fluid; pt reports feeling better after vomiting; pt assisted into car without difficulty; driving pt home May COTTRELL at bedside for volar splint and sling application and walking boot application; pt given scrub pants and gown d/t no clothing to go home in This nurse assisted pt with urinal, pt requested drink, Dr. Seals updated, ice chips provided per provider, and provider cartside for update, informed pt he is to remain lying flat until scans are cleared, pt remains laying flat, cartside, pt alert and oriented no distress, Dorina BRAVO updated Pt returns from CT; Sarah MEAT COUNTER WORKER in room for additional assessment of pt and to order additional xrays ED PROVIDER NOTE [facility] NAME: Mc Bach AGE: 38 y.o. : 1980 VISIT DATE: 05/08/2019 CSN: [id number] PCP: Luz Elena Cobos MD Chief Complaint Patient presents with Fall Trauma Complaint multiple trauma History of present illness's a 38-year-old male who was on letter 14 feet high at work and fell striking his head and neck left arm and right arm left hip and left knee. Was brought here by squad fully immobilized triaged to room 7 level 2 trauma activation was initiated. Patient's airway was intact GCS of 15 blood pressure 138/81 pulse 98 respirators 19 pulse ox of 97% afebrile. Trauma team was arrival. Complaint of headache neck pain left hand pain left elbow pain right hand pain wrist pain left knee pain left hip pain. On primary survey vitals were stable GCS of 15 obvious head injury noted left hand injury right hand injury and left hip and left knee lacerations of the forehead and left knee. No past medical history on file. No past surgical history on file. No family history on file. Social History Socioeconomic History Marital status: Spouse name: Not on file Number of children: Not on file Years of education: Not on file Highest education level: Not on file Occupational History Not on file Social Needs Financial resource strain: Not on file Food insecurity: Worry: Not on file Inability: Not on file Transportation needs: Medical: Not on file Non-medical: Not on file Tobacco Use Smoking status: Not on file Substance and Sexual Activity Alcohol use: Not on file Drug use: Not on file Sexual activity: Not on file Lifestyle Physical activity: Days per week: Not on file Minutes per session: Not on file Stress: Not on file Relationships Social connections: Talks on phone: Not on file Gets together: Not on file Attends yazidi service: Not on file Active member of club or organization: Not on file Attends meetings of clubs or organizations: Not on file Relationship status: Not on file Other Topics Concern Not on file Social History Narrative Not on file Previous Medications Medication Sig cetirizine (ZYRTEC) 10 MG tablet Take 10 mg by mouth daily as needed for allergies . esomeprazole (NEXIUM) 20 MG capsule Take 20 mg by mouth every morning before breakfast . metFORMIN (GLUCOPHAGE) 500 MG tablet Take 500 mg by mouth 2 (two) times a day with meals . sertraline (ZOLOFT) 100 MG tablet Take 100 mg by mouth daily . Allergies Allergen Reactions Percocet [Oxycodone-Acetaminophen] Itching Vicodin [Hydrocodone-Acetaminophen] Itching Review of Systems All other systems reviewed and are negative. Patient Vitals for the past 24 hrs: BP Temp Temp src Pulse Resp SpO2 05/08/19 1700 137/81 86 97 % 05/08/19 1655 126/80 94 18 99 % 05/08/19 1443 126/80 88 16 99 % 05/08/19 1429 125/81 86 18 97 % 05/08/19 1405 125/84 84 18 97 % 05/08/19 1357 131/81 93 16 97 % 05/08/19 1351 (!) 146/77 05/08/19 1345 79 18 05/08/19 1343 (!) 146/77 98.4 F (36.9 C) Oral 94 18 97 % Physical Exam Vitals signs and nursing note reviewed. Constitutional: General: He is in acute distress. Appearance: He is obese. HENT: Head: Comments: Laceration of the mid forehead was noted 2 cm full-thickness Nose: Nose normal. Mouth/Throat: Mouth: Mucous membranes are dry. Pharynx: Oropharynx is clear. Eyes: Extraocular Movements: Extraocular movements intact. Conjunctiva/sclera: Conjunctivae normal. Pupils: Pupils are equal, round, and reactive to light. Neck: Musculoskeletal: Normal range of motion. Cardiovascular: Rate and Rhythm: Normal rate and regular rhythm. Pulses: Normal pulses. Heart sounds: Normal heart sounds. Pulmonary: Effort: Pulmonary effort is normal. Breath sounds: Normal breath sounds. Abdominal: General: Abdomen is flat. Bowel sounds are normal. Palpations: Abdomen is soft. Musculoskeletal: Comments: Left hand is tender left elbow forearm reveals bruising right hand is tender wrist left hip is tender upon palpation left knee is tender Neurological: Mental Status: He is alert. Laboratory & Radiographic Imaging (if done): Results for orders placed or performed during the hospital encounter of 05/08/19 CBC Result Value Ref Range WBC 6.29 4.50 - 11.00 K/mcL RBC 5.01 4.50 - 5.90 M/mcL Hemoglobin 13.6 13.5 - 17.5 g/dL Hematocrit 42.9 41.0 - 53.0 % MCV 85.6 80.0 - 100.0 fL MCH 27.1 26.0 - 34.0 pg MCHC 31.7 31.0 - 37.0 g/dL Platelets 239 150 - 400 K/mcL RDW - CV 13.5 11.6 - 14.8 % MPV 10.1 9.0 - 15.5 fL Nucleated RBC 0.0 % Nucleated RBC Abs 0.00 0.00 - 0.00 K/mcL Comprehensive Metabolic Panel Result Value Ref Range Sodium 142 135 - 145 mmol/L Potassium 3.3 (L) 3.5 - 5.1 mmol/L Chloride 109 (H) 98 - 108 mmol/L Bicarbonate 24 21 - 32 mmol/L Anion Gap 12 10 - 20 mmol/L Glucose 92 65 - 99 mg/dL BUN 16 8 - 25 mg/dL Creatinine 1.07 0.50 - 1.30 mg/dL eGFR 88 >=60 mL/min/1.73 m2 eGFR 101 >=60 mL/min/1.73 m2 BUN/Creatinine Ratio 15.0 10.0 - 20.0 Total Protein 6.8 6.0 - 8.0 g/dL Albumin 3.7 3.2 - 5.2 g/dL Calcium 8.6 8.4 - 10.2 mg/dL Alkaline Phosphatase 60 40 - 140 U/L AST 28 0 - 45 U/L Total Bilirubin 0.6 0.0 - 1.3 mg/dL ALT 60 14 - 65 U/L Magnesium Level Result Value Ref Range Magnesium 2.0 1.6 - 2.4 mg/dL Phosphorus Result Value Ref Range Phosphorus 2.8 2.7 - 4.5 mg/dL APTT Result Value Ref Range APTT 24 23 - 34 seconds Alcohol, Medical Result Value Ref Range Alcohol (Medical) <10.00 <10.00 mg/dL Type and Screen Result Value Ref Range ABORh B Positive Antibody Screen Negative Specimen Expires 05/11/2019 23:59 EST POC Venous Blood Gas Panel-Pulm Result Value Ref Range pH, Venous 7.39 7.32 - 7.42 pCO2, Bernabe 42.2 41.0 - 51.0 mm Hg pO2, Bernabe 174 (H) 25 - 40 mm Hg Base Excess, Bernabe 0.4 -2.0 - 2.0 HCO3, Bernabe 25.6 24.0 - 28.0 mmol/L Hemoglobin, Blood Gas 14.4 13.5 - 18.0 g/dL Hematocrit, Calculated 44.2 41.0 - 53.0 % O2 Sat, Bernabe 99.4 % FIO2 0 IMV 0 TIDAL VOLUME 0 RESP RATE 0 ABORH Verification Result Value Ref Range ABORh B Positive Verification of ABORH ABO/Rh Verification XR Femur Left 2+ Views (Standard) Final Result No acute osseous abnormality. ST/[facility] Workstation ID: [id number] XR Ankle Left 3+ Views (Standard) Final Result Small rounded density projects over the plantar aponeurosis origin on the lateral view. Favor globular calcification or sequela of remote trauma. [place] less likely to represent an acute avulsed fracture. Please correlate with point tenderness. ST/[facility] Workstation ID: [id number] Foot Left 3+ Views (Standard) Final Result Indeterminate 5 mm rounded density projects over the origin of the plantar aponeurosis. Favored to relate to globular calcification or sequela of remote trauma. Cannot exclude acute avulsed fracture. No acute osseous abnormality seen elsewhere. ST/[facility] Workstation ID: [id number] XR Forearm Right 2 Views Final Result Question triquetrum fracture. No additional bony abnormality. Workstation ID: [id number] Hand Left 3+ Views (Standard) Final Result Normal left wrist and hand Workstation ID: [id number] Knee Left 2 Views (Standard) Final Result No acute fracture or traumatic malalignment. ST/[facility] Workstation ID: [id number] Wrist Left 3+ Views (Standard) Final Result Normal left wrist and hand Workstation ID: [id number] Wrist Right 3+ Views (Standard) Final Result Suspected nondisplaced fracture to the triquetrum, ulnar aspect. Workstation ID: [id number] CT Lumbar Spine Without Contrast Reconstructed Final Result Age-indeterminate left L5 pars articularis fracture without listhesis. No additional fractures identified. ST/[facility] Workstation ID: [id number] CT Thoracic Spine Without Contrast Reconstructed Final Result No acute fracture or traumatic malalignment. ST/[facility] Workstation ID: [id number] CT Angiogram Chest Abdomen Pelvis Final Result 1. No acute findings within the chest, abdomen and pelvis. 2. No acute aortic injury. 3. Hepatic steatosis. ST/[facility] Workstation ID: [id number] CT Cervical Spine Without Contrast Final Result 1. No acute fracture or traumatic malalignment. 2. Straightening of the cervical lordosis. ST/[facility] Workstation ID: [id number] CT Head Or Brain Without Contrast Final Result No intracranial hemorrhage or mass effect. ST/[facility] Workstation ID: [id number] [id number] Pelvis 1 View (Standard) Final Result Grossly, no acute osseous abnormality. ST/[facility] Workstation ID: [id number] XR Chest 1 View Final Result 1. No acute cardiopulmonary process. 2. No acute displaced rib fractures. ST/trn Workstation ID: [id number] US ED Fast Scan (Results Pending) Procedures MDM Number of Diagnoses or Management Options Closed head injury, initial encounter: established, improving Contusion of chest wall, unspecified laterality, initial encounter: established, improving Contusion of left hip and thigh, initial encounter: established, improving Fall from height of greater than 3 feet: established, improving Fall, initial encounter: established, improving Other closed fracture of metacarpal bone, unspecified metacarpal, unspecified portion of metacarpal, initial encounter: established, improving Diagnosis management comments: 1. Level 2 trauma activation was activated #2 the CAT scan of the head neck chest abdomen pelvis were cleared #3 secondary x-rays were negative aside from a right hand fracture #4 trauma team suggested discharge home with follow-up with orthopedics #5 patient was reexamined was able to be discharged home at the bedside Amount and/or Complexity of Data Reviewed Clinical lab tests: ordered and reviewed Tests in the radiology section of CPT : ordered and reviewed Tests in the medicine section of CPT : ordered and reviewed Discussion of test results with the performing providers: yes Decide to obtain previous medical records or to obtain history from someone other than the patient: yes Obtain history from someone other than the patient: yes Review and summarize past medical records: yes Discuss the patient with other providers: yes Independent visualization of images, tracings, or specimens: yes Risk of Complications, Morbidity, and/or Mortality Presenting problems: high Diagnostic procedures: high Management options: high The patient has been informed that they may have pre-hypertension or hypertension based on a blood pressure reading in the Emergency Department. I recommend that the patient call the primary care provider listed on their discharge instructions or a physician of their choice as soon as possible to arrange follow-up in the next 4 weeks for further evaluation of possible pre-hypertension or hypertension. . Clinical Impression: 1. Other closed fracture of metacarpal bone, unspecified metacarpal, unspecified portion of metacarpal, initial encounter 2. Fall from height of greater than 3 feet 3. Fall, initial encounter 4. Closed head injury, initial encounter 5. Contusion of left hip and thigh, initial encounter 6. Contusion of chest wall, unspecified laterality, initial encounter ED Disposition ED Disposition Condition Comment Discharge Stable Mc Bach discharged to home/self care in stable condition. Follow-up Information 1. Abhishek Syed MD. Specialty: Orthopedic Surgery [address] [place] [address] Contact information for after-discharge care Follow-up information has not been specified. New Prescriptions acetaminophen-codeine (TYLENOL #2) 300-15 mg per tablet Starting on 05/10/2019. Take 1 (one) tablet to 2 (two) tablets by mouth every 4 (four) hours as needed for pain (Days supply per fill: 20 pills Start: 05/10/19. Erick Seals MD 05/08/[address] with this RN Pt rolled for back assessment c-spine precautions maintained Bed: 07 Expected date: 05/08/19 Expected time: 1:38 PM Means of arrival: Comments: LEVEL 2 Trauma Activation Level: II Time of actvation: 13:36 38 y.o. 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 Gardner regarding pts XR findings. He sustained a right nondisplaced triquetrum fracture. The radiologist also commented on an indeterminate age 5mm density over plantar aponeurosis; however, d/t pts history of plantar fascial release surgery this is likely old. Pt will discharge home with splint, boot, and local wound care with bacitracin and can follow-up with ortho outpatient. Pt can follow-up with PCP for suture removal. I updated the pt on the plan of care. I also spoke with the bedside RN to place a splint on right hand and a surgical fracture boot on left foot. Nursing will get pt up and make sure he is adequately up and moving before discharging home. I personally updated Dr. Seals on the plan. He will refer him to follow-up with ortho for injuries. Associated Problem(s): Fall from height of greater than 3 feet Pt suffered fall from approximately 14 feet off of ladder. No LOC. He reports significant left hip/knee pain. XR's ordered. CT hakns-scan. Lacerations of left forehead and left knee approximated with sutures. Tetanus ordered. documented in this encounter Goals (unrecognized section and content) Goals may be documented in a n alternate sectionGoals may be documented in an alternate sectionGoals may be documented in an alternate sectionGoals may be documented in an alternate sectionGoals may be documented in an alternate sectionGoals may be documented in an alternate sectionGoals may be documented in an alternate sectionGoals may be documented in an alternate section Source Comments (unrecognize d section and content) In the event this informatio n is protected by the Federal Confidentiality of Alcohol and Drug Abuse Patient Records regulations: The Federal rules restrict any use of the information to criminally investigate or prosecute any alcohol or drug abuse patient.[facility] the event this information is protected by the Federal Confidentiality of Alcohol and Drug Abuse Patient Records regulations: The Federal rules restrict any use of the information to criminally investigate or prosecute any alcohol or drug abuse patient.[facility] the event this information is protected by the Federal Confidentiality of Alcohol and Drug Abuse Patient Records regulations: The Federal rules restrict any use of the information to criminally investigate or prosecute any alcohol or drug abuse patient.[facility] the event this information is protected by the Federal Confidentiality of Alcohol and Drug Abuse Patient Records regulations: The Federal rules restrict any use of the information to criminally investigate or prosecute any alcohol or drug abuse patient.[facility] the event this information is protected by the Federal Confidentiality of Alcohol and Drug Abuse Patient Records regulations: The Federal rules restrict any use of the information to criminally investigate or prosecute any alcohol or drug abuse patient.[facility] Care Teams (unrecognized sec tion and content) Relationship Counselor Relationship Specialty Start Date End Date Luz Elena Cobos [address] [place] [address] PCP - General 01/29/23 Relationship Counselor Relationship Specialty Start Date End Date Luz Elena Cobos [address] [place] [address] PCP - General 01/29/23 Relationship Counselor Relationship Specialty Start Date End Date Luz Elena Cobos [address] [place] [address] PCP - General 01/29/23 Relationship Counselor Relationship Specialty Start Date End Date Luz Elena Cobos [address] [place] [address] PCP - General 01/29/23 Relationship Counselor Relationship Specialty Start Date End Date Luz Elena Cobos [address] [place] [address] PCP - General 01/29/23 Team Status: Active Member Role Status Dates Dr. Luz Elena Cobos MD Family Provider Active Dr. Luz Elena Cobos MD Primary Care Provider Active Team Status: Inactive Member Role Status Dates Dr. Luz Elena Cobos MD Primary Care Provider Active Start: September 01, 2024 End: September 01, 2024 Dr. Luz Elena Cobos MD Attending Provider Active St art: September 01, 2024 End: September 01, 2024 Dr. Luz Elena Cobos MD Referring Provider Active St art: September 01, 2024 End: September 01, 2024 Team Status: Inactive Member Role Status Dates Dr. Luz Elena Cobos MD Primary Care Provider Active Start: September 24, 2024 End: September 24, 2024 Dr. Luz Elena Cobos MD Attending Provider Active St art: September 24, 2024 End: September 24, 2024 Dr. Luz Elena Cobos MD Referring Provider Active St art: September 24, 2024 End: September 24, 2024 Team Status: Inactive Member Role Status Dates Dr. Luz Elena Cobos MD Primary Care Provider Active Start: November 04, 2024 End: November 04, 2024 Dr. Luz Elena Cobos MD Referring Provider Active St art: November 04, 2024 End: November 04, 2024 Angela Fernandez MEAT COUNTER WORKER-C Attending Provider Active Start: November 04, 2024 End: November 04, 2024 Team Status: Inactive Member Role Status Dates Dr. Luz Elena Cobos MD Primary Care Provider Active Start: November 04, 2024 End: November 04, 2024 Angela Fernandez MEAT COUNTER WORKER-C Attending Provider Active Start: November 04, 2024 End: November 04, 2024 Angela Fernandez MEAT COUNTER WORKER-C Referring Provider Active Start: November 04, 2024 End: November 04, 2024 Team Status: Active Member Role Status Dates Dr. Luz Elena Cobos MD Primary Care Provider Active Start: November 05, 2024 Angela Fernandez MEAT COUNTER WORKER-C Attending Provider Active Start: November 05, 2024 Angela Fernandez MEAT COUNTER WORKER-C Referring Provider Active Start: November 05, 2024 Team Status: Inactive Member Role Status Dates Dr. Luz Elena Cobos MD Primary Care Provider Active Start: November 17, 2024 End: November 17, 2024 Dr. Luz Elena Cobos MD Referring Provider Active St art: November 17, 2024 End: November 17, 2024 Kamini Castillo MEAT COUNTER WORKER-C Attending Provider Active Start: November 17, 2024 End: November 17, 2024 Team Status: Inactive Member Role Status Dates Dr. Luz Elena Cobos MD Primary Care Provider Active Start: November 17, 2024 End: November 17, 2024 Dr. Kal Martinez MD Attending Provider Active S tart: November 17, 2024 End: November 17, 2024 Team Status: Inactive Member Role Status Dates Dr. Luz Elena Cobos MD Primary Care Provider Active Start: November 05, 2024 End: November 05, 2024 NINFA Vieira Attending Provider Active Start: November 05, 2024 End: November 05, 2024 NINFA Vieira Referring Provider Active Start: November 05, 2024 End: November 05, 2024 Team Status: Active Member Role Status Dates Dr. Luz Elena Cobos MD Primary Care Provider Active Team Status: Inactive Member Role Status Dates Dr. Luz Elena Cobos MD Primary Care Provider Active Start: January 08, 2025 End: January 08, 2025 Dr. Luz Elena Cobos MD Referring Provider Active St art: January 08, 2025 End: January 08, 2025 Dr. Charles Dash DO Attending Provider Active Start: January 08, 2025 End: January 08, 2025 Team Status: Active Member Role Status Dates Dr. Luz Elena Cobos MD Primary Care Provider Active Start: January 08, 2025 Dr. Luz Elena Cobos MD Referring Provider Active St art: January 08, 2025 Dr. Charles Dash DO Attending Provider Active Start: January 08, 2025 Dr. Charles Dash DO Other Provider Active St art: January 08, 2025 Team Status: Inactive Member Role Status Dates Dr. Luz Elena Cobos MD Primary Care Provider Active Start: January 29, 2025 End: January 29, 2025 Dr. Luz Elena Cobos MD Referring Provider Active St art: January 29, 2025 End: January 29, 2025 NINFA Vieira Attending Provider Active Start: January 29, 2025 End: January 29, 2025 Team Status: Inactive Member Role Status Dates Dr. Luz Elena Cobos MD Primary Care Provider Active Start: January 30, 2025 End: January 30, 2025 NINFA Vieira Attending Provider Active Start: January 30, 2025 End: January 30, 2025 NINFA Vieira Referring Provider Active Start: January 30, 2025 End: January 30, 2025 Team Status: Active Member Role/Relationship Status Dates Dr. Luz Elena Cobos MD Primary Care Provider Active Team Status: Inactive Member Role/Relationship Status Dates Dr. Luz Elena Cobos MD Primary Care Provider Active Start: January 08, 2025 End: January 08, 2025 Dr. Luz Elena Cobos MD Referring Provider Active St art: January 08, 2025 End: January 08, 2025 Dr. Charles Dash DO Attending Provider Active Start: January 08, 2025 End: January 08, 2025 Team Status: Active Member Role/Relationship Status Dates Dr. Luz Elena Cobos MD Primary Care Provider Active Start: January 08, 2025 Dr. Luz Elena Cobos MD Referring Provider Active St art: January 08, 2025 Dr. Charles Dash DO Attending Provider Active Start: January 08, 2025 Dr. Charles Dash DO Other Provider Active St art: January 08, 2025 Team Status: Inactive Member Role/Relationship Status Dates Dr. Luz Elena Cobos MD Primary Care Provider Active Start: January 29, 2025 End: January 29, 2025 Dr. Luz Elena Cobos MD Referring Provider Active St art: January 29, 2025 End: January 29, 2025 NINFA Vieira Attending Provider Active Start: January 29, 2025 End: January 29, 2025 Team Status: Inactive Member Role/Relationship Status Dates Dr. Luz Elena Cobos MD Primary Care Provider Active Start: January 30, 2025 End: January 30, 2025 NINFA Vieira Attending Provider Active Start: January 30, 2025 End: January 30, 2025 NINFA Vieira Referring Provider Active Start: January 30, 2025 End: January 30, 2025 Team Status: Inactive Member Role/Relationship Status Dates Dr. Luz Elena Cobos MD Primary Care Provider Active Start: April 09, 2025 End: April 09, 2025 Michoacano Castillo MD Referring Provider Active Star t: April 09, 2025 End: April 09, 2025 Michoacano Castillo MD Emergency Provider Active Star t: April 09, 2025 End: April 09, 2025 Team Status: Inactive Member Role/Relationship Status Dates Dr. Luz Elena Cobos MD Primary Care Provider Active Start: January 29, 2025 End: January 29, 2025 Dr. Luz Elena Cobos MD Referring Provider Active St art: January 29, 2025 End: January 29, 2025 NINFA Vieira Attending Provider Active Start: January 29, 2025 End: January 29, 2025 Team Status: Inactive Member Role/Relationship Status Dates Dr. Luz Elena Cobos MD Primary Care Provider Active Start: January 30, 2025 End: January 30, 2025 NINFA Vieira Attending Provider Active Start: January 30, 2025 End: January 30, 2025 NINFA Vieira Referring Provider Active Start: January 30, 2025 End: January 30, 2025 Team Status: Inactive Member Role/Relationship Status Dates Dr. Luz Elena Cobos MD Primary Care Provider Active Start: April 09, 2025 End: April 09, 2025 Michoacano Castillo MD Attending Provider Active Star t: April 09, 2025 End: April 09, 2025 Michoacano Castillo MD Referring Provider Active Star t: April 09, 2025 End: April 09, 2025 Michoacano Castillo MD Emergency Provider Active Star t: April 09, 2025 End: April 09, 2025 Team Status: Active Member Role/Relationship Status Dates Dr. Luz Elena Cobos MD Primary Care Provider Active Start: May 12, 2025 Dr. Luz Elena Cobos MD Attending Provider Active St art: May 12, 2025 Dr. Luz Elena Cboos MD Referring Provider Active St art: May 12, 2025 Team Status: Active Member Role/Relationship Status Dates Dr. Luz Elena Cobos MD Primary Care Provider Active Start: May 12, 2025 Dr. Luz Elena Cobos MD Referring Provider Active St art: May 12, 2025 Dr. Luz Elena Cobos MD Other Provider Active Start: May 12, 2025 Dr. Radha Wren MD Attending Provider Active Start: May 12, 2025 Team Status: Inactive Member Role/Relationship Status Dates Dr. Luz Elena Cobos MD Primary Care Provider Active Start: May 18, 2025 End: May 18, 2025 Dr. Luz Elena Cobos MD Referring Provider Active St art: May 18, 2025 End: May 18, 2025 NINFA Vieira Attending Provider Active Start: May 18, 2025 End: May 18, 2025 Team Status: Active Member Role/Relationship Status Dates Dr. Luz Elena Cobos MD Primary Care Provider Active Start: May 19, 2025 Dr. Luz Elena Cobos MD Referring Provider Active St art: May 19, 2025 NINFA Corona Attending Provider Active Start: May 19, 2025 Team Status: Inactive Member Role/Relationship Status Dates Dr. Luz Elena Cobos MD Primary Care Provider Active Start: May 19, 2025 End: May 19, 2025 Dr. Kal Martinez MD Attending Provider Active S tart: May 19, 2025 End: May 19, 2025 Team Status: Inactive Member Role/Relationship Status Dates Dr. Luz Elena Cobos MD Primary Care Provider Active Start: May 19, 2025 End: May 19, 2025 Dr. Luz Elena Cobos MD Referring Provider Active St art: May 19, 2025 End: May 19, 2025 NINFA Corona Attending Provider Active Start: May 19, 2025 End: May 19, 2025 Team Status: Inactive Member Role/Relationship Status Dates Dr. Luz Elena Cobos MD Primary Care Provider Active Start: May 12, 2025 End: May 12, 2025 Dr. Luz Elena Cobos MD Attending Provider Active St art: May 12, 2025 End: May 12, 2025 Dr. Luz Elena Cobos MD Referring Provider Active St art: May 12, 2025 End: May 12, 2025 FOR RECORDS PERTAINING TO PATIENTS WHO ARE OR HAVE BEEN ENROLLED IN A CHEMICAL DEPENDENCY/SUBSTANCEABUSE PROGRAM, SOME INFORMATION MAY BE OMITTED. This clinical summary was aggregated from multiple sources. Caution should be exercised in using it in the provision of clinical care. This summary normalizes information from multiple sources, and as a consequence, information in this document may materially change the coding, format and clinical context of patient data. In addition, data may be omitted in some cases. CLINICAL DECISIONS SHOULD BE BASED ON THE PRIMARY CLINICAL RECORDS. [facility] [employer] provides no warranty or guarantee of the accuracy or completeness of information in this document.
== END | disposition home or self-care (01) ==
LOC: MRI 07:16
PROVIDERS: PCP Family Medicine; Referring Provider Nurse Practitioner Family; Visit Provider Nurse Practitioner Family
DX: M23.92 Unspecified internal derangement of left knee (principal); M25.462 Effusion, left knee; M17.12 Unilateral primary osteoarthritis, left knee
CPT/HCPCS: 73721